=== PATIENT | male | born 1945 | race Caucasian/White ===

== ENCOUNTER 2017-02-20 13:34 | Emergency (ER) | payer OTHER ==
[~2017-02-20] VITALS: Ht 188 cm; Wt 127.9 kg
[~2017-02-20 13:34] MED LIST: ALLO300T PO; ASPI-630 PO; CIPR500T94 PO; CLON0.1T PO; DIGO125T16 PO; DILT120C80 PO; FLUT100D IH; FLUT16SP2 NS; FOLI1TAB16 PO; FURO40TA4 PO; GABA-586 PO; IBUP-1060 PO; LORA1TAB PO; LOSA25TA4 PO; METO25TA4 PO; POTA10TA31 PO; PRED20TA PO; RISP0.5T3 PO; SILV20CR14 TP; SILV25CR7 TP; VENTOLIN HFA18 GM IH; VENTOLIN HFA18 GM INH; WARF2TAB7 PO; [UNRECOGNIZED DRUG - CODE] MC
[2017-02-20 13:47] VITALS: BP 145/74
[2017-02-20] MEDS ORDERED: ceFAZolin IM 1 GM VIAL IM ONE (14:00)
[2017-02-20] MEDS ORDERED: CEPH-264 PO (14:30)
--- NOTE | 2017-02-20 14:30 | PHYS DOC ---
Past Medical History Past Medical History: A-Fib, COPD, Diabetes-Type I, Hypertension, Other Additional Past Medical Histor: psychosis Past Surgical History: Other Additional Past Surgical Histo: hernia, drained left hip, L foot surgery Alcohol Use: Rarely Drug Use: None Adult General Chief Complaint Chief Complaint: LOWER EXTREMITY SWELLING [facility] HPI Patient is a 71 year old male presenting to the emergency department for evaluation of bilateral leg wounds that are chronic in nature. He has obvious Edema and chronic stasis wounds. Patient denies any fevers chills nausea vomiting or other systemic symptoms. He says that he is on antibiotics all the time and he has followed with wound care in the past but he is not currently. His wounds are weeping laterally. Patient admits that his legs looked the same as they usually do. The nurse who is taking care of patient says that his legs look like there baseline as well. Review of Systems Review of Systems Constitutional: Denies fever or chills [] Cardiovascular: No additional information not addressed in HPI [] GI: Denies abdominal pain, nausea, vomiting, bloody stools or diarrhea [] Musculoskeletal: Denies back pain or joint pain [] Integument: Positive redness and swelling Neurologic: Denies headache, focal weakness or sensory changes [] Current Medications Current Medications Current Medications Medications (Trade) Dose Ordered Sig/Rachel Start Time Stop Time Status Last Admin Dose Admin Cefazolin Sodium (Ancef Im) 1 gm 1X ONCE 02/20/17 14:00 02/20/17 14:01 DC 02/20/17 14:11 1 GM Allergies Allergies Allergies Coded Allergies Type Severity Reaction Last Updated Verified No Known Drug Allergies 12/27/13 No Physical Exam Physical Exam Constitutional: Well developed, well nourished, no acute distress, non-toxic appearance. [] Cardiovascular:Heart rate regular rhythm, no murmur [] Lungs & Thorax: Bilateral breath sounds clear to auscultation [] Abdomen: Bowel sounds normal, soft, no tenderness, no masses, no pulsatile masses. [] Skin: Warm, dry, no erythema, no rash. [] Back: No tenderness, no CVA tenderness. [] Extremities: His legs are swollen bilaterally approximately 3-4+ edema. On the lateral lower leg bilaterally has some weeping but there was no purulent discharge. There is no warmth rather it is diffusely red and it is not painful to palpation. He has 2+ dorsalis pedis pulse bilaterally. Neurologic: Alert and oriented X 3, normal motor function, normal sensory function, no focal deficits noted. [] Current Patient Data Vital Signs Vital Signs Date Time Temp Pulse Resp B/P (MAP) Pulse Ox O2 Delivery O2 Flow Rate FiO2 02/20/17 13:47 98.2 69 17 145/74 (97) 96 Room Air 98.2 EKG EKG [] Radiology/Procedures Radiology/Procedures [] Course & Med Decision Making Course & Med Decision Making Patient has bilateral lower extremity swelling and chronic wounds. Febrile and he says his legs do not look any different than usual. I see no reason for inpatient admission given he is afebrile and he is basically at his baseline. I did not get a phone call from the facility or the doctor about specific care they were hoping for. At this point I think he may benefit from a short course of by mouth antibiotics and recommended wound care as an outpatient and to come back with worsening pain fevers vomiting or other general concerns. Patient was quite pleased that I'm going to send him home as he did not want to stay in the hospital and he says overall he feels at his baseline. Patient aware and agreeable with plan for discharge and verbalized understanding of the need for short-term follow-up in the strict ER return precautions discussed as above. Dragon Disclaimer Dragon Disclaimer This electronic medical record was generated, in whole or in part, using a voice recognition dictation system. Departure Departure Impression: Primary Impression: Peripheral edema Additional Impression: Cellulitis of leg Disposition: 01 HOME, SELF-CARE Condition: GOOD Referrals: GAYR HINTON MD (PCP) Patient Instructions: Cellulitis Additional Instructions: GET A WOUND RECHECK IN 2 DAYS. COME BACK TO THE ED WITH ANY NEW OR WORSENING SYMPTOMS. THANK YOU! Scripts Cephalexin (KEFLEX) 500 Mg Capsule 1 CAP PO BID, #10 CAP Prov: EVARISTO JOHNSON DO 02/20/17 Problem Qualifiers EVARISTO JOHNSON DO Feb 20, 2017 14:30
== END 2017-02-20 14:46 | disposition home or self-care (01) ==
LOC: ER 13:34
DX: L03.116 Cellulitis of left lower limb (principal); L03.115 Cellulitis of right lower limb; I48.91 Unspecified atrial fibrillation; J44.9 Chronic obstructive pulmonary disease, unspecified; E10.9 Type 1 diabetes mellitus without complications; I10 Essential (primary) hypertension; Z90.89 Acquired absence of other organs
CPT/HCPCS: 96372; 99284; J0690

== ENCOUNTER → 2018-04-21 | Outpatient (CLI) | payer OTHER ==
[~2018-04-21] MED LIST changes: +CEPH-264 PO; -DIGO125T16 PO; +DIGO125T79 PO; -LOSA25TA4 PO; +LOSA25TA5 PO; -WARF2TAB7 PO; +WARF2TAB96 PO
== END | disposition home or self-care (01) ==
LOC: PMGWOUND 08:31
PROVIDERS: ATTEND Emergency Medicine Undersea and Hyperbaric Medicine
DX: E11.622 Type 2 diabetes mellitus with other skin ulcer (principal); I87.313 Chronic venous hypertension (idiopathic) with ulcer of bilateral lower extremity; L97.211 Non-pressure chronic ulcer of right calf limited to breakdown of skin; L97.221 Non-pressure chronic ulcer of left calf limited to breakdown of skin; I70.203 Unspecified atherosclerosis of native arteries of extremities, bilateral legs; I89.0 Lymphedema, not elsewhere classified; E11.51 Type 2 diabetes mellitus with diabetic peripheral angiopathy without gangrene; E11.39 Type 2 diabetes mellitus with other diabetic ophthalmic complication; H40.9 Unspecified glaucoma; E11.42 Type 2 diabetes mellitus with diabetic polyneuropathy; I11.0 Hypertensive heart disease with heart failure; I50.33 Acute on chronic diastolic (congestive) heart failure; I48.2 Chronic atrial fibrillation; G89.29 Other chronic pain; M54.9 Dorsalgia, unspecified; F20.9 Schizophrenia, unspecified; M19.90 Unspecified osteoarthritis, unspecified site; G47.33 Obstructive sleep apnea (adult) (pediatric); M10.9 Gout, unspecified; E78.5 Hyperlipidemia, unspecified; I25.10 Atherosclerotic heart disease of native coronary artery without angina pectoris; E66.01 Morbid (severe) obesity due to excess calories; Z68.36 Body mass index [BMI] 36.0-36.9, adult; Z87.891 Personal history of nicotine dependence; Z79.4 Long term (current) use of insulin; Z90.89 Acquired absence of other organs; Z86.73 Personal history of transient ischemic attack (TIA), and cerebral infarction without residual deficits
CPT/HCPCS: 99214; G0463

== ENCOUNTER → 2018-04-28 | Outpatient (CLI) | payer OTHER ==
--- NOTE | 2018-04-28 14:54 | RAD ---
Bilateral lower extremity arterial ultrasound with LAURA measurements, 04/28/2018: HISTORY: Nonhealing wounds Duplex evaluation of the major arteries in both lower extremities was performed including grayscale, color-flow and spectral Doppler analysis. There are mild scattered atherosclerotic plaques bilaterally. On the right, the common femoral, superficial femoral and popliteal Doppler waveforms are all monophasic. No significant focal velocity acceleration is seen in these vessels to suggest high-grade focal stenosis. Patent right anterior tibial and posterior tibial arteries are present also demonstrating monophasic Doppler waveforms. A patent peroneal artery could not be visualized. The right dorsalis uterus artery is patent with a dampened monophasic Doppler waveform. The peak systolic velocity in that vessel is 32 cm/s. On the left, the common femoral, superficial femoral and popliteal arteries all demonstrate monophasic Doppler waveforms. No significant focal velocity acceleration is seen to suggest high-grade stenosis. Patent posterior tibial and anterior tibial arteries are present in the left lower leg demonstrating monophasic Doppler waveforms. A patent left peroneal artery could not be visualized. The left dorsalis pedis artery demonstrates a monophasic Doppler waveform, of better amplitude and demonstrating a better systolic upstroke then on the right. The peak systolic velocity in the left dorsalis pedis artery is 104 cm/s. LAURA measurements were attempted. We were unable to compress the ankle arteries with high pressures. This is typically due to vascular calcification. Accurate LAURA measurements cannot be obtained in this situation. IMPRESSION: 1. Monophasic Doppler waveforms throughout both lower extremities raising the possibility of aortoiliac inflow disease. 2. Mild to moderate scattered atherosclerotic plaquing with no duplex evidence of high-grade femoral-popliteal stenosis on either side. 3. Nonvisualization of the peroneal arteries in both lower legs. 4. Moderate degradation of the right dorsalis pedis blood flow compared to the left. Electronically signed by: Mark Mendez MD (04/28/2018 2:51 PM) [facility]
== END | disposition home or self-care (01) ==
LOC: US 11:02
PROVIDERS: ATTEND Emergency Medicine Undersea and Hyperbaric Medicine
DX: S81.802A Unspecified open wound, left lower leg, initial encounter (principal); S81.801A Unspecified open wound, right lower leg, initial encounter; I70.8 Atherosclerosis of other arteries; X58.XXXA Exposure to other specified factors, initial encounter; Y93.89 Activity, other specified; Y92.89 Other specified places as the place of occurrence of the external cause; Y99.8 Other external cause status
CPT/HCPCS: 93922; 93925

== ENCOUNTER → 2018-04-28 | Outpatient (CLI) | payer OTHER | END | disposition home or self-care (01) | LOC: PMGWOUND 10:21 | PROVIDERS: ATTEND Emergency Medicine Undersea and Hyperbaric Medicine | DX: E11.622 Type 2 diabetes mellitus with other skin ulcer (principal); I87.313 Chronic venous hypertension (idiopathic) with ulcer of bilateral lower extremity; L97.211 Non-pressure chronic ulcer of right calf limited to breakdown of skin; L97.221 Non-pressure chronic ulcer of left calf limited to breakdown of skin; I70.203 Unspecified atherosclerosis of native arteries of extremities, bilateral legs; E11.42 Type 2 diabetes mellitus with diabetic polyneuropathy; E11.51 Type 2 diabetes mellitus with diabetic peripheral angiopathy without gangrene; E11.319 Type 2 diabetes mellitus with unspecified diabetic retinopathy without macular edema; E11.39 Type 2 diabetes mellitus with other diabetic ophthalmic complication; H40.9 Unspecified glaucoma; I89.0 Lymphedema, not elsewhere classified; E78.5 Hyperlipidemia, unspecified; M10.9 Gout, unspecified; F20.9 Schizophrenia, unspecified; I48.2 Chronic atrial fibrillation; I25.10 Atherosclerotic heart disease of native coronary artery without angina pectoris; E66.01 Morbid (severe) obesity due to excess calories; Z68.36 Body mass index [BMI] 36.0-36.9, adult; Z79.4 Long term (current) use of insulin; Z87.891 Personal history of nicotine dependence; Z86.73 Personal history of transient ischemic attack (TIA), and cerebral infarction without residual deficits | CPT/HCPCS: 99214; G0463 ==

== ENCOUNTER → 2018-05-09 | Outpatient (CLI) | payer OTHER | END | disposition home or self-care (01) | LOC: PMGWOUND 10:05 | PROVIDERS: ATTEND Preventive Medicine Undersea and Hyperbaric Medicine | DX: E11.622 Type 2 diabetes mellitus with other skin ulcer (principal); I87.313 Chronic venous hypertension (idiopathic) with ulcer of bilateral lower extremity; L97.211 Non-pressure chronic ulcer of right calf limited to breakdown of skin; L97.221 Non-pressure chronic ulcer of left calf limited to breakdown of skin; I70.203 Unspecified atherosclerosis of native arteries of extremities, bilateral legs; E11.42 Type 2 diabetes mellitus with diabetic polyneuropathy; E11.319 Type 2 diabetes mellitus with unspecified diabetic retinopathy without macular edema; E11.39 Type 2 diabetes mellitus with other diabetic ophthalmic complication; H40.9 Unspecified glaucoma; G89.29 Other chronic pain; I11.0 Hypertensive heart disease with heart failure; I50.33 Acute on chronic diastolic (congestive) heart failure; F20.9 Schizophrenia, unspecified; M10.9 Gout, unspecified; I48.91 Unspecified atrial fibrillation; G47.33 Obstructive sleep apnea (adult) (pediatric); M19.90 Unspecified osteoarthritis, unspecified site; I48.2 Chronic atrial fibrillation; I25.10 Atherosclerotic heart disease of native coronary artery without angina pectoris; E66.01 Morbid (severe) obesity due to excess calories; Z68.36 Body mass index [BMI] 36.0-36.9, adult; Z79.4 Long term (current) use of insulin; Z87.891 Personal history of nicotine dependence; Z86.73 Personal history of transient ischemic attack (TIA), and cerebral infarction without residual deficits | CPT/HCPCS: 99215 ==

== ENCOUNTER → 2018-05-16 | Outpatient (CLI) | payer OTHER | END | disposition home or self-care (01) | LOC: PMGWOUND 10:43 | PROVIDERS: ATTEND Preventive Medicine Undersea and Hyperbaric Medicine | DX: E11.622 Type 2 diabetes mellitus with other skin ulcer (principal); I87.313 Chronic venous hypertension (idiopathic) with ulcer of bilateral lower extremity; L97.211 Non-pressure chronic ulcer of right calf limited to breakdown of skin; L97.221 Non-pressure chronic ulcer of left calf limited to breakdown of skin; E11.42 Type 2 diabetes mellitus with diabetic polyneuropathy; E11.39 Type 2 diabetes mellitus with other diabetic ophthalmic complication; H40.9 Unspecified glaucoma; E11.319 Type 2 diabetes mellitus with unspecified diabetic retinopathy without macular edema; E11.51 Type 2 diabetes mellitus with diabetic peripheral angiopathy without gangrene; I89.0 Lymphedema, not elsewhere classified; I70.203 Unspecified atherosclerosis of native arteries of extremities, bilateral legs; I11.0 Hypertensive heart disease with heart failure; I50.33 Acute on chronic diastolic (congestive) heart failure; I48.2 Chronic atrial fibrillation; G89.29 Other chronic pain; G47.33 Obstructive sleep apnea (adult) (pediatric); F20.9 Schizophrenia, unspecified; M10.9 Gout, unspecified; M19.90 Unspecified osteoarthritis, unspecified site; E78.5 Hyperlipidemia, unspecified; I25.10 Atherosclerotic heart disease of native coronary artery without angina pectoris; E66.01 Morbid (severe) obesity due to excess calories; Z68.36 Body mass index [BMI] 36.0-36.9, adult; Z79.4 Long term (current) use of insulin; Z87.891 Personal history of nicotine dependence; Z86.73 Personal history of transient ischemic attack (TIA), and cerebral infarction without residual deficits | CPT/HCPCS: 99215 ==

== ENCOUNTER → 2018-05-28 | Outpatient (CLI) | payer OTHER | END | disposition home or self-care (01) | LOC: PMGWOUND 08:56 | PROVIDERS: ATTEND Preventive Medicine Undersea and Hyperbaric Medicine | DX: E11.622 Type 2 diabetes mellitus with other skin ulcer (principal); I87.313 Chronic venous hypertension (idiopathic) with ulcer of bilateral lower extremity; L97.211 Non-pressure chronic ulcer of right calf limited to breakdown of skin; L97.221 Non-pressure chronic ulcer of left calf limited to breakdown of skin; I70.203 Unspecified atherosclerosis of native arteries of extremities, bilateral legs; E11.51 Type 2 diabetes mellitus with diabetic peripheral angiopathy without gangrene; E11.42 Type 2 diabetes mellitus with diabetic polyneuropathy; E11.319 Type 2 diabetes mellitus with unspecified diabetic retinopathy without macular edema; E11.39 Type 2 diabetes mellitus with other diabetic ophthalmic complication; H40.9 Unspecified glaucoma; I89.0 Lymphedema, not elsewhere classified; G89.29 Other chronic pain; G47.33 Obstructive sleep apnea (adult) (pediatric); F20.9 Schizophrenia, unspecified; M10.9 Gout, unspecified; I48.2 Chronic atrial fibrillation; E78.5 Hyperlipidemia, unspecified; M19.90 Unspecified osteoarthritis, unspecified site; I25.10 Atherosclerotic heart disease of native coronary artery without angina pectoris; Z79.4 Long term (current) use of insulin; Z87.891 Personal history of nicotine dependence; E66.01 Morbid (severe) obesity due to excess calories; Z68.36 Body mass index [BMI] 36.0-36.9, adult; Z86.73 Personal history of transient ischemic attack (TIA), and cerebral infarction without residual deficits | CPT/HCPCS: 99215 ==

== ENCOUNTER → 2018-06-10 | Outpatient (CLI) | payer OTHER ==
[2018-06-10] VITALS (12 sets, daily range): BP systolic 126–166; BP diastolic 70–87
[~2018-06-10] VITALS: Ht 188 cm; Wt 127.0 kg
[~2018-06-10] MED LIST changes: +CONTRAST GIVEN. MC PRN; -DILT120C80 PO; +DILT120C85 PO; -GABA-586 PO; +GABA300C18 PO; +HEPARIN for ARTERIAL LINE 1,500 ML ONE; +HEPARIN for IV BOLUS 10,000 UNIT/10 ML VIAL. IART ONE; +HEPARIN for IV BOLUS 10,000 UNIT/10 ML VIAL. ONE; +IODIXANOL 320 MG/ML 100 ML VIAL. IART ONE; +IODIXANOL 320 MG/ML 100 ML VIAL. ONE; +LIDOCAINE 1% Multi-Dose 20 ML VIAL. ONE; +LIDOCAINE 1% PF 2 ML VIAL. INJ ONE; +LIDOCAINE 2% 20 ML VIAL. IJ ONE; -LOSA25TA5 PO; +LOSA25TA54 PO; +MIDAZOLAM HCL/PF 2 MG/2 ML VIAL. IV ONE; +MIDAZOLAM HCL/PF 2 MG/2 ML VIAL. ONE; +NITROGLYCERIN 200 MCG/2 ML SYRINGE FOR CATH/VASC LAB. IART ONE; +NITROGLYCERIN 200 MCG/2 ML SYRINGE FOR CATH/VASC LAB. ONE; +RIVA20TA2 PO; +VERAPAMIL 5 MG/2 ML VIAL. IART ONE; +VERAPAMIL 5 MG/2 ML VIAL. ONE; +fentaNYL PF VIAL 100 MCG/2 ML VIAL IV ONE; +fentaNYL PF VIAL 100 MCG/2 ML VIAL ONE
[2018-06-10 10:25] LABS: HEMATOCRIT 37.1 % (39.0-53.0); HEMOGLOBIN 12.7 g/dL (13.0-17.5); RED BLOOD COUNT 4.34 x10^6/uL (4.30-5.70); RED CELL DISTRIBUTION WIDTH 17.7 % (11.5-14.5); WHITE BLOOD COUNT 6.3 x10^3/uL (4.0-11.0)
[2018-06-10 10:34] LABS: CALCIUM 8.9 mg/dL (8.5-10.1); CREATININE 0.8 mg/dL (0.7-1.3); POTASSIUM 3.8 mmol/L (3.5-5.1)
[2018-06-10 10:40] LABS: PROTHROMBIN TIME PATIENT 14.7 SEC (11.7-14.0)
--- NOTE | 2018-06-10 11:25 | CARD ---
MR#: [id number] Date of Study: 06/10/2018 Ordering Physician: ROBERTO CARLOS BRIGHT, Referring Physician: ROBERTO CARLOS BRIGHT, Tech: Mahogany Campbell [facility] APPROVED REPORT EXAM: Two-dimensional and M-mode echocardiogram with Doppler and color Doppler. Other Information Quality : Fair INDICATION Peripheral Arterial Disease 2D DIMENSIONS RVDd3.2 (2.9-3.5cm)Left Atrium(2D)5.2 (1.6-4.0cm) IVSd1.4 (0.7-1.1cm)Aortic Root(2D)3.2 (2.0-3.7cm) LVDd4.9 (3.9-5.9cm)LVOT Diameter2.6 (1.8-2.4cm) PWd1.7 (0.7-1.1cm)LVDs3.8 (2.5-4.0cm) FS (%) 30.0 %SV51.2 ml LVEF(%)60.0 (>50%) Aortic Valve AoV Peak Jossue.251.7cm/sAoV VTI42.8cm AO Peak GR.25.3mmHgLVOT VTI 14.04cm AO Mean GR.17mmHgAVA (VTI)1.70cm2 AI P 1/2 [id number] Tricuspid Valve TR P. Ynilttbd921lo/sRAP [id number] TR Peak Gr.63nbKkBGCX77vhIn LEFT VENTRICLE The left ventricle is normal size. There is mild to moderate concentric left ventricular hypertrophy. The left ventricular systolic function is normal. The Ejection Fraction is 55-60%. Septal motion con sistent with conduction abnormality. RIGHT VENTRICLE The right ventricle is normal size. The right ventricular systolic function is normal. ATRIA The left atrium is moderately dilated. The right atrium size is normal. The interatrial septum is int act with no evidence for an atrial septal defect or patent foramen ovale as noted on 2-D or Doppler i maging. AORTIC VALVE The aortic valve is calcified and displays decreased opening. Doppler and Color Flow revealed mild ao rtic regurgitation. Calculated aortic valve area is 1.7 cm2 with maximum pressure gradient of 25 mmHg and mean pressure gradient of 17 mmHg. Doppler and color-flow analysis revealed mild aortic stenosis . MITRAL VALVE The mitral valve is calcified but opens well. Mitral annular calcification is mild. There is no evide nce of mitral valve prolapse. There is no mitral valve stenosis. Doppler and Color-flow revealed trac e to mild mitral regurgitation. TRICUSPID VALVE The tricuspid valve is normal in structure and function. Doppler and Color Flow revealed trace tricus pid regurgitation. There is moderate pulmonary hypertension. The PA pressure was estimated at 46 mmHg . There is no tricuspid valve stenosis. PULMONIC VALVE The pulmonic valve is not well visualized. Doppler and Color Flow revealed no pulmonic valvular regur gitation. There is no pulmonic valvular stenosis. GREAT VESSELS The aortic root is normal in size. The ascending aorta is not well seen. The IVC is dilated and colla pses <50% with inspiration. PERICARDIAL EFFUSION There is no evidence of significant pericardial effusion. Critical Notification Critical Value: No <Conclusion> The left ventricular systolic function is normal. The Ejection Fraction is 55-60%. The left atrium is moderately dilated. Mild aortic stenosis. Mild aortic regurgitation. Trace to mild mitral regurgitation. Trace tricuspid regurgitation. The PA pressure was estimated at 46 mmHg. There is no evidence of significant pericardial effusion. Signed by : Deo Delcid, Electronically Approved : 06/10/2018 11:24:00
--- NOTE | 2018-06-10 13:53 | CARD ---
MR#: [id number] Date of Study: 06/10/2018 Ordering Physician: SCOTT BRIGHT, Referring Physician: SCOTT BRIGHT, Tech: RT Nahun (R) APPROVED REPORT Patient StatusOUT-PATIENT Returned Goods Repairer: RT Nahun (R) Procedure(s) performed: Moderate Sedation: 60 minutes Abdominal aortogram with bilateral femoral run-off. HISTORY The patient is a 72 year-old male with a history of : hypertension, dyslipidemia. INDICATION FOR PROCEDURE The indication(s) include : Bilateral claudication, Bilateral lower extremity wounds. . PROCEDURE NARRATIVE After appropriate informed consent, the patient was brought to the rn cardiac cath and placed in the supine position. Preprocedural timeout was completed and confirmed the right patient and procedure. The bila teral groins were prepped and draped in usual sterile fashion. Moderate sedation acheived with Fentan yl and Versed. The patient received 2000 units of Heparin for anticoagulation. Access: Under lidocaine local anesthesia, a 6F introducer sheath was placed in the L radial artery vi a the seldinger technique with a glidewire. Diagnostic angiography was then performed using a 5Fr Pig tail catheter with digital subtraction angiography. FINDINGS: AO: 154/86 AORTA: No significant disease. RENAL arteries: Single right and left renal arteries were identified without significant disease. RCIA: No significant disease. REIA: No significant disease. RIIA: No significant disease. RCFA: No significant disease. RSFA: No significant disease. RPOP: No significant disease. *Below knee vessels not well visualized. LCIA: No significant disease. MICHELLE: No significant disease. LIIA: No significant disease. LCFA: No significant disease. LSFA: No significant disease. LPOP: No significant disease. *Below knee vessels not well visualized. This case was complex as the patient had been on anticoagulation and due to morbid obesity, a left ra dial approach was performed. This limited the ability to visualize the distal (below knee vessels) ad equately. Grossly, no large vessel occlusive disaese noted. At case completion, the left sided sheath was removed and a radial band was applied. Conclusion 1. No significant lower extremity large vessel disease. 2. Moderate diffuse below knee disease. Recommendations Aggressive Medical Therapy Signed by : Scott Bright, Electronically Approved : 06/10/2018 13:52:15
== END | disposition home or self-care (01) ==
LOC: CCL 09:43
PROVIDERS: ATTEND Internal Medicine Cardiovascular Disease
DX: I73.9 Peripheral vascular disease, unspecified (principal); I08.3 Combined rheumatic disorders of mitral, aortic and tricuspid valves; J44.9 Chronic obstructive pulmonary disease, unspecified; I10 Essential (primary) hypertension; E78.5 Hyperlipidemia, unspecified; M10.9 Gout, unspecified; I48.2 Chronic atrial fibrillation; J30.9 Allergic rhinitis, unspecified; G60.3 Idiopathic progressive neuropathy; F25.9 Schizoaffective disorder, unspecified; M62.81 Muscle weakness (generalized); I25.10 Atherosclerotic heart disease of native coronary artery without angina pectoris; I87.2 Venous insufficiency (chronic) (peripheral); R27.9 Unspecified lack of coordination; R05 Cough; R41.841 Cognitive communication deficit; L03.116 Cellulitis of left lower limb; H10.13 Acute atopic conjunctivitis, bilateral; I89.0 Lymphedema, not elsewhere classified; Z79.899 Other long term (current) drug therapy; Z91.048 Other nonmedicinal substance allergy status; Z88.8 Allergy status to other drugs, medicaments and biological substances
CPT/HCPCS: 36415; 75630; 80048; 85027; 85610; 93306; C1769; C1892; J1644; J2250; J3010; J3490; Q9967; 99152; 99153

== ENCOUNTER → 2018-06-11 | Outpatient (CLI) | payer OTHER ==
[2018-06-10 14:31] VITALS: BP 134/71
[~2018-06-11] MED LIST changes: -CONTRAST GIVEN. MC PRN; -HEPARIN for ARTERIAL LINE 1,500 ML ONE; -HEPARIN for IV BOLUS 10,000 UNIT/10 ML VIAL. IART ONE; -HEPARIN for IV BOLUS 10,000 UNIT/10 ML VIAL. ONE; -IODIXANOL 320 MG/ML 100 ML VIAL. IART ONE; -IODIXANOL 320 MG/ML 100 ML VIAL. ONE; -LIDOCAINE 1% Multi-Dose 20 ML VIAL. ONE; -LIDOCAINE 1% PF 2 ML VIAL. INJ ONE; -LIDOCAINE 2% 20 ML VIAL. IJ ONE; -MIDAZOLAM HCL/PF 2 MG/2 ML VIAL. IV ONE; -MIDAZOLAM HCL/PF 2 MG/2 ML VIAL. ONE; -NITROGLYCERIN 200 MCG/2 ML SYRINGE FOR CATH/VASC LAB. IART ONE; -NITROGLYCERIN 200 MCG/2 ML SYRINGE FOR CATH/VASC LAB. ONE; -VERAPAMIL 5 MG/2 ML VIAL. IART ONE; -VERAPAMIL 5 MG/2 ML VIAL. ONE; -fentaNYL PF VIAL 100 MCG/2 ML VIAL IV ONE; -fentaNYL PF VIAL 100 MCG/2 ML VIAL ONE
== END | disposition home or self-care (01) ==
LOC: PMGWOUND 09:15
PROVIDERS: ATTEND Preventive Medicine Undersea and Hyperbaric Medicine
DX: E11.622 Type 2 diabetes mellitus with other skin ulcer (principal); I87.313 Chronic venous hypertension (idiopathic) with ulcer of bilateral lower extremity; L97.221 Non-pressure chronic ulcer of left calf limited to breakdown of skin; L97.811 Non-pressure chronic ulcer of other part of right lower leg limited to breakdown of skin; E11.621 Type 2 diabetes mellitus with foot ulcer; L89.893 Pressure ulcer of other site, stage 3; L97.511 Non-pressure chronic ulcer of other part of right foot limited to breakdown of skin; I70.203 Unspecified atherosclerosis of native arteries of extremities, bilateral legs; E11.42 Type 2 diabetes mellitus with diabetic polyneuropathy; E11.51 Type 2 diabetes mellitus with diabetic peripheral angiopathy without gangrene; E11.39 Type 2 diabetes mellitus with other diabetic ophthalmic complication; E11.319 Type 2 diabetes mellitus with unspecified diabetic retinopathy without macular edema; H40.9 Unspecified glaucoma; I11.0 Hypertensive heart disease with heart failure; I50.33 Acute on chronic diastolic (congestive) heart failure; I89.0 Lymphedema, not elsewhere classified; G89.29 Other chronic pain; M10.9 Gout, unspecified; I48.91 Unspecified atrial fibrillation; F20.9 Schizophrenia, unspecified; I48.2 Chronic atrial fibrillation; J44.9 Chronic obstructive pulmonary disease, unspecified; E78.5 Hyperlipidemia, unspecified; E66.01 Morbid (severe) obesity due to excess calories; G47.33 Obstructive sleep apnea (adult) (pediatric); M19.90 Unspecified osteoarthritis, unspecified site; I25.10 Atherosclerotic heart disease of native coronary artery without angina pectoris; Z68.36 Body mass index [BMI] 36.0-36.9, adult; Z79.4 Long term (current) use of insulin; Z87.891 Personal history of nicotine dependence; Z86.73 Personal history of transient ischemic attack (TIA), and cerebral infarction without residual deficits
CPT/HCPCS: 99214; G0463

== ENCOUNTER → 2018-06-18 | Outpatient (CLI) | payer OTHER ==
[2018-06-10 14:31] VITALS: BP 134/71
== END | disposition home or self-care (01) ==
LOC: PMGWOUND 09:48
PROVIDERS: ATTEND Preventive Medicine Undersea and Hyperbaric Medicine
DX: E11.622 Type 2 diabetes mellitus with other skin ulcer (principal); I87.313 Chronic venous hypertension (idiopathic) with ulcer of bilateral lower extremity; L97.211 Non-pressure chronic ulcer of right calf limited to breakdown of skin; L97.221 Non-pressure chronic ulcer of left calf limited to breakdown of skin; E11.621 Type 2 diabetes mellitus with foot ulcer; L89.893 Pressure ulcer of other site, stage 3; L97.511 Non-pressure chronic ulcer of other part of right foot limited to breakdown of skin; I70.203 Unspecified atherosclerosis of native arteries of extremities, bilateral legs; E11.42 Type 2 diabetes mellitus with diabetic polyneuropathy; E11.51 Type 2 diabetes mellitus with diabetic peripheral angiopathy without gangrene; E11.319 Type 2 diabetes mellitus with unspecified diabetic retinopathy without macular edema; E11.39 Type 2 diabetes mellitus with other diabetic ophthalmic complication; H40.9 Unspecified glaucoma; I11.0 Hypertensive heart disease with heart failure; I50.33 Acute on chronic diastolic (congestive) heart failure; I89.0 Lymphedema, not elsewhere classified; F20.9 Schizophrenia, unspecified; M10.9 Gout, unspecified; I48.91 Unspecified atrial fibrillation; I48.2 Chronic atrial fibrillation; G47.33 Obstructive sleep apnea (adult) (pediatric); G89.29 Other chronic pain; M19.90 Unspecified osteoarthritis, unspecified site; I25.10 Atherosclerotic heart disease of native coronary artery without angina pectoris; Z87.891 Personal history of nicotine dependence; Z79.4 Long term (current) use of insulin; E66.01 Morbid (severe) obesity due to excess calories; Z68.36 Body mass index [BMI] 36.0-36.9, adult; Z86.73 Personal history of transient ischemic attack (TIA), and cerebral infarction without residual deficits
CPT/HCPCS: 97597

== ENCOUNTER → 2018-06-25 | Outpatient (CLI) | payer OTHER ==
[2018-06-10 14:31] VITALS: BP 134/71
== END | disposition home or self-care (01) ==
LOC: PMGWOUND 09:39
PROVIDERS: ATTEND Preventive Medicine Undersea and Hyperbaric Medicine
DX: E11.622 Type 2 diabetes mellitus with other skin ulcer (principal); I87.311 Chronic venous hypertension (idiopathic) with ulcer of right lower extremity; L97.211 Non-pressure chronic ulcer of right calf limited to breakdown of skin; E11.621 Type 2 diabetes mellitus with foot ulcer; L89.893 Pressure ulcer of other site, stage 3; L97.511 Non-pressure chronic ulcer of other part of right foot limited to breakdown of skin; I70.201 Unspecified atherosclerosis of native arteries of extremities, right leg; E11.42 Type 2 diabetes mellitus with diabetic polyneuropathy; E11.51 Type 2 diabetes mellitus with diabetic peripheral angiopathy without gangrene; E11.319 Type 2 diabetes mellitus with unspecified diabetic retinopathy without macular edema; E11.39 Type 2 diabetes mellitus with other diabetic ophthalmic complication; H40.9 Unspecified glaucoma; I11.0 Hypertensive heart disease with heart failure; I50.33 Acute on chronic diastolic (congestive) heart failure; I87.2 Venous insufficiency (chronic) (peripheral); I89.0 Lymphedema, not elsewhere classified; F20.9 Schizophrenia, unspecified; M10.9 Gout, unspecified; I48.91 Unspecified atrial fibrillation; I48.2 Chronic atrial fibrillation; G89.29 Other chronic pain; E78.5 Hyperlipidemia, unspecified; G47.33 Obstructive sleep apnea (adult) (pediatric); M19.90 Unspecified osteoarthritis, unspecified site; I25.10 Atherosclerotic heart disease of native coronary artery without angina pectoris; E66.01 Morbid (severe) obesity due to excess calories; Z68.36 Body mass index [BMI] 36.0-36.9, adult; Z79.4 Long term (current) use of insulin; Z87.891 Personal history of nicotine dependence; Z86.73 Personal history of transient ischemic attack (TIA), and cerebral infarction without residual deficits
CPT/HCPCS: 97597

== ENCOUNTER → 2018-07-02 | Outpatient (CLI) | payer OTHER ==
[2018-06-10 14:31] VITALS: BP 134/71
== END | disposition home or self-care (01) ==
LOC: PMGWOUND 09:18
PROVIDERS: ATTEND Preventive Medicine Undersea and Hyperbaric Medicine
DX: E11.622 Type 2 diabetes mellitus with other skin ulcer (principal); I87.311 Chronic venous hypertension (idiopathic) with ulcer of right lower extremity; L97.811 Non-pressure chronic ulcer of other part of right lower leg limited to breakdown of skin; E11.621 Type 2 diabetes mellitus with foot ulcer; L89.893 Pressure ulcer of other site, stage 3; L97.512 Non-pressure chronic ulcer of other part of right foot with fat layer exposed; I70.201 Unspecified atherosclerosis of native arteries of extremities, right leg; E11.42 Type 2 diabetes mellitus with diabetic polyneuropathy; E11.51 Type 2 diabetes mellitus with diabetic peripheral angiopathy without gangrene; E11.319 Type 2 diabetes mellitus with unspecified diabetic retinopathy without macular edema; E11.39 Type 2 diabetes mellitus with other diabetic ophthalmic complication; H40.9 Unspecified glaucoma; I11.0 Hypertensive heart disease with heart failure; I50.33 Acute on chronic diastolic (congestive) heart failure; I89.0 Lymphedema, not elsewhere classified; G89.29 Other chronic pain; F20.9 Schizophrenia, unspecified; M10.9 Gout, unspecified; E78.5 Hyperlipidemia, unspecified; I48.2 Chronic atrial fibrillation; G47.33 Obstructive sleep apnea (adult) (pediatric); M19.90 Unspecified osteoarthritis, unspecified site; I25.10 Atherosclerotic heart disease of native coronary artery without angina pectoris; E66.01 Morbid (severe) obesity due to excess calories; Z68.36 Body mass index [BMI] 36.0-36.9, adult; Z87.891 Personal history of nicotine dependence; Z86.73 Personal history of transient ischemic attack (TIA), and cerebral infarction without residual deficits
CPT/HCPCS: 11042

== ENCOUNTER → 2018-07-09 | Outpatient (CLI) | payer OTHER ==
[2018-06-10 14:31] VITALS: BP 134/71
== END | disposition home or self-care (01) ==
LOC: PMGWOUND 09:04
PROVIDERS: ATTEND Preventive Medicine Undersea and Hyperbaric Medicine
DX: E11.622 Type 2 diabetes mellitus with other skin ulcer (principal); I87.313 Chronic venous hypertension (idiopathic) with ulcer of bilateral lower extremity; L97.211 Non-pressure chronic ulcer of right calf limited to breakdown of skin; L97.511 Non-pressure chronic ulcer of other part of right foot limited to breakdown of skin; L97.221 Non-pressure chronic ulcer of left calf limited to breakdown of skin; L89.893 Pressure ulcer of other site, stage 3; I70.203 Unspecified atherosclerosis of native arteries of extremities, bilateral legs; E11.42 Type 2 diabetes mellitus with diabetic polyneuropathy; E11.51 Type 2 diabetes mellitus with diabetic peripheral angiopathy without gangrene; E11.39 Type 2 diabetes mellitus with other diabetic ophthalmic complication; H40.9 Unspecified glaucoma; E11.319 Type 2 diabetes mellitus with unspecified diabetic retinopathy without macular edema; I89.0 Lymphedema, not elsewhere classified; I11.0 Hypertensive heart disease with heart failure; I50.33 Acute on chronic diastolic (congestive) heart failure; F20.9 Schizophrenia, unspecified; M10.9 Gout, unspecified; J44.9 Chronic obstructive pulmonary disease, unspecified; I48.2 Chronic atrial fibrillation; E78.5 Hyperlipidemia, unspecified; E66.01 Morbid (severe) obesity due to excess calories; G47.33 Obstructive sleep apnea (adult) (pediatric); G89.29 Other chronic pain; I25.10 Atherosclerotic heart disease of native coronary artery without angina pectoris; M19.90 Unspecified osteoarthritis, unspecified site; Z68.36 Body mass index [BMI] 36.0-36.9, adult; Z79.4 Long term (current) use of insulin; Z87.891 Personal history of nicotine dependence; Z86.73 Personal history of transient ischemic attack (TIA), and cerebral infarction without residual deficits
CPT/HCPCS: 97597

== ENCOUNTER → 2018-07-16 | Outpatient (CLI) | payer OTHER ==
[2018-06-10 14:31] VITALS: BP 134/71
== END | disposition home or self-care (01) ==
LOC: PMGWOUND 09:06
PROVIDERS: ATTEND Preventive Medicine Undersea and Hyperbaric Medicine
DX: E11.622 Type 2 diabetes mellitus with other skin ulcer (principal); L89.893 Pressure ulcer of other site, stage 3; I87.313 Chronic venous hypertension (idiopathic) with ulcer of bilateral lower extremity; L97.211 Non-pressure chronic ulcer of right calf limited to breakdown of skin; L97.221 Non-pressure chronic ulcer of left calf limited to breakdown of skin; I70.203 Unspecified atherosclerosis of native arteries of extremities, bilateral legs; E11.42 Type 2 diabetes mellitus with diabetic polyneuropathy; E11.51 Type 2 diabetes mellitus with diabetic peripheral angiopathy without gangrene; E11.319 Type 2 diabetes mellitus with unspecified diabetic retinopathy without macular edema; E11.39 Type 2 diabetes mellitus with other diabetic ophthalmic complication; H40.9 Unspecified glaucoma; I11.0 Hypertensive heart disease with heart failure; I50.33 Acute on chronic diastolic (congestive) heart failure; G89.29 Other chronic pain; M19.90 Unspecified osteoarthritis, unspecified site; G47.33 Obstructive sleep apnea (adult) (pediatric); I89.0 Lymphedema, not elsewhere classified; F20.9 Schizophrenia, unspecified; M10.9 Gout, unspecified; I48.91 Unspecified atrial fibrillation; I25.10 Atherosclerotic heart disease of native coronary artery without angina pectoris; E66.9 Obesity, unspecified; Z68.36 Body mass index [BMI] 36.0-36.9, adult; Z87.891 Personal history of nicotine dependence; Z86.73 Personal history of transient ischemic attack (TIA), and cerebral infarction without residual deficits
CPT/HCPCS: 99214; G0463

== ENCOUNTER 2018-08-06 06:32 | Inpatient (IN) | payer OTHER ==
[~2018-08-06] VITALS: Ht 188 cm; Wt 130.3 kg
[2018-08-06] VITALS (14 sets, daily range): BP systolic 117–162; BP diastolic 57–74
[2018-08-06] MEDS ORDERED: KETOROLAC 15 MG/ML VIAL. IV ONE (06:45)
[2018-08-06 06:59] LABS: BILIRUBIN,URINE SMALL (NEG); CLARITY,URINE CLEAR; COLOR,URINE AMBER; NITRITE,URINE NEGATIVE (NEG); PROTEIN,URINE 100 mg/dL (NEG-TRACE)
[2018-08-06] MEDS ORDERED: PIPERACILLIN/TAZOBACTAM 3.375 GM in IV NORMAL SALINE 50ML 50 ML IV ONE (07:15)
[2018-08-06] MEDS ORDERED: PIP/TAZO PER PHARMACY MC PRN (07:15)
--- NOTE | 2018-08-06 07:21 | PHYS DOC ---
Past Medical History Past Medical History: A-Fib, COPD, Diabetes-Type I, Hypertension, Other Additional Past Medical Histor: psychosis Past Surgical History: Other Additional Past Surgical Histo: hernia, drained left hip, L foot surgery Alcohol Use: Rarely Drug Use: None Adult General Chief Complaint Chief Complaint: ALTERED MENTAL STATUS HPI HPI Patient is a 72 year old [facility] patient with history of type 1 diabetes, COPD who presents well-nourished status changes temperature of 102.8. Nursing staff noted the patient was unable to stand today prompting her to call 911. On exam, the patient is obtunded and nonverbal. He is unable to follow commands. He is tachycardic and normotensive. Temperature is 102.8. Respirations nonlabored lungs are clear, abdomen soft, intradermal bilateral lower extremities, with cellulitis of right foot and leg noted. History is limited based upon the clinical[] Review of Systems Review of Systems ROS limited based upon patient's current mental status Current Medications Current Medications Current Medications Medications (Trade) Dose Ordered Sig/Rachel Start Time Stop Time Status Last Admin Dose Admin Ketorolac Tromethamine (Toradol 15mg Vial) 15 mg 1X ONCE 08/06/18 06:45 08/06/18 06:46 DC 08/06/18 07:30 15 MG Piperacillin Sod/ Tazobactam Sod (Zosyn Per Pharmacy) 1 each PRN DAILY PRN 08/06/18 07:15 UNV Piperacillin Sod/ Tazobactam Sod 3.375 gm/Sodium Chloride 50 ml @ 100 mls/hr 1X ONCE 08/06/18 07:15 08/06/18 07:44 DC 08/06/18 07:23 100 MLS/HR Sodium Chloride 1,000 ml @ 1,000 mls/hr 1X ONCE 08/06/18 07:30 08/06/18 08:29 08/06/18 07:32 1,000 MLS/HR Vancomycin HCl (Vanco Per Pharmacy) 1 each PRN DAILY PRN 08/06/18 07:00 UNV Vancomycin HCl 2 gm/Sodium Chloride 500 ml @ 250 mls/hr 1X ONCE 08/06/18 08:00 08/06/18 09:59 08/06/18 07:49 250 MLS/HR Allergies Allergies Allergies Coded Allergies Type Severity Reaction Last Updated Verified No Known Drug Allergies 12/27/13 No Physical Exam Physical Exam Constitutional: Obtunded, nonverbal,. [] HENT: Normocephalic, atraumatic, bilateral external ears normal, oropharynx moist, nose normal. [] Eyes: PERRLA, EOMI, conjunctiva normal. [] Neck: Normal range of motion. [] Cardiovascular: Tachycardic, peripheral edema[] Lungs & Thorax: Respirations nonlabored, lung sounds clear[] Abdomen: Bowel sounds normal, soft, no tenderness. [] Skin:. Recent Dermabond bilateral lower extremities with cellulitis of right foot, right leg and left leg[] Extremities: Pulses intact. No deformities [] Neurologic: 100, nonverbal, does not follow commands. [] Current Patient Data Vital Signs Vital Signs Date Time Temp Pulse Resp B/P (MAP) Pulse Ox O2 Delivery O2 Flow Rate FiO2 08/06/18 06:32 102.8 105 20 159/50 (86) 94 Nasal Cannula 2.0 102.8 Lab Values Laboratory Tests Test 08/06/18 06:48 08/06/18 07:00 Urine Collection Type Unknown Urine Color Ladi Urine Clarity Clear Urine pH 6.0 Urine Specific [place]ack 1.020 Urine Protein 100 mg/dL (NEG-TRACE) Urine Glucose (UA) 250 mg/dL (NEG) Urine Ketones (Stick) Negative mg/dL (NEG) Urine Blood Moderate (NEG) Urine Nitrite Negative (NEG) Urine Bilirubin Small (NEG) Urine Urobilinogen Dipstick 1.0 mg/dL (0.2 mg/dL) Urine Leukocyte Esterase Negative (NEG) Urine RBC 20-40 /HPF (0-2) Urine WBC 0 /HPF (0-4) Urine Squamous Epithelial Cells Occ /LPF Urine Bacteria 0 /HPF (0-FEW) White Blood Count 17.3 x10^3/uL (4.0-11.0) H Red Blood Count 4.36 x10^6/uL (4.30-5.70) Hemoglobin 12.2 g/dL (13.0-17.5) L Hematocrit 37.8 % (39.0-53.0) L Mean Corpuscular Volume 87 fL (79-100) Mean Corpuscular Hemoglobin 28 pg (25-35) Mean Corpuscular Hemoglobin Concent 32 g/dL (31-37) Red Cell Distribution Width 17.5 % (11.5-14.5) H Platelet Count 156 x10^3/uL (140-400) Neutrophils (%) (Auto) 94 % (31-73) H Lymphocytes (%) (Auto) 2 % (24-48) L Monocytes (%) (Auto) 4 % (0-9) Eosinophils (%) (Auto) 0 % (0-3) Basophils (%) (Auto) 0 % (0-3) Neutrophils # (Auto) 16.3 x10^3uL (1.8-7.7) H Lymphocytes # (Auto) 0.3 x10^3/uL (1.0-4.8) L Monocytes # (Auto) 0.7 x10^3/uL (0.0-1.1) Eosinophils # (Auto) 0.0 x10^3/uL (0.0-0.7) Basophils # (Auto) 0.0 x10^3/uL (0.0-0.2) Platelet Estimate Pending Sodium Level 138 mmol/L (136-145) Potassium Level 3.7 mmol/L (3.5-5.1) Chloride Level 101 mmol/L (98-107) Carbon Dioxide Level 27 mmol/L (21-32) Anion Gap 10 (6-14) Blood Urea Nitrogen 14 mg/dL (8-26) Creatinine 1.0 mg/dL (0.7-1.3) Estimated GFR (Cockcroft-Gault) 73.5 BUN/Creatinine Ratio 14 (6-20) Glucose Level 161 mg/dL (70-99) H Lactic Acid Level 3.1 mmol/L (0.4-2.0) H Calcium Level 9.0 mg/dL (8.5-10.1) Total Bilirubin 1.3 mg/dL (0.2-1.0) H Aspartate Amino Transferase (AST) 31 U/L (15-37) Alanine Aminotransferase (ALT) 21 U/L (16-63) Alkaline Phosphatase 134 U/L (46-116) H Creatine Kinase 1111 U/L (39-308) H BL-Kmc-A-Type Natriuretic Peptide 3396 pg/mL (0-124) H Total Protein 7.3 g/dL (6.4-8.2) Albumin 2.7 g/dL (3.4-5.0) L Albumin/Globulin Ratio 0.6 (1.0-1.7) L Laboratory Tests 08/06/18 07:00 Laboratory Tests 08/06/18 07:00 EKG EKG [EKG: reviewed] Radiology/Procedures Radiology/Procedures Chest x-ray: Pulmonary vascular congestion, bilateral infiltrates[] Course & Med Decision Making Course & Med Decision Making Pertinent Labs and Imaging studies reviewed. (See chart for details) [Altered mental status, sepsis likely secondary to cellulitis with concern for pneumonia. Blood pressure, heart rate stable. Empiric antibiotics given, IV fluid bolus started in ED. Will admit to the hospitalist service.] Dragon Disclaimer Dragon Disclaimer This electronic medical record was generated, in whole or in part, using a voice recognition dictation system. Departure Departure Impression: Primary Impression: Altered mental status Additional Impressions: Cellulitis of leg, right Cellulitis of leg, left HCAP (healthcare-associated pneumonia) Sepsis Disposition: 09 ADMITTED INPATIENT Admitting Physician: Harrison Kim Condition: GUARDED Referrals: BUTCH OGLESBY (PCP) Problem Qualifiers LOPEZ NATION DO Aug 06, 2018 07:21
[2018-08-06 07:26] LABS: GFR 73.5; POTASSIUM 3.7 mmol/L (3.5-5.1)
[2018-08-06] MEDS ORDERED: IV NORMAL SALINE 1000ML BAG 1,000 ML IV ONE ×2 (07:30)
[2018-08-06 07:32] LABS: ALBUMIN 2.7 g/dL (3.4-5.0); ALBUMIN/GLOBULIN RATIO 0.6 (1.0-1.7); TOTAL BILIRUBIN 1.3 mg/dL (0.2-1.0); TOTAL PROTEIN 7.3 g/dL (6.4-8.2)
[2018-08-06 07:35] LABS: SQUAMOUS EPITHELIAL CELL,UR OCC /LPF
[2018-08-06 07:35] LABS: BASO % 0 % (0-3); EOS % 0 % (0-3); HEMATOCRIT 37.8 % (39.0-53.0); HEMOGLOBIN 12.2 g/dL (13.0-17.5); LYMPH # 0.3 x10^3/uL (1.0-4.8); LYMPH % 2 % (24-48); MEAN CORPUSCULAR HEMOGLOBIN 28 pg (25-35); MEAN CORPUSCULAR HGB CONC 32 g/dL (31-37); MEAN CORPUSCULAR VOLUME 87 fL (79-100); MONO # 0.7 x10^3/uL (0.0-1.1); MONO % 4 % (0-9); NEUT # 16.3 x10^3uL (1.8-7.7); NEUT % 94 % (31-73); PLATELET COUNT 156 x10^3/uL (140-400); RED BLOOD COUNT 4.36 x10^6/uL (4.30-5.70); RED CELL DISTRIBUTION WIDTH 17.5 % (11.5-14.5); WHITE BLOOD COUNT 17.3 x10^3/uL (4.0-11.0)
--- NOTE | 2018-08-06 07:35 | EKG ---
[facility] [address] [place] [address] Test Date: 2018-08-06 Test Time: 07:12:34 Pat Name: PIERO YEE Department: Room: Gender: M [employer] Account Executive: : 1945 Requested By: LOPEZ NATION Order Number: [id number] Reading MD: Scott So MD Measurements Intervals Saxe Rate: 103 P: -90 NV: 156 QRS: -7 QRSD: 150 T: 128 QT: 378 QTc: 497 Interpretive Statements ARTIFACT NOT INTERPRETABLE, RECOMMEND REPEAT PROBABLE LEFT BUNDLE BRANCH BLOCK WITH PVCS AND ATRIAL FIBRILLATION Electronically Signed On 08-11-2018 9:32:14 [employer] by Scott So MD
[2018-08-06 07:36] LABS: BACTERIA,URINE 0 /HPF (0-FEW); RBC,URINE 20-40 /HPF (0-2); WBC,URINE 0 /HPF (0-4)
[2018-08-06] MEDS ORDERED: VANCOMYCIN 2 GM in IV NORMAL SALINE 500ML BAG 500 ML IV ONE (08:00)
[2018-08-06 08:07] LABS: INFLUENZA A PATIENT NEGATIVE (NEGATIVE); INFLUENZA B PATIENT NEGATIVE (NEGATIVE)
--- NOTE | 2018-08-06 08:09 | RAD ---
Single view chest 08/06/2018 CLINICAL INDICATION: CHF. COMPARISON: Chest 10/31/2016 FINDINGS: Enlargement of the cardiac silhouette with pulmonary venous congestion. There are mild bibasilar predominant interstitial opacities. Patchy bibasilar airspace opacities. There are trace bilateral pleural effusions. No pneumothorax. IMPRESSION: 1. Findings of CHF or volume overload with pulmonary edema and trace bilateral pleural effusions. 2. Bibasilar airspace opacities indeterminate between focal pulmonary edema, multifocal infection, or pneumonitis with atelectasis. Electronically signed by: Dennis Montes MD (08/06/2018 8:04 AM) [facility]
[2018-08-06 08:16] LABS: % BANDS 13 % (0-9); % LYMPHS 1 % (24-48); % METAS 1 % (0-0); % MONOS 1 % (0-10); % SEGS 84 % (35-66); TOXIC VACUOLATION SLIGHT
[2018-08-06 08:22] LABS: PLT ESTIMATE ADEQUATE (ADEQUATE)
[2018-08-06] MEDS: BUDESONIDE 0.5 MG/2 ML NEBU. NEB SCH ×2 (09:00→20:19)
[2018-08-06] MEDS: METOPROLOL TART IMMED RELEASE 25 MG TABLET. PO SCH ×2 (09:00→20:20)
[2018-08-06] MEDS: NYSTATIN TOPICAL POWDER 15GM BOTTLE. TP SCH ×2 (09:00→20:20)
[2018-08-06] MEDS: LOSARTAN POTASSIUM 50 MG TABLET. PO SCH (09:00)
[2018-08-06] MEDS ORDERED: NON FORMULARY ITEM (Albuterol Sulfate (Ventolin Hfa Inhaler) 2 PUFF) INH SCH (09:00)
--- NOTE | 2018-08-06 09:03 | PDOC1 ---
History and Physical Date of Admission Date of Admission DATE: 08/06/18 TIME: 09:01 Identification/Chief Complaint Chief Complaint confusion Source Source: Chart review, Patient History of Present Illness History of Present Illness Mr. Nielsen, is a 72 year old intermediate patient admit with sudden weakness and mental status change. He appears to not have walked for some time, poor care to pannus, with yeast , but brought from facility for sudden weakness and confusion. Mr. Nielsen reports to me that he is fine, and shows me his muscles and calls himself "[place]" some oriented, 2/4, much better since appeared in ER, obtunded and not verbal. He now follows all my commands, and vital signs have improved. no falls or injury reported Past Medical History Past Medical History type 1 diabetes, COPD Cardiovascular: CAD, HTN, Hyperlipidemia, Other Pulmonary: Asthma, COPD, Other CENTRAL NERVOUS SYSTEM: CVA GI: Constipation Heme/Onc: No pertinent hx Hepatobiliary: No pertinent hx Musculoskeletal: low back pain, Osteoarthritis Rheumatologic: Gout Infectious disease: No pertinent hx Renal/: No pertinent hx Endocrine: Diabetes Past Surgical History Past Surgical History: Other Family History Family History: No Significant Social History Smoke: No ALCOHOL: none Drugs: None Current Problem List Problem List Problems Medical Problems: (1) Altered mental status Status: Acute (2) Cellulitis of leg, left Status: Acute (3) Cellulitis of leg, right Status: Acute (4) HCAP (healthcare-associated pneumonia) Status: Acute Current Medications Current Medications Current Medications Ketorolac Tromethamine (Toradol 15mg Vial) 15 mg 1X ONCE IV Last administered on 08/06/18at 07:30; Start 08/06/18 at 06:45; Stop 08/06/18 at 06:46; Status DC Vancomycin HCl (Vanco Per Pharmacy) 1 each PRN DAILY PRN MC SEE COMMENTS; Start 08/06/18 at 07:00 Piperacillin Sod/ Tazobactam Sod (Zosyn Per Pharmacy) 1 each PRN DAILY PRN MC SEE COMMENTS; Start 08/06/18 at 07:15 Piperacillin Sod/ Tazobactam Sod 3.375 gm/Sodium Chloride 50 ml @ 100 mls/hr 1X ONCE IV Last administered on 08/06/18at 07:23; Start 08/06/18 at 07:15; Stop 08/06/18 at 07:44; Status DC Vancomycin HCl 2 gm/Sodium Chloride 500 ml @ 250 mls/hr 1X ONCE IV Last administered on 08/06/18at 07:49; Start 08/06/18 at 08:00; Stop 08/06/18 at 09:59 Sodium Chloride 1,000 ml @ 1,000 mls/hr 1X ONCE IV Last administered on at 07:31; Start 08/06/18 at 07:30; Stop 08/06/18 at 08:29; Status DC Sodium Chloride 1,000 ml @ 1,000 mls/hr 1X ONCE IV Last administered on at 07:32; Start 08/06/18 at 07:30; Stop 08/06/18 at 08:29; Status DC Piperacillin Sod/ Tazobactam Sod 4.5 gm/Sodium Chloride 100 ml @ 200 mls/hr Q6HRS IV ; Start 08/06/18 at 12:00; Status Cancel Piperacillin Sod/ Tazobactam Sod 3.375 gm/Sodium Chloride 50 ml @ 100 mls/hr Q6HRS IV ; Start 08/06/18 at 12:00 Nystatin (Nystop) 1 toy BID TP ; Start 08/06/18 at 09:00 Allopurinol (Zyloprim) 300 mg DAILY PO ; Start 08/06/18 at 09:00 Digoxin (Lanoxin) 125 mcg DAILY PO ; Start 08/06/18 at 09:00 Fluticasone Propionate (Flonase) 2 spray HS NS ; Start 08/06/18 at 21:00 Folic Acid (Folic Acid) 1 mg DAILY PO ; Start 08/06/18 at 09:00 Furosemide (Lasix) 60 mg DAILY PO ; Start 08/06/18 at 09:00 Gabapentin (Neurontin) 300 mg HS PO ; Start 08/06/18 at 21:00 Lorazepam (Ativan) 1 mg HS PO ; Start 08/06/18 at 21:00 Losartan Potassium (Cozaar) 50 mg DAILY PO ; Start 08/06/18 at 09:00 Metoprolol Tartrate (Lopressor) 12.5 mg BID PO ; Start 08/06/18 at 09:00 Potassium Chloride (Klor-Con) 10 meq BIDWMEALS PO ; Start 08/06/18 at 09:00 Silver Sulfadiazine (Silvadene) 1 toy BID TP ; Start 08/06/18 at 09:00 Non-Formulary Medication (Albuterol Sulfate (Ventolin Hfa Inhaler)) 2 puff QID INH ; Start 08/06/18 at 09:00; Status UNV Diltiazem HCl (Cardizem 24hr Cd) 120 mg DAILY PO ; Start 08/06/18 at 09:00 Non-Formulary Medication (Fluticasone Propionate (Flovent 100MCG Diskus)) 1 puff HS IH ; Start 08/06/18 at 21:00; Status UNV Risperidone (RisperDAL) 0.5 mg QHS PO ; Start 08/06/18 at 21:00 Rivaroxaban (Xarelto) 20 mg DAILYWSUP PO ; Start 08/06/18 at 17:00 Albuterol Sulfate (Ventolin Neb Soln) 2.5 mg RTQID NEB ; Start 08/06/18 at 12:00 Budesonide (Pulmicort) 0.5 mg RTBID NEB ; Start 08/06/18 at 09:00 Active Scripts Active Lanoxin (Digoxin) 125 Mcg Tablet 125 Mcg PO DAILY 30 Days Reported Xarelto (Rivaroxaban) 20 Mg Tablet 20 Mg PO DAILY Lorazepam 1 Mg Tablet 1 Mg PO HS Gabapentin (Gabapentin) 300 Mg Capsule 1 Cap PO HS Flovent 100MCG Diskus (Fluticasone Propionate) 100 Mcg Disk.w.dev 1 Puff IH HS Losartan Potassium (Losartan Potassium) 25 Mg Tablet 2 Tab PO DAILY Furosemide 40 Mg Tablet 1.5 Tab PO DAILY PRN Diltiazem 24HR Cd (Diltiazem Hcl) 120 Mg Cap.er.24h 1 Cap PO DAILY PRN Gabapentin (Gabapentin) 300 Mg Capsule 1 Cap PO HS Potassium Chloride 10 Meq Tab.er.prt 1 Tab PO BID Metoprolol Tartrate 25 Mg Tablet 0.5 Tab PO BID Folic Acid 1 Mg Tablet 1 Tab PO DAILY Allopurinol 300 Mg Tablet 300 Mg PO DAILY Ventolin Hfa Inhaler (Albuterol Sulfate) 18 Gm Hfa.aer.ad 2 Puff INH QID Flonase (Fluticasone Propionate) 16 Gm [place].susp 2 [place] NS HS Silvadene (Silver Sulfadiazine) 20 Gm Cream..g. 1 Toy TP BID Ventolin Hfa Inhaler (Albuterol Sulfate) 18 Gm Hfa.aer.ad 2 Puff IH PRN Q4-6HRS Risperidone 0.5 Mg Tablet 1 Tab PO QHS Allergies Allergies: Coded Allergies: adhesive tape (Verified Allergy, Unknown, 08/06/18) benzalkonium chloride (Verified Allergy, Unknown, 08/06/18) ROS General: No: Chills, Night Sweats, Fatigue, Malaise, Appetite, Other PSYCHOLOGICAL ROS: No: Anxiety, Behavioral Disorder, Concentration difficultie , Decreased libido, Depression, Disorientation, Hallucinations, Hostility, Irritablity, Memory difficulties, Mood Swings, Obsessive thoughts, Physical abuse, Sexual abuse, Sleep disturbances, Suicidal ideation, Other Eyes: No Blurry vision, No Decreased vision, No Double vision, No Dry eyes, No Excessive tearing, No Eye Pain, No Itchy Eyes, No Loss of vision, No Photophobia , No Scotomata, No Uses contacts, No Uses glasses, No Other HEENT: No: Heacaches, Visual Changes, Hearing change, Nasal congestion, Nasal discharge, Oral lesions, Sinus pain, Sore Throat, Epistaxis, Sneezing, Snoring, Tinnitus, Vertigo, Vocal changes, Other ENDOCRINE: No: Breast Changes, Galactorrhea, Hair Pattern Changes, Hot Flashes , Malaise/lethargy, Mood Swings, Palpitations, Polydipsia/polyuria, Skin Changes , Temperature Intolerance, Unexpected Weight Changes, Other Respiratory: No: Cough, Hemoptysis, Orthopnea, Pleuritic Pain, Shortness of breath, SOB with excertion, Sputum Changes, Stridor, Tachypnea, Wheezing, Other Cardiovascular: No Chest Pain, No Palpitations, No Orthopnea, No Paroxysmal Noc. Dyspnea, No Edema, No Lt Headedness, No Other Gastrointestinal: No Nausea, No Vomiting, No Abdominal Pain, No Diarrhea, No Constipation, No Melena, No Hematochezia, No Other Genitourinary: No Dysuria, No Frequency, No Incontinence, No Hematuria, No Retention, No Discharge, No Urgency, No Pain, No Flank Pain, No Other, No , No , No , No , No , No , No Musculoskeletal: No Gait Disturbance, No Joint Pain, No Joint Stiffness, No Joint Swelling, No Muscle Pain, No Muscular Weakness, No Pain In:, No Swelling In:, No Other Neurological: No Behavorial Changes, No Bowel/Bladder ControlChng, No Confusion , No Dizziness, No Gait Disturbance, No Headaches, No Impaired Coord/balance, No Memory Loss, No Numbness/Tingling, No Seizures, No Speech Problems, No Tremors, No Visual Changes, No Weakness, No Other Skin: No Dry Skin, No Eczema, No Hair Changes, No Lumps, No Mole Changes, No Mottling, No Nail Changes, No Pruritus, No Rash, No Skin Lesion Changes, No Other, No Acne Physical Exam General: Alert, Cooperative, No acute distress HEENT: EOMI, Mucous membr. moist/pink Lungs: Clear to auscultation, Normal air movement Heart: S1S2, no gallops, no murmurs Abdomen: Soft (obese, NT), No tenderness Rectal Exam: not examined Extremities: No clubbing, No cyanosis, Normal pulses, Other (edema) Skin: No breakdown, Other (very red, hot and scaly BLE, with poor nail care and fungus) Neuro: Normal speech, Normal tone, Sensation intact Psych/Mental Status: Mental status NL, Mood NL Vitals Vitals Vital Signs Date Time Temp Pulse Resp B/P (MAP) Pulse Ox O2 Delivery O2 Flow Rate FiO2 08/06/18 06:32 102.8 105 20 159/50 (86) 94 Nasal Cannula 2.0 102.8 Labs Labs Laboratory Tests Test 08/06/18 06:48 08/06/18 07:00 08/06/18 07:36 Urine Collection Type Unknown Urine Color Ldai Urine Clarity Clear Urine pH 6.0 Urine Specific [place] 1.020 Urine Protein 100 mg/dL (NEG-TRACE) Urine Glucose (UA) 250 mg/dL (NEG) Urine Ketones (Stick) Negative mg/dL (NEG) Urine Blood Moderate (NEG) Urine Nitrite Negative (NEG) Urine Bilirubin Small (NEG) Urine Urobilinogen Dipstick 1.0 mg/dL (0.2 mg/dL) Urine Leukocyte Esterase Negative (NEG) Urine RBC 20-40 /HPF (0-2) Urine WBC 0 /HPF (0-4) Urine Squamous Epithelial Cells Occ /LPF Urine Bacteria 0 /HPF (0-FEW) White Blood Count 17.3 x10^3/uL (4.0-11.0) Red Blood Count 4.36 x10^6/uL (4.30-5.70) Hemoglobin 12.2 g/dL (13.0-17.5) Hematocrit 37.8 % (39.0-53.0) Mean Corpuscular Volume 87 fL (79-100) Mean Corpuscular Hemoglobin 28 pg (25-35) Mean Corpuscular Hemoglobin Concent 32 g/dL (31-37) Red Cell Distribution Width 17.5 % (11.5-14.5) Platelet Count 156 x10^3/uL (140-400) Neutrophils (%) (Auto) 94 % (31-73) Lymphocytes (%) (Auto) 2 % (24-48) Monocytes (%) (Auto) 4 % (0-9) Eosinophils (%) (Auto) 0 % (0-3) Basophils (%) (Auto) 0 % (0-3) Neutrophils # (Auto) 16.3 x10^3uL (1.8-7.7) Lymphocytes # (Auto) 0.3 x10^3/uL (1.0-4.8) Monocytes # (Auto) 0.7 x10^3/uL (0.0-1.1) Eosinophils # (Auto) 0.0 x10^3/uL (0.0-0.7) Basophils # (Auto) 0.0 x10^3/uL (0.0-0.2) Segmented Neutrophils % 84 % (35-66) Band Neutrophils % 13 % (0-9) Lymphocytes % 1 % (24-48) Monocytes % 1 % (0-10) Metamyelocytes % 1 % (0-0) Toxic Vacuolation Slight Dohle Bodies Present Platelet Estimate Adequate (ADEQUATE) Sodium Level 138 mmol/L (136-145) Potassium Level 3.7 mmol/L (3.5-5.1) Chloride Level 101 mmol/L (98-107) Carbon Dioxide Level 27 mmol/L (21-32) Anion Gap 10 (6-14) Blood Urea Nitrogen 14 mg/dL (8-26) Creatinine 1.0 mg/dL (0.7-1.3) Estimated GFR (Cockcroft-Gault) 73.5 BUN/Creatinine Ratio 14 (6-20) Glucose Level 161 mg/dL (70-99) Lactic Acid Level 3.1 mmol/L (0.4-2.0) Calcium Level 9.0 mg/dL (8.5-10.1) Total Bilirubin 1.3 mg/dL (0.2-1.0) Aspartate Amino Transf (AST/SGOT) 31 U/L (15-37) Alanine Aminotransferase (ALT/SGPT) 21 U/L (16-63) Alkaline Phosphatase 134 U/L (46-116) Creatine Kinase 1111 U/L (39-308) YR-Hff-N-Type Natriuretic Peptide 3396 pg/mL (0-124) Total Protein 7.3 g/dL (6.4-8.2) Albumin 2.7 g/dL (3.4-5.0) Albumin/Globulin Ratio 0.6 (1.0-1.7) Influenza Type A Antigen Negative (NEGATIVE) Influenza Type B Antigen Negative (NEGATIVE) Laboratory Tests Test 08/06/18 06:48 08/06/18 07:00 08/06/18 07:36 Urine Collection Type Unknown Urine Color Ladi Urine Clarity Clear Urine pH 6.0 Urine Specific [place] 1.020 Urine Protein 100 mg/dL (NEG-TRACE) Urine Glucose (UA) 250 mg/dL (NEG) Urine Ketones (Stick) Negative mg/dL (NEG) Urine Blood Moderate (NEG) Urine Nitrite Negative (NEG) Urine Bilirubin Small (NEG) Urine Urobilinogen Dipstick 1.0 mg/dL (0.2 mg/dL) Urine Leukocyte Esterase Negative (NEG) Urine RBC 20-40 /HPF (0-2) Urine WBC 0 /HPF (0-4) Urine Squamous Epithelial Cells Occ /LPF Urine Bacteria 0 /HPF (0-FEW) White Blood Count 17.3 x10^3/uL (4.0-11.0) Red Blood Count 4.36 x10^6/uL (4.30-5.70) Hemoglobin 12.2 g/dL (13.0-17.5) Hematocrit 37.8 % (39.0-53.0) Mean Corpuscular Volume 87 fL (79-100) Mean Corpuscular Hemoglobin 28 pg (25-35) Mean Corpuscular Hemoglobin Concent 32 g/dL (31-37) Red Cell Distribution Width 17.5 % (11.5-14.5) Platelet Count 156 x10^3/uL (140-400) Neutrophils (%) (Auto) 94 % (31-73) Lymphocytes (%) (Auto) 2 % (24-48) Monocytes (%) (Auto) 4 % (0-9) Eosinophils (%) (Auto) 0 % (0-3) Basophils (%) (Auto) 0 % (0-3) Neutrophils # (Auto) 16.3 x10^3uL (1.8-7.7) Lymphocytes # (Auto) 0.3 x10^3/uL (1.0-4.8) Monocytes # (Auto) 0.7 x10^3/uL (0.0-1.1) Eosinophils # (Auto) 0.0 x10^3/uL (0.0-0.7) Basophils # (Auto) 0.0 x10^3/uL (0.0-0.2) Segmented Neutrophils % 84 % (35-66) Band Neutrophils % 13 % (0-9) Lymphocytes % 1 % (24-48) Monocytes % 1 % (0-10) Metamyelocytes % 1 % (0-0) Toxic Vacuolation Slight Dohle Bodies Present Platelet Estimate Adequate (ADEQUATE) Sodium Level 138 mmol/L (136-145) Potassium Level 3.7 mmol/L (3.5-5.1) Chloride Level 101 mmol/L (98-107) Carbon Dioxide Level 27 mmol/L (21-32) Anion Gap 10 (6-14) Blood Urea Nitrogen 14 mg/dL (8-26) Creatinine 1.0 mg/dL (0.7-1.3) Estimated GFR (Cockcroft-Gault) 73.5 BUN/Creatinine Ratio 14 (6-20) Glucose Level 161 mg/dL (70-99) Lactic Acid Level 3.1 mmol/L (0.4-2.0) Calcium Level 9.0 mg/dL (8.5-10.1) Total Bilirubin 1.3 mg/dL (0.2-1.0) Aspartate Amino Transf (AST/SGOT) 31 U/L (15-37) Alanine Aminotransferase (ALT/SGPT) 21 U/L (16-63) Alkaline Phosphatase 134 U/L (46-116) Creatine Kinase 1111 U/L (39-308) IF-Wlb-C-Type Natriuretic Peptide 3396 pg/mL (0-124) Total Protein 7.3 g/dL (6.4-8.2) Albumin 2.7 g/dL (3.4-5.0) Albumin/Globulin Ratio 0.6 (1.0-1.7) Influenza Type A Antigen Negative (NEGATIVE) Influenza Type B Antigen Negative (NEGATIVE) VTE Prophylaxis Ordered VTE Prophylaxis Devices: Yes VTE Pharmacological Prophylaxi: No Assessment/Plan Assessment/Plan sepsis, admitted to ICU cellulitis legs, BLE pretibial fungus to pannus acute metabolic encephalopathy, possible severe sepsis, admitted to ICU obesity, BMI 38, with also severe malnutrition, Albumin 2.7 ck 1100, RHABDO, with CHF, BNP up, chronic diastolic CHF weakness and debility, cannot walk suddenly, PT and OT KARO CLARK MD Aug 06, 2018 09:03
--- NOTE | 2018-08-06 09:03 | NUR ---
SS following for discharge planning. SS reviewed pt chart. Pt is from [facility]. SS contacted [facility], ; fax [phone], to verify pt's previous placement. [place] reported that pt was a LTC resident from there facility and could return when medically stable. SS will continue to follow for discharge needs.
[2018-08-06] MEDS ORDERED: PERFLUTREN PROTEIN-A MICROSPHR 0.22 MG/ML 3 ML VIAL. IV ONE ×2 (09:32→10:00)
[2018-08-06] MEDS: VANCOMYCIN PER PHARMACY MC PRN (09:52)
--- NOTE | 2018-08-06 09:54 | NUR ---
Pharmacy Vancomycin Dosing Note S:Consulted to monitor and dose vancomycin started 08/06/18. O:PIERO YEE is a 72 year old M with Cellulitis Sepsis HCAP . Height: 6 feet, 0 inches Weight: 127.183704 kg Accord Body Weight: 77.60 Adjusted Body Weight: 97.36 Dosing Weight: Actual Other Antibiotics: ZOSYN LABS: Last BUN: 14 Last Creatinine: 1.0 Creatinine Clearance: 92 mL/min Last WBC: 17.3 Last Procalcitonin: Tmax (past 24 hours): 102.8 Microbiology: I/O: Drug Levels: Last level: on at Last dose given 08/06/18 at 0749 Vancomycin Dosing: Loading Dose: 2000 mg x1 Dosing Weight: Actual Target Trough: 15-20 A: Based on: Body weight and renal function P: 1. After loading dose, start Vancomycin 1750 mg IV q12h 2. Follow up Trough level on 08/07/18 at 1930 3. Pharmacy will continue to monitor, follow and adjust therapy as needed. DASHAWN CARO [facility], 08/06/18 [id number]
[2018-08-06] MEDS: ANTI-COAG MONITOR BY PHARMACY. MC PRN (09:56)
[2018-08-06] MEDS ORDERED: PERFLUTREN PROTEIN-A MICROSPHR 0.22 MG/ML 3 ML VIAL. IV PRN (10:00)
--- NOTE | 2018-08-06 10:56 | CARD ---
MR#: [id number] Date of Study: 08/06/2018 Ordering Physician: KARO CLARK, Referring Physician: KENNEDI PRESLEY Tech: Bernadine Sen RDCS APPROVED REPORT EXAM: LIMITED Two-dimensional echocardiogram with contrast. Other Information Quality : Technically LimitedHR: 94bpm Rhythm : NSRTechnically limited study due to body habitus. INDICATION Congestive Heart Failure Echo Enhancing Agent Indication: Endocardial border delineation Agent/Amount Used: Optison 1mL 2D DIMENSIONS RVDd3.2 (2.9-3.5cm)Left Atrium(2D)5.0 (1.6-4.0cm) IVSd1.5 (0.7-1.1cm)Aortic Root(2D)4.3 (2.0-3.7cm) LVDd5.5 (3.9-5.9cm)PWd1.6 (0.7-1.1cm) LVDs4.0 (2.5-4.0cm)FS (%) 27.0 % SV77.7 mlLVEF(%)52.1 (>50%) Aortic Valve AoV Peak Jossue.274.6cm/sAoV VTI48.5cm AO Peak GR.30.2mmHgAO Mean GR.20mmHg Mitral Valve MV E Peak Gr.7mmHgMV E Mean Gr.3mmHg Tricuspid Valve TR P. Vgcztzcv271bh/sRAP [id number] TR Peak Gr.92vqCdVNXY30voYq LEFT VENTRICLE The left ventricle is normal size. There is mild to moderate concentric left ventricular hypertrophy. Left ventricle systolic function is mildly diminished. EF 45%. Mild global hypokinesis. RIGHT VENTRICLE The right ventricle is mildly dilated. There is normal right ventricular wall thickness. The right ve ntricular systolic function is normal. ATRIA The left atrium is moderately dilated. The right atrium is moderately dilated. The interatrial septum is intact with no evidence for an atrial septal defect or patent foramen ovale as noted on 2-D or Do ppler imaging. AORTIC VALVE The aortic valve is mildly to moderately calcified. There is moderate subvalvular aortic stenosis wit h a maximum pressure gradient of 48.5 mmHg and mean pressure gradient of 20 mmHg. MITRAL VALVE Mitral annular calcification is mild. There is no evidence of mitral valve prolapse. There is no mitr al valve stenosis. Doppler and Color-flow revealed trace mitral regurgitation. TRICUSPID VALVE The tricuspid valve is not well visualized. Doppler and Color Flow revealed trace to mild tricuspid r egurgitation.There is moderate pulmonary hypertension.The PA pressure was estimated at 45 mmHg. GREAT VESSELS The aortic root is mildly to moderately enlarged. The IVC is dilated and collapses <50% with inspirat ion. PERICARDIAL EFFUSION There is no evidence of significant pericardial effusion. Critical Notification Critical Value: No <Conclusion> Left ventricle systolic function is mildly diminished. EF 45%. Mild global hypokinesis. The right ventricle is mildly dilated. There is moderate subvalvular aortic stenosis with a maximum pressure gradient of 48.5 mmHg and mean pressure gradient of 20 mmHg. Doppler and Color Flow revealed trace to mild tricuspid regurgitation.There is moderate pulmonary hyp ertension.The PA pressure was estimated at 45 mmHg. The IVC is dilated and collapses <50% with inspiration. Signed by : Scott So, Electronically Approved : 08/06/2018 10:53:49
--- NOTE | 2018-08-06 11:22 | PDOC ---
Infectious Disease Note Vital Sign Vital Signs Vital Signs Date Time Temp Pulse Resp B/P (MAP) Pulse Ox O2 Delivery O2 Flow Rate FiO2 08/06/18 09:15 90 23 143/71 (95) 100 Nasal Cannula 2.0 08/06/18 08:45 98.1 98.1 Labs Lab Laboratory Tests Test 08/06/18 06:48 08/06/18 07:00 08/06/18 07:36 Urine Collection Type Unknown Urine Color Ladi Urine Clarity Clear Urine pH 6.0 Urine Specific [place] 1.020 Urine Protein 100 mg/dL (NEG-TRACE) Urine Glucose (UA) 250 mg/dL (NEG) Urine Ketones (Stick) Negative mg/dL (NEG) Urine Blood Moderate (NEG) Urine Nitrite Negative (NEG) Urine Bilirubin Small (NEG) Urine Urobilinogen Dipstick 1.0 mg/dL (0.2 mg/dL) Urine Leukocyte Esterase Negative (NEG) Urine RBC 20-40 /HPF (0-2) Urine WBC 0 /HPF (0-4) Urine Squamous Epithelial Cells Occ /LPF Urine Bacteria 0 /HPF (0-FEW) White Blood Count 17.3 x10^3/uL (4.0-11.0) Red Blood Count 4.36 x10^6/uL (4.30-5.70) Hemoglobin 12.2 g/dL (13.0-17.5) Hematocrit 37.8 % (39.0-53.0) Mean Corpuscular Volume 87 fL (79-100) Mean Corpuscular Hemoglobin 28 pg (25-35) Mean Corpuscular Hemoglobin Concent 32 g/dL (31-37) Red Cell Distribution Width 17.5 % (11.5-14.5) Platelet Count 156 x10^3/uL (140-400) Neutrophils (%) (Auto) 94 % (31-73) Lymphocytes (%) (Auto) 2 % (24-48) Monocytes (%) (Auto) 4 % (0-9) Eosinophils (%) (Auto) 0 % (0-3) Basophils (%) (Auto) 0 % (0-3) Neutrophils # (Auto) 16.3 x10^3uL (1.8-7.7) Lymphocytes # (Auto) 0.3 x10^3/uL (1.0-4.8) Monocytes # (Auto) 0.7 x10^3/uL (0.0-1.1) Eosinophils # (Auto) 0.0 x10^3/uL (0.0-0.7) Basophils # (Auto) 0.0 x10^3/uL (0.0-0.2) Segmented Neutrophils % 84 % (35-66) Band Neutrophils % 13 % (0-9) Lymphocytes % 1 % (24-48) Monocytes % 1 % (0-10) Metamyelocytes % 1 % (0-0) Toxic Vacuolation Slight Dohle Bodies Present Platelet Estimate Adequate (ADEQUATE) Sodium Level 138 mmol/L (136-145) Potassium Level 3.7 mmol/L (3.5-5.1) Chloride Level 101 mmol/L (98-107) Carbon Dioxide Level 27 mmol/L (21-32) Anion Gap 10 (6-14) Blood Urea Nitrogen 14 mg/dL (8-26) Creatinine 1.0 mg/dL (0.7-1.3) Estimated GFR (Cockcroft-Gault) 73.5 BUN/Creatinine Ratio 14 (6-20) Glucose Level 161 mg/dL (70-99) Lactic Acid Level 3.1 mmol/L (0.4-2.0) Calcium Level 9.0 mg/dL (8.5-10.1) Total Bilirubin 1.3 mg/dL (0.2-1.0) Aspartate Amino Transf (AST/SGOT) 31 U/L (15-37) Alanine Aminotransferase (ALT/SGPT) 21 U/L (16-63) Alkaline Phosphatase 134 U/L (46-116) Creatine Kinase 1111 U/L (39-308) WB-Dtc-P-Type Natriuretic Peptide 3396 pg/mL (0-124) Total Protein 7.3 g/dL (6.4-8.2) Albumin 2.7 g/dL (3.4-5.0) Albumin/Globulin Ratio 0.6 (1.0-1.7) Influenza Type A Antigen Negative (NEGATIVE) Influenza Type B Antigen Negative (NEGATIVE) Objective Assessment Sepsis with lactic acidosis POA Fever - with tremor Cellulitis of lower extremities Yeast groin/pannus areas Acute encephalopathy Chronic venous stasis - followed by [facility] WCC ? HCAP CHF DM II COPD PVD Chronic A-fib Plan Plan of Care Vanc and Zosyn Nystatin top powder to affected areas Add micafungin f/u cultures/check Procalcitonin MRSA screen pending Local wound care D/w Joe SEGOVIA D/w RN 35 mins CC time Critically ill Thank you [phone] Attending Co-Sign Attending Co-Sign The patient was seen and interviewed as well as examined at the bedside. The chart was reviewed. The case was discussed. Agree with the plan of care. MIK LUBIN APRN Aug 06, 2018 11:22 TERA VIDALES MD Aug 06, 2018 13:49
[2018-08-06] MEDS: ALLOPURINOL 300 MG TABLET. PO SCH (11:39)
[2018-08-06] MEDS: POTASSIUM CHLORIDE 10 MEQ TABLET.ER. PO SCH ×2 (11:39→17:48)
[2018-08-06] MEDS: FUROSEMIDE 20 MG TABLET PO SCH (11:39)
[2018-08-06] MEDS: FOLIC ACID 1 MG TABLET. PO SCH (11:39)
[2018-08-06] MEDS: silver sulfADIAZINE 1% CREAM 25GM TUBE. TP SCH ×2 (11:40→20:20)
[2018-08-06] MEDS: DIGOXIN 125 MCG TABLET. PO SCH (11:40)
[2018-08-06] MEDS: ALBUTEROL SULFATE 2.5 MG/3 ML NEBU. NEB SCH ×3 (11:57→20:19)
[2018-08-06] MEDS ORDERED: PIPERACILLIN/TAZOBACTAM 4.5 GM in IV NORMAL SALINE 100ML 100 ML IV SCH (12:00)
[2018-08-06] MEDS: PIPERACILLIN/TAZOBACTAM 3.375 GM in IV NORMAL SALINE 50ML 50 ML IV SCH ×3 (12:46→23:49)
--- NOTE | 2018-08-06 13:39 | PDOC ---
PULMONARY PROGRESS NOTES Vitals Vital Signs Date Time Temp Pulse Resp B/P (MAP) Pulse Ox O2 Delivery O2 Flow Rate FiO2 08/06/18 12:04 98 Nasal Cannula 2.0 08/06/18 12:00 100.7 98 24 125/62 (83) 100.7 General: Alert, Oriented X4, No acute distress HEENT: Other Lungs: Other Cardiovascular: S1 Abdomen: Soft Extremities: Other Labs Laboratory Tests Test 08/06/18 06:48 08/06/18 07:00 08/06/18 07:36 Urine Collection Type Unknown Urine Color Ladi Urine Clarity Clear Urine pH 6.0 Urine Specific [place] 1.020 Urine Protein 100 mg/dL (NEG-TRACE) Urine Glucose (UA) 250 mg/dL (NEG) Urine Ketones (Stick) Negative mg/dL (NEG) Urine Blood Moderate (NEG) Urine Nitrite Negative (NEG) Urine Bilirubin Small (NEG) Urine Urobilinogen Dipstick 1.0 mg/dL (0.2 mg/dL) Urine Leukocyte Esterase Negative (NEG) Urine RBC 20-40 /HPF (0-2) Urine WBC 0 /HPF (0-4) Urine Squamous Epithelial Cells Occ /LPF Urine Bacteria 0 /HPF (0-FEW) White Blood Count 17.3 x10^3/uL (4.0-11.0) Red Blood Count 4.36 x10^6/uL (4.30-5.70) Hemoglobin 12.2 g/dL (13.0-17.5) Hematocrit 37.8 % (39.0-53.0) Mean Corpuscular Volume 87 fL (79-100) Mean Corpuscular Hemoglobin 28 pg (25-35) Mean Corpuscular Hemoglobin Concent 32 g/dL (31-37) Red Cell Distribution Width 17.5 % (11.5-14.5) Platelet Count 156 x10^3/uL (140-400) Neutrophils (%) (Auto) 94 % (31-73) Lymphocytes (%) (Auto) 2 % (24-48) Monocytes (%) (Auto) 4 % (0-9) Eosinophils (%) (Auto) 0 % (0-3) Basophils (%) (Auto) 0 % (0-3) Neutrophils # (Auto) 16.3 x10^3uL (1.8-7.7) Lymphocytes # (Auto) 0.3 x10^3/uL (1.0-4.8) Monocytes # (Auto) 0.7 x10^3/uL (0.0-1.1) Eosinophils # (Auto) 0.0 x10^3/uL (0.0-0.7) Basophils # (Auto) 0.0 x10^3/uL (0.0-0.2) Segmented Neutrophils % 84 % (35-66) Band Neutrophils % 13 % (0-9) Lymphocytes % 1 % (24-48) Monocytes % 1 % (0-10) Metamyelocytes % 1 % (0-0) Toxic Vacuolation Slight Dohle Bodies Present Platelet Estimate Adequate (ADEQUATE) Sodium Level 138 mmol/L (136-145) Potassium Level 3.7 mmol/L (3.5-5.1) Chloride Level 101 mmol/L (98-107) Carbon Dioxide Level 27 mmol/L (21-32) Anion Gap 10 (6-14) Blood Urea Nitrogen 14 mg/dL (8-26) Creatinine 1.0 mg/dL (0.7-1.3) Estimated GFR (Cockcroft-Gault) 73.5 BUN/Creatinine Ratio 14 (6-20) Glucose Level 161 mg/dL (70-99) Lactic Acid Level 3.1 mmol/L (0.4-2.0) Calcium Level 9.0 mg/dL (8.5-10.1) Total Bilirubin 1.3 mg/dL (0.2-1.0) Aspartate Amino Transf (AST/SGOT) 31 U/L (15-37) Alanine Aminotransferase (ALT/SGPT) 21 U/L (16-63) Alkaline Phosphatase 134 U/L (46-116) Creatine Kinase 1111 U/L (39-308) SJ-Rkw-V-Type Natriuretic Peptide 3396 pg/mL (0-124) Total Protein 7.3 g/dL (6.4-8.2) Albumin 2.7 g/dL (3.4-5.0) Albumin/Globulin Ratio 0.6 (1.0-1.7) Influenza Type A Antigen Negative (NEGATIVE) Influenza Type B Antigen Negative (NEGATIVE) Laboratory Tests Test 08/06/18 06:48 08/06/18 07:00 08/06/18 07:36 Urine Collection Type Unknown Urine Color Ladi Urine Clarity Clear Urine pH 6.0 Urine Specific [place] 1.020 Urine Protein 100 mg/dL (NEG-TRACE) Urine Glucose (UA) 250 mg/dL (NEG) Urine Ketones (Stick) Negative mg/dL (NEG) Urine Blood Moderate (NEG) Urine Nitrite Negative (NEG) Urine Bilirubin Small (NEG) Urine Urobilinogen Dipstick 1.0 mg/dL (0.2 mg/dL) Urine Leukocyte Esterase Negative (NEG) Urine RBC 20-40 /HPF (0-2) Urine WBC 0 /HPF (0-4) Urine Squamous Epithelial Cells Occ /LPF Urine Bacteria 0 /HPF (0-FEW) White Blood Count 17.3 x10^3/uL (4.0-11.0) Red Blood Count 4.36 x10^6/uL (4.30-5.70) Hemoglobin 12.2 g/dL (13.0-17.5) Hematocrit 37.8 % (39.0-53.0) Mean Corpuscular Volume 87 fL (79-100) Mean Corpuscular Hemoglobin 28 pg (25-35) Mean Corpuscular Hemoglobin Concent 32 g/dL (31-37) Red Cell Distribution Width 17.5 % (11.5-14.5) Platelet Count 156 x10^3/uL (140-400) Neutrophils (%) (Auto) 94 % (31-73) Lymphocytes (%) (Auto) 2 % (24-48) Monocytes (%) (Auto) 4 % (0-9) Eosinophils (%) (Auto) 0 % (0-3) Basophils (%) (Auto) 0 % (0-3) Neutrophils # (Auto) 16.3 x10^3uL (1.8-7.7) Lymphocytes # (Auto) 0.3 x10^3/uL (1.0-4.8) Monocytes # (Auto) 0.7 x10^3/uL (0.0-1.1) Eosinophils # (Auto) 0.0 x10^3/uL (0.0-0.7) Basophils # (Auto) 0.0 x10^3/uL (0.0-0.2) Segmented Neutrophils % 84 % (35-66) Band Neutrophils % 13 % (0-9) Lymphocytes % 1 % (24-48) Monocytes % 1 % (0-10) Metamyelocytes % 1 % (0-0) Toxic Vacuolation Slight Dohle Bodies Present Platelet Estimate Adequate (ADEQUATE) Sodium Level 138 mmol/L (136-145) Potassium Level 3.7 mmol/L (3.5-5.1) Chloride Level 101 mmol/L (98-107) Carbon Dioxide Level 27 mmol/L (21-32) Anion Gap 10 (6-14) Blood Urea Nitrogen 14 mg/dL (8-26) Creatinine 1.0 mg/dL (0.7-1.3) Estimated GFR (Cockcroft-Gault) 73.5 BUN/Creatinine Ratio 14 (6-20) Glucose Level 161 mg/dL (70-99) Lactic Acid Level 3.1 mmol/L (0.4-2.0) Calcium Level 9.0 mg/dL (8.5-10.1) Total Bilirubin 1.3 mg/dL (0.2-1.0) Aspartate Amino Transf (AST/SGOT) 31 U/L (15-37) Alanine Aminotransferase (ALT/SGPT) 21 U/L (16-63) Alkaline Phosphatase 134 U/L (46-116) Creatine Kinase 1111 U/L (39-308) KB-Twh-Q-Type Natriuretic Peptide 3396 pg/mL (0-124) Total Protein 7.3 g/dL (6.4-8.2) Albumin 2.7 g/dL (3.4-5.0) Albumin/Globulin Ratio 0.6 (1.0-1.7) Influenza Type A Antigen Negative (NEGATIVE) Influenza Type B Antigen Negative (NEGATIVE) Medications Active Scripts Medications Dose Route/Sig Max Daily Dose Days Date Category Xarelto (Rivaroxaban) 20 Mg Tablet 20 Mg PO DAILY 06/10/18 Reported Lorazepam 1 Mg Tablet 1 Mg PO HS 10/12/14 Reported Gabapentin (Gabapentin) 300 Mg Capsule 1 Cap PO HS 10/12/14 Reported Flovent 100MCG Diskus (Fluticasone Propionate) 100 Mcg Disk.w.dev 1 Puff IH HS 10/12/14 Reported Losartan Potassium (Losartan Potassium) 25 Mg Tablet 2 Tab PO DAILY 10/12/14 Reported Furosemide 40 Mg Tablet 1.5 Tab PO DAILY PRN 10/12/14 Reported Diltiazem 24HR Cd (Diltiazem Hcl) 120 Mg Cap.er.24h 1 Cap PO DAILY PRN 10/12/14 Reported Lanoxin (Digoxin) 125 Mcg Tablet 125 Mcg PO DAILY 30 08/24/14 Rx Gabapentin (Gabapentin) 300 Mg Capsule 1 Cap PO HS 08/18/14 Reported Potassium Chloride 10 Meq Tab.er.prt 1 Tab PO BID 08/18/14 Reported Metoprolol Tartrate 25 Mg Tablet 0.5 Tab PO BID 08/18/14 Reported Folic Acid 1 Mg Tablet 1 Tab PO DAILY 08/18/14 Reported Allopurinol 300 Mg Tablet 300 Mg PO DAILY 08/18/14 Reported Ventolin Hfa Inhaler (Albuterol Sulfate) 18 Gm Hfa.aer.ad 2 Puff INH QID 08/18/14 Reported Flonase (Fluticasone Propionate) 16 Gm [place].susp 2 [place] NS HS 08/18/14 Reported Silvadene (Silver Sulfadiazine) 20 Gm Cream..g. 1 Toy TP BID 08/18/14 Reported Ventolin Hfa Inhaler (Albuterol Sulfate) 18 Gm Hfa.aer.ad 2 Puff IH PRN Q4-6HRS 08/18/14 Reported Risperidone 0.5 Mg Tablet 1 Tab PO QHS 08/18/14 Reported Impression . FULL NOTE DICTATED THANKS AGREE RX FOR PNEUMONIA AND SEPSIS SAIRA CHASE MD Aug 06, 2018 13:39
[2018-08-06] MEDS: MICAFUNGIN 100 MG in IV DEXTROSE 5% 100ML 100 ML IV SCH (14:34)
--- NOTE | 2018-08-06 14:36 | NUR ---
Wound care: Patient seen per wound care consult. See wound assessment. Patient is well known to us in the wound clinic. Patient has stage II with DTI on bilateral buttocks at this time. The wound is cleansed, assessed, measured, and pictured. Recommendations for A & D ointment to be applied as directed. Patient has been seen in the clinic regarding bilateral lower legs, they are closed at this time. Recommendations to keep them moisturized with lotion daily. A & D ointment applied and no other wounds noted at this time. Patient repositioned in bed and bialteral heels floated. Patient on ICU bed at this time. Call light in reach and bed lowered. Will follow patient regarding wound care.
[2018-08-06] MEDS: ACETAMINOPHEN 325 MG TABLET. PO PRN (14:48)
--- NOTE | 2018-08-06 16:16 | NUR ---
When pt sleeping, sat down to 805. Placed on bipap 30% with sat return to 94%. Will keep on except for meals at this time.
--- NOTE | 2018-08-06 17:29 | PDOC2 ---
PALLIATIVE CARE Palliative Care Note Palliative Care Consult requested by Dr. Tomlin to address code status; Medical Assessment and plan per medical record sepsis, admitted to ICU cellulitis legs, BLE pretibial fungus to pannus acute metabolic encephalopathy, possible severe sepsis, obesity, BMI 38, with also severe malnutrition, Albumin 2.7 ck 1100, RHABDO, with CHF, BNP up, chronic diastolic CHF weakness and debility, cannot walk suddenly, PT and OT Patient alert. [place]. Not oriented to place. Unable to provide information about his medical condition Code Status: Full Code, Received permission to call Roberto HURLEY. Called Jenny --message to return call. 1750 Spoke with Jenny. Discussed medical condition. Jenny is unable to come for family meeting. 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 Had to learn to walk x2. Was able to walk. Managed his own finances. Jenny will return call regarding change in code status. 1815 Jenny returned call. Request DNR/DNI. Cecelia JOHNSON aware. PARAMJIT QUINONES Aug 06, 2018 17:29
[2018-08-06] MEDS: RIVAROXABAN 10 MG TABLET. PO SCH (17:48)
--- NOTE | 2018-08-06 18:16 | NUR ---
temp up earlier, tylenol given, better now, on ABX
[2018-08-06] MEDS: risperiDONE 0.25 MG TABLET. PO SCH (20:19)
[2018-08-06] MEDS: LACTOBACILLUS RHAMNOSUS GG 1 CAPSULE. PO SCH (20:19)
[2018-08-06] MEDS: GABAPENTIN 300 MG CAPSULE. PO SCH (20:20)
[2018-08-06] MEDS: FLUTICASONE 50MCG/NASAL SPRAY 16GM BOTTLE. NS SCH (20:21)
[2018-08-06] MEDS: VANCOMYCIN 1.75 GM in IV NORMAL SALINE 500ML BAG 500 ML IV SCH (20:22)
[2018-08-06] MEDS: LORazepam 1 MG TABLET PO SCH (20:25)
[2018-08-06] MEDS ORDERED: NON FORMULARY ITEM (Fluticasone Propionate (Flovent 100MCG Diskus) 1 PUFF) IH SCH (21:00)
--- NOTE | 2018-08-06 21:04 | CONS ---
DATE OF CONSULTATION: 08/06/2018 This is Silvano Hill, nurse practitioner, dictating for Dr. Tera Vidales, Infectious Disease. REFERRING PHYSICIAN: Yee Tomlin M.D. REASON FOR CONSULTATION: Cellulitis. HISTORY OF PRESENT ILLNESS: The patient is a 72-year-old male who is a fci resident at [facility]. According to the nursing staff there, he normally spends his day, watching TV or propelling on himself around in his wheelchair. This morning, he was unable to stand and transfer to the chair as usual and was noted to have fever and shakes, prompting the ER visit. On arrival, he was obtunded with a temperature of 102.8. Lactic acid of 3.1 with an elevated WBC of 17,300; segs 84% and bands 13%. His chest x-ray showed findings of CHF or volume overload with pulmonary edema and trace bilateral pleural effusions as well as bibasilar airspace opacities, indeterminate between focal pulmonary edema, multifocal infection or pneumonitis with atelectasis. Blood cultures have been ordered. He is currently on vancomycin and Zosyn and has been admitted to the Intensive Care Unit. The patient has a history of chronic venous stasis changes and lymphedema of the lower extremities bilaterally. He is currently under the care of [facility]. He has been having some increased redness and drainage. He has not been on any recent antibiotics. PAST MEDICAL HISTORY: Chronic lymphedema, chronic venous stasis changes of lower extremities, diabetes mellitus type 2, peripheral vascular disease, chronic congestive heart failure, hypertension, hyperlipidemia, COPD, asthma, obstructive sleep apnea, history of CVA, gout, osteoarthritis, chronic atrial fibrillation, glaucoma, coronary artery disease, schizophrenia and hard of hearing. PAST SURGICAL HISTORY: Left ankle and hand repair, umbilical hernia repair, fracture skull repair as a child. FAMILY HISTORY: Noncontributory. SOCIAL HISTORY: The patient is a fci resident at [facility]. He is an [employer] . He has a history of smoking. ALLERGIES: No known drug allergies. MEDICATIONS: He is currently on vancomycin and Zosyn. Other medications are available and have been reviewed on the SEP. REVIEW OF SYSTEMS: Unobtainable as the patient is minimally responsive. PHYSICAL EXAMINATION: VITAL SIGNS: Temperature is 98.1, T-max 102.8, blood pressure 143/71, heart rate 90, respiratory rate 23, pulse oximetry 100% on 2 liters oxygen and BMI 37. GENERAL: The patient is slightly propped up in bed, appears comfortable. HEENT: Pupils equally round. Normal conjunctivae. Oral cavity had pink, dry with dentures in place. NECK: Supple. LUNGS: Diminished aeration in the bases. Nonlabored. HEART: S1 and S2 irregular. ABDOMEN: Obese and soft. No grimace or guarding to palpation with bowel sounds present. GENITOURINARY: Indwelling Arias in place. EXTREMITIES: Lower extremity edema with chronic venous stasis changes and associated with thickened, moderately red skin changes with brown scales and macerations between the toes. No cyanosis. SKIN: Warm. He has some redness under the pannus and groin areas, currently covered with topical nystatin powder. NEUROLOGICAL: Minimally responsive. He flutters his eyes to name. He opens his mouth when asked, but no other commands followed. LINES: Peripheral IV looks okay. LABORATORY DATA: Today's WBC 17.3; hemoglobin 12.2; platelets 156,000; segs 84% and bands 13%. Electrolytes are unremarkable. Creatinine 1.0, BUN is 14 and glucose 161. Lactic acid 3.1, AST 31, ALT 21 and total bilirubin 1.3. Creatinine kinase 1111. BNP 3396. Albumin 2.7. Urinalysis unremarkable for infection. Influenza screen negative. Blood cultures in process. MRSA screen pending. RADIOLOGICAL DATA: Chest x-ray per HPI. ASSESSMENT: 1. Sepsis with lactic acidosis, present on admission. 2. Healthcare-acquired pneumonia. 3. Fever. 4. Cellulitis of lower extremities, superimposed on chronic venous stasis. 5. Yeast infection in groin and penis areas. 6. Acute encephalopathy. 7. Congestive heart failure. 8. Diabetes mellitus type 2. 9. Chronic obstructive pulmonary disease. 10. Peripheral vascular disease. 11. Chronic atrial fibrillation. 12. Morbid obesity. PLAN: The patient is currently encephalopathic, unable to provide history of present illness, past medical history or review of systems. I contacted [facility] for additional information regarding current situation. Continue the vancomycin and Zosyn. Blood cultures have been ordered and are pending. Continue to monitor laboratory values and vital signs. Local wound care. Supportive care. Discussed with nursing. Critically ill. Thank you, Dr. Tomlin for asking us to participate in this patient's care. Should you have further questions or concerns, please call. TERA VIDALES MD DR: YULY/armond JOB#: [id number] / [id number]
--- NOTE | 2018-08-06 21:44 | CONS ---
DATE OF CONSULTATION: 08/06/2018 ATTENDING PHYSICIAN: Dr. Tomlin. REASON FOR CONSULTATION: The patient seen in pulmonary consultation at the request of Dr. Tomlin for abnormal x-ray, possible pneumonia. HISTORY OF PRESENT ILLNESS: The patient is a 72-year-old gentleman that presented from [facility] with some onset of weakness, mental status change. He presented in the emergency room. Apparently, he was obtunded, but arousable. He had a temperature of 102.8. Chest x-ray was obtained. I reviewed the x-ray revealing basal airspace opacities. The patient is currently in the intensive care unit. He is requiring oxygen supplementation. His T-max today was 100.7. He is sleepy, but arousable, but does not respond to any of my questions. His white count was elevated. His serology for influenza was negative. I reviewed his medication list. He is currently receiving piperacillin and vancomycin. I reviewed his other medications. He has received some IV fluids. PAST MEDICAL HISTORY: Otherwise remarkable for chronic a-fib, diabetes, hypertension, previous history of psychosis. PAST SURGICAL HISTORY: He has had hernia repair, left hip drain in place, left foot surgery. ALLERGIES: LISTED TO BENZALKONIUM CHLORIDE. REVIEW OF SYSTEMS: Unobtainable secondary to the patient's condition. PHYSICAL EXAMINATION: GENERAL: Morbid obese individual in no significant respiratory distress, currently on 2 L of oxygen supplementation. HEENT: Eyes: The sclerae were nonicteric. NECK: Jugular venous distention could not be assessed secondary to body habitus. CHEST: Full expansion. LUNGS: Rales in the bases. No wheezes. CARDIOVASCULAR: Regular rate and rhythm with S1, S2, no S3. ABDOMEN: Obese. EXTREMITIES: No clubbing, cyanosis, some edema. SKIN: Shows some skin changes in lower extremities compatible with peripheral vascular disease. LABORATORY DATA: Chest x-ray as indicated above. IMPRESSION: 1. Acute hypoxemic respiratory failure. 2. Pneumonia, suspect Gram-negative, possibly Gram-positive. 3. Sepsis. 4. Toxic metabolic encephalopathy. 5. Morbid obesity. 6. Chronic obstructive pulmonary disease. 7. Cellulitis of lower extremities. 8. Chronic venous insufficiency. 9. Type 2 diabetes. 10. Peripheral vascular disease. 11. Chronic atrial fibrillation. PLAN: 1. Continue vancomycin and Zosyn. 2. ID consulted. 3. Follow cultures. I do appreciate the privilege in sharing the patient's care. SAIRA CHASE MD DR: NED/armond JOB#: [id number] / [id number]
[2018-08-07] VITALS (24 sets, daily range): BP systolic 112–166; BP diastolic 57–81
[2018-08-07 04:59] LABS: BASO % 0 % (0-3); EOS % 0 % (0-3); HEMATOCRIT 34.7 % (39.0-53.0); HEMOGLOBIN 11.3 g/dL (13.0-17.5); LYMPH # 0.4 x10^3/uL (1.0-4.8); LYMPH % 4 % (24-48); MEAN CORPUSCULAR HEMOGLOBIN 28 pg (25-35); MEAN CORPUSCULAR HGB CONC 33 g/dL (31-37); MEAN CORPUSCULAR VOLUME 86 fL (79-100); MONO # 0.8 x10^3/uL (0.0-1.1); MONO % 7 % (0-9); NEUT # 9.8 x10^3uL (1.8-7.7); NEUT % 89 % (31-73); PLATELET COUNT 127 x10^3/uL (140-400); RED BLOOD COUNT 4.04 x10^6/uL (4.30-5.70); RED CELL DISTRIBUTION WIDTH 17.8 % (11.5-14.5)
[2018-08-07 05:30] LABS: ALBUMIN 2.1 g/dL (3.4-5.0); ALBUMIN/GLOBULIN RATIO 0.5 (1.0-1.7); CALCIUM 8.2 mg/dL (8.5-10.1); CREATININE 0.9 mg/dL (0.7-1.3); GFR 82.9; POTASSIUM 3.3 mmol/L (3.5-5.1); TOTAL BILIRUBIN 1.1 mg/dL (0.2-1.0); TOTAL PROTEIN 6.3 g/dL (6.4-8.2)
[2018-08-07] MEDS: PIPERACILLIN/TAZOBACTAM 3.375 GM in IV NORMAL SALINE 50ML 50 ML IV SCH ×3 (06:07→18:44)
[2018-08-07] MEDS: ACETAMINOPHEN 325 MG TABLET. PO PRN (06:07)
--- NOTE | 2018-08-07 07:07 | PDOC ---
Infectious Disease Note Subjective Subjective Doing ok but still sleepy No Pain. breathing ok. No chills/N Vital Sign Vital Signs Vital Signs Date Time Temp Pulse Resp B/P (MAP) Pulse Ox O2 Delivery O2 Flow Rate FiO2 08/07/18 06:00 107 29 136/66 (89) 95 Venturi Mask 08/07/18 04:00 101.3 101.3 08/06/18 20:22 9.0 Physical Exam PHYSICAL EXAM GENERAL: The patient is slightly propped up in bed, appears comfortable. Arousable HEENT: Pupils equally round. Normal conjunctivae. Oral cavity had pink, dry with dentures in place. NECK: Supple. LUNGS: Diminished aeration in the bases. Nonlabored.On facemask HEART: S1 and S2 irregular. ABDOMEN: Obese and soft. No grimace or guarding to palpation with bowel sounds present. GENITOURINARY: Indwelling Arias in place. EXTREMITIES: Lower extremity edema with chronic venous stasis changes and associated with thickened, moderately red skin changes with brown scales and macerations between the toes. No cyanosis.Erythema R> L SKIN: Warm. He has some redness under the pannus and groin areas, currently covered with topical nystatin powder. NEUROLOGICAL: Minimally responsive but does arouse LINES: Peripheral IV looks okay. Labs Lab Laboratory Tests Test 08/06/18 07:00 08/06/18 07:36 08/06/18 09:00 08/06/18 13:55 White Blood Count 17.3 x10^3/uL (4.0-11.0) Red Blood Count 4.36 x10^6/uL (4.30-5.70) Hemoglobin 12.2 g/dL (13.0-17.5) Hematocrit 37.8 % (39.0-53.0) Mean Corpuscular Volume 87 fL (79-100) Mean Corpuscular Hemoglobin 28 pg (25-35) Mean Corpuscular Hemoglobin Concent 32 g/dL (31-37) Red Cell Distribution Width 17.5 % (11.5-14.5) Platelet Count 156 x10^3/uL (140-400) Neutrophils (%) (Auto) 94 % (31-73) Lymphocytes (%) (Auto) 2 % (24-48) Monocytes (%) (Auto) 4 % (0-9) Eosinophils (%) (Auto) 0 % (0-3) Basophils (%) (Auto) 0 % (0-3) Neutrophils # (Auto) 16.3 x10^3uL (1.8-7.7) Lymphocytes # (Auto) 0.3 x10^3/uL (1.0-4.8) Monocytes # (Auto) 0.7 x10^3/uL (0.0-1.1) Eosinophils # (Auto) 0.0 x10^3/uL (0.0-0.7) Basophils # (Auto) 0.0 x10^3/uL (0.0-0.2) Segmented Neutrophils % 84 % (35-66) Band Neutrophils % 13 % (0-9) Lymphocytes % 1 % (24-48) Monocytes % 1 % (0-10) Metamyelocytes % 1 % (0-0) Toxic Vacuolation Slight Dohle Bodies Present Platelet Estimate Adequate (ADEQUATE) Sodium Level 138 mmol/L (136-145) Potassium Level 3.7 mmol/L (3.5-5.1) Chloride Level 101 mmol/L (98-107) Carbon Dioxide Level 27 mmol/L (21-32) Anion Gap 10 (6-14) Blood Urea Nitrogen 14 mg/dL (8-26) Creatinine 1.0 mg/dL (0.7-1.3) Estimated GFR (Cockcroft-Gault) 73.5 BUN/Creatinine Ratio 14 (6-20) Glucose Level 161 mg/dL (70-99) Lactic Acid Level 3.1 mmol/L (0.4-2.0) 3.0 mmol/L (0.4-2.0) Calcium Level 9.0 mg/dL (8.5-10.1) Total Bilirubin 1.3 mg/dL (0.2-1.0) Aspartate Amino Transf (AST/SGOT) 31 U/L (15-37) Alanine Aminotransferase (ALT/SGPT) 21 U/L (16-63) Alkaline Phosphatase 134 U/L (46-116) Creatine Kinase 1111 U/L (39-308) QS-Tnn-A-Type Natriuretic Peptide 3396 pg/mL (0-124) Total Protein 7.3 g/dL (6.4-8.2) Albumin 2.7 g/dL (3.4-5.0) Albumin/Globulin Ratio 0.6 (1.0-1.7) Procalcitonin 2.77 ng/mL (0.00-0.10) Influenza Type A Antigen Negative (NEGATIVE) Influenza Type B Antigen Negative (NEGATIVE) Nasal Screen MRSA (PCR) Negative (Negative) Test 08/07/18 04:15 White Blood Count 11.0 x10^3/uL (4.0-11.0) Red Blood Count 4.04 x10^6/uL (4.30-5.70) Hemoglobin 11.3 g/dL (13.0-17.5) Hematocrit 34.7 % (39.0-53.0) Mean Corpuscular Volume 86 fL (79-100) Mean Corpuscular Hemoglobin 28 pg (25-35) Mean Corpuscular Hemoglobin Concent 33 g/dL (31-37) Red Cell Distribution Width 17.8 % (11.5-14.5) Platelet Count 127 x10^3/uL (140-400) Neutrophils (%) (Auto) 89 % (31-73) Lymphocytes (%) (Auto) 4 % (24-48) Monocytes (%) (Auto) 7 % (0-9) Eosinophils (%) (Auto) 0 % (0-3) Basophils (%) (Auto) 0 % (0-3) Neutrophils # (Auto) 9.8 x10^3uL (1.8-7.7) Lymphocytes # (Auto) 0.4 x10^3/uL (1.0-4.8) Monocytes # (Auto) 0.8 x10^3/uL (0.0-1.1) Eosinophils # (Auto) 0.0 x10^3/uL (0.0-0.7) Basophils # (Auto) 0.0 x10^3/uL (0.0-0.2) Sodium Level 134 mmol/L (136-145) Potassium Level 3.3 mmol/L (3.5-5.1) Chloride Level 101 mmol/L (98-107) Carbon Dioxide Level 25 mmol/L (21-32) Anion Gap 8 (6-14) Blood Urea Nitrogen 16 mg/dL (8-26) Creatinine 0.9 mg/dL (0.7-1.3) Estimated GFR (Cockcroft-Gault) 82.9 BUN/Creatinine Ratio 18 (6-20) Glucose Level 132 mg/dL (70-99) Calcium Level 8.2 mg/dL (8.5-10.1) Total Bilirubin 1.1 mg/dL (0.2-1.0) Aspartate Amino Transf (AST/SGOT) 35 U/L (15-37) Alanine Aminotransferase (ALT/SGPT) 15 U/L (16-63) Alkaline Phosphatase 107 U/L (46-116) Total Protein 6.3 g/dL (6.4-8.2) Albumin 2.1 g/dL (3.4-5.0) Albumin/Globulin Ratio 0.5 (1.0-1.7) Objective Assessment Sepsis with lactic acidosis POA Fever - with tremor - curve slightly improving Leukocytosis -better Cellulitis of lower extremities R> L Yeast groin/pannus areas Acute encephalopathy Chronic venous stasis - followed by [facility] ? HCAP MRSA screen neg CHF DM II COPD PVD Chronic A-fib DNR/DNI Plan Plan of Care Cont Vanc/ Zosyn/Micafungin Dose Zyvox for a couple days for toxin shut down - november d/c Vanc 08/08 if Blood cults neg Nystatin top powder to affected areas f/u cultures/labs Local wound care D/w TERA PAVON MD Aug 07, 2018 07:07
[2018-08-07] MEDS: BUDESONIDE 0.5 MG/2 ML NEBU. NEB SCH ×2 (07:37→19:59)
[2018-08-07] MEDS: ALBUTEROL SULFATE 2.5 MG/3 ML NEBU. NEB SCH ×4 (07:37→19:59)
[2018-08-07] MEDS: ANTI-COAG MONITOR BY PHARMACY. MC PRN (08:15)
[2018-08-07] MEDS: POTASSIUM CHLORIDE 10 MEQ TABLET.ER. PO SCH ×2 (08:29→18:44)
[2018-08-07] MEDS: VANCOMYCIN 1.75 GM in IV NORMAL SALINE 500ML BAG 500 ML IV SCH ×2 (08:30→20:15)
[2018-08-07] MEDS: FOLIC ACID 1 MG TABLET. PO SCH (09:33)
[2018-08-07] MEDS: NYSTATIN TOPICAL POWDER 15GM BOTTLE. TP SCH ×2 (09:33→20:16)
[2018-08-07] MEDS: silver sulfADIAZINE 1% CREAM 25GM TUBE. TP SCH ×2 (09:33→20:16)
[2018-08-07] MEDS: LACTOBACILLUS RHAMNOSUS GG 1 CAPSULE. PO SCH ×2 (09:33→20:15)
[2018-08-07] MEDS: LOSARTAN POTASSIUM 50 MG TABLET. PO SCH (09:34)
[2018-08-07] MEDS: ALLOPURINOL 300 MG TABLET. PO SCH (09:34)
[2018-08-07] MEDS: FUROSEMIDE 20 MG TABLET PO SCH (09:34)
[2018-08-07] MEDS: DIGOXIN 125 MCG TABLET. PO SCH (09:35)
[2018-08-07] MEDS: METOPROLOL TART IMMED RELEASE 25 MG TABLET. PO SCH ×2 (09:35→20:16)
--- NOTE | 2018-08-07 10:39 | PDOC ---
PULMONARY PROGRESS NOTES Subjective PT MORE AWAKE AND ALERT SITTING UP IN CHAIR Vitals Vital Signs Date Time Temp Pulse Resp B/P (MAP) Pulse Ox O2 Delivery O2 Flow Rate FiO2 08/07/18 10:00 100 23 142/76 (98) 98 Venturi Mask 08/07/18 08:00 99.5 99.5 08/07/18 07:38 9.0 ROS: No Nausea, No Chest Pain, No Abdominal Pain, No Increase Cough General: Alert, No acute distress Lungs: Other Cardiovascular: S1 Abdomen: Soft, Other (OBESE) Neuro Exam: Alert Extremities: Other Skin: Warm Labs Laboratory Tests Test 08/06/18 06:48 08/06/18 07:00 08/06/18 07:36 08/06/18 09:00 Urine Collection Type Unknown Urine Color Ladi Urine Clarity Clear Urine pH 6.0 Urine Specific [place] 1.020 Urine Protein 100 mg/dL (NEG-TRACE) Urine Glucose (UA) 250 mg/dL (NEG) Urine Ketones (Stick) Negative mg/dL (NEG) Urine Blood Moderate (NEG) Urine Nitrite Negative (NEG) Urine Bilirubin Small (NEG) Urine Urobilinogen Dipstick 1.0 mg/dL (0.2 mg/dL) Urine Leukocyte Esterase Negative (NEG) Urine RBC 20-40 /HPF (0-2) Urine WBC 0 /HPF (0-4) Urine Squamous Epithelial Cells Occ /LPF Urine Bacteria 0 /HPF (0-FEW) White Blood Count 17.3 x10^3/uL (4.0-11.0) Red Blood Count 4.36 x10^6/uL (4.30-5.70) Hemoglobin 12.2 g/dL (13.0-17.5) Hematocrit 37.8 % (39.0-53.0) Mean Corpuscular Volume 87 fL (79-100) Mean Corpuscular Hemoglobin 28 pg (25-35) Mean Corpuscular Hemoglobin Concent 32 g/dL (31-37) Red Cell Distribution Width 17.5 % (11.5-14.5) Platelet Count 156 x10^3/uL (140-400) Neutrophils (%) (Auto) 94 % (31-73) Lymphocytes (%) (Auto) 2 % (24-48) Monocytes (%) (Auto) 4 % (0-9) Eosinophils (%) (Auto) 0 % (0-3) Basophils (%) (Auto) 0 % (0-3) Neutrophils # (Auto) 16.3 x10^3uL (1.8-7.7) Lymphocytes # (Auto) 0.3 x10^3/uL (1.0-4.8) Monocytes # (Auto) 0.7 x10^3/uL (0.0-1.1) Eosinophils # (Auto) 0.0 x10^3/uL (0.0-0.7) Basophils # (Auto) 0.0 x10^3/uL (0.0-0.2) Segmented Neutrophils % 84 % (35-66) Band Neutrophils % 13 % (0-9) Lymphocytes % 1 % (24-48) Monocytes % 1 % (0-10) Metamyelocytes % 1 % (0-0) Toxic Vacuolation Slight Dohle Bodies Present Platelet Estimate Adequate (ADEQUATE) Sodium Level 138 mmol/L (136-145) Potassium Level 3.7 mmol/L (3.5-5.1) Chloride Level 101 mmol/L (98-107) Carbon Dioxide Level 27 mmol/L (21-32) Anion Gap 10 (6-14) Blood Urea Nitrogen 14 mg/dL (8-26) Creatinine 1.0 mg/dL (0.7-1.3) Estimated GFR (Cockcroft-Gault) 73.5 BUN/Creatinine Ratio 14 (6-20) Glucose Level 161 mg/dL (70-99) Lactic Acid Level 3.1 mmol/L (0.4-2.0) Calcium Level 9.0 mg/dL (8.5-10.1) Total Bilirubin 1.3 mg/dL (0.2-1.0) Aspartate Amino Transf (AST/SGOT) 31 U/L (15-37) Alanine Aminotransferase (ALT/SGPT) 21 U/L (16-63) Alkaline Phosphatase 134 U/L (46-116) Creatine Kinase 1111 U/L (39-308) ZG-Fgm-R-Type Natriuretic Peptide 3396 pg/mL (0-124) Total Protein 7.3 g/dL (6.4-8.2) Albumin 2.7 g/dL (3.4-5.0) Albumin/Globulin Ratio 0.6 (1.0-1.7) Procalcitonin 2.77 ng/mL (0.00-0.10) Influenza Type A Antigen Negative (NEGATIVE) Influenza Type B Antigen Negative (NEGATIVE) Nasal Screen MRSA (PCR) Negative (Negative) Test 08/06/18 13:55 08/07/18 04:15 Lactic Acid Level 3.0 mmol/L (0.4-2.0) White Blood Count 11.0 x10^3/uL (4.0-11.0) Red Blood Count 4.04 x10^6/uL (4.30-5.70) Hemoglobin 11.3 g/dL (13.0-17.5) Hematocrit 34.7 % (39.0-53.0) Mean Corpuscular Volume 86 fL (79-100) Mean Corpuscular Hemoglobin 28 pg (25-35) Mean Corpuscular Hemoglobin Concent 33 g/dL (31-37) Red Cell Distribution Width 17.8 % (11.5-14.5) Platelet Count 127 x10^3/uL (140-400) Neutrophils (%) (Auto) 89 % (31-73) Lymphocytes (%) (Auto) 4 % (24-48) Monocytes (%) (Auto) 7 % (0-9) Eosinophils (%) (Auto) 0 % (0-3) Basophils (%) (Auto) 0 % (0-3) Neutrophils # (Auto) 9.8 x10^3uL (1.8-7.7) Lymphocytes # (Auto) 0.4 x10^3/uL (1.0-4.8) Monocytes # (Auto) 0.8 x10^3/uL (0.0-1.1) Eosinophils # (Auto) 0.0 x10^3/uL (0.0-0.7) Basophils # (Auto) 0.0 x10^3/uL (0.0-0.2) Sodium Level 134 mmol/L (136-145) Potassium Level 3.3 mmol/L (3.5-5.1) Chloride Level 101 mmol/L (98-107) Carbon Dioxide Level 25 mmol/L (21-32) Anion Gap 8 (6-14) Blood Urea Nitrogen 16 mg/dL (8-26) Creatinine 0.9 mg/dL (0.7-1.3) Estimated GFR (Cockcroft-Gault) 82.9 BUN/Creatinine Ratio 18 (6-20) Glucose Level 132 mg/dL (70-99) Calcium Level 8.2 mg/dL (8.5-10.1) Total Bilirubin 1.1 mg/dL (0.2-1.0) Aspartate Amino Transf (AST/SGOT) 35 U/L (15-37) Alanine Aminotransferase (ALT/SGPT) 15 U/L (16-63) Alkaline Phosphatase 107 U/L (46-116) Total Protein 6.3 g/dL (6.4-8.2) Albumin 2.1 g/dL (3.4-5.0) Albumin/Globulin Ratio 0.5 (1.0-1.7) Laboratory Tests Test 08/06/18 13:55 08/07/18 04:15 Lactic Acid Level 3.0 mmol/L (0.4-2.0) White Blood Count 11.0 x10^3/uL (4.0-11.0) Red Blood Count 4.04 x10^6/uL (4.30-5.70) Hemoglobin 11.3 g/dL (13.0-17.5) Hematocrit 34.7 % (39.0-53.0) Mean Corpuscular Volume 86 fL (79-100) Mean Corpuscular Hemoglobin 28 pg (25-35) Mean Corpuscular Hemoglobin Concent 33 g/dL (31-37) Red Cell Distribution Width 17.8 % (11.5-14.5) Platelet Count 127 x10^3/uL (140-400) Neutrophils (%) (Auto) 89 % (31-73) Lymphocytes (%) (Auto) 4 % (24-48) Monocytes (%) (Auto) 7 % (0-9) Eosinophils (%) (Auto) 0 % (0-3) Basophils (%) (Auto) 0 % (0-3) Neutrophils # (Auto) 9.8 x10^3uL (1.8-7.7) Lymphocytes # (Auto) 0.4 x10^3/uL (1.0-4.8) Monocytes # (Auto) 0.8 x10^3/uL (0.0-1.1) Eosinophils # (Auto) 0.0 x10^3/uL (0.0-0.7) Basophils # (Auto) 0.0 x10^3/uL (0.0-0.2) Sodium Level 134 mmol/L (136-145) Potassium Level 3.3 mmol/L (3.5-5.1) Chloride Level 101 mmol/L (98-107) Carbon Dioxide Level 25 mmol/L (21-32) Anion Gap 8 (6-14) Blood Urea Nitrogen 16 mg/dL (8-26) Creatinine 0.9 mg/dL (0.7-1.3) Estimated GFR (Cockcroft-Gault) 82.9 BUN/Creatinine Ratio 18 (6-20) Glucose Level 132 mg/dL (70-99) Calcium Level 8.2 mg/dL (8.5-10.1) Total Bilirubin 1.1 mg/dL (0.2-1.0) Aspartate Amino Transf (AST/SGOT) 35 U/L (15-37) Alanine Aminotransferase (ALT/SGPT) 15 U/L (16-63) Alkaline Phosphatase 107 U/L (46-116) Total Protein 6.3 g/dL (6.4-8.2) Albumin 2.1 g/dL (3.4-5.0) Albumin/Globulin Ratio 0.5 (1.0-1.7) Medications Active Scripts Medications Dose Route/Sig Max Daily Dose Days Date Category Xarelto (Rivaroxaban) 20 Mg Tablet 20 Mg PO DAILY 06/10/18 Reported Lorazepam 1 Mg Tablet 1 Mg PO HS 10/12/14 Reported Gabapentin (Gabapentin) 300 Mg Capsule 1 Cap PO HS 10/12/14 Reported Flovent 100MCG Diskus (Fluticasone Propionate) 100 Mcg Disk.w.dev 1 Puff IH HS 10/12/14 Reported Losartan Potassium (Losartan Potassium) 25 Mg Tablet 2 Tab PO DAILY 10/12/14 Reported Furosemide 40 Mg Tablet 1.5 Tab PO DAILY PRN 10/12/14 Reported Diltiazem 24HR Cd (Diltiazem Hcl) 120 Mg Cap.er.24h 1 Cap PO DAILY PRN 10/12/14 Reported Lanoxin (Digoxin) 125 Mcg Tablet 125 Mcg PO DAILY 30 08/24/14 Rx Gabapentin (Gabapentin) 300 Mg Capsule 1 Cap PO HS 08/18/14 Reported Potassium Chloride 10 Meq Tab.er.prt 1 Tab PO BID 08/18/14 Reported Metoprolol Tartrate 25 Mg Tablet 0.5 Tab PO BID 08/18/14 Reported Folic Acid 1 Mg Tablet 1 Tab PO DAILY 08/18/14 Reported Allopurinol 300 Mg Tablet 300 Mg PO DAILY 08/18/14 Reported Ventolin Hfa Inhaler (Albuterol Sulfate) 18 Gm Hfa.aer.ad 2 Puff INH QID 08/18/14 Reported Flonase (Fluticasone Propionate) 16 Gm [place].susp 2 [place] NS HS 08/18/14 Reported Silvadene (Silver Sulfadiazine) 20 Gm Cream..g. 1 Toy TP BID 08/18/14 Reported Ventolin Hfa Inhaler (Albuterol Sulfate) 18 Gm Hfa.aer.ad 2 Puff IH PRN Q4-6HRS 08/18/14 Reported Risperidone 0.5 Mg Tablet 1 Tab PO QHS 08/18/14 Reported Impression . 1. Acute hypoxemic respiratory failure. 2. Pneumonia, suspect Gram-negative, possibly Gram-positive. 3. Sepsis. 4. Toxic metabolic encephalopathy. 5. Morbid obesity. 6. Chronic obstructive pulmonary disease. 7. Cellulitis of lower extremities. 8. Chronic venous insufficiency. 9. Type 2 diabetes. 10. Peripheral vascular disease. 11. Chronic atrial fibrillation. Plan . CONTINUE SUPPORT OK TO TRANSFER OUT OF ICU ANTIBX PER ID ORAL FEEDING DVT GI PROPH PEN BD SAIRA CHASE MD Aug 07, 2018 10:39
[2018-08-07] MEDS: VANCOMYCIN PER PHARMACY MC PRN ×2 (12:26→21:06)
[2018-08-07] MEDS: MICAFUNGIN 100 MG in IV DEXTROSE 5% 100ML 100 ML IV SCH (13:41)
--- NOTE | 2018-08-07 14:59 | PDOC ---
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 acute metabolic encephalopathy, possible severe sepsis, admitted to ICU obesity, BMI 38, with also severe malnutrition, Albumin 2.7 ck 1100, rhabdo, with CHF, BNP up, chronic diastolic CHF weakness and debility, cannot walk suddenly, PT and OT History of Present Illness History of Present Illness less active today, he is making less jokes vitals better, cont current Vitals Vitals Vital Signs Date Time Temp Pulse Resp B/P (MAP) Pulse Ox O2 Delivery O2 Flow Rate FiO2 08/07/18 13:00 99 19 139/68 (91) 95 Venturi Mask 08/07/18 12:00 99.3 99.3 08/07/18 11:17 9.0 Physical Exam Physical Exam GENERAL: The patient is slightly propped up in bed, appears comfortable. Arousable HEENT: Pupils equally round. Normal conjunctivae. Oral cavity had pink, dry with dentures in place. NECK: Supple. LUNGS: Diminished aeration in the bases. Nonlabored.On facemask HEART: S1 and S2 irregular. ABDOMEN: Obese and soft. No grimace or guarding to palpation with bowel sounds present. GENITOURINARY: Indwelling Arias in place. EXTREMITIES: Lower extremity edema with chronic venous stasis changes and associated with thickened, moderately red skin changes with brown scales and macerations between the toes. No cyanosis.Erythema R> L SKIN: Warm. He has some redness under the pannus and groin areas, currently covered with topical nystatin powder. NEUROLOGICAL: Minimally responsive but does arouse LINES: Peripheral IV looks okay. General: Alert, Cooperative, No acute distress Heart: Other Lungs: Other Abdomen: Soft (obese, NT), No tenderness Extremities: No clubbing, No cyanosis, Normal pulses, Other (edema) Skin: No breakdown, Other (very red, hot and scaly BLE, with poor nail care and fungus) Labs LABS Laboratory Tests Test 08/07/18 04:15 White Blood Count 11.0 x10^3/uL (4.0-11.0) Red Blood Count 4.04 x10^6/uL (4.30-5.70) Hemoglobin 11.3 g/dL (13.0-17.5) Hematocrit 34.7 % (39.0-53.0) Mean Corpuscular Volume 86 fL (79-100) Mean Corpuscular Hemoglobin 28 pg (25-35) Mean Corpuscular Hemoglobin Concent 33 g/dL (31-37) Red Cell Distribution Width 17.8 % (11.5-14.5) Platelet Count 127 x10^3/uL (140-400) Neutrophils (%) (Auto) 89 % (31-73) Lymphocytes (%) (Auto) 4 % (24-48) Monocytes (%) (Auto) 7 % (0-9) Eosinophils (%) (Auto) 0 % (0-3) Basophils (%) (Auto) 0 % (0-3) Neutrophils # (Auto) 9.8 x10^3uL (1.8-7.7) Lymphocytes # (Auto) 0.4 x10^3/uL (1.0-4.8) Monocytes # (Auto) 0.8 x10^3/uL (0.0-1.1) Eosinophils # (Auto) 0.0 x10^3/uL (0.0-0.7) Basophils # (Auto) 0.0 x10^3/uL (0.0-0.2) Sodium Level 134 mmol/L (136-145) Potassium Level 3.3 mmol/L (3.5-5.1) Chloride Level 101 mmol/L (98-107) Carbon Dioxide Level 25 mmol/L (21-32) Anion Gap 8 (6-14) Blood Urea Nitrogen 16 mg/dL (8-26) Creatinine 0.9 mg/dL (0.7-1.3) Estimated GFR (Cockcroft-Gault) 82.9 BUN/Creatinine Ratio 18 (6-20) Glucose Level 132 mg/dL (70-99) Calcium Level 8.2 mg/dL (8.5-10.1) Total Bilirubin 1.1 mg/dL (0.2-1.0) Aspartate Amino Transf (AST/SGOT) 35 U/L (15-37) Alanine Aminotransferase (ALT/SGPT) 15 U/L (16-63) Alkaline Phosphatase 107 U/L (46-116) Total Protein 6.3 g/dL (6.4-8.2) Albumin 2.1 g/dL (3.4-5.0) Albumin/Globulin Ratio 0.5 (1.0-1.7) Assessment and Plan Assessmemt and Plan Problems Medical Problems: (1) Altered mental status Status: Acute (2) Cellulitis of leg, left Status: Acute (3) Cellulitis of leg, right Status: Acute (4) HCAP (healthcare-associated pneumonia) Status: Acute Comment Review of Relevant I have reviewed the following items shahram (where applicable) has been applied. Labs Laboratory Tests Test 08/06/18 06:48 08/06/18 07:00 08/06/18 07:36 08/06/18 09:00 Urine Collection Type Unknown Urine Color Ladi Urine Clarity Clear Urine pH 6.0 Urine Specific [place] 1.020 Urine Protein 100 mg/dL (NEG-TRACE) Urine Glucose (UA) 250 mg/dL (NEG) Urine Ketones (Stick) Negative mg/dL (NEG) Urine Blood Moderate (NEG) Urine Nitrite Negative (NEG) Urine Bilirubin Small (NEG) Urine Urobilinogen Dipstick 1.0 mg/dL (0.2 mg/dL) Urine Leukocyte Esterase Negative (NEG) Urine RBC 20-40 /HPF (0-2) Urine WBC 0 /HPF (0-4) Urine Squamous Epithelial Cells Occ /LPF Urine Bacteria 0 /HPF (0-FEW) White Blood Count 17.3 x10^3/uL (4.0-11.0) Red Blood Count 4.36 x10^6/uL (4.30-5.70) Hemoglobin 12.2 g/dL (13.0-17.5) Hematocrit 37.8 % (39.0-53.0) Mean Corpuscular Volume 87 fL (79-100) Mean Corpuscular Hemoglobin 28 pg (25-35) Mean Corpuscular Hemoglobin Concent 32 g/dL (31-37) Red Cell Distribution Width 17.5 % (11.5-14.5) Platelet Count 156 x10^3/uL (140-400) Neutrophils (%) (Auto) 94 % (31-73) Lymphocytes (%) (Auto) 2 % (24-48) Monocytes (%) (Auto) 4 % (0-9) Eosinophils (%) (Auto) 0 % (0-3) Basophils (%) (Auto) 0 % (0-3) Neutrophils # (Auto) 16.3 x10^3uL (1.8-7.7) Lymphocytes # (Auto) 0.3 x10^3/uL (1.0-4.8) Monocytes # (Auto) 0.7 x10^3/uL (0.0-1.1) Eosinophils # (Auto) 0.0 x10^3/uL (0.0-0.7) Basophils # (Auto) 0.0 x10^3/uL (0.0-0.2) Segmented Neutrophils % 84 % (35-66) Band Neutrophils % 13 % (0-9) Lymphocytes % 1 % (24-48) Monocytes % 1 % (0-10) Metamyelocytes % 1 % (0-0) Toxic Vacuolation Slight Dohle Bodies Present Platelet Estimate Adequate (ADEQUATE) Sodium Level 138 mmol/L (136-145) Potassium Level 3.7 mmol/L (3.5-5.1) Chloride Level 101 mmol/L (98-107) Carbon Dioxide Level 27 mmol/L (21-32) Anion Gap 10 (6-14) Blood Urea Nitrogen 14 mg/dL (8-26) Creatinine 1.0 mg/dL (0.7-1.3) Estimated GFR (Cockcroft-Gault) 73.5 BUN/Creatinine Ratio 14 (6-20) Glucose Level 161 mg/dL (70-99) Lactic Acid Level 3.1 mmol/L (0.4-2.0) Calcium Level 9.0 mg/dL (8.5-10.1) Total Bilirubin 1.3 mg/dL (0.2-1.0) Aspartate Amino Transf (AST/SGOT) 31 U/L (15-37) Alanine Aminotransferase (ALT/SGPT) 21 U/L (16-63) Alkaline Phosphatase 134 U/L (46-116) Creatine Kinase 1111 U/L (39-308) MN-Nuh-M-Type Natriuretic Peptide 3396 pg/mL (0-124) Total Protein 7.3 g/dL (6.4-8.2) Albumin 2.7 g/dL (3.4-5.0) Albumin/Globulin Ratio 0.6 (1.0-1.7) Procalcitonin 2.77 ng/mL (0.00-0.10) Influenza Type A Antigen Negative (NEGATIVE) Influenza Type B Antigen Negative (NEGATIVE) Nasal Screen MRSA (PCR) Negative (Negative) Test 08/06/18 13:55 08/07/18 04:15 Lactic Acid Level 3.0 mmol/L (0.4-2.0) White Blood Count 11.0 x10^3/uL (4.0-11.0) Red Blood Count 4.04 x10^6/uL (4.30-5.70) Hemoglobin 11.3 g/dL (13.0-17.5) Hematocrit 34.7 % (39.0-53.0) Mean Corpuscular Volume 86 fL (79-100) Mean Corpuscular Hemoglobin 28 pg (25-35) Mean Corpuscular Hemoglobin Concent 33 g/dL (31-37) Red Cell Distribution Width 17.8 % (11.5-14.5) Platelet Count 127 x10^3/uL (140-400) Neutrophils (%) (Auto) 89 % (31-73) Lymphocytes (%) (Auto) 4 % (24-48) Monocytes (%) (Auto) 7 % (0-9) Eosinophils (%) (Auto) 0 % (0-3) Basophils (%) (Auto) 0 % (0-3) Neutrophils # (Auto) 9.8 x10^3uL (1.8-7.7) Lymphocytes # (Auto) 0.4 x10^3/uL (1.0-4.8) Monocytes # (Auto) 0.8 x10^3/uL (0.0-1.1) Eosinophils # (Auto) 0.0 x10^3/uL (0.0-0.7) Basophils # (Auto) 0.0 x10^3/uL (0.0-0.2) Sodium Level 134 mmol/L (136-145) Potassium Level 3.3 mmol/L (3.5-5.1) Chloride Level 101 mmol/L (98-107) Carbon Dioxide Level 25 mmol/L (21-32) Anion Gap 8 (6-14) Blood Urea Nitrogen 16 mg/dL (8-26) Creatinine 0.9 mg/dL (0.7-1.3) Estimated GFR (Cockcroft-Gault) 82.9 BUN/Creatinine Ratio 18 (6-20) Glucose Level 132 mg/dL (70-99) Calcium Level 8.2 mg/dL (8.5-10.1) Total Bilirubin 1.1 mg/dL (0.2-1.0) Aspartate Amino Transf (AST/SGOT) 35 U/L (15-37) Alanine Aminotransferase (ALT/SGPT) 15 U/L (16-63) Alkaline Phosphatase 107 U/L (46-116) Total Protein 6.3 g/dL (6.4-8.2) Albumin 2.1 g/dL (3.4-5.0) Albumin/Globulin Ratio 0.5 (1.0-1.7) Laboratory Tests Test 08/07/18 04:15 White Blood Count 11.0 x10^3/uL (4.0-11.0) Red Blood Count 4.04 x10^6/uL (4.30-5.70) Hemoglobin 11.3 g/dL (13.0-17.5) Hematocrit 34.7 % (39.0-53.0) Mean Corpuscular Volume 86 fL (79-100) Mean Corpuscular Hemoglobin 28 pg (25-35) Mean Corpuscular Hemoglobin Concent 33 g/dL (31-37) Red Cell Distribution Width 17.8 % (11.5-14.5) Platelet Count 127 x10^3/uL (140-400) Neutrophils (%) (Auto) 89 % (31-73) Lymphocytes (%) (Auto) 4 % (24-48) Monocytes (%) (Auto) 7 % (0-9) Eosinophils (%) (Auto) 0 % (0-3) Basophils (%) (Auto) 0 % (0-3) Neutrophils # (Auto) 9.8 x10^3uL (1.8-7.7) Lymphocytes # (Auto) 0.4 x10^3/uL (1.0-4.8) Monocytes # (Auto) 0.8 x10^3/uL (0.0-1.1) Eosinophils # (Auto) 0.0 x10^3/uL (0.0-0.7) Basophils # (Auto) 0.0 x10^3/uL (0.0-0.2) Sodium Level 134 mmol/L (136-145) Potassium Level 3.3 mmol/L (3.5-5.1) Chloride Level 101 mmol/L (98-107) Carbon Dioxide Level 25 mmol/L (21-32) Anion Gap 8 (6-14) Blood Urea Nitrogen 16 mg/dL (8-26) Creatinine 0.9 mg/dL (0.7-1.3) Estimated GFR (Cockcroft-Gault) 82.9 BUN/Creatinine Ratio 18 (6-20) Glucose Level 132 mg/dL (70-99) Calcium Level 8.2 mg/dL (8.5-10.1) Total Bilirubin 1.1 mg/dL (0.2-1.0) Aspartate Amino Transf (AST/SGOT) 35 U/L (15-37) Alanine Aminotransferase (ALT/SGPT) 15 U/L (16-63) Alkaline Phosphatase 107 U/L (46-116) Total Protein 6.3 g/dL (6.4-8.2) Albumin 2.1 g/dL (3.4-5.0) Albumin/Globulin Ratio 0.5 (1.0-1.7) Microbiology 08/06/18 Blood Culture - Preliminary, Resulted NO GROWTH AFTER 1 DAY Medications Current Medications Ketorolac Tromethamine (Toradol 15mg Vial) 15 mg 1X ONCE IV Last administered on 08/06/18at 07:30; Start 08/06/18 at 06:45; Stop 08/06/18 at 06:46; Status DC Vancomycin HCl (Vanco Per Pharmacy) 1 each PRN DAILY PRN MC SEE COMMENTS Last administered on 08/07/18at 12:26; Start 08/06/18 at 07:00 Piperacillin Sod/ Tazobactam Sod (Zosyn Per Pharmacy) 1 each PRN DAILY PRN MC SEE COMMENTS; Start 08/06/18 at 07:15 Piperacillin Sod/ Tazobactam Sod 3.375 gm/Sodium Chloride 50 ml @ 100 mls/hr 1X ONCE IV Last administered on 08/06/18at 07:23; Start 08/06/18 at 07:15; Stop 08/06/18 at 07:44; Status DC Vancomycin HCl 2 gm/Sodium Chloride 500 ml @ 250 mls/hr 1X ONCE IV Last administered on 08/06/18at 07:49; Start 08/06/18 at 08:00; Stop 08/06/18 at 09:59 ; Status DC Sodium Chloride 1,000 ml @ 1,000 mls/hr 1X ONCE IV Last administered on 07:31; Start 08/06/18 at 07:30; Stop 08/06/18 at 08:29; Status DC Sodium Chloride 1,000 ml @ 1,000 mls/hr 1X ONCE IV Last administered on at 07:32; Start 08/06/18 at 07:30; Stop 08/06/18 at 08:29; Status DC Piperacillin Sod/ Tazobactam Sod 4.5 gm/Sodium Chloride 100 ml @ 200 mls/hr Q6HRS IV ; Start 08/06/18 at 12:00; Status Cancel Piperacillin Sod/ Tazobactam Sod 3.375 gm/Sodium Chloride 50 ml @ 100 mls/hr Q6HRS IV Last administered on 08/07/18at 11:47; Start 08/06/18 at 12:00 Nystatin (Nystop) 1 toy BID TP Last administered on 08/07/18 09:33; Start at 09:00 Allopurinol (Zyloprim) 300 mg DAILY PO Last administered on 08/07/18 09:34; Start 08/06/18 at 09:00 Digoxin (Lanoxin) 125 mcg DAILY PO Last administered on 08/07/18 09:35; Start 08/06/18 at 09:00 Fluticasone Propionate (Flonase) 2 spray HS NS Last administered on 08/06/18 20:21; Start 08/06/18 at 21:00 Folic Acid (Folic Acid) 1 mg DAILY PO Last administered on 08/07/18 09:33; Start 08/06/18 at 09:00 Furosemide (Lasix) 60 mg DAILY PO Last administered on 08/07/18 09:34; Start 08/06/18 at 09:00 Gabapentin (Neurontin) 300 mg HS PO Last administered on 08/06/18 20:20; Start 08/06/18 at 21:00 Lorazepam (Ativan) 1 mg HS PO Last administered on 08/06/18 20:25; Start 08/06 at 21:00 Losartan Potassium (Cozaar) 50 mg DAILY PO Last administered on 08/07/18 09:34 ; Start 08/06/18 at 09:00 Metoprolol Tartrate (Lopressor) 12.5 mg BID PO Last administered on 08/07/18 09:35; Start 08/06/18 at 09:00 Potassium Chloride (Klor-Con) 10 meq BIDWMEALS PO Last administered on 08:29; Start 08/06/18 at 09:00 Silver Sulfadiazine (Silvadene) 1 toy BID TP Last administered on 08/07/18 09: 33; Start 08/06/18 at 09:00 Non-Formulary Medication (Albuterol Sulfate (Ventolin Hfa Inhaler)) 2 puff QID INH ; Start 08/06/18 at 09:00; Status UNV Diltiazem HCl (Cardizem 24hr Cd) 120 mg DAILY PO Last administered on 09:35; Start 08/06/18 at 09:00 Non-Formulary Medication (Fluticasone Propionate (Flovent 100MCG Diskus)) 1 puff HS IH ; Start 08/06/18 at 21:00; Status UNV Risperidone (RisperDAL) 0.5 mg QHS PO Last administered on 08/06/18 20:19; Start 08/06/18 at 21:00 Rivaroxaban (Xarelto) 20 mg DAILYWSUP PO Last administered on 08/06/18 17:48; Start 08/06/18 at 17:00 Albuterol Sulfate (Ventolin Neb Soln) 2.5 mg RTQID NEB Last administered on at 11:16; Start 08/06/18 at 12:00 Budesonide (Pulmicort) 0.5 mg RTBID NEB Last administered on 08/07/18at 07:37; Start 08/06/18 at 09:00 Perflutren Protein Type A Microsphe (Optison) 0.66 mg STK-MED ONCE IV ; Start at 09:32; Stop 08/06/18 at 09:34; Status DC Lactobacillus Rhamnosus (Culturelle) 1 cap BID PO Last administered on 09:33; Start 08/06/18 at 21:00 Vancomycin HCl 1.75 gm/Sodium Chloride 500 ml @ 250 mls/hr Q12H IV Last administered on 1/31/19at 08:30; Start 08/06/18 at 20:00 Vancomycin HCl (Vancomycin Trough Level) 1 each 1X ONCE MC ; Start 08/07/18 at 19:30; Stop 08/07/18 at 19:31 Info (Anti-Coagulation Monitoring By Pharmacy) 1 each PRN DAILY PRN MC SEE COMMENTS Last administered on 08/07/18at 08:15; Start 08/06/18 at 10:00 Perflutren Protein Type A Microsphe (Optison) 0.66 mg PRN 1X PRN IV SEE COMMENTS; Start 08/06/18 at 10:00; Stop 08/07/18 at 09:59; Status DC Micafungin Sodium 100 mg/Dextrose 100 ml @ 100 mls/hr Q24H IV Last administered on 08/07/18at 13:41; Start 08/06/18 at 14:00 Acetaminophen (Tylenol) 650 mg PRN Q6HRS PRN PO fever Last administered on 08/07at 06:07; Start 08/06/18 at 14:00 Linezolid/Dextrose 300 ml @ 300 mls/hr Q12HR IV Last administered on at 09:33; Start 08/07/18 at 09:00 Perflutren Protein Type A Microsphe (Optison) 0.66 mg STK-MED ONCE IV ; Start at 10:00; Stop 08/07/18 at 08:15; Status DC Active Scripts Active Lanoxin (Digoxin) 125 Mcg Tablet 125 Mcg PO DAILY 30 Days Reported Xarelto (Rivaroxaban) 20 Mg Tablet 20 Mg PO DAILY Lorazepam 1 Mg Tablet 1 Mg PO HS Gabapentin (Gabapentin) 300 Mg Capsule 1 Cap PO HS Flovent 100MCG Diskus (Fluticasone Propionate) 100 Mcg Disk.w.dev 1 Puff IH HS Losartan Potassium (Losartan Potassium) 25 Mg Tablet 2 Tab PO DAILY Furosemide 40 Mg Tablet 1.5 Tab PO DAILY PRN Diltiazem 24HR Cd (Diltiazem Hcl) 120 Mg Cap.er.24h 1 Cap PO DAILY PRN Gabapentin (Gabapentin) 300 Mg Capsule 1 Cap PO HS Potassium Chloride 10 Meq Tab.er.prt 1 Tab PO BID Metoprolol Tartrate 25 Mg Tablet 0.5 Tab PO BID Folic Acid 1 Mg Tablet 1 Tab PO DAILY Allopurinol 300 Mg Tablet 300 Mg PO DAILY Ventolin Hfa Inhaler (Albuterol Sulfate) 18 Gm Hfa.aer.ad 2 Puff INH QID Flonase (Fluticasone Propionate) 16 Gm [place].susp 2 [place] NS HS Silvadene (Silver Sulfadiazine) 20 Gm Cream..g. 1 Toy TP BID Ventolin Hfa Inhaler (Albuterol Sulfate) 18 Gm Hfa.aer.ad 2 Puff IH PRN Q4-6HRS Risperidone 0.5 Mg Tablet 1 Tab PO QHS Vitals/I & O Vital Sign - Last 24 Hours 08/06/18 08/06/18 08/06/18 08/06/18 15:00 15:58 15:59 16:00 Temp 102.0 102.0 Pulse 106 Resp 20 B/P (MAP) 154/58 (90) Pulse Ox 94 88 97 O2 Delivery BiPAP/CPAP Venturi Mask BiPAP/CPAP Bi-pap O2 Flow Rate 15.0 08/06/18 08/06/18 08/06/18 08/06/18 16:00 17:00 18:00 19:00 Temp 101.0 101.0 Pulse 96 100 90 95 Resp 20 20 20 27 B/P (MAP) 162/65 (97) 133/57 (82) 124/59 (80) Pulse Ox 94 93 97 O2 Delivery BiPAP/CPAP Venturi Mask Venturi Mask Venturi Mask 08/06/18 08/06/18 08/06/18 08/06/18 20:00 20:00 20:20 20:20 Temp 99.7 99.7 Pulse 94 94 Resp 29 B/P (MAP) 117/58 (77) 117/58 Pulse Ox 96 100 O2 Delivery Venturi Mask Venturi Mask Venturi Mask O2 Flow Rate 9.0 08/06/18 08/06/18 08/06/18 08/06/18 20:22 21:00 22:00 23:00 Pulse 98 90 100 Resp 27 23 25 B/P (MAP) 144/65 (91) 122/59 (80) 133/67 (89) Pulse Ox 100 96 92 93 O2 Delivery Venturi Mask Venturi Mask Venturi Mask Venturi Mask O2 Flow Rate 9.0 08/06/18 08/07/18 08/07/18 08/07/18 23:59 00:00 01:00 02:00 Temp 99.8 99.8 Pulse 98 92 92 Resp 24 B/P (MAP) 155/62 (93) 112/57 (75) 138/60 (86) Pulse Ox 92 95 97 O2 Delivery Venturi Mask Venturi Mask Venturi Mask Venturi Mask 08/07/18 08/07/18 08/07/18 08/07/18 03:00 04:00 04:00 05:00 Temp 101.3 101.3 Pulse 94 95 100 Resp B/P (MAP) 127/59 (81) 153/66 (95) 134/60 (84) Pulse Ox 96 94 94 O2 Delivery Venturi Mask Venturi Mask Venturi Mask Venturi Mask 08/07/18 08/07/18 08/07/18 08/07/18 06:00 07:00 07:38 08:00 Temp 99.5 99.5 Pulse 107 102 98 Resp B/P (MAP) 136/66 (89) 127/70 (89) 126/74 (91) Pulse Ox 95 96 95 98 O2 Delivery Venturi Mask Venturi Mask Venturi Mask Venturi Mask O2 Flow Rate 9.0 08/07/18 08/07/18 08/07/18 08/07/18 08:00 09:00 09:34 09:35 Pulse 94 98 98 Resp 22 B/P (MAP) 132/77 (95) 126/74 126/74 Pulse Ox 98 O2 Delivery Venturi Mask Venturi Mask 08/07/18 08/07/18 08/07/18 08/07/18 09:35 09:35 10:00 11:00 Pulse 98 98 100 86 Resp B/P (MAP) 126/74 126/74 142/76 (98) 146/77 (100) Pulse Ox 98 95 O2 Delivery Venturi Mask Venturi Mask 08/07/18 08/07/18 08/07/18 08/07/18 11:17 12:00 12:00 13:00 Temp 99.3 99.3 Pulse 83 99 Resp B/P (MAP) 128/70 (89) 139/68 (91) Pulse Ox 95 96 95 O2 Delivery Venturi Mask Venturi Mask Venturi Mask Venturi Mask O2 Flow Rate 9.0 Intake and Output 08/06/18 08/06/18 08/07/18 15:01 23:01 07:01 Intake Total 2850 ml 945 ml 50 ml Output Total 400 ml 760 ml 540 ml Balance 2450 ml 185 ml -490 ml KARO CLARK MD Aug 07, 2018 14:59
[2018-08-07] MEDS: RIVAROXABAN 10 MG TABLET. PO SCH (18:43)
[2018-08-07 19:50] LABS: VANC TR 12.6 mcg/mL (10.0-20.0)
[2018-08-07] MEDS: FLUTICASONE 50MCG/NASAL SPRAY 16GM BOTTLE. NS SCH (20:14)
[2018-08-07] MEDS: risperiDONE 0.25 MG TABLET. PO SCH (20:15)
[2018-08-07] MEDS: GABAPENTIN 300 MG CAPSULE. PO SCH (20:16)
[2018-08-07] MEDS: LORazepam 1 MG TABLET PO SCH (20:16)
--- NOTE | 2018-08-07 21:06 | NUR ---
Pharmacy Vancomycin Dosing Note S:Consulted to monitor and dose vancomycin started 08/06/18. O:PIERO YEE is a 72 year old M with Cellulitis Sepsis HCAP . Height: 6 feet, 2 inches Weight: 133.354793 kg [place] Body Weight: 82.20 Adjusted Body Weight: 100.12 Dosing Weight: Actual Other Antibiotics: ZOSYN MICAFUNGIN ZYVOX LABS: Last BUN: 16 Last Creatinine: 0.9 Creatinine Clearance: 97 mL/min Last WBC: 11.0 Last Procalcitonin: 2.77 Tmax (past 24 hours): 101.3 Microbiology: 08/06 Blood: no growth I/O: 3845/1640 Drug Levels: Last Trough level: 12.6 on 08/07/18 at 1920 Last dose given 08/07/18 at 0830 Vancomycin Dosing: Loading Dose: 2000 mg x1 Dosing Weight: Actual Target Trough: 15-20 A: Based on: subtherapeutic level for indication, P: 1. Initiate new regimen of Vancomycin 2000 mg IV q12h 2. Follow up Trough level as needed 3. Pharmacy will continue to monitor, follow and adjust therapy as needed. YENNI HERNANDEZ RPH, 08/07/18 [id number]
[2018-08-08] VITALS (14 sets, daily range): BP systolic 134–157; BP diastolic 64–83
[2018-08-08] MEDS: PIPERACILLIN/TAZOBACTAM 3.375 GM in IV NORMAL SALINE 50ML 50 ML IV SCH ×4 (00:50→16:55)
[2018-08-08 05:19] LABS: BASO % 0 % (0-3); EOS % 0 % (0-3); HEMATOCRIT 32.4 % (39.0-53.0); HEMOGLOBIN 10.9 g/dL (13.0-17.5); LYMPH # 0.6 x10^3/uL (1.0-4.8); LYMPH % 7 % (24-48); MEAN CORPUSCULAR HEMOGLOBIN 29 pg (25-35); MEAN CORPUSCULAR HGB CONC 34 g/dL (31-37); MEAN CORPUSCULAR VOLUME 85 fL (79-100); MONO # 1.1 x10^3/uL (0.0-1.1); MONO % 13 % (0-9); NEUT # 6.7 x10^3uL (1.8-7.7); NEUT % 79 % (31-73); PLATELET COUNT 126 x10^3/uL (140-400); RED BLOOD COUNT 3.79 x10^6/uL (4.30-5.70); RED CELL DISTRIBUTION WIDTH 17.6 % (11.5-14.5); WHITE BLOOD COUNT 8.5 x10^3/uL (4.0-11.0)
[2018-08-08 06:02] LABS: CREATININE 0.8 mg/dL (0.7-1.3)
--- NOTE | 2018-08-08 07:08 | PDOC ---
Infectious Disease Note Subjective Subjective Sleeping on Bipap but awakens. States hes doing ok No Pain. breathing ok. No chills/N ROS ROS o/w neg Vital Sign Vital Signs Vital Signs Date Time Temp Pulse Resp B/P (MAP) Pulse Ox O2 Delivery O2 Flow Rate FiO2 08/08/18 06:00 85 22 146/74 (98) BiPAP/CPAP 08/08/18 04:00 98.2 98.2 08/08/18 03:39 99 08/07/18 17:18 9.0 Physical Exam PHYSICAL EXAM GENERAL: The patient is slightly propped up in bed, appears comfortable. Arousable on Bipap looks comfortable HEENT: Pupils equally round. Normal conjunctivae. Oral cavity had pink, dry with dentures in place. NECK: Supple. LUNGS: Diminished aeration in the bases. Nonlabored.On Bipap HEART: S1 and S2 irregular. ABDOMEN: Obese and soft. No grimace or guarding to palpation with bowel sounds present. GENITOURINARY: Indwelling Arias in place. EXTREMITIES: Lower extremity edema with chronic venous stasis changes and associated with thickened, moderately red skin changes with brown scales and macerations between the toes. No cyanosis.Erythema R> L improved and NT SKIN: Warm. He has some redness under the pannus and groin areas, currently covered with topical nystatin powder. NEUROLOGICAL: More alert LINES: Peripheral IV looks okay. Labs Lab Laboratory Tests Test 08/07/18 19:20 08/08/18 04:30 Vancomycin Level Trough 12.6 mcg/mL (10.0-20.0) Vancomycin Last Dose Date 08/07/18 Vancomycin Last Dose Time 0800 White Blood Count 8.5 x10^3/uL (4.0-11.0) Red Blood Count 3.79 x10^6/uL (4.30-5.70) Hemoglobin 10.9 g/dL (13.0-17.5) Hematocrit 32.4 % (39.0-53.0) Mean Corpuscular Volume 85 fL (79-100) Mean Corpuscular Hemoglobin 29 pg (25-35) Mean Corpuscular Hemoglobin Concent 34 g/dL (31-37) Red Cell Distribution Width 17.6 % (11.5-14.5) Platelet Count 126 x10^3/uL (140-400) Neutrophils (%) (Auto) 79 % (31-73) Lymphocytes (%) (Auto) 7 % (24-48) Monocytes (%) (Auto) 13 % (0-9) Eosinophils (%) (Auto) 0 % (0-3) Basophils (%) (Auto) 0 % (0-3) Neutrophils # (Auto) 6.7 x10^3uL (1.8-7.7) Lymphocytes # (Auto) 0.6 x10^3/uL (1.0-4.8) Monocytes # (Auto) 1.1 x10^3/uL (0.0-1.1) Eosinophils # (Auto) 0.0 x10^3/uL (0.0-0.7) Basophils # (Auto) 0.0 x10^3/uL (0.0-0.2) Sodium Level 133 mmol/L (136-145) Potassium Level 3.0 mmol/L (3.5-5.1) Chloride Level 98 mmol/L (98-107) Carbon Dioxide Level 26 mmol/L (21-32) Anion Gap 9 (6-14) Blood Urea Nitrogen 12 mg/dL (8-26) Creatinine 0.8 mg/dL (0.7-1.3) Estimated GFR (Cockcroft-Gault) 95.0 Glucose Level 127 mg/dL (70-99) Calcium Level 8.0 mg/dL (8.5-10.1) Micro Microbiology 08/06/18 Blood Culture - Preliminary, Resulted NO GROWTH AFTER 1 DAY Objective Assessment Sepsis with lactic acidosis POA - better Fever - better Leukocytosis -better Cellulitis of lower extremities R> L Yeast groin/pannus areas Acute encephalopathy - improving Chronic venous stasis - followed by [facility] ? HCAP MRSA screen neg CHF DM II COPD PVD Chronic A-fib DNR/DNI Plan Plan of Care Discont Vanc Cont Zosyn/Micafungin Cont Zyvox Nystatin top powder to affected areas f/u cultures/labs Local wound care Ok to transfer out D/w TERA PAVON MD Aug 08, 2018 07:08
[2018-08-08] MEDS ORDERED: VANCOMYCIN 2 GM in IV NORMAL SALINE 500ML BAG 500 ML IV SCH (08:00)
[2018-08-08] MEDS: LINEZOLID 600 MG TABLET PO SCH ×2 (08:01→21:15)
[2018-08-08] MEDS: FUROSEMIDE 20 MG TABLET PO SCH (08:01)
[2018-08-08] MEDS: FOLIC ACID 1 MG TABLET. PO SCH (08:02)
[2018-08-08] MEDS: ALLOPURINOL 300 MG TABLET. PO SCH (08:02)
[2018-08-08] MEDS: DIGOXIN 125 MCG TABLET. PO SCH (08:02)
[2018-08-08] MEDS: NYSTATIN TOPICAL POWDER 15GM BOTTLE. TP SCH ×2 (08:03→21:15)
[2018-08-08] MEDS: LACTOBACILLUS RHAMNOSUS GG 1 CAPSULE. PO SCH ×2 (08:03→21:15)
[2018-08-08] MEDS: silver sulfADIAZINE 1% CREAM 25GM TUBE. TP SCH ×2 (08:03→21:15)
[2018-08-08] MEDS: POTASSIUM CHLORIDE 10 MEQ TABLET.ER. PO SCH ×3 (08:03→16:55)
[2018-08-08] MEDS: LOSARTAN POTASSIUM 50 MG TABLET. PO SCH (08:03)
[2018-08-08] MEDS ORDERED: ONDANSETRON PF 4 MG/2 ML VIAL. IV PRN (08:15)
[2018-08-08] MEDS ORDERED: ONDANSETRON ODT 4 MG TAB.RAPDIS. PO PRN (08:15)
[2018-08-08] MEDS ORDERED: LABETALOL 20 MG/4 ML DISP.SYRIN. IVP PRN (08:15)
[2018-08-08] MEDS: ALBUTEROL SULFATE 2.5 MG/3 ML NEBU. NEB SCH ×4 (08:39→21:33)
[2018-08-08] MEDS: BUDESONIDE 0.5 MG/2 ML NEBU. NEB SCH ×2 (08:40→21:34)
[2018-08-08] MEDS: METOPROLOL TART IMMED RELEASE 25 MG TABLET. PO SCH ×2 (09:43→21:16)
--- NOTE | 2018-08-08 09:46 | PDOC ---
PULMONARY PROGRESS NOTES Subjective NO RESP COMPLAINTS Vitals Vital Signs Date Time Temp Pulse Resp B/P (MAP) Pulse Ox O2 Delivery O2 Flow Rate FiO2 08/08/18 09:43 90 144/69 08/08/18 08:41 95 Venturi Mask 9.0 08/08/18 08:00 99.6 24 99.6 ROS: No Nausea, No Chest Pain, No Abdominal Pain, No Increase Cough General: Alert, No acute distress Lungs: Other Cardiovascular: S1 Abdomen: Soft, Other (OBESE) Neuro Exam: Alert Extremities: Other Skin: Warm Labs Laboratory Tests Test 08/06/18 13:55 08/07/18 04:15 08/07/18 19:20 08/08/18 04:30 Lactic Acid Level 3.0 mmol/L (0.4-2.0) White Blood Count 11.0 x10^3/uL (4.0-11.0) 8.5 x10^3/uL (4.0-11.0) Red Blood Count 4.04 x10^6/uL (4.30-5.70) 3.79 x10^6/uL (4.30-5.70) Hemoglobin 11.3 g/dL (13.0-17.5) 10.9 g/dL (13.0-17.5) Hematocrit 34.7 % (39.0-53.0) 32.4 % (39.0-53.0) Mean Corpuscular Volume 86 fL (79-100) 85 fL (79-100) Mean Corpuscular Hemoglobin 28 pg (25-35) 29 pg (25-35) Mean Corpuscular Hemoglobin Concent 33 g/dL (31-37) 34 g/dL (31-37) Red Cell Distribution Width 17.8 % (11.5-14.5) 17.6 % (11.5-14.5) Platelet Count 127 x10^3/uL (140-400) 126 x10^3/uL (140-400) Neutrophils (%) (Auto) 89 % (31-73) 79 % (31-73) Lymphocytes (%) (Auto) 4 % (24-48) 7 % (24-48) Monocytes (%) (Auto) 7 % (0-9) 13 % (0-9) Eosinophils (%) (Auto) 0 % (0-3) 0 % (0-3) Basophils (%) (Auto) 0 % (0-3) 0 % (0-3) Neutrophils # (Auto) 9.8 x10^3uL (1.8-7.7) 6.7 x10^3uL (1.8-7.7) Lymphocytes # (Auto) 0.4 x10^3/uL (1.0-4.8) 0.6 x10^3/uL (1.0-4.8) Monocytes # (Auto) 0.8 x10^3/uL (0.0-1.1) 1.1 x10^3/uL (0.0-1.1) Eosinophils # (Auto) 0.0 x10^3/uL (0.0-0.7) 0.0 x10^3/uL (0.0-0.7) Basophils # (Auto) 0.0 x10^3/uL (0.0-0.2) 0.0 x10^3/uL (0.0-0.2) Sodium Level 134 mmol/L (136-145) 133 mmol/L (136-145) Potassium Level 3.3 mmol/L (3.5-5.1) 3.0 mmol/L (3.5-5.1) Chloride Level 101 mmol/L (98-107) 98 mmol/L (98-107) Carbon Dioxide Level 25 mmol/L (21-32) 26 mmol/L (21-32) Anion Gap 8 (6-14) 9 (6-14) Blood Urea Nitrogen 16 mg/dL (8-26) 12 mg/dL (8-26) Creatinine 0.9 mg/dL (0.7-1.3) 0.8 mg/dL (0.7-1.3) Estimated GFR (Cockcroft-Gault) 82.9 95.0 BUN/Creatinine Ratio 18 (6-20) Glucose Level 132 mg/dL (70-99) 127 mg/dL (70-99) Calcium Level 8.2 mg/dL (8.5-10.1) 8.0 mg/dL (8.5-10.1) Total Bilirubin 1.1 mg/dL (0.2-1.0) Aspartate Amino Transf (AST/SGOT) 35 U/L (15-37) Alanine Aminotransferase (ALT/SGPT) 15 U/L (16-63) Alkaline Phosphatase 107 U/L (46-116) Total Protein 6.3 g/dL (6.4-8.2) Albumin 2.1 g/dL (3.4-5.0) Albumin/Globulin Ratio 0.5 (1.0-1.7) Vancomycin Level Trough 12.6 mcg/mL (10.0-20.0) Vancomycin Last Dose Date 08/07/18 Vancomycin Last Dose Time 0800 Laboratory Tests Test 08/07/18 19:20 08/08/18 04:30 Vancomycin Level Trough 12.6 mcg/mL (10.0-20.0) Vancomycin Last Dose Date 08/07/18 Vancomycin Last Dose Time 0800 White Blood Count 8.5 x10^3/uL (4.0-11.0) Red Blood Count 3.79 x10^6/uL (4.30-5.70) Hemoglobin 10.9 g/dL (13.0-17.5) Hematocrit 32.4 % (39.0-53.0) Mean Corpuscular Volume 85 fL (79-100) Mean Corpuscular Hemoglobin 29 pg (25-35) Mean Corpuscular Hemoglobin Concent 34 g/dL (31-37) Red Cell Distribution Width 17.6 % (11.5-14.5) Platelet Count 126 x10^3/uL (140-400) Neutrophils (%) (Auto) 79 % (31-73) Lymphocytes (%) (Auto) 7 % (24-48) Monocytes (%) (Auto) 13 % (0-9) Eosinophils (%) (Auto) 0 % (0-3) Basophils (%) (Auto) 0 % (0-3) Neutrophils # (Auto) 6.7 x10^3uL (1.8-7.7) Lymphocytes # (Auto) 0.6 x10^3/uL (1.0-4.8) Monocytes # (Auto) 1.1 x10^3/uL (0.0-1.1) Eosinophils # (Auto) 0.0 x10^3/uL (0.0-0.7) Basophils # (Auto) 0.0 x10^3/uL (0.0-0.2) Sodium Level 133 mmol/L (136-145) Potassium Level 3.0 mmol/L (3.5-5.1) Chloride Level 98 mmol/L (98-107) Carbon Dioxide Level 26 mmol/L (21-32) Anion Gap 9 (6-14) Blood Urea Nitrogen 12 mg/dL (8-26) Creatinine 0.8 mg/dL (0.7-1.3) Estimated GFR (Cockcroft-Gault) 95.0 Glucose Level 127 mg/dL (70-99) Calcium Level 8.0 mg/dL (8.5-10.1) Medications Active Scripts Medications Dose Route/Sig Max Daily Dose Days Date Category Xarelto (Rivaroxaban) 20 Mg Tablet 20 Mg PO DAILY 06/10/18 Reported Lorazepam 1 Mg Tablet 1 Mg PO HS 10/12/14 Reported Gabapentin (Gabapentin) 300 Mg Capsule 1 Cap PO HS 10/12/14 Reported Flovent 100MCG Diskus (Fluticasone Propionate) 100 Mcg Disk.w.dev 1 Puff IH HS 10/12/14 Reported Losartan Potassium (Losartan Potassium) 25 Mg Tablet 2 Tab PO DAILY 10/12/14 Reported Furosemide 40 Mg Tablet 1.5 Tab PO DAILY PRN 10/12/14 Reported Diltiazem 24HR Cd (Diltiazem Hcl) 120 Mg Cap.er.24h 1 Cap PO DAILY PRN 10/12/14 Reported Lanoxin (Digoxin) 125 Mcg Tablet 125 Mcg PO DAILY 30 08/24/14 Rx Gabapentin (Gabapentin) 300 Mg Capsule 1 Cap PO HS 08/18/14 Reported Potassium Chloride 10 Meq Tab.er.prt 1 Tab PO BID 08/18/14 Reported Metoprolol Tartrate 25 Mg Tablet 0.5 Tab PO BID 08/18/14 Reported Folic Acid 1 Mg Tablet 1 Tab PO DAILY 08/18/14 Reported Allopurinol 300 Mg Tablet 300 Mg PO DAILY 08/18/14 Reported Ventolin Hfa Inhaler (Albuterol Sulfate) 18 Gm Hfa.aer.ad 2 Puff INH QID 08/18/14 Reported Flonase (Fluticasone Propionate) 16 Gm [place].susp 2 [place] NS HS 08/18/14 Reported Silvadene (Silver Sulfadiazine) 20 Gm Cream..g. 1 Toy TP BID 08/18/14 Reported Ventolin Hfa Inhaler (Albuterol Sulfate) 18 Gm Hfa.aer.ad 2 Puff IH PRN Q4-6HRS 08/18/14 Reported Risperidone 0.5 Mg Tablet 1 Tab PO QHS 08/18/14 Reported Comments IMPRESSION: 08/06 1. Findings of CHF or volume overload with pulmonary edema and trace bilateral pleural effusions. 2. Bibasilar airspace opacities indeterminate between focal pulmonary edema, multifocal infection, or pneumonitis with atelectasis. Impression . 1. Acute hypoxemic respiratory failure. 2. Pneumonia, suspect Gram-negative, possibly Gram-positive. 3. Sepsis. 4. Toxic metabolic encephalopathy. 5. Morbid obesity. 6. Chronic obstructive pulmonary disease. 7. Cellulitis of lower extremities. 8. Chronic venous insufficiency. 9. Type 2 diabetes. 10. Peripheral vascular disease. 11. Chronic atrial fibrillation. Plan . REPEAT CXR IN AM IMPROVING PT OK TO TRANSFER OUT OF ICU ANTIBX PER ID ORAL FEEDING DVT GI PROPH SAIRA CHASE MD Aug 08, 2018 09:46
--- NOTE | 2018-08-08 10:20 | PDOC ---
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 Is a resident of [facility] and voids freely over there Okayed by ID to transfer out Pro calcitonin still elevated 2.77 but no fevers, also on nystatin for intertriginous areas DNR Plan: okay to transfer out of ICU on med telemetry Continue antibiotics per ID Continue nystatin powder to creases Once physical therapy has worked with him then we can talk about discontinuing Arias Increase KCl to 40 twice a day to address the hypokalemia Discussed with TOBACCO FLAVORER at bedside LAbs again tmr myla K levels Vitals Vitals Vital Signs Date Time Temp Pulse Resp B/P (MAP) Pulse Ox O2 Delivery O2 Flow Rate FiO2 08/08/18 09:43 90 144/69 08/08/18 08:41 95 Venturi Mask 9.0 08/08/18 08:00 99.6 24 99.6 Physical Exam Physical Exam GENERAL: The patient is slightly propped up in bed, appears comfortable. Arousable on Bipap looks comfortable HEENT: Pupils equally round. Normal conjunctivae. Oral cavity had pink, dry with dentures in place. NECK: Supple. LUNGS: Diminished aeration in the bases. Nonlabored.On Bipap HEART: S1 and S2 irregular. ABDOMEN: Obese and soft. No grimace or guarding to palpation with bowel sounds present. GENITOURINARY: Indwelling Arias in place. EXTREMITIES: Lower extremity edema with chronic venous stasis changes and associated with thickened, moderately red skin changes with brown scales and macerations between the toes. No cyanosis.Erythema R> L improved and NT SKIN: Warm. He has some redness under the pannus and groin areas, currently covered with topical nystatin powder. NEUROLOGICAL: More alert LINES: Peripheral IV looks okay. General: Alert, Cooperative, No acute distress Heart: Regular rate, Normal S1, Normal S2, Other Lungs: Clear, Other Abdomen: Soft (obese, NT), No tenderness Extremities: No clubbing, No cyanosis, Normal pulses, Other (edema) Skin: No breakdown, Other (very red, hot and scaly BLE, with poor nail care and fungus) Labs LABS Laboratory Tests Test 08/07/18 19:20 08/08/18 04:30 Vancomycin Level Trough 12.6 mcg/mL (10.0-20.0) Vancomycin Last Dose Date 08/07/18 Vancomycin Last Dose Time 0800 White Blood Count 8.5 x10^3/uL (4.0-11.0) Red Blood Count 3.79 x10^6/uL (4.30-5.70) Hemoglobin 10.9 g/dL (13.0-17.5) Hematocrit 32.4 % (39.0-53.0) Mean Corpuscular Volume 85 fL (79-100) Mean Corpuscular Hemoglobin 29 pg (25-35) Mean Corpuscular Hemoglobin Concent 34 g/dL (31-37) Red Cell Distribution Width 17.6 % (11.5-14.5) Platelet Count 126 x10^3/uL (140-400) Neutrophils (%) (Auto) 79 % (31-73) Lymphocytes (%) (Auto) 7 % (24-48) Monocytes (%) (Auto) 13 % (0-9) Eosinophils (%) (Auto) 0 % (0-3) Basophils (%) (Auto) 0 % (0-3) Neutrophils # (Auto) 6.7 x10^3uL (1.8-7.7) Lymphocytes # (Auto) 0.6 x10^3/uL (1.0-4.8) Monocytes # (Auto) 1.1 x10^3/uL (0.0-1.1) Eosinophils # (Auto) 0.0 x10^3/uL (0.0-0.7) Basophils # (Auto) 0.0 x10^3/uL (0.0-0.2) Sodium Level 133 mmol/L (136-145) Potassium Level 3.0 mmol/L (3.5-5.1) Chloride Level 98 mmol/L (98-107) Carbon Dioxide Level 26 mmol/L (21-32) Anion Gap 9 (6-14) Blood Urea Nitrogen 12 mg/dL (8-26) Creatinine 0.8 mg/dL (0.7-1.3) Estimated GFR (Cockcroft-Gault) 95.0 Glucose Level 127 mg/dL (70-99) Calcium Level 8.0 mg/dL (8.5-10.1) Review of Systems Review of Systems A 14 point ROS was completed with the following noted as positive: Other systems reviewed and negative. \CONSTITUTIONAL: No fever or chills EYES: No recent changes SKIN: No rash or itching CARDIOVASCULAR: No chest pain, syncope, palpitations, or edema RESPIRATORY: No SOB or cough GASTROINTESTINAL: No nausea, vomiting or abdominal pain NEUROLOGICAL: No headaches or weakness ENDOCRINE: No cold or heat intolerance GENITOURINARY: No urgency or frequency of urination MUSCULOSKELETAL: No back pain or joint pain LYMPHATICS: No enlarged lymph nodes PSYCHIATRIC: No anxiety or depression Assessment and Plan Assessmemt and Plan Problems Medical Problems: (1) Altered mental status Status: Acute (2) Cellulitis of leg, left Status: Acute (3) Cellulitis of leg, right Status: Acute (4) HCAP (healthcare-associated pneumonia) Status: Acute Comment Review of Relevant I have reviewed the following items shahram (where applicable) has been applied. Labs Laboratory Tests Test 08/06/18 13:55 08/07/18 04:15 08/07/18 19:20 08/08/18 04:30 Lactic Acid Level 3.0 mmol/L (0.4-2.0) White Blood Count 11.0 x10^3/uL (4.0-11.0) 8.5 x10^3/uL (4.0-11.0) Red Blood Count 4.04 x10^6/uL (4.30-5.70) 3.79 x10^6/uL (4.30-5.70) Hemoglobin 11.3 g/dL (13.0-17.5) 10.9 g/dL (13.0-17.5) Hematocrit 34.7 % (39.0-53.0) 32.4 % (39.0-53.0) Mean Corpuscular Volume 86 fL (79-100) 85 fL (79-100) Mean Corpuscular Hemoglobin 28 pg (25-35) 29 pg (25-35) Mean Corpuscular Hemoglobin Concent 33 g/dL (31-37) 34 g/dL (31-37) Red Cell Distribution Width 17.8 % (11.5-14.5) 17.6 % (11.5-14.5) Platelet Count 127 x10^3/uL (140-400) 126 x10^3/uL (140-400) Neutrophils (%) (Auto) 89 % (31-73) 79 % (31-73) Lymphocytes (%) (Auto) 4 % (24-48) 7 % (24-48) Monocytes (%) (Auto) 7 % (0-9) 13 % (0-9) Eosinophils (%) (Auto) 0 % (0-3) 0 % (0-3) Basophils (%) (Auto) 0 % (0-3) 0 % (0-3) Neutrophils # (Auto) 9.8 x10^3uL (1.8-7.7) 6.7 x10^3uL (1.8-7.7) Lymphocytes # (Auto) 0.4 x10^3/uL (1.0-4.8) 0.6 x10^3/uL (1.0-4.8) Monocytes # (Auto) 0.8 x10^3/uL (0.0-1.1) 1.1 x10^3/uL (0.0-1.1) Eosinophils # (Auto) 0.0 x10^3/uL (0.0-0.7) 0.0 x10^3/uL (0.0-0.7) Basophils # (Auto) 0.0 x10^3/uL (0.0-0.2) 0.0 x10^3/uL (0.0-0.2) Sodium Level 134 mmol/L (136-145) 133 mmol/L (136-145) Potassium Level 3.3 mmol/L (3.5-5.1) 3.0 mmol/L (3.5-5.1) Chloride Level 101 mmol/L (98-107) 98 mmol/L (98-107) Carbon Dioxide Level 25 mmol/L (21-32) 26 mmol/L (21-32) Anion Gap 8 (6-14) 9 (6-14) Blood Urea Nitrogen 16 mg/dL (8-26) 12 mg/dL (8-26) Creatinine 0.9 mg/dL (0.7-1.3) 0.8 mg/dL (0.7-1.3) Estimated GFR (Cockcroft-Gault) 82.9 95.0 BUN/Creatinine Ratio 18 (6-20) Glucose Level 132 mg/dL (70-99) 127 mg/dL (70-99) Calcium Level 8.2 mg/dL (8.5-10.1) 8.0 mg/dL (8.5-10.1) Total Bilirubin 1.1 mg/dL (0.2-1.0) Aspartate Amino Transf (AST/SGOT) 35 U/L (15-37) Alanine Aminotransferase (ALT/SGPT) 15 U/L (16-63) Alkaline Phosphatase 107 U/L (46-116) Total Protein 6.3 g/dL (6.4-8.2) Albumin 2.1 g/dL (3.4-5.0) Albumin/Globulin Ratio 0.5 (1.0-1.7) Vancomycin Level Trough 12.6 mcg/mL (10.0-20.0) Vancomycin Last Dose Date 08/07/18 Vancomycin Last Dose Time 0800 Laboratory Tests Test 08/07/18 19:20 08/08/18 04:30 Vancomycin Level Trough 12.6 mcg/mL (10.0-20.0) Vancomycin Last Dose Date 08/07/18 Vancomycin Last Dose Time 0800 White Blood Count 8.5 x10^3/uL (4.0-11.0) Red Blood Count 3.79 x10^6/uL (4.30-5.70) Hemoglobin 10.9 g/dL (13.0-17.5) Hematocrit 32.4 % (39.0-53.0) Mean Corpuscular Volume 85 fL (79-100) Mean Corpuscular Hemoglobin 29 pg (25-35) Mean Corpuscular Hemoglobin Concent 34 g/dL (31-37) Red Cell Distribution Width 17.6 % (11.5-14.5) Platelet Count 126 x10^3/uL (140-400) Neutrophils (%) (Auto) 79 % (31-73) Lymphocytes (%) (Auto) 7 % (24-48) Monocytes (%) (Auto) 13 % (0-9) Eosinophils (%) (Auto) 0 % (0-3) Basophils (%) (Auto) 0 % (0-3) Neutrophils # (Auto) 6.7 x10^3uL (1.8-7.7) Lymphocytes # (Auto) 0.6 x10^3/uL (1.0-4.8) Monocytes # (Auto) 1.1 x10^3/uL (0.0-1.1) Eosinophils # (Auto) 0.0 x10^3/uL (0.0-0.7) Basophils # (Auto) 0.0 x10^3/uL (0.0-0.2) Sodium Level 133 mmol/L (136-145) Potassium Level 3.0 mmol/L (3.5-5.1) Chloride Level 98 mmol/L (98-107) Carbon Dioxide Level 26 mmol/L (21-32) Anion Gap 9 (6-14) Blood Urea Nitrogen 12 mg/dL (8-26) Creatinine 0.8 mg/dL (0.7-1.3) Estimated GFR (Cockcroft-Gault) 95.0 Glucose Level 127 mg/dL (70-99) Calcium Level 8.0 mg/dL (8.5-10.1) Microbiology 08/06/18 Blood Culture - Preliminary, Resulted NO GROWTH AFTER 1 DAY Medications Current Medications Ketorolac Tromethamine (Toradol 15mg Vial) 15 mg 1X ONCE IV Last administered on 08/06/18at 07:30; Start 08/06/18 at 06:45; Stop 08/06/18 at 06:46; Status DC Vancomycin HCl (Vanco Per Pharmacy) 1 each PRN DAILY PRN MC SEE COMMENTS Last administered on 08/07/18at 21:06; Start 08/06/18 at 07:00; Stop 08/08/18 at 07:07 ; Status DC Piperacillin Sod/ Tazobactam Sod (Zosyn Per Pharmacy) 1 each PRN DAILY PRN MC SEE COMMENTS; Start 08/06/18 at 07:15 Piperacillin Sod/ Tazobactam Sod 3.375 gm/Sodium Chloride 50 ml @ 100 mls/hr 1X ONCE IV Last administered on 08/06/18at 07:23; Start 08/06/18 at 07:15; Stop 08/06/18 at 07:44; Status DC Vancomycin HCl 2 gm/Sodium Chloride 500 ml @ 250 mls/hr 1X ONCE IV Last administered on 08/06/18at 07:49; Start 08/06/18 at 08:00; Stop 08/06/18 at 09:59 ; Status DC Sodium Chloride 1,000 ml @ 1,000 mls/hr 1X ONCE IV Last administered on at 07:31; Start 08/06/18 at 07:30; Stop 08/06/18 at 08:29; Status DC Sodium Chloride 1,000 ml @ 1,000 mls/hr 1X ONCE IV Last administered on at 07:32; Start 08/06/18 at 07:30; Stop 08/06/18 at 08:29; Status DC Piperacillin Sod/ Tazobactam Sod 4.5 gm/Sodium Chloride 100 ml @ 200 mls/hr Q6HRS IV ; Start 08/06/18 at 12:00; Status Cancel Piperacillin Sod/ Tazobactam Sod 3.375 gm/Sodium Chloride 50 ml @ 100 mls/hr Q6HRS IV Last administered on 08/08/18at 06:14; Start 08/06/18 at 12:00 Nystatin (Nystop) 1 toy BID TP Last administered on 08/08/18at 08:03; Start 08/06 at 09:00 Allopurinol (Zyloprim) 300 mg DAILY PO Last administered on 08/08/18 08:02; Start 08/06/18 at 09:00 Digoxin (Lanoxin) 125 mcg DAILY PO Last administered on 08/08/18at 08:02; Start 08/06/18 at 09:00 Fluticasone Propionate (Flonase) 2 spray HS NS Last administered on 08/07/18at 20:14; Start 08/06/18 at 21:00 Folic Acid (Folic Acid) 1 mg DAILY PO Last administered on 08/08/18at 08:02; Start 08/06/18 at 09:00 Furosemide (Lasix) 60 mg DAILY PO Last administered on 08/08/18at 08:01; Start at 09:00 Gabapentin (Neurontin) 300 mg HS PO Last administered on 08/07/18 20:16; Start 08/06/18 at 21:00 Lorazepam (Ativan) 1 mg HS PO Last administered on 08/07/18 20:16; Start 08/06 at 21:00 Losartan Potassium (Cozaar) 50 mg DAILY PO Last administered on 08/08/18 08:03 ; Start 08/06/18 at 09:00 Metoprolol Tartrate (Lopressor) 12.5 mg BID PO Last administered on 08/08/18 09 :43; Start 08/06/18 at 09:00 Potassium Chloride (Klor-Con) 10 meq BIDWMEALS PO Last administered on 08:03; Start 08/06/18 at 09:00; Stop 08/08/18 at 08:13; Status DC Silver Sulfadiazine (Silvadene) 1 toy BID TP Last administered on 08/08/18 08: 03; Start 08/06/18 at 09:00 Non-Formulary Medication (Albuterol Sulfate (Ventolin Hfa Inhaler)) 2 puff QID INH ; Start 08/06/18 at 09:00; Status UNV Diltiazem HCl (Cardizem 24hr Cd) 120 mg DAILY PO Last administered on 08/08/18 08:02; Start 08/06/18 at 09:00 Non-Formulary Medication (Fluticasone Propionate (Flovent 100MCG Diskus)) 1 puff HS IH ; Start 08/06/18 at 21:00; Status UNV Risperidone (RisperDAL) 0.5 mg QHS PO Last administered on 08/07/18 20:15; Start 08/06/18 at 21:00 Rivaroxaban (Xarelto) 20 mg DAILYWSUP PO Last administered on 08/07/18 18:43; Start 08/06/18 at 17:00 Albuterol Sulfate (Ventolin Neb Soln) 2.5 mg RTQID NEB Last administered on 08/08 08:39; Start 08/06/18 at 12:00 Budesonide (Pulmicort) 0.5 mg RTBID NEB Last administered on 08/08/18 08:40; Start 08/06/18 at 09:00 Perflutren Protein Type A Microsphe (Optison) 0.66 mg STK-MED ONCE IV ; Start at 09:32; Stop 08/06/18 at 09:34; Status DC Lactobacillus Rhamnosus (Culturelle) 1 cap BID PO Last administered on at 08:03; Start 08/06/18 at 21:00 Vancomycin HCl 1.75 gm/Sodium Chloride 500 ml @ 250 mls/hr Q12H IV Last administered on 08/07/18at 20:15; Start 08/06/18 at 20:00; Stop 08/07/18 at 23:59 ; Status DC Vancomycin HCl (Vancomycin Trough Level) 1 each 1X ONCE MC Last administered on 08/07/18at 19:30; Start 08/07/18 at 19:30; Stop 08/07/18 at 19:31; Status DC Info (Anti-Coagulation Monitoring By Pharmacy) 1 each PRN DAILY PRN MC SEE COMMENTS Last administered on 08/07/18at 08:15; Start 08/06/18 at 10:00 Perflutren Protein Type A Microsphe (Optison) 0.66 mg PRN 1X PRN IV SEE COMMENTS; Start 08/06/18 at 10:00; Stop 08/07/18 at 09:59; Status DC Micafungin Sodium 100 mg/Dextrose 100 ml @ 100 mls/hr Q24H IV Last administered on 08/07/18at 13:41; Start 08/06/18 at 14:00 Acetaminophen (Tylenol) 650 mg PRN Q6HRS PRN PO fever Last administered on 08/07at 06:07; Start 08/06/18 at 14:00 Linezolid/Dextrose 300 ml @ 300 mls/hr Q12HR IV Last administered on at 20:15; Start 08/07/18 at 09:00; Stop 08/08/18 at 07:07; Status DC Perflutren Protein Type A Microsphe (Optison) 0.66 mg STK-MED ONCE IV ; Start at 10:00; Stop 08/07/18 at 08:15; Status DC Vancomycin HCl 2 gm/Sodium Chloride 500 ml @ 250 mls/hr Q12H IV ; Start at 08:00; Stop 08/08/18 at 08:00; Status DC Linezolid (Zyvox) 600 mg BID PO Last administered on 08/08/18at 08:01; Start 08/08 at 09:00 Ondansetron HCl (Zofran) 4 mg PRN Q6HRS PRN IV NAUSEA/VOMITING; Start 08/08/18 at 08:15 Ondansetron HCl (Zofran Odt) 4 mg PRN Q6HRS PRN PO NAUSEA/VOMITING; Start at 08:15 Potassium Chloride (Klor-Con) 40 meq BIDWMEALS PO Last administered on at 08:57; Start 08/08/18 at 08:15 Labetalol HCl (Normodyne Iv Push) 10 mg PRN Q2HR PRN IVP HYPERTENSION, SEE COMMENTS; Start 08/08/18 at 08:15 Active Scripts Active Lanoxin (Digoxin) 125 Mcg Tablet 125 Mcg PO DAILY 30 Days Reported Xarelto (Rivaroxaban) 20 Mg Tablet 20 Mg PO DAILY Lorazepam 1 Mg Tablet 1 Mg PO HS Gabapentin (Gabapentin) 300 Mg Capsule 1 Cap PO HS Flovent 100MCG Diskus (Fluticasone Propionate) 100 Mcg Disk.w.dev 1 Puff IH HS Losartan Potassium (Losartan Potassium) 25 Mg Tablet 2 Tab PO DAILY Furosemide 40 Mg Tablet 1.5 Tab PO DAILY PRN Diltiazem 24HR Cd (Diltiazem Hcl) 120 Mg Cap.er.24h 1 Cap PO DAILY PRN Gabapentin (Gabapentin) 300 Mg Capsule 1 Cap PO HS Potassium Chloride 10 Meq Tab.er.prt 1 Tab PO BID Metoprolol Tartrate 25 Mg Tablet 0.5 Tab PO BID Folic Acid 1 Mg Tablet 1 Tab PO DAILY Allopurinol 300 Mg Tablet 300 Mg PO DAILY Ventolin Hfa Inhaler (Albuterol Sulfate) 18 Gm Hfa.aer.ad 2 Puff INH QID Flonase (Fluticasone Propionate) 16 Gm [place].susp 2 [place] NS HS Silvadene (Silver Sulfadiazine) 20 Gm Cream..g. 1 Toy TP BID Ventolin Hfa Inhaler (Albuterol Sulfate) 18 Gm Hfa.aer.ad 2 Puff IH PRN Q4-6HRS Risperidone 0.5 Mg Tablet 1 Tab PO QHS Vitals/I & O Vital Sign - Last 24 Hours 108/07/18 08/07/18 08/07/18 11:00 11:17 12:00 12:00 Temp 99.3 99.3 Pulse 86 83 Resp 24 B/P (MAP) 146/77 (100) 128/70 (89) Pulse Ox 95 95 96 O2 Delivery Venturi Mask Venturi Mask Venturi Mask Venturi Mask O2 Flow Rate 9.0 08/07/18 08/07/18 08/07/18 08/07/18 13:00 14:00 15:00 16:00 Temp 99.3 99.3 Pulse 99 94 94 98 Resp 29 B/P (MAP) 139/68 (91) 140/73 (95) 146/73 (97) 161/64 (96) Pulse Ox 95 94 94 91 O2 Delivery Venturi Mask Venturi Mask Venturi Mask Venturi Mask 08/07/18 08/07/18 08/07/18 08/07/18 16:00 17:00 17:18 17:40 Pulse 104 Resp 30 B/P (MAP) 166/80 (108) Pulse Ox 85 95 100 O2 Delivery Venturi Mask Venturi Mask Venturi Mask BiPAP/CPAP O2 Flow Rate 9.0 08/07/18 08/07/18 08/07/18 08/07/18 18:00 19:00 19:57 20:00 Temp 99.2 99.2 Pulse 94 110 Resp B/P (MAP) 159/80 (106) 163/65 (97) Pulse Ox 100 O2 Delivery BiPAP/CPAP BiPAP/CPAP BiPAP/CPAP Bi-pap 08/07/18 08/07/18 08/07/18 08/07/18 20:00 20:16 21:00 21:53 Pulse 100 117 102 Resp B/P (MAP) 148/80 (102) 145/79 155/81 (105) Pulse Ox 100 O2 Delivery BiPAP/CPAP BiPAP/CPAP BiPAP/CPAP 08/07/18 08/07/18 08/07/18 08/07/18 22:00 23:00 23:39 23:59 Pulse 94 100 Resp B/P (MAP) 144/75 (98) 152/74 (100) Pulse Ox 100 O2 Delivery BiPAP/CPAP BiPAP/CPAP BiPAP/CPAP Bi-pap 208/08/18 08/08/18 08/08/18 00:00 01:00 01:43 02:00 Temp 98.3 98.3 Pulse 92 96 96 Resp 25 21 24 B/P (MAP) 137/71 (93) 157/82 (107) 134/72 (92) Pulse Ox 99 O2 Delivery BiPAP/CPAP BiPAP/CPAP BiPAP/CPAP BiPAP/CPAP 08/08/18 08/08/18 08/08/18 08/08/18 03:00 03:39 04:00 04:00 Temp 98.2 98.2 Pulse 92 96 Resp 24 29 B/P (MAP) 141/70 (93) 142/64 (90) Pulse Ox 99 O2 Delivery BiPAP/CPAP BiPAP/CPAP BiPAP/CPAP Bi-pap 08/08/18 08/08/18 08/08/18 08/08/18 05:00 06:00 07:00 08:00 Temp 99.6 99.6 Pulse 96 85 90 93 Resp 23 22 23 24 B/P (MAP) 147/75 (99) 146/74 (98) 144/69 (94) 147/66 (93) Pulse Ox 100 100 O2 Delivery BiPAP/CPAP BiPAP/CPAP BiPAP/CPAP BiPAP/CPAP 08/08/18 08/08/18 08/08/18 08/08/18 08:00 08:02 08:02 08:03 Pulse 90 90 90 B/P (MAP) 144/69 144/69 144/69 O2 Delivery Bi-pap 08/08/18 08/08/18 08:41 09:43 Pulse 90 B/P (MAP) 144/69 Pulse Ox 95 O2 Delivery Venturi Mask O2 Flow Rate 9.0 Intake and Output 08/07/18 08/07/18 08/08/18 15:01 23:01 07:01 Intake Total 1520 ml Output Total 1075 ml 580 ml 415 ml Balance 445 ml -580 ml -415 ml LENNIE CORRALES MD Aug 08, 2018 10:20
[2018-08-08] MEDS: MICAFUNGIN 100 MG in IV DEXTROSE 5% 100ML 100 ML IV SCH (14:22)
[2018-08-08] MEDS: RIVAROXABAN 10 MG TABLET. PO SCH (16:55)
[2018-08-08] MEDS: FLUTICASONE 50MCG/NASAL SPRAY 16GM BOTTLE. NS SCH (21:15)
[2018-08-08] MEDS: GABAPENTIN 300 MG CAPSULE. PO SCH (21:15)
[2018-08-08] MEDS: LORazepam 1 MG TABLET PO SCH (21:15)
[2018-08-08] MEDS: risperiDONE 0.25 MG TABLET. PO SCH (21:15)
[2018-08-09] MEDS: PIPERACILLIN/TAZOBACTAM 3.375 GM in IV NORMAL SALINE 50ML 50 ML IV SCH ×5 (00:03→23:35)
[2018-08-09 03:00] VITALS: BP 139/85
[2018-08-09] MEDS: ACETAMINOPHEN 325 MG TABLET. PO PRN (05:36)
[2018-08-09 07:00] VITALS: BP 136/85
[2018-08-09] MEDS: BUDESONIDE 0.5 MG/2 ML NEBU. NEB SCH ×2 (07:37→19:49)
[2018-08-09] MEDS: ALBUTEROL SULFATE 2.5 MG/3 ML NEBU. NEB SCH ×4 (07:39→19:49)
[2018-08-09] MEDS: FOLIC ACID 1 MG TABLET. PO SCH (08:28)
[2018-08-09] MEDS: ALLOPURINOL 300 MG TABLET. PO SCH (08:29)
[2018-08-09] MEDS: POTASSIUM CHLORIDE 10 MEQ TABLET.ER. PO SCH ×2 (08:29→17:01)
[2018-08-09] MEDS: LINEZOLID 600 MG TABLET PO SCH ×2 (08:29→20:32)
[2018-08-09] MEDS: DIGOXIN 125 MCG TABLET. PO SCH (08:29)
[2018-08-09] MEDS: FUROSEMIDE 20 MG TABLET PO SCH (08:29)
[2018-08-09] MEDS: LOSARTAN POTASSIUM 50 MG TABLET. PO SCH (08:30)
[2018-08-09] MEDS: LACTOBACILLUS RHAMNOSUS GG 1 CAPSULE. PO SCH ×2 (08:30→20:31)
[2018-08-09] MEDS: METOPROLOL TART IMMED RELEASE 25 MG TABLET. PO SCH ×2 (08:30→20:32)
[2018-08-09] MEDS: silver sulfADIAZINE 1% CREAM 25GM TUBE. TP SCH ×2 (08:33→20:31)
[2018-08-09] MEDS: NYSTATIN TOPICAL POWDER 15GM BOTTLE. TP SCH ×2 (08:33→20:31)
--- NOTE | 2018-08-09 10:41 | PDOC ---
PULMONARY PROGRESS NOTES Subjective NO RESP COMPLAINTS Vitals Vital Signs Date Time Temp Pulse Resp B/P (MAP) Pulse Ox O2 Delivery O2 Flow Rate FiO2 08/09/18 08:31 103 136/85 08/09/18 07:42 91 Nasal Cannula 5.0 08/09/18 07:00 97.0 18 97.0 ROS: No Nausea, No Chest Pain, No Abdominal Pain, No Increase Cough General: Alert, No acute distress Lungs: Clear, Other Cardiovascular: S1 Abdomen: Soft, Other (OBESE) Neuro Exam: Alert Extremities: Other Skin: Warm Labs Laboratory Tests Test 08/07/18 19:20 08/08/18 04:30 08/08/18 16:59 08/08/18 20:48 Vancomycin Level Trough 12.6 mcg/mL (10.0-20.0) Vancomycin Last Dose Date 08/07/18 Vancomycin Last Dose Time 0800 White Blood Count 8.5 x10^3/uL (4.0-11.0) Red Blood Count 3.79 x10^6/uL (4.30-5.70) Hemoglobin 10.9 g/dL (13.0-17.5) Hematocrit 32.4 % (39.0-53.0) Mean Corpuscular Volume 85 fL (79-100) Mean Corpuscular Hemoglobin 29 pg (25-35) Mean Corpuscular Hemoglobin Concent 34 g/dL (31-37) Red Cell Distribution Width 17.6 % (11.5-14.5) Platelet Count 126 x10^3/uL (140-400) Neutrophils (%) (Auto) 79 % (31-73) Lymphocytes (%) (Auto) 7 % (24-48) Monocytes (%) (Auto) 13 % (0-9) Eosinophils (%) (Auto) 0 % (0-3) Basophils (%) (Auto) 0 % (0-3) Neutrophils # (Auto) 6.7 x10^3uL (1.8-7.7) Lymphocytes # (Auto) 0.6 x10^3/uL (1.0-4.8) Monocytes # (Auto) 1.1 x10^3/uL (0.0-1.1) Eosinophils # (Auto) 0.0 x10^3/uL (0.0-0.7) Basophils # (Auto) 0.0 x10^3/uL (0.0-0.2) Sodium Level 133 mmol/L (136-145) Potassium Level 3.0 mmol/L (3.5-5.1) Chloride Level 98 mmol/L (98-107) Carbon Dioxide Level 26 mmol/L (21-32) Anion Gap 9 (6-14) Blood Urea Nitrogen 12 mg/dL (8-26) Creatinine 0.8 mg/dL (0.7-1.3) Estimated GFR (Cockcroft-Gault) 95.0 Glucose Level 127 mg/dL (70-99) Calcium Level 8.0 mg/dL (8.5-10.1) Glucose (Fingerstick) 152 mg/dL (70-99) 153 mg/dL (70-99) Test 08/09/18 07:52 Glucose (Fingerstick) 131 mg/dL (70-99) Laboratory Tests Test 08/08/18 16:59 08/08/18 20:48 08/09/18 07:52 Glucose (Fingerstick) 152 mg/dL (70-99) 153 mg/dL (70-99) 131 mg/dL (70-99) Medications Active Scripts Medications Dose Route/Sig Max Daily Dose Days Date Category Xarelto (Rivaroxaban) 20 Mg Tablet 20 Mg PO DAILY 06/10/18 Reported Lorazepam 1 Mg Tablet 1 Mg PO HS 10/12/14 Reported Gabapentin (Gabapentin) 300 Mg Capsule 1 Cap PO HS 10/12/14 Reported Flovent 100MCG Diskus (Fluticasone Propionate) 100 Mcg Disk.w.dev 1 Puff IH HS 10/12/14 Reported Losartan Potassium (Losartan Potassium) 25 Mg Tablet 2 Tab PO DAILY 10/12/14 Reported Furosemide 40 Mg Tablet 1.5 Tab PO DAILY PRN 10/12/14 Reported Diltiazem 24HR Cd (Diltiazem Hcl) 120 Mg Cap.er.24h 1 Cap PO DAILY PRN 10/12/14 Reported Lanoxin (Digoxin) 125 Mcg Tablet 125 Mcg PO DAILY 30 08/24/14 Rx Gabapentin (Gabapentin) 300 Mg Capsule 1 Cap PO HS 08/18/14 Reported Potassium Chloride 10 Meq Tab.er.prt 1 Tab PO BID 08/18/14 Reported Metoprolol Tartrate 25 Mg Tablet 0.5 Tab PO BID 08/18/14 Reported Folic Acid 1 Mg Tablet 1 Tab PO DAILY 08/18/14 Reported Allopurinol 300 Mg Tablet 300 Mg PO DAILY 08/18/14 Reported Ventolin Hfa Inhaler (Albuterol Sulfate) 18 Gm Hfa.aer.ad 2 Puff INH QID 08/18/14 Reported Flonase (Fluticasone Propionate) 16 Gm [place].susp 2 [place] NS HS 08/18/14 Reported Silvadene (Silver Sulfadiazine) 20 Gm Cream..g. 1 Toy TP BID 08/18/14 Reported Ventolin Hfa Inhaler (Albuterol Sulfate) 18 Gm Hfa.aer.ad 2 Puff IH PRN Q4-6HRS 08/18/14 Reported Risperidone 0.5 Mg Tablet 1 Tab PO QHS 08/18/14 Reported Comments IMPRESSION: 08/06 1. Findings of CHF or volume overload with pulmonary edema and trace bilateral pleural effusions. 2. Bibasilar airspace opacities indeterminate between focal pulmonary edema, multifocal infection, or pneumonitis with atelectasis. Impression . 1. Acute hypoxemic respiratory failure. 2. Pneumonia, suspect Gram-negative, possibly Gram-positive. 3. Sepsis. 4. Toxic metabolic encephalopathy. 5. Morbid obesity. 6. Chronic obstructive pulmonary disease. 7. Cellulitis of lower extremities. 8. Chronic venous insufficiency. 9. Type 2 diabetes. 10. Peripheral vascular disease. 11. Chronic atrial fibrillation. Plan . REPEAT CXR IN AM IMPROVING PT ANTIBX PER ID ORAL FEEDING DVT GI PROPH SAIRA CHASE MD Aug 09, 2018 10:41
--- NOTE | 2018-08-09 10:56 | PDOC ---
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 cxr weakness and debility, PT and OT Zyvox, Zosyn and Micafungin Nystatin top powder to affected areas History of Present Illness History of Present Illness Up in bed, no complaints As per HOT PATCHER no issues K is 3.0 on 10 mEq of KCl Has an indwelling Arias -= placed for convenience?/ICU care? Is a resident of [place] and voids freely over there Okayed by ID to transfer out Pro calcitonin still elevated 2.77 but no fevers, also on nystatin for intertriginous areas DNR Plan: okay to transfer out of ICU on med telemetry Continue antibiotics per ID Continue nystatin powder to creases Once physical therapy has worked with him then we can talk about discontinuing Arias Increase KCl to 40 twice a day to address the hypokalemia Discussed with HOT PATCHER at bedside LAbs again tmr myla K levels Vitals Vitals Vital Signs Date Time Temp Pulse Resp B/P (MAP) Pulse Ox O2 Delivery O2 Flow Rate FiO2 08/09/18 08:31 103 136/85 08/09/18 08:00 Nasal Cannula 5.0 08/09/18 07:42 91 08/09/18 07:00 97.0 18 97.0 Physical Exam Physical Exam GENERAL: The patient is slightly propped up in bed, appears comfortable. Arousable on Bipap looks comfortable HEENT: Pupils equally round. Normal conjunctivae. Oral cavity had pink, dry with dentures in place. NECK: Supple. LUNGS: Diminished aeration in the bases. Nonlabored.On Bipap HEART: S1 and S2 irregular. ABDOMEN: Obese and soft. No grimace or guarding to palpation with bowel sounds present. GENITOURINARY: Indwelling Arias in place. EXTREMITIES: Lower extremity edema with chronic venous stasis changes and associated with thickened, moderately red skin changes with brown scales and macerations between the toes. No cyanosis.Erythema R> L improved and NT SKIN: Warm. He has some redness under the pannus and groin areas, currently covered with topical nystatin powder. NEUROLOGICAL: More alert LINES: Peripheral IV looks okay. General: Alert, Cooperative, No acute distress Heart: Regular rate, Normal S1, Normal S2, Other Lungs: Clear, Other Abdomen: Normal bowel sounds, Soft (obese, NT), No tenderness Extremities: No clubbing, No cyanosis, Normal pulses, Other (edema) Skin: No breakdown, Other (very red, hot and scaly BLE, with poor nail care and fungus) Labs LABS Single view chest 08/06/2018 CLINICAL INDICATION: CHF. COMPARISON: Chest 10/31/2016 FINDINGS: Enlargement of the cardiac silhouette with pulmonary venous congestion. There are mild bibasilar predominant interstitial opacities. Patchy bibasilar airspace opacities. There are trace bilateral pleural effusions. No pneumothorax. IMPRESSION: 1. Findings of CHF or volume overload with pulmonary edema and trace bilateral pleural effusions. 2. Bibasilar airspace opacities indeterminate between focal pulmonary edema, multifocal infection, or pneumonitis with atelectasis. Electronically signed by: Sarah Montes MD (08/06/2018 8:04 AM) [facility] DICTATED and SIGNED BY: SARAH MONTES MD DATE: 08/06/18 0802 Laboratory Tests Test 08/08/18 16:59 08/08/18 20:48 08/09/18 07:52 Glucose (Fingerstick) 152 mg/dL (70-99) 153 mg/dL (70-99) 131 mg/dL (70-99) Assessment and Plan Assessmemt and Plan Problems Medical Problems: (1) Altered mental status Status: Acute (2) Cellulitis of leg, left Status: Acute (3) Cellulitis of leg, right Status: Acute (4) HCAP (healthcare-associated pneumonia) Status: Acute Comment Review of Relevant I have reviewed the following items shahram (where applicable) has been applied. Labs Laboratory Tests Test 08/07/18 19:20 08/08/18 04:30 08/08/18 16:59 08/08/18 20:48 Vancomycin Level Trough 12.6 mcg/mL (10.0-20.0) Vancomycin Last Dose Date 08/07/18 Vancomycin Last Dose Time 0800 White Blood Count 8.5 x10^3/uL (4.0-11.0) Red Blood Count 3.79 x10^6/uL (4.30-5.70) Hemoglobin 10.9 g/dL (13.0-17.5) Hematocrit 32.4 % (39.0-53.0) Mean Corpuscular Volume 85 fL (79-100) Mean Corpuscular Hemoglobin 29 pg (25-35) Mean Corpuscular Hemoglobin Concent 34 g/dL (31-37) Red Cell Distribution Width 17.6 % (11.5-14.5) Platelet Count 126 x10^3/uL (140-400) Neutrophils (%) (Auto) 79 % (31-73) Lymphocytes (%) (Auto) 7 % (24-48) Monocytes (%) (Auto) 13 % (0-9) Eosinophils (%) (Auto) 0 % (0-3) Basophils (%) (Auto) 0 % (0-3) Neutrophils # (Auto) 6.7 x10^3uL (1.8-7.7) Lymphocytes # (Auto) 0.6 x10^3/uL (1.0-4.8) Monocytes # (Auto) 1.1 x10^3/uL (0.0-1.1) Eosinophils # (Auto) 0.0 x10^3/uL (0.0-0.7) Basophils # (Auto) 0.0 x10^3/uL (0.0-0.2) Sodium Level 133 mmol/L (136-145) Potassium Level 3.0 mmol/L (3.5-5.1) Chloride Level 98 mmol/L (98-107) Carbon Dioxide Level 26 mmol/L (21-32) Anion Gap 9 (6-14) Blood Urea Nitrogen 12 mg/dL (8-26) Creatinine 0.8 mg/dL (0.7-1.3) Estimated GFR (Cockcroft-Gault) 95.0 Glucose Level 127 mg/dL (70-99) Calcium Level 8.0 mg/dL (8.5-10.1) Glucose (Fingerstick) 152 mg/dL (70-99) 153 mg/dL (70-99) Test 08/09/18 07:52 Glucose (Fingerstick) 131 mg/dL (70-99) Laboratory Tests Test 08/08/18 16:59 08/08/18 20:48 08/09/18 07:52 Glucose (Fingerstick) 152 mg/dL (70-99) 153 mg/dL (70-99) 131 mg/dL (70-99) Microbiology 08/06/18 Blood Culture - Preliminary, Resulted NO GROWTH AFTER 2 DAYS Medications Current Medications Ketorolac Tromethamine (Toradol 15mg Vial) 15 mg 1X ONCE IV Last administered on 08/06/18at 07:30; Start 08/06/18 at 06:45; Stop 08/06/18 at 06:46; Status DC Vancomycin HCl (Vanco Per Pharmacy) 1 each PRN DAILY PRN MC SEE COMMENTS Last administered on 08/07/18at 21:06; Start 08/06/18 at 07:00; Stop 08/08/18 at 07:07 ; Status DC Piperacillin Sod/ Tazobactam Sod (Zosyn Per Pharmacy) 1 each PRN DAILY PRN MC SEE COMMENTS; Start 08/06/18 at 07:15 Piperacillin Sod/ Tazobactam Sod 3.375 gm/Sodium Chloride 50 ml @ 100 mls/hr 1X ONCE IV Last administered on 08/06/18at 07:23; Start 08/06/18 at 07:15; Stop 08/06/18 at 07:44; Status DC Vancomycin HCl 2 gm/Sodium Chloride 500 ml @ 250 mls/hr 1X ONCE IV Last administered on 08/06/18at 07:49; Start 08/06/18 at 08:00; Stop 08/06/18 at 09:59 ; Status DC Sodium Chloride 1,000 ml @ 1,000 mls/hr 1X ONCE IV Last administered on at 07:31; Start 08/06/18 at 07:30; Stop 08/06/18 at 08:29; Status DC Sodium Chloride 1,000 ml @ 1,000 mls/hr 1X ONCE IV Last administered on at 07:32; Start 08/06/18 at 07:30; Stop 08/06/18 at 08:29; Status DC Piperacillin Sod/ Tazobactam Sod 4.5 gm/Sodium Chloride 100 ml @ 200 mls/hr Q6HRS IV ; Start 08/06/18 at 12:00; Status Cancel Piperacillin Sod/ Tazobactam Sod 3.375 gm/Sodium Chloride 50 ml @ 100 mls/hr Q6HRS IV Last administered on 08/09/18 05:36; Start 08/06/18 at 12:00 Nystatin (Nystop) 1 toy BID TP Last administered on 08/09/18 08:33; Start 08/06 at 09:00 Allopurinol (Zyloprim) 300 mg DAILY PO Last administered on 08/09/18 08:29; Start 08/06/18 at 09:00 Digoxin (Lanoxin) 125 mcg DAILY PO Last administered on 08/09/18 08:29; Start 08/06/18 at 09:00 Fluticasone Propionate (Flonase) 2 spray HS NS Last administered on 08/08/18 21 :15; Start 08/06/18 at 21:00 Folic Acid (Folic Acid) 1 mg DAILY PO Last administered on 08/09/18 08:28; Start 08/06/18 at 09:00 Furosemide (Lasix) 60 mg DAILY PO Last administered on 08/09/18 08:29; Start at 09:00 Gabapentin (Neurontin) 300 mg HS PO Last administered on 08/08/18 21:15; Start 08/06/18 at 21:00 Lorazepam (Ativan) 1 mg HS PO Last administered on 08/08/18 21:15; Start at 21:00 Losartan Potassium (Cozaar) 50 mg DAILY PO Last administered on 08/09/18 08:30 ; Start 08/06/18 at 09:00 Metoprolol Tartrate (Lopressor) 12.5 mg BID PO Last administered on 08/09/18 08 :30; Start 08/06/18 at 09:00 Potassium Chloride (Klor-Con) 10 meq BIDWMEALS PO Last administered on 08:03; Start 08/06/18 at 09:00; Stop 08/08/18 at 08:13; Status DC Silver Sulfadiazine (Silvadene) 1 toy BID TP Last administered on 08/09/18 08: 33; Start 08/06/18 at 09:00 Non-Formulary Medication (Albuterol Sulfate (Ventolin Hfa Inhaler)) 2 puff QID INH ; Start 08/06/18 at 09:00; Status UNV Diltiazem HCl (Cardizem 24hr Cd) 120 mg DAILY PO Last administered on 08/09/18 08:31; Start 08/06/18 at 09:00 Non-Formulary Medication (Fluticasone Propionate (Flovent 100MCG Diskus)) 1 puff HS IH ; Start 08/06/18 at 21:00; Status UNV Risperidone (RisperDAL) 0.5 mg QHS PO Last administered on 08/08/18 21:15; Start 08/06/18 at 21:00 Rivaroxaban (Xarelto) 20 mg DAILYWSUP PO Last administered on 08/08/18 16:55; Start 08/06/18 at 17:00 Albuterol Sulfate (Ventolin Neb Soln) 2.5 mg RTQID NEB Last administered on 08/09 07:39; Start 08/06/18 at 12:00 Budesonide (Pulmicort) 0.5 mg RTBID NEB Last administered on 08/09/18 07:37; Start 08/06/18 at 09:00 Perflutren Protein Type A Microsphe (Optison) 0.66 mg STK-MED ONCE IV ; Start at 09:32; Stop 08/06/18 at 09:34; Status DC Lactobacillus Rhamnosus (Culturelle) 1 cap BID PO Last administered on 08:30; Start 08/06/18 at 21:00 Vancomycin HCl 1.75 gm/Sodium Chloride 500 ml @ 250 mls/hr Q12H IV Last administered on 08/07/18 20:15; Start 08/06/18 at 20:00; Stop 08/07/18 at 23:59 ; Status DC Vancomycin HCl (Vancomycin Trough Level) 1 each 1X ONCE MC Last administered on 08/07/18 19:30; Start 08/07/18 at 19:30; Stop 08/07/18 at 19:31; Status DC Info (Anti-Coagulation Monitoring By Pharmacy) 1 each PRN DAILY PRN MC SEE COMMENTS Last administered on 08/07/18 08:15; Start 08/06/18 at 10:00 Perflutren Protein Type A Microsphe (Optison) 0.66 mg PRN 1X PRN IV SEE COMMENTS; Start 08/06/18 at 10:00; Stop 08/07/18 at 09:59; Status DC Micafungin Sodium 100 mg/Dextrose 100 ml @ 100 mls/hr Q24H IV Last administered on 08/08/18at 14:22; Start 08/06/18 at 14:00 Acetaminophen (Tylenol) 650 mg PRN Q6HRS PRN PO fever Last administered on at 05:36; Start 08/06/18 at 14:00 Linezolid/Dextrose 300 ml @ 300 mls/hr Q12HR IV Last administered on at 20:15; Start 08/07/18 at 09:00; Stop 08/08/18 at 07:07; Status DC Perflutren Protein Type A Microsphe (Optison) 0.66 mg STK-MED ONCE IV ; Start at 10:00; Stop 08/07/18 at 08:15; Status DC Vancomycin HCl 2 gm/Sodium Chloride 500 ml @ 250 mls/hr Q12H IV ; Start at 08:00; Stop 08/08/18 at 08:00; Status DC Linezolid (Zyvox) 600 mg BID PO Last administered on 08/09/18at 08:29; Start 08/08 at 09:00 Ondansetron HCl (Zofran) 4 mg PRN Q6HRS PRN IV NAUSEA/VOMITING; Start 08/08/18 at 08:15 Ondansetron HCl (Zofran Odt) 4 mg PRN Q6HRS PRN PO NAUSEA/VOMITING; Start at 08:15 Potassium Chloride (Klor-Con) 40 meq BIDWMEALS PO Last administered on at 08:29; Start 08/08/18 at 08:15 Labetalol HCl (Normodyne Iv Push) 10 mg PRN Q2HR PRN IVP HYPERTENSION, SEE COMMENTS; Start 08/08/18 at 08:15 Active Scripts Active Lanoxin (Digoxin) 125 Mcg Tablet 125 Mcg PO DAILY 30 Days Reported Xarelto (Rivaroxaban) 20 Mg Tablet 20 Mg PO DAILY Lorazepam 1 Mg Tablet 1 Mg PO HS Gabapentin (Gabapentin) 300 Mg Capsule 1 Cap PO HS Flovent 100MCG Diskus (Fluticasone Propionate) 100 Mcg Disk.w.dev 1 Puff IH HS Losartan Potassium (Losartan Potassium) 25 Mg Tablet 2 Tab PO DAILY Furosemide 40 Mg Tablet 1.5 Tab PO DAILY PRN Diltiazem 24HR Cd (Diltiazem Hcl) 120 Mg Cap.er.24h 1 Cap PO DAILY PRN Gabapentin (Gabapentin) 300 Mg Capsule 1 Cap PO HS Potassium Chloride 10 Meq Tab.er.prt 1 Tab PO BID Metoprolol Tartrate 25 Mg Tablet 0.5 Tab PO BID Folic Acid 1 Mg Tablet 1 Tab PO DAILY Allopurinol 300 Mg Tablet 300 Mg PO DAILY Ventolin Hfa Inhaler (Albuterol Sulfate) 18 Gm Hfa.aer.ad 2 Puff INH QID Flonase (Fluticasone Propionate) 16 Gm [place].susp 2 [place] NS HS Silvadene (Silver Sulfadiazine) 20 Gm Cream..g. 1 Toy TP BID Ventolin Hfa Inhaler (Albuterol Sulfate) 18 Gm Hfa.aer.ad 2 Puff IH PRN Q4-6HRS Risperidone 0.5 Mg Tablet 1 Tab PO QHS Vitals/I & O Vital Sign - Last 24 Hours 08/08/18 08/08/18 08/08/18 08/08/18 12:00 12:41 15:22 16:00 Temp 99.6 99.4 99.6 99.4 Pulse 103 105 Resp 24 26 B/P (MAP) 146/80 (102) 150/74 (99) Pulse Ox 96 98 99 98 O2 Delivery Nasal Cannula Nasal Cannula Nasal Cannula Nasal Cannula O2 Flow Rate 4.0 5.0 5.0 3.0 08/08/18 08/08/18 08/08/18 08/08/18 16:53 19:00 20:00 21:16 Temp 97.9 99.3 97.9 99.3 Pulse 100 71 71 Resp 20 20 B/P (MAP) 138/71 (93) 138/83 (101) 138/83 Pulse Ox 90 90 O2 Delivery Nasal Cannula Nasal Cannula Nasal Cannula O2 Flow Rate 4.0 4.0 5.0 08/08/18 08/08/18 08/09/18 08/09/18 21:47 23:00 03:00 07:00 Temp 99.7 99.1 97.0 99.7 99.1 97.0 Pulse 69 65 103 Resp 20 20 18 B/P (MAP) 136/74 (94) 139/85 (103) 136/85 (102) Pulse Ox 90 87 89 89 O2 Delivery Nasal Cannula Nasal Cannula Nasal Cannula Nasal Cannula O2 Flow Rate 4.0 5.0 5.0 5.0 08/09/18 08/09/18 08/09/18 08/09/18 07:42 08:00 08:29 08:30 Pulse 103 103 B/P (MAP) 136/85 136/85 Pulse Ox 91 O2 Delivery Nasal Cannula Nasal Cannula O2 Flow Rate 5.0 5.0 08/09/18 08/09/18 08:30 08:31 Pulse 103 103 B/P (MAP) 136/85 136/85 Intake and Output 08/08/18 08/08/18 08/09/18 15:01 23:01 07:01 Intake Total 650 ml 100 ml 220 ml Output Total 1055 ml 285 ml 750 ml Balance -405 ml -185 ml -530 ml NAVARRO BADILLO MD Aug 09, 2018 10:56
[2018-08-09 11:00] VITALS: BP 130/77
--- NOTE | 2018-08-09 11:19 | PDOC ---
Infectious Disease Note Subjective Subjective Getting bathed, spilt coffee on himself Denies pain/N/V/D/F/C/S/SOA ROS ROS per HPI Vital Sign Vital Signs Vital Signs Date Time Temp Pulse Resp B/P (MAP) Pulse Ox O2 Delivery O2 Flow Rate FiO2 08/09/18 08:31 103 136/85 08/09/18 08:00 Nasal Cannula 5.0 08/09/18 07:42 91 08/09/18 07:00 97.0 18 97.0 Physical Exam PHYSICAL EXAM GENERAL: Lying down, alert, ND HEENT: Pupils equally round. Normal conjunctivae. Oral cavity had pink, dry with dentures in place. NECK: Supple. LUNGS: Diminished aeration in the bases. Nonlabored. HEART: S1 and S2 irregular. ABDOMEN: Obese and soft. No grimace or guarding to palpation with bowel sounds present. GENITOURINARY: Indwelling Arias in place. EXTREMITIES: Lower extremity edema with chronic venous stasis changes and associated with thickened skin changes with brown scales, less red. Erythema R > L improved and NT SKIN: Warm. NEUROLOGICAL: Alert, responds appropriately Peripheral IV Labs Lab Laboratory Tests Test 08/08/18 16:59 08/08/18 20:48 08/09/18 07:52 Glucose (Fingerstick) 152 mg/dL (70-99) 153 mg/dL (70-99) 131 mg/dL (70-99) Micro Microbiology 08/06/18 Blood Culture - Preliminary, Resulted NO GROWTH AFTER 3 DAYS Objective Assessment Sepsis with lactic acidosis POA - better Fever - better Leukocytosis -better Cellulitis of lower extremities R> L - improving Yeast groin/pannus areas - improving Acute encephalopathy - improving Chronic venous stasis - followed by [facility] ? HCAP MRSA screen neg CHF DM II COPD PVD Chronic A-fib DNR/DNI Plan Plan of Care Zyvox, Zosyn and Micafungin Nystatin top powder to affected areas f/u cultures/labs Local wound care Attending Co-Sign The patient was seen and interviewed as well as examined at the bedside. The chart was reviewed. The case was discussed. Agree with the plan of care. MIK LUBIN APRN Aug 09, 2018 11:18 FREDERICK CHRISTENSEN MD Aug 09, 2018 12:47
--- NOTE | 2018-08-09 13:30 | RAD ---
EXAM: AP View of the chest DATE: 08/09/2018 12:49 PM INDICATION: CHF COMPARISON: 08/06/2018 FINDINGS: The heart is moderately enlarged. Aorta is tortuous. Bilateral lung base parenchymal opacities and left suprahilar parenchymal opacities are mildly progressed compared to 08/06/2018. Trace bilateral pleural effusions. No pneumothorax. IMPRESSION: 1. Radiographic findings may be seen with CHF, stable to borderline progressed. Electronically signed by: Otoniel Siddiqui MD (08/09/2018 1:25 PM) [facility]
[2018-08-09] MEDS: MICAFUNGIN 100 MG in IV DEXTROSE 5% 100ML 100 ML IV SCH (14:05)
--- NOTE | 2018-08-09 14:19 | PDOC ---
PULMONARY PROGRESS NOTES Subjective NO RESP COMPLAINTS Vitals Vital Signs Date Time Temp Pulse Resp B/P (MAP) Pulse Ox O2 Delivery O2 Flow Rate FiO2 08/09/18 12:02 Nasal Cannula 5.0 08/09/18 11:00 98.5 98 20 130/77 (94) 92 98.5 ROS: No Nausea, No Chest Pain, No Abdominal Pain, No Increase Cough General: Alert, No acute distress Lungs: Clear, Other Cardiovascular: S1 Abdomen: Soft, Other (OBESE) Neuro Exam: Alert Extremities: Other Skin: Warm Labs Laboratory Tests Test 08/07/18 19:20 08/08/18 04:30 08/08/18 16:59 08/08/18 20:48 Vancomycin Level Trough 12.6 mcg/mL (10.0-20.0) Vancomycin Last Dose Date 08/07/18 Vancomycin Last Dose Time 0800 White Blood Count 8.5 x10^3/uL (4.0-11.0) Red Blood Count 3.79 x10^6/uL (4.30-5.70) Hemoglobin 10.9 g/dL (13.0-17.5) Hematocrit 32.4 % (39.0-53.0) Mean Corpuscular Volume 85 fL (79-100) Mean Corpuscular Hemoglobin 29 pg (25-35) Mean Corpuscular Hemoglobin Concent 34 g/dL (31-37) Red Cell Distribution Width 17.6 % (11.5-14.5) Platelet Count 126 x10^3/uL (140-400) Neutrophils (%) (Auto) 79 % (31-73) Lymphocytes (%) (Auto) 7 % (24-48) Monocytes (%) (Auto) 13 % (0-9) Eosinophils (%) (Auto) 0 % (0-3) Basophils (%) (Auto) 0 % (0-3) Neutrophils # (Auto) 6.7 x10^3uL (1.8-7.7) Lymphocytes # (Auto) 0.6 x10^3/uL (1.0-4.8) Monocytes # (Auto) 1.1 x10^3/uL (0.0-1.1) Eosinophils # (Auto) 0.0 x10^3/uL (0.0-0.7) Basophils # (Auto) 0.0 x10^3/uL (0.0-0.2) Sodium Level 133 mmol/L (136-145) Potassium Level 3.0 mmol/L (3.5-5.1) Chloride Level 98 mmol/L (98-107) Carbon Dioxide Level 26 mmol/L (21-32) Anion Gap 9 (6-14) Blood Urea Nitrogen 12 mg/dL (8-26) Creatinine 0.8 mg/dL (0.7-1.3) Estimated GFR (Cockcroft-Gault) 95.0 Glucose Level 127 mg/dL (70-99) Calcium Level 8.0 mg/dL (8.5-10.1) Glucose (Fingerstick) 152 mg/dL (70-99) 153 mg/dL (70-99) Test 08/09/18 07:52 08/09/18 11:39 Glucose (Fingerstick) 131 mg/dL (70-99) 183 mg/dL (70-99) Laboratory Tests Test 08/08/18 16:59 08/08/18 20:48 08/09/18 07:52 08/09/18 11:39 Glucose (Fingerstick) 152 mg/dL (70-99) 153 mg/dL (70-99) 131 mg/dL (70-99) 183 mg/dL (70-99) Medications Active Scripts Medications Dose Route/Sig Max Daily Dose Days Date Category Xarelto (Rivaroxaban) 20 Mg Tablet 20 Mg PO DAILY 06/10/18 Reported Lorazepam 1 Mg Tablet 1 Mg PO HS 10/12/14 Reported Gabapentin (Gabapentin) 300 Mg Capsule 1 Cap PO HS 10/12/14 Reported Flovent 100MCG Diskus (Fluticasone Propionate) 100 Mcg Disk.w.dev 1 Puff IH HS 10/12/14 Reported Losartan Potassium (Losartan Potassium) 25 Mg Tablet 2 Tab PO DAILY 10/12/14 Reported Furosemide 40 Mg Tablet 1.5 Tab PO DAILY PRN 10/12/14 Reported Diltiazem 24HR Cd (Diltiazem Hcl) 120 Mg Cap.er.24h 1 Cap PO DAILY PRN 10/12/14 Reported Lanoxin (Digoxin) 125 Mcg Tablet 125 Mcg PO DAILY 30 08/24/14 Rx Gabapentin (Gabapentin) 300 Mg Capsule 1 Cap PO HS 08/18/14 Reported Potassium Chloride 10 Meq Tab.er.prt 1 Tab PO BID 08/18/14 Reported Metoprolol Tartrate 25 Mg Tablet 0.5 Tab PO BID 08/18/14 Reported Folic Acid 1 Mg Tablet 1 Tab PO DAILY 08/18/14 Reported Allopurinol 300 Mg Tablet 300 Mg PO DAILY 08/18/14 Reported Ventolin Hfa Inhaler (Albuterol Sulfate) 18 Gm Hfa.aer.ad 2 Puff INH QID 08/18/14 Reported Flonase (Fluticasone Propionate) 16 Gm [place].susp 2 [place] NS HS 08/18/14 Reported Silvadene (Silver Sulfadiazine) 20 Gm Cream..g. 1 Toy TP BID 08/18/14 Reported Ventolin Hfa Inhaler (Albuterol Sulfate) 18 Gm Hfa.aer.ad 2 Puff IH PRN Q4-6HRS 08/18/14 Reported Risperidone 0.5 Mg Tablet 1 Tab PO QHS 08/18/14 Reported Comments IMPRESSION: 08/06 1. Findings of CHF or volume overload with pulmonary edema and trace bilateral pleural effusions. 2. Bibasilar airspace opacities indeterminate between focal pulmonary edema, multifocal infection, or pneumonitis with atelectasis. Impression . 1. Acute hypoxemic respiratory failure. 2. Pneumonia, suspect Gram-negative, possibly Gram-positive. 3. Sepsis. 4. Toxic metabolic encephalopathy. 5. Morbid obesity. 6. Chronic obstructive pulmonary disease. 7. Cellulitis of lower extremities. 8. Chronic venous insufficiency. 9. Type 2 diabetes. 10. Peripheral vascular disease. 11. Chronic atrial fibrillation. Plan . CXR REVIEWED NOT BETTER ANTI BX PER ID IMPROVING PT ORAL FEEDING DVT GI PROPH SAIRA CHASE MD Aug 09, 2018 14:19
[2018-08-09 15:00] VITALS: BP 166/85
[2018-08-09] MEDS: RIVAROXABAN 10 MG TABLET. PO SCH (17:01)
[2018-08-09 19:00] VITALS: BP 173/90
[2018-08-09] MEDS: LORazepam 1 MG TABLET PO SCH (20:31)
[2018-08-09] MEDS: FLUTICASONE 50MCG/NASAL SPRAY 16GM BOTTLE. NS SCH (20:31)
[2018-08-09] MEDS: GABAPENTIN 300 MG CAPSULE. PO SCH (20:32)
[2018-08-09] MEDS: risperiDONE 0.25 MG TABLET. PO SCH (20:32)
[2018-08-09 23:00] VITALS: BP 145/74
[2018-08-10 03:00] VITALS: BP 146/82
[2018-08-10] MEDS: PIPERACILLIN/TAZOBACTAM 3.375 GM in IV NORMAL SALINE 50ML 50 ML IV SCH ×3 (05:41→17:05)
[2018-08-10 06:58] LABS: BASO % 0 % (0-3); EOS % 0 % (0-3); LYMPH # 0.7 x10^3/uL (1.0-4.8); LYMPH % 6 % (24-48); MEAN CORPUSCULAR HEMOGLOBIN 28 pg (25-35); MEAN CORPUSCULAR HGB CONC 33 g/dL (31-37); MEAN CORPUSCULAR VOLUME 85 fL (79-100); MONO # 1.5 x10^3/uL (0.0-1.1); MONO % 12 % (0-9); NEUT # 10.4 x10^3uL (1.8-7.7); NEUT % 82 % (31-73); PLATELET COUNT 178 x10^3/uL (140-400); RED BLOOD COUNT 4.25 x10^6/uL (4.30-5.70); RED CELL DISTRIBUTION WIDTH 18.1 % (11.5-14.5); WHITE BLOOD COUNT 12.7 x10^3/uL (4.0-11.0)
[2018-08-10 07:12] LABS: ALBUMIN 1.9 g/dL (3.4-5.0); ALBUMIN/GLOBULIN RATIO 0.4 (1.0-1.7); CALCIUM 8.7 mg/dL (8.5-10.1); CREATININE 0.8 mg/dL (0.7-1.3); POTASSIUM 3.1 mmol/L (3.5-5.1); TOTAL BILIRUBIN 1.6 mg/dL (0.2-1.0)
[2018-08-10 07:30] VITALS: BP 152/86
[2018-08-10] MEDS: LINEZOLID 600 MG TABLET PO SCH ×2 (07:54→20:44)
[2018-08-10] MEDS: ALLOPURINOL 300 MG TABLET. PO SCH (07:54)
[2018-08-10] MEDS: NYSTATIN TOPICAL POWDER 15GM BOTTLE. TP SCH ×2 (07:54→20:43)
[2018-08-10] MEDS: DIGOXIN 125 MCG TABLET. PO SCH (07:54)
[2018-08-10] MEDS: silver sulfADIAZINE 1% CREAM 25GM TUBE. TP SCH ×2 (07:54→21:45)
[2018-08-10] MEDS: POTASSIUM CHLORIDE 10 MEQ TABLET.ER. PO SCH ×2 (07:54→17:04)
[2018-08-10] MEDS: FUROSEMIDE 20 MG TABLET PO SCH (07:55)
[2018-08-10] MEDS: LACTOBACILLUS RHAMNOSUS GG 1 CAPSULE. PO SCH ×2 (07:55→20:44)
[2018-08-10] MEDS: FOLIC ACID 1 MG TABLET. PO SCH (07:55)
[2018-08-10] MEDS: LOSARTAN POTASSIUM 50 MG TABLET. PO SCH (07:56)
[2018-08-10] MEDS: METOPROLOL TART IMMED RELEASE 25 MG TABLET. PO SCH ×2 (07:58→20:45)
[2018-08-10] MEDS: BUDESONIDE 0.5 MG/2 ML NEBU. NEB SCH ×2 (08:02→19:37)
[2018-08-10] MEDS: ALBUTEROL SULFATE 2.5 MG/3 ML NEBU. NEB SCH ×4 (08:02→19:37)
--- NOTE | 2018-08-10 10:04 | PDOC ---
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 Chronic obstructive pulmonary disease. obesity, BMI 38, severe protein-caloric malnutrition, Albumin 2.7 ck 1100, rhabdo, with CHF, BNP up, chronic diastolic CHF Findings of CHF or volume overload with pulmonary edema and trace bilateral pleural effusions. cxr weakness and debility, PT and OT Zyvox, Zosyn and Micafungin Nystatin top powder to affected areas History of Present Illness History of Present Illness Up in bed, no complaints As per TREE FALLER no issues K is 3.0 on 10 mEq of KCl Has an indwelling Arias -= placed for convenience?/ICU care? Is a resident of [place] and voids freely over there Okayed by ID to transfer out Pro calcitonin still elevated 2.77 but no fevers, also on nystatin for intertriginous areas DNR Plan: okay to transfer out of ICU on med telemetry Continue antibiotics per ID Continue nystatin powder to creases Once physical therapy has worked with him then we can talk about discontinuing Arias Increase KCl to 40 twice a day to address the hypokalemia Discussed with TREE FALLER at bedside LAbs again tmr myla K levels Vitals Vitals Vital Signs Date Time Temp Pulse Resp B/P (MAP) Pulse Ox O2 Delivery O2 Flow Rate FiO2 08/10/18 08:06 95 Nasal Cannula 5.0 08/10/18 07:58 131 152/86 08/10/18 07:30 100.3 22 100.3 Physical Exam Physical Exam GENERAL: Lying down, alert, ND HEENT: Pupils equally round. Normal conjunctivae. Oral cavity had pink, dry with dentures in place. NECK: Supple. LUNGS: Diminished aeration in the bases. Nonlabored. HEART: S1 and S2 irregular. ABDOMEN: Obese and soft. No grimace or guarding to palpation with bowel sounds present. GENITOURINARY: Indwelling Arias in place. EXTREMITIES: Lower extremity edema with chronic venous stasis changes and associated with thickened skin changes with brown scales, less red. Erythema R > L improved and NT SKIN: Warm. NEUROLOGICAL: Alert, responds appropriately Peripheral IV General: Alert, Cooperative, No acute distress Heart: Regular rate, Normal S1, Normal S2, Other Lungs: Clear, Other Abdomen: Normal bowel sounds, Soft (obese, NT), No tenderness Extremities: No clubbing, No cyanosis, Normal pulses, Other (edema) Skin: No breakdown, Other (very red, hot and scaly BLE, with poor nail care and fungus) Labs LABS Laboratory Tests Test 08/09/18 11:39 08/09/18 16:37 08/09/18 20:25 08/10/18 06:11 Glucose (Fingerstick) 183 mg/dL (70-99) 227 mg/dL (70-99) 226 mg/dL (70-99) White Blood Count 12.7 x10^3/uL (4.0-11.0) Red Blood Count 4.25 x10^6/uL (4.30-5.70) Hemoglobin 12.0 g/dL (13.0-17.5) Hematocrit 36.0 % (39.0-53.0) Mean Corpuscular Volume 85 fL (79-100) Mean Corpuscular Hemoglobin 28 pg (25-35) Mean Corpuscular Hemoglobin Concent 33 g/dL (31-37) Red Cell Distribution Width 18.1 % (11.5-14.5) Platelet Count 178 x10^3/uL (140-400) Neutrophils (%) (Auto) 82 % (31-73) Lymphocytes (%) (Auto) 6 % (24-48) Monocytes (%) (Auto) 12 % (0-9) Eosinophils (%) (Auto) 0 % (0-3) Basophils (%) (Auto) 0 % (0-3) Neutrophils # (Auto) 10.4 x10^3uL (1.8-7.7) Lymphocytes # (Auto) 0.7 x10^3/uL (1.0-4.8) Monocytes # (Auto) 1.5 x10^3/uL (0.0-1.1) Eosinophils # (Auto) 0.0 x10^3/uL (0.0-0.7) Basophils # (Auto) 0.0 x10^3/uL (0.0-0.2) Sodium Level 135 mmol/L (136-145) Potassium Level 3.1 mmol/L (3.5-5.1) Chloride Level 98 mmol/L (98-107) Carbon Dioxide Level 25 mmol/L (21-32) Anion Gap 12 (6-14) Blood Urea Nitrogen 10 mg/dL (8-26) Creatinine 0.8 mg/dL (0.7-1.3) Estimated GFR (Cockcroft-Gault) 95.0 BUN/Creatinine Ratio 13 (6-20) Glucose Level 174 mg/dL (70-99) Calcium Level 8.7 mg/dL (8.5-10.1) Total Bilirubin 1.6 mg/dL (0.2-1.0) Aspartate Amino Transf (AST/SGOT) 28 U/L (15-37) Alanine Aminotransferase (ALT/SGPT) 34 U/L (16-63) Alkaline Phosphatase 149 U/L (46-116) Total Protein 7.0 g/dL (6.4-8.2) Albumin 1.9 g/dL (3.4-5.0) Albumin/Globulin Ratio 0.4 (1.0-1.7) Test 08/10/18 07:26 Glucose (Fingerstick) 173 mg/dL (70-99) Assessment and Plan Assessmemt and Plan Problems Medical Problems: (1) Altered mental status Status: Acute (2) Cellulitis of leg, left Status: Acute (3) Cellulitis of leg, right Status: Acute (4) HCAP (healthcare-associated pneumonia) Status: Acute Comment Review of Relevant I have reviewed the following items shahram (where applicable) has been applied. Labs Laboratory Tests Test 08/08/18 16:59 08/08/18 20:48 08/09/18 07:52 08/09/18 11:39 Glucose (Fingerstick) 152 mg/dL (70-99) 153 mg/dL (70-99) 131 mg/dL (70-99) 183 mg/dL (70-99) Test 08/09/18 16:37 08/09/18 20:25 08/10/18 06:11 08/10/18 07:26 Glucose (Fingerstick) 227 mg/dL (70-99) 226 mg/dL (70-99) 173 mg/dL (70-99) White Blood Count 12.7 x10^3/uL (4.0-11.0) Red Blood Count 4.25 x10^6/uL (4.30-5.70) Hemoglobin 12.0 g/dL (13.0-17.5) Hematocrit 36.0 % (39.0-53.0) Mean Corpuscular Volume 85 fL (79-100) Mean Corpuscular Hemoglobin 28 pg (25-35) Mean Corpuscular Hemoglobin Concent 33 g/dL (31-37) Red Cell Distribution Width 18.1 % (11.5-14.5) Platelet Count 178 x10^3/uL (140-400) Neutrophils (%) (Auto) 82 % (31-73) Lymphocytes (%) (Auto) 6 % (24-48) Monocytes (%) (Auto) 12 % (0-9) Eosinophils (%) (Auto) 0 % (0-3) Basophils (%) (Auto) 0 % (0-3) Neutrophils # (Auto) 10.4 x10^3uL (1.8-7.7) Lymphocytes # (Auto) 0.7 x10^3/uL (1.0-4.8) Monocytes # (Auto) 1.5 x10^3/uL (0.0-1.1) Eosinophils # (Auto) 0.0 x10^3/uL (0.0-0.7) Basophils # (Auto) 0.0 x10^3/uL (0.0-0.2) Sodium Level 135 mmol/L (136-145) Potassium Level 3.1 mmol/L (3.5-5.1) Chloride Level 98 mmol/L (98-107) Carbon Dioxide Level 25 mmol/L (21-32) Anion Gap 12 (6-14) Blood Urea Nitrogen 10 mg/dL (8-26) Creatinine 0.8 mg/dL (0.7-1.3) Estimated GFR (Cockcroft-Gault) 95.0 BUN/Creatinine Ratio 13 (6-20) Glucose Level 174 mg/dL (70-99) Calcium Level 8.7 mg/dL (8.5-10.1) Total Bilirubin 1.6 mg/dL (0.2-1.0) Aspartate Amino Transf (AST/SGOT) 28 U/L (15-37) Alanine Aminotransferase (ALT/SGPT) 34 U/L (16-63) Alkaline Phosphatase 149 U/L (46-116) Total Protein 7.0 g/dL (6.4-8.2) Albumin 1.9 g/dL (3.4-5.0) Albumin/Globulin Ratio 0.4 (1.0-1.7) Laboratory Tests Test 08/09/18 11:39 08/09/18 16:37 08/09/18 20:25 08/10/18 06:11 Glucose (Fingerstick) 183 mg/dL (70-99) 227 mg/dL (70-99) 226 mg/dL (70-99) White Blood Count 12.7 x10^3/uL (4.0-11.0) Red Blood Count 4.25 x10^6/uL (4.30-5.70) Hemoglobin 12.0 g/dL (13.0-17.5) Hematocrit 36.0 % (39.0-53.0) Mean Corpuscular Volume 85 fL (79-100) Mean Corpuscular Hemoglobin 28 pg (25-35) Mean Corpuscular Hemoglobin Concent 33 g/dL (31-37) Red Cell Distribution Width 18.1 % (11.5-14.5) Platelet Count 178 x10^3/uL (140-400) Neutrophils (%) (Auto) 82 % (31-73) Lymphocytes (%) (Auto) 6 % (24-48) Monocytes (%) (Auto) 12 % (0-9) Eosinophils (%) (Auto) 0 % (0-3) Basophils (%) (Auto) 0 % (0-3) Neutrophils # (Auto) 10.4 x10^3uL (1.8-7.7) Lymphocytes # (Auto) 0.7 x10^3/uL (1.0-4.8) Monocytes # (Auto) 1.5 x10^3/uL (0.0-1.1) Eosinophils # (Auto) 0.0 x10^3/uL (0.0-0.7) Basophils # (Auto) 0.0 x10^3/uL (0.0-0.2) Sodium Level 135 mmol/L (136-145) Potassium Level 3.1 mmol/L (3.5-5.1) Chloride Level 98 mmol/L (98-107) Carbon Dioxide Level 25 mmol/L (21-32) Anion Gap 12 (6-14) Blood Urea Nitrogen 10 mg/dL (8-26) Creatinine 0.8 mg/dL (0.7-1.3) Estimated GFR (Cockcroft-Gault) 95.0 BUN/Creatinine Ratio 13 (6-20) Glucose Level 174 mg/dL (70-99) Calcium Level 8.7 mg/dL (8.5-10.1) Total Bilirubin 1.6 mg/dL (0.2-1.0) Aspartate Amino Transf (AST/SGOT) 28 U/L (15-37) Alanine Aminotransferase (ALT/SGPT) 34 U/L (16-63) Alkaline Phosphatase 149 U/L (46-116) Total Protein 7.0 g/dL (6.4-8.2) Albumin 1.9 g/dL (3.4-5.0) Albumin/Globulin Ratio 0.4 (1.0-1.7) Test 08/10/18 07:26 Glucose (Fingerstick) 173 mg/dL (70-99) Microbiology 08/06/18 Blood Culture - Preliminary, Resulted NO GROWTH AFTER 3 DAYS Medications Current Medications Ketorolac Tromethamine (Toradol 15mg Vial) 15 mg 1X ONCE IV Last administered on 08/06/18at 07:30; Start 08/06/18 at 06:45; Stop 08/06/18 at 06:46; Status DC Vancomycin HCl (Vanco Per Pharmacy) 1 each PRN DAILY PRN MC SEE COMMENTS Last administered on 08/07/18at 21:06; Start 08/06/18 at 07:00; Stop 08/08/18 at 07:07 ; Status DC Piperacillin Sod/ Tazobactam Sod (Zosyn Per Pharmacy) 1 each PRN DAILY PRN MC SEE COMMENTS; Start 08/06/18 at 07:15 Piperacillin Sod/ Tazobactam Sod 3.375 gm/Sodium Chloride 50 ml @ 100 mls/hr 1X ONCE IV Last administered on 08/06/18at 07:23; Start 08/06/18 at 07:15; Stop 08/06/18 at 07:44; Status DC Vancomycin HCl 2 gm/Sodium Chloride 500 ml @ 250 mls/hr 1X ONCE IV Last administered on 08/06/18at 07:49; Start 08/06/18 at 08:00; Stop 08/06/18 at 09:59 ; Status DC Sodium Chloride 1,000 ml @ 1,000 mls/hr 1X ONCE IV Last administered on 07:31; Start 08/06/18 at 07:30; Stop 08/06/18 at 08:29; Status DC Sodium Chloride 1,000 ml @ 1,000 mls/hr 1X ONCE IV Last administered on 07:32; Start 08/06/18 at 07:30; Stop 08/06/18 at 08:29; Status DC Piperacillin Sod/ Tazobactam Sod 4.5 gm/Sodium Chloride 100 ml @ 200 mls/hr Q6HRS IV ; Start 08/06/18 at 12:00; Status Cancel Piperacillin Sod/ Tazobactam Sod 3.375 gm/Sodium Chloride 50 ml @ 100 mls/hr Q6HRS IV Last administered on 08/10/18 05:41; Start 08/06/18 at 12:00 Nystatin (Nystop) 1 toy BID TP Last administered on 08/10/18 07:54; Start 08/06 at 09:00 Allopurinol (Zyloprim) 300 mg DAILY PO Last administered on 08/10/18 07:54; Start 08/06/18 at 09:00 Digoxin (Lanoxin) 125 mcg DAILY PO Last administered on 08/10/18 07:54; Start 08/06/18 at 09:00 Fluticasone Propionate (Flonase) 2 spray HS NS Last administered on 08/09/18 20 :31; Start 08/06/18 at 21:00 Folic Acid (Folic Acid) 1 mg DAILY PO Last administered on 08/10/18 07:55; Start 08/06/18 at 09:00 Furosemide (Lasix) 60 mg DAILY PO Last administered on 08/10/18 07:55; Start at 09:00 Gabapentin (Neurontin) 300 mg HS PO Last administered on 08/09/18 20:32; Start 08/06/18 at 21:00 Lorazepam (Ativan) 1 mg HS PO Last administered on 08/09/18 20:31; Start at 21:00 Losartan Potassium (Cozaar) 50 mg DAILY PO Last administered on 08/10/18 07:56 ; Start 08/06/18 at 09:00 Metoprolol Tartrate (Lopressor) 12.5 mg BID PO Last administered on 08/10/18 07 :58; Start 08/06/18 at 09:00 Potassium Chloride (Klor-Con) 10 meq BIDWMEALS PO Last administered on 08:03; Start 08/06/18 at 09:00; Stop 08/08/18 at 08:13; Status DC Silver Sulfadiazine (Silvadene) 1 toy BID TP Last administered on 08/10/18 07: 54; Start 08/06/18 at 09:00 Non-Formulary Medication (Albuterol Sulfate (Ventolin Hfa Inhaler)) 2 puff QID INH ; Start 08/06/18 at 09:00; Status UNV Diltiazem HCl (Cardizem 24hr Cd) 120 mg DAILY PO Last administered on 08/10/18 07:55; Start 08/06/18 at 09:00 Non-Formulary Medication (Fluticasone Propionate (Flovent 100MCG Diskus)) 1 puff HS IH ; Start 08/06/18 at 21:00; Status UNV Risperidone (RisperDAL) 0.5 mg QHS PO Last administered on 08/09/18 20:32; Start 08/06/18 at 21:00 Rivaroxaban (Xarelto) 20 mg DAILYWSUP PO Last administered on 08/09/18 17:01; Start 08/06/18 at 17:00 Albuterol Sulfate (Ventolin Neb Soln) 2.5 mg RTQID NEB Last administered on 08/10 08:02; Start 08/06/18 at 12:00 Budesonide (Pulmicort) 0.5 mg RTBID NEB Last administered on 08/10/18 08:02; Start 08/06/18 at 09:00 Perflutren Protein Type A Microsphe (Optison) 0.66 mg STK-MED ONCE IV ; Start at 09:32; Stop 08/06/18 at 09:34; Status DC Lactobacillus Rhamnosus (Culturelle) 1 cap BID PO Last administered on 07:55; Start 08/06/18 at 21:00 Vancomycin HCl 1.75 gm/Sodium Chloride 500 ml @ 250 mls/hr Q12H IV Last administered on 08/07/18at 20:15; Start 08/06/18 at 20:00; Stop 08/07/18 at 23:59 ; Status DC Vancomycin HCl (Vancomycin Trough Level) 1 each 1X ONCE MC Last administered on 08/07/18at 19:30; Start 08/07/18 at 19:30; Stop 08/07/18 at 19:31; Status DC Info (Anti-Coagulation Monitoring By Pharmacy) 1 each PRN DAILY PRN MC SEE COMMENTS Last administered on 08/07/18at 08:15; Start 08/06/18 at 10:00 Perflutren Protein Type A Microsphe (Optison) 0.66 mg PRN 1X PRN IV SEE COMMENTS; Start 08/06/18 at 10:00; Stop 08/07/18 at 09:59; Status DC Micafungin Sodium 100 mg/Dextrose 100 ml @ 100 mls/hr Q24H IV Last administered on 08/09/18at 14:05; Start 08/06/18 at 14:00 Acetaminophen (Tylenol) 650 mg PRN Q6HRS PRN PO fever Last administered on at 05:36; Start 08/06/18 at 14:00 Linezolid/Dextrose 300 ml @ 300 mls/hr Q12HR IV Last administered on at 20:15; Start 08/07/18 at 09:00; Stop 08/08/18 at 07:07; Status DC Perflutren Protein Type A Microsphe (Optison) 0.66 mg STK-MED ONCE IV ; Start at 10:00; Stop 08/07/18 at 08:15; Status DC Vancomycin HCl 2 gm/Sodium Chloride 500 ml @ 250 mls/hr Q12H IV ; Start at 08:00; Stop 08/08/18 at 08:00; Status DC Linezolid (Zyvox) 600 mg BID PO Last administered on 08/10/18at 07:54; Start 08/08 at 09:00 Ondansetron HCl (Zofran) 4 mg PRN Q6HRS PRN IV NAUSEA/VOMITING; Start 08/08/18 at 08:15 Ondansetron HCl (Zofran Odt) 4 mg PRN Q6HRS PRN PO NAUSEA/VOMITING; Start at 08:15 Potassium Chloride (Klor-Con) 40 meq BIDWMEALS PO Last administered on at 07:54; Start 08/08/18 at 08:15 Labetalol HCl (Normodyne Iv Push) 10 mg PRN Q2HR PRN IVP HYPERTENSION, SEE COMMENTS; Start 08/08/18 at 08:15 Active Scripts Active Lanoxin (Digoxin) 125 Mcg Tablet 125 Mcg PO DAILY 30 Days Reported Xarelto (Rivaroxaban) 20 Mg Tablet 20 Mg PO DAILY Lorazepam 1 Mg Tablet 1 Mg PO HS Gabapentin (Gabapentin) 300 Mg Capsule 1 Cap PO HS Flovent 100MCG Diskus (Fluticasone Propionate) 100 Mcg Disk.w.dev 1 Puff IH HS Losartan Potassium (Losartan Potassium) 25 Mg Tablet 2 Tab PO DAILY Furosemide 40 Mg Tablet 1.5 Tab PO DAILY PRN Diltiazem 24HR Cd (Diltiazem Hcl) 120 Mg Cap.er.24h 1 Cap PO DAILY PRN Gabapentin (Gabapentin) 300 Mg Capsule 1 Cap PO HS Potassium Chloride 10 Meq Tab.er.prt 1 Tab PO BID Metoprolol Tartrate 25 Mg Tablet 0.5 Tab PO BID Folic Acid 1 Mg Tablet 1 Tab PO DAILY Allopurinol 300 Mg Tablet 300 Mg PO DAILY Ventolin Hfa Inhaler (Albuterol Sulfate) 18 Gm Hfa.aer.ad 2 Puff INH QID Flonase (Fluticasone Propionate) 16 Gm [place].susp 2 [place] NS HS Silvadene (Silver Sulfadiazine) 20 Gm Cream..g. 1 Toy TP BID Ventolin Hfa Inhaler (Albuterol Sulfate) 18 Gm Hfa.aer.ad 2 Puff IH PRN Q4-6HRS Risperidone 0.5 Mg Tablet 1 Tab PO QHS Vitals/I & O Vital Sign - Last 24 Hours 08/09/18 08/09/18 08/09/18 08/09/18 11:00 12:02 15:00 15:50 Temp 98.5 98.0 98.5 98.0 Pulse 98 98 Resp 20 22 B/P (MAP) 130/77 (94) 166/85 (112) Pulse Ox 92 93 92 O2 Delivery Nasal Cannula Nasal Cannula Nasal Cannula Nasal Cannula O2 Flow Rate 5.0 5.0 5.0 5.0 08/09/18 08/09/18 08/09/18 08/09/18 19:00 19:48 20:32 20:52 Temp 100.2 100.2 Pulse 97 97 Resp 22 B/P (MAP) 173/90 (117) 173/90 Pulse Ox 89 88 O2 Delivery Nasal Cannula Nasal Cannula Nasal Cannula O2 Flow Rate 5.0 5.0 5.0 08/09/18 08/10/18 08/10/18 08/10/18 23:00 03:00 07:30 07:54 Temp 98.7 98.7 100.3 98.7 98.7 100.3 Pulse 80 87 131 87 Resp 22 22 22 B/P (MAP) 145/74 (97) 146/82 (103) 152/86 (108) 146/82 Pulse Ox 89 91 92 O2 Delivery Nasal Cannula Nasal Cannula Nasal Cannula O2 Flow Rate 5.0 5.0 5.0 08/10/18 08/10/18 08/10/18 08/10/18 07:55 07:56 07:58 08:00 Pulse 87 131 131 B/P (MAP) 146/82 152/86 152/86 O2 Delivery Nasal Cannula O2 Flow Rate 5.0 08/10/18 08:06 Pulse Ox 95 O2 Delivery Nasal Cannula O2 Flow Rate 5.0 Intake and Output 08/09/18 08/09/18 08/10/18 15:01 23:01 07:01 Intake Total 50 ml 250 ml Output Total 350 ml 500 ml 1000 ml Balance -350 ml -450 ml -750 ml NAVARRO BADILLO MD Aug 10, 2018 10:04
--- NOTE | 2018-08-10 10:26 | PDOC ---
Infectious Disease Note Subjective Subjective Wants to go home, "got bills to pay" Low-grade fevers Tmax 100.3 + diarrhea Not very hungry Denies pain/cramps Denies chills/aches/N/V/SOA ROS ROS per HPI Vital Sign Vital Signs Vital Signs Date Time Temp Pulse Resp B/P (MAP) Pulse Ox O2 Delivery O2 Flow Rate FiO2 08/10/18 08:06 95 Nasal Cannula 5.0 08/10/18 07:58 131 152/86 08/10/18 07:30 100.3 22 100.3 Physical Exam PHYSICAL EXAM GENERAL: Lying down, alert, ND HEENT: Oral cavity had pink, dry NECK: Supple. LUNGS: Diminished aeration in the bases. Nonlabored. HEART: S1 and S2 irregular. ABDOMEN: Obese and soft. No grimace or guarding to palpation with bowel sounds present. GENITOURINARY: Indwelling Arias in place. EXTREMITIES: Lower extremity edema with chronic venous stasis changes and associated with thickened skin changes with brown scales, less red. Erythema R > L improved and NT SKIN: Warm. NEUROLOGICAL: Alert, responds appropriately Peripheral IV Labs Lab Laboratory Tests Test 08/09/18 11:39 08/09/18 16:37 08/09/18 20:25 08/10/18 06:11 Glucose (Fingerstick) 183 mg/dL (70-99) 227 mg/dL (70-99) 226 mg/dL (70-99) White Blood Count 12.7 x10^3/uL (4.0-11.0) Red Blood Count 4.25 x10^6/uL (4.30-5.70) Hemoglobin 12.0 g/dL (13.0-17.5) Hematocrit 36.0 % (39.0-53.0) Mean Corpuscular Volume 85 fL (79-100) Mean Corpuscular Hemoglobin 28 pg (25-35) Mean Corpuscular Hemoglobin Concent 33 g/dL (31-37) Red Cell Distribution Width 18.1 % (11.5-14.5) Platelet Count 178 x10^3/uL (140-400) Neutrophils (%) (Auto) 82 % (31-73) Lymphocytes (%) (Auto) 6 % (24-48) Monocytes (%) (Auto) 12 % (0-9) Eosinophils (%) (Auto) 0 % (0-3) Basophils (%) (Auto) 0 % (0-3) Neutrophils # (Auto) 10.4 x10^3uL (1.8-7.7) Lymphocytes # (Auto) 0.7 x10^3/uL (1.0-4.8) Monocytes # (Auto) 1.5 x10^3/uL (0.0-1.1) Eosinophils # (Auto) 0.0 x10^3/uL (0.0-0.7) Basophils # (Auto) 0.0 x10^3/uL (0.0-0.2) Sodium Level 135 mmol/L (136-145) Potassium Level 3.1 mmol/L (3.5-5.1) Chloride Level 98 mmol/L (98-107) Carbon Dioxide Level 25 mmol/L (21-32) Anion Gap 12 (6-14) Blood Urea Nitrogen 10 mg/dL (8-26) Creatinine 0.8 mg/dL (0.7-1.3) Estimated GFR (Cockcroft-Gault) 95.0 BUN/Creatinine Ratio 13 (6-20) Glucose Level 174 mg/dL (70-99) Calcium Level 8.7 mg/dL (8.5-10.1) Total Bilirubin 1.6 mg/dL (0.2-1.0) Aspartate Amino Transf (AST/SGOT) 28 U/L (15-37) Alanine Aminotransferase (ALT/SGPT) 34 U/L (16-63) Alkaline Phosphatase 149 U/L (46-116) Total Protein 7.0 g/dL (6.4-8.2) Albumin 1.9 g/dL (3.4-5.0) Albumin/Globulin Ratio 0.4 (1.0-1.7) Test 08/10/18 07:26 Glucose (Fingerstick) 173 mg/dL (70-99) Micro 08/06/18 Blood Culture - Preliminary, Resulted NO GROWTH AFTER 3 DAYS Objective Assessment Sepsis with lactic acidosis POA - better Fever Leukocytosis Diarrhea Cellulitis of lower extremities R> L - improving Yeast groin/pannus areas - improving Acute encephalopathy - improved Chronic venous stasis - followed by [facility]CC ? HCAP MRSA screen neg CHF DM II COPD PVD Chronic A-fib DNR/DNI Plan Plan of Care Zyvox, Zosyn and Micafungin Nystatin top powder to affected areas f/u cultures/labs Local wound care repeat CBC in am check C. diff Attending Co-Sign The patient was seen and interviewed as well as examined at the bedside. The chart was reviewed. The case was discussed. Agree with the plan of care. MIK LUBIN APRN Aug 10, 2018 10:25 FREDERICK CHRISTENSEN MD Aug 10, 2018 13:26
[2018-08-10 11:30] VITALS: BP 156/91
--- NOTE | 2018-08-10 12:20 | PDOC ---
PULMONARY PROGRESS NOTES Subjective NO RESP COMPLAINTS Vitals Vital Signs Date Time Temp Pulse Resp B/P (MAP) Pulse Ox O2 Delivery O2 Flow Rate FiO2 08/10/18 11:49 95 Nasal Cannula 5.0 08/10/18 11:30 98.8 115 22 156/91 (112) 98.8 ROS: No Nausea, No Chest Pain, No Abdominal Pain, No Increase Cough General: Alert, No acute distress Lungs: Clear, Other Cardiovascular: S1 Abdomen: Soft, Other (OBESE) Neuro Exam: Alert Extremities: Other Skin: Warm Labs Laboratory Tests Test 08/08/18 16:59 08/08/18 20:48 08/09/18 07:52 08/09/18 11:39 Glucose (Fingerstick) 152 mg/dL (70-99) 153 mg/dL (70-99) 131 mg/dL (70-99) 183 mg/dL (70-99) Test 08/09/18 16:37 08/09/18 20:25 08/10/18 06:11 08/10/18 07:26 Glucose (Fingerstick) 227 mg/dL (70-99) 226 mg/dL (70-99) 173 mg/dL (70-99) White Blood Count 12.7 x10^3/uL (4.0-11.0) Red Blood Count 4.25 x10^6/uL (4.30-5.70) Hemoglobin 12.0 g/dL (13.0-17.5) Hematocrit 36.0 % (39.0-53.0) Mean Corpuscular Volume 85 fL (79-100) Mean Corpuscular Hemoglobin 28 pg (25-35) Mean Corpuscular Hemoglobin Concent 33 g/dL (31-37) Red Cell Distribution Width 18.1 % (11.5-14.5) Platelet Count 178 x10^3/uL (140-400) Neutrophils (%) (Auto) 82 % (31-73) Lymphocytes (%) (Auto) 6 % (24-48) Monocytes (%) (Auto) 12 % (0-9) Eosinophils (%) (Auto) 0 % (0-3) Basophils (%) (Auto) 0 % (0-3) Neutrophils # (Auto) 10.4 x10^3uL (1.8-7.7) Lymphocytes # (Auto) 0.7 x10^3/uL (1.0-4.8) Monocytes # (Auto) 1.5 x10^3/uL (0.0-1.1) Eosinophils # (Auto) 0.0 x10^3/uL (0.0-0.7) Basophils # (Auto) 0.0 x10^3/uL (0.0-0.2) Sodium Level 135 mmol/L (136-145) Potassium Level 3.1 mmol/L (3.5-5.1) Chloride Level 98 mmol/L (98-107) Carbon Dioxide Level 25 mmol/L (21-32) Anion Gap 12 (6-14) Blood Urea Nitrogen 10 mg/dL (8-26) Creatinine 0.8 mg/dL (0.7-1.3) Estimated GFR (Cockcroft-Gault) 95.0 BUN/Creatinine Ratio 13 (6-20) Glucose Level 174 mg/dL (70-99) Calcium Level 8.7 mg/dL (8.5-10.1) Total Bilirubin 1.6 mg/dL (0.2-1.0) Aspartate Amino Transf (AST/SGOT) 28 U/L (15-37) Alanine Aminotransferase (ALT/SGPT) 34 U/L (16-63) Alkaline Phosphatase 149 U/L (46-116) Total Protein 7.0 g/dL (6.4-8.2) Albumin 1.9 g/dL (3.4-5.0) Albumin/Globulin Ratio 0.4 (1.0-1.7) Test 08/10/18 11:24 Glucose (Fingerstick) 156 mg/dL (70-99) Laboratory Tests Test 08/09/18 16:37 08/09/18 20:25 08/10/18 06:11 08/10/18 07:26 Glucose (Fingerstick) 227 mg/dL (70-99) 226 mg/dL (70-99) 173 mg/dL (70-99) White Blood Count 12.7 x10^3/uL (4.0-11.0) Red Blood Count 4.25 x10^6/uL (4.30-5.70) Hemoglobin 12.0 g/dL (13.0-17.5) Hematocrit 36.0 % (39.0-53.0) Mean Corpuscular Volume 85 fL (79-100) Mean Corpuscular Hemoglobin 28 pg (25-35) Mean Corpuscular Hemoglobin Concent 33 g/dL (31-37) Red Cell Distribution Width 18.1 % (11.5-14.5) Platelet Count 178 x10^3/uL (140-400) Neutrophils (%) (Auto) 82 % (31-73) Lymphocytes (%) (Auto) 6 % (24-48) Monocytes (%) (Auto) 12 % (0-9) Eosinophils (%) (Auto) 0 % (0-3) Basophils (%) (Auto) 0 % (0-3) Neutrophils # (Auto) 10.4 x10^3uL (1.8-7.7) Lymphocytes # (Auto) 0.7 x10^3/uL (1.0-4.8) Monocytes # (Auto) 1.5 x10^3/uL (0.0-1.1) Eosinophils # (Auto) 0.0 x10^3/uL (0.0-0.7) Basophils # (Auto) 0.0 x10^3/uL (0.0-0.2) Sodium Level 135 mmol/L (136-145) Potassium Level 3.1 mmol/L (3.5-5.1) Chloride Level 98 mmol/L (98-107) Carbon Dioxide Level 25 mmol/L (21-32) Anion Gap 12 (6-14) Blood Urea Nitrogen 10 mg/dL (8-26) Creatinine 0.8 mg/dL (0.7-1.3) Estimated GFR (Cockcroft-Gault) 95.0 BUN/Creatinine Ratio 13 (6-20) Glucose Level 174 mg/dL (70-99) Calcium Level 8.7 mg/dL (8.5-10.1) Total Bilirubin 1.6 mg/dL (0.2-1.0) Aspartate Amino Transf (AST/SGOT) 28 U/L (15-37) Alanine Aminotransferase (ALT/SGPT) 34 U/L (16-63) Alkaline Phosphatase 149 U/L (46-116) Total Protein 7.0 g/dL (6.4-8.2) Albumin 1.9 g/dL (3.4-5.0) Albumin/Globulin Ratio 0.4 (1.0-1.7) Test 08/10/18 11:24 Glucose (Fingerstick) 156 mg/dL (70-99) Medications Active Scripts Medications Dose Route/Sig Max Daily Dose Days Date Category Xarelto (Rivaroxaban) 20 Mg Tablet 20 Mg PO DAILY 06/10/18 Reported Lorazepam 1 Mg Tablet 1 Mg PO HS 10/12/14 Reported Gabapentin (Gabapentin) 300 Mg Capsule 1 Cap PO HS 10/12/14 Reported Flovent 100MCG Diskus (Fluticasone Propionate) 100 Mcg Disk.w.dev 1 Puff IH HS 10/12/14 Reported Losartan Potassium (Losartan Potassium) 25 Mg Tablet 2 Tab PO DAILY 10/12/14 Reported Furosemide 40 Mg Tablet 1.5 Tab PO DAILY PRN 10/12/14 Reported Diltiazem 24HR Cd (Diltiazem Hcl) 120 Mg Cap.er.24h 1 Cap PO DAILY PRN 10/12/14 Reported Lanoxin (Digoxin) 125 Mcg Tablet 125 Mcg PO DAILY 30 08/24/14 Rx Gabapentin (Gabapentin) 300 Mg Capsule 1 Cap PO HS 08/18/14 Reported Potassium Chloride 10 Meq Tab.er.prt 1 Tab PO BID 08/18/14 Reported Metoprolol Tartrate 25 Mg Tablet 0.5 Tab PO BID 08/18/14 Reported Folic Acid 1 Mg Tablet 1 Tab PO DAILY 08/18/14 Reported Allopurinol 300 Mg Tablet 300 Mg PO DAILY 08/18/14 Reported Ventolin Hfa Inhaler (Albuterol Sulfate) 18 Gm Hfa.aer.ad 2 Puff INH QID 08/18/14 Reported Flonase (Fluticasone Propionate) 16 Gm Sparks.susp 2 Sparks NS HS 08/18/14 Reported Silvadene (Silver Sulfadiazine) 20 Gm Cream..g. 1 Toy TP BID 08/18/14 Reported Ventolin Hfa Inhaler (Albuterol Sulfate) 18 Gm Hfa.aer.ad 2 Puff IH PRN Q4-6HRS 08/18/14 Reported Risperidone 0.5 Mg Tablet 1 Tab PO QHS 08/18/14 Reported Comments IMPRESSION: 08/06 1. Findings of CHF or volume overload with pulmonary edema and trace bilateral pleural effusions. 2. Bibasilar airspace opacities indeterminate between focal pulmonary edema, multifocal infection, or pneumonitis with atelectasis. Impression . 1. Acute hypoxemic respiratory failure. 2. Pneumonia, suspect Gram-negative, possibly Gram-positive. 3. Sepsis. 4. Toxic metabolic encephalopathy. 5. Morbid obesity. 6. Chronic obstructive pulmonary disease. 7. Cellulitis of lower extremities. 8. Chronic venous insufficiency. 9. Type 2 diabetes. 10. Peripheral vascular disease. 11. Chronic atrial fibrillation. Plan . UP TO CHAIR CXR AM ANTI BX PER ID IMPROVING PT ORAL FEEDING DVT GI PROPH SAIRA CHASE MD Aug 10, 2018 12:19
[2018-08-10] MEDS: MICAFUNGIN 100 MG in IV DEXTROSE 5% 100ML 100 ML IV SCH (15:14)
[2018-08-10 15:20] VITALS: BP 162/80
[2018-08-10] MEDS: RIVAROXABAN 10 MG TABLET. PO SCH (17:05)
[2018-08-10 19:00] VITALS: BP 171/96
[2018-08-10] MEDS: FLUTICASONE 50MCG/NASAL SPRAY 16GM BOTTLE. NS SCH (20:43)
[2018-08-10] MEDS: LORazepam 1 MG TABLET PO SCH (20:44)
[2018-08-10] MEDS: risperiDONE 0.25 MG TABLET. PO SCH (20:44)
[2018-08-10] MEDS: GABAPENTIN 300 MG CAPSULE. PO SCH (20:44)
[2018-08-10 23:00] VITALS: BP 145/100
[2018-08-11] MEDS: PIPERACILLIN/TAZOBACTAM 3.375 GM in IV NORMAL SALINE 50ML 50 ML IV SCH ×2 (00:41→05:24)
[2018-08-11 03:00] VITALS: BP 167/100
[2018-08-11 07:00] VITALS: BP 152/88
[2018-08-11 07:16] LABS: BASO # 0.1 x10^3/uL (0.0-0.2); BASO % 1 % (0-3); EOS # 0.1 x10^3/uL (0.0-0.7); EOS % 1 % (0-3); HEMATOCRIT 35.6 % (39.0-53.0); HEMOGLOBIN 11.4 g/dL (13.0-17.5); LYMPH # 0.9 x10^3/uL (1.0-4.8); LYMPH % 8 % (24-48); MEAN CORPUSCULAR HEMOGLOBIN 27 pg (25-35); MEAN CORPUSCULAR HGB CONC 32 g/dL (31-37); MEAN CORPUSCULAR VOLUME 85 fL (79-100); MONO # 1.1 x10^3/uL (0.0-1.1); MONO % 10 % (0-9); NEUT # 9.3 x10^3uL (1.8-7.7); NEUT % 81 % (31-73); PLATELET COUNT 215 x10^3/uL (140-400); RED BLOOD COUNT 4.17 x10^6/uL (4.30-5.70); RED CELL DISTRIBUTION WIDTH 17.9 % (11.5-14.5); WHITE BLOOD COUNT 11.5 x10^3/uL (4.0-11.0)
[2018-08-11] MEDS: ALBUTEROL SULFATE 2.5 MG/3 ML NEBU. NEB SCH ×2 (07:19→12:00)
[2018-08-11] MEDS: BUDESONIDE 0.5 MG/2 ML NEBU. NEB SCH ×2 (07:19→20:00)
[2018-08-11 07:21] LABS: CALCIUM 8.8 mg/dL (8.5-10.1); CREATININE 0.8 mg/dL (0.7-1.3); POTASSIUM 3.3 mmol/L (3.5-5.1)
--- NOTE | 2018-08-11 08:36 | RAD ---
Examination: PORTABLE CHEST 1V History: RF, SOA Comparison/Correlation: 08/06/2018 AP view of the chest Findings: Portable upright frontal view chest was obtained. Heart size is enlarged. Pulmonary vasculature is congested. Patchy infiltrates involves the right medial upper lung field and to a lesser extent the left upper lung. Small pleural effusions are present. Osteopenia noted. Impression: Congestive heart failure and pleural effusions are more evident in the interval. Patchy infiltrates involving the upper lung beth the interval. Electronically signed by: Prabhakar Cash MD (08/11/2018 8:31 AM) [facility]
--- NOTE | 2018-08-11 09:45 | PDOC ---
Infectious Disease Note Subjective Subjective pt is feeling ok, does have diarrhea, wants to go back to his place ROS ROS no n/v/ , does have diarrhea denies pain or sob Vital Sign Vital Signs Vital Signs Date Time Temp Pulse Resp B/P (MAP) Pulse Ox O2 Delivery O2 Flow Rate FiO2 08/11/18 07:21 94 Nasal Cannula 5.0 08/11/18 07:00 98.9 101 18 152/88 (109) 98.9 Physical Exam PHYSICAL EXAM GENERAL: Lying down, alert, ND HEENT: Oral cavity had pink, dry NECK: Supple. LUNGS: Diminished aeration in the bases. Nonlabored. HEART: S1 and S2 irregular. ABDOMEN: Obese and soft. No grimace or guarding to palpation with bowel sounds present. GENITOURINARY: Indwelling Arias in place. EXTREMITIES: Lower extremity edema with chronic venous stasis changes and associated with thickened skin changes with brown scales, less red. Erythema R > L improved and NT SKIN: Warm. NEUROLOGICAL: Alert, responds appropriately Peripheral IV Labs Lab Laboratory Tests Test 08/10/18 11:24 08/10/18 16:50 08/10/18 20:27 08/11/18 06:30 Glucose (Fingerstick) 156 mg/dL (70-99) 169 mg/dL (70-99) 146 mg/dL (70-99) White Blood Count 11.5 x10^3/uL (4.0-11.0) Red Blood Count 4.17 x10^6/uL (4.30-5.70) Hemoglobin 11.4 g/dL (13.0-17.5) Hematocrit 35.6 % (39.0-53.0) Mean Corpuscular Volume 85 fL (79-100) Mean Corpuscular Hemoglobin 27 pg (25-35) Mean Corpuscular Hemoglobin Concent 32 g/dL (31-37) Red Cell Distribution Width 17.9 % (11.5-14.5) Platelet Count 215 x10^3/uL (140-400) Neutrophils (%) (Auto) 81 % (31-73) Lymphocytes (%) (Auto) 8 % (24-48) Monocytes (%) (Auto) 10 % (0-9) Eosinophils (%) (Auto) 1 % (0-3) Basophils (%) (Auto) 1 % (0-3) Neutrophils # (Auto) 9.3 x10^3uL (1.8-7.7) Lymphocytes # (Auto) 0.9 x10^3/uL (1.0-4.8) Monocytes # (Auto) 1.1 x10^3/uL (0.0-1.1) Eosinophils # (Auto) 0.1 x10^3/uL (0.0-0.7) Basophils # (Auto) 0.1 x10^3/uL (0.0-0.2) Sodium Level 136 mmol/L (136-145) Potassium Level 3.3 mmol/L (3.5-5.1) Chloride Level 100 mmol/L (98-107) Carbon Dioxide Level 26 mmol/L (21-32) Anion Gap 10 (6-14) Blood Urea Nitrogen 14 mg/dL (8-26) Creatinine 0.8 mg/dL (0.7-1.3) Estimated GFR (Cockcroft-Gault) 95.0 Glucose Level 163 mg/dL (70-99) Calcium Level 8.8 mg/dL (8.5-10.1) Test 08/11/18 07:48 Glucose (Fingerstick) 146 mg/dL (70-99) Micro Microbiology 08/06/18 Blood Culture - Preliminary, Resulted NO GROWTH AFTER 4 DAYS Objective Assessment Sepsis with lactic acidosis POA - better Fever Leukocytosis Diarrhea Cellulitis of lower extremities R> L - improving Yeast groin/pannus areas - improving Acute encephalopathy - improved Chronic venous stasis - followed by [facility] ? HCAP MRSA screen neg CHF DM II COPD PVD Chronic A-fib DNR/DNI Plan Plan of Care Zyvox, Zosyn and Micafungin,,,, change to po augmentin Nystatin top powder to affected areas f/u cultures/labs Local wound care repeat CBC in am check C. diff , if neg then d/c FREDERICK Khan MD Aug 11, 2018 09:45
--- NOTE | 2018-08-11 09:48 | PDOC ---
PULMONARY PROGRESS NOTES Subjective NO RESP COMPLAINTS Vitals Vital Signs Date Time Temp Pulse Resp B/P (MAP) Pulse Ox O2 Delivery O2 Flow Rate FiO2 08/11/18 07:21 94 Nasal Cannula 5.0 08/11/18 07:00 98.9 101 18 152/88 (109) 98.9 ROS: No Nausea, No Chest Pain, No Abdominal Pain, No Increase Cough General: Alert, No acute distress Lungs: Clear, Other Cardiovascular: S1 Abdomen: Soft, Other (OBESE) Neuro Exam: Alert Extremities: Other Skin: Warm Labs Laboratory Tests Test 08/09/18 11:39 08/09/18 16:37 08/09/18 20:25 08/10/18 06:11 Glucose (Fingerstick) 183 mg/dL (70-99) 227 mg/dL (70-99) 226 mg/dL (70-99) White Blood Count 12.7 x10^3/uL (4.0-11.0) Red Blood Count 4.25 x10^6/uL (4.30-5.70) Hemoglobin 12.0 g/dL (13.0-17.5) Hematocrit 36.0 % (39.0-53.0) Mean Corpuscular Volume 85 fL (79-100) Mean Corpuscular Hemoglobin 28 pg (25-35) Mean Corpuscular Hemoglobin Concent 33 g/dL (31-37) Red Cell Distribution Width 18.1 % (11.5-14.5) Platelet Count 178 x10^3/uL (140-400) Neutrophils (%) (Auto) 82 % (31-73) Lymphocytes (%) (Auto) 6 % (24-48) Monocytes (%) (Auto) 12 % (0-9) Eosinophils (%) (Auto) 0 % (0-3) Basophils (%) (Auto) 0 % (0-3) Neutrophils # (Auto) 10.4 x10^3uL (1.8-7.7) Lymphocytes # (Auto) 0.7 x10^3/uL (1.0-4.8) Monocytes # (Auto) 1.5 x10^3/uL (0.0-1.1) Eosinophils # (Auto) 0.0 x10^3/uL (0.0-0.7) Basophils # (Auto) 0.0 x10^3/uL (0.0-0.2) Sodium Level 135 mmol/L (136-145) Potassium Level 3.1 mmol/L (3.5-5.1) Chloride Level 98 mmol/L (98-107) Carbon Dioxide Level 25 mmol/L (21-32) Anion Gap 12 (6-14) Blood Urea Nitrogen 10 mg/dL (8-26) Creatinine 0.8 mg/dL (0.7-1.3) Estimated GFR (Cockcroft-Gault) 95.0 BUN/Creatinine Ratio 13 (6-20) Glucose Level 174 mg/dL (70-99) Calcium Level 8.7 mg/dL (8.5-10.1) Total Bilirubin 1.6 mg/dL (0.2-1.0) Aspartate Amino Transf (AST/SGOT) 28 U/L (15-37) Alanine Aminotransferase (ALT/SGPT) 34 U/L (16-63) Alkaline Phosphatase 149 U/L (46-116) Total Protein 7.0 g/dL (6.4-8.2) Albumin 1.9 g/dL (3.4-5.0) Albumin/Globulin Ratio 0.4 (1.0-1.7) Test 08/10/18 07:26 08/10/18 11:24 08/10/18 16:50 08/10/18 20:27 Glucose (Fingerstick) 173 mg/dL (70-99) 156 mg/dL (70-99) 169 mg/dL (70-99) 146 mg/dL (70-99) Test 08/11/18 06:30 08/11/18 07:48 White Blood Count 11.5 x10^3/uL (4.0-11.0) Red Blood Count 4.17 x10^6/uL (4.30-5.70) Hemoglobin 11.4 g/dL (13.0-17.5) Hematocrit 35.6 % (39.0-53.0) Mean Corpuscular Volume 85 fL (79-100) Mean Corpuscular Hemoglobin 27 pg (25-35) Mean Corpuscular Hemoglobin Concent 32 g/dL (31-37) Red Cell Distribution Width 17.9 % (11.5-14.5) Platelet Count 215 x10^3/uL (140-400) Neutrophils (%) (Auto) 81 % (31-73) Lymphocytes (%) (Auto) 8 % (24-48) Monocytes (%) (Auto) 10 % (0-9) Eosinophils (%) (Auto) 1 % (0-3) Basophils (%) (Auto) 1 % (0-3) Neutrophils # (Auto) 9.3 x10^3uL (1.8-7.7) Lymphocytes # (Auto) 0.9 x10^3/uL (1.0-4.8) Monocytes # (Auto) 1.1 x10^3/uL (0.0-1.1) Eosinophils # (Auto) 0.1 x10^3/uL (0.0-0.7) Basophils # (Auto) 0.1 x10^3/uL (0.0-0.2) Sodium Level 136 mmol/L (136-145) Potassium Level 3.3 mmol/L (3.5-5.1) Chloride Level 100 mmol/L (98-107) Carbon Dioxide Level 26 mmol/L (21-32) Anion Gap 10 (6-14) Blood Urea Nitrogen 14 mg/dL (8-26) Creatinine 0.8 mg/dL (0.7-1.3) Estimated GFR (Cockcroft-Gault) 95.0 Glucose Level 163 mg/dL (70-99) Calcium Level 8.8 mg/dL (8.5-10.1) Glucose (Fingerstick) 146 mg/dL (70-99) Laboratory Tests Test 08/10/18 11:24 08/10/18 16:50 08/10/18 20:27 08/11/18 06:30 Glucose (Fingerstick) 156 mg/dL (70-99) 169 mg/dL (70-99) 146 mg/dL (70-99) White Blood Count 11.5 x10^3/uL (4.0-11.0) Red Blood Count 4.17 x10^6/uL (4.30-5.70) Hemoglobin 11.4 g/dL (13.0-17.5) Hematocrit 35.6 % (39.0-53.0) Mean Corpuscular Volume 85 fL (79-100) Mean Corpuscular Hemoglobin 27 pg (25-35) Mean Corpuscular Hemoglobin Concent 32 g/dL (31-37) Red Cell Distribution Width 17.9 % (11.5-14.5) Platelet Count 215 x10^3/uL (140-400) Neutrophils (%) (Auto) 81 % (31-73) Lymphocytes (%) (Auto) 8 % (24-48) Monocytes (%) (Auto) 10 % (0-9) Eosinophils (%) (Auto) 1 % (0-3) Basophils (%) (Auto) 1 % (0-3) Neutrophils # (Auto) 9.3 x10^3uL (1.8-7.7) Lymphocytes # (Auto) 0.9 x10^3/uL (1.0-4.8) Monocytes # (Auto) 1.1 x10^3/uL (0.0-1.1) Eosinophils # (Auto) 0.1 x10^3/uL (0.0-0.7) Basophils # (Auto) 0.1 x10^3/uL (0.0-0.2) Sodium Level 136 mmol/L (136-145) Potassium Level 3.3 mmol/L (3.5-5.1) Chloride Level 100 mmol/L (98-107) Carbon Dioxide Level 26 mmol/L (21-32) Anion Gap 10 (6-14) Blood Urea Nitrogen 14 mg/dL (8-26) Creatinine 0.8 mg/dL (0.7-1.3) Estimated GFR (Cockcroft-Gault) 95.0 Glucose Level 163 mg/dL (70-99) Calcium Level 8.8 mg/dL (8.5-10.1) Test 08/11/18 07:48 Glucose (Fingerstick) 146 mg/dL (70-99) Medications Active Scripts Medications Dose Route/Sig Max Daily Dose Days Date Category Xarelto (Rivaroxaban) 20 Mg Tablet 20 Mg PO DAILY 06/10/18 Reported Lorazepam 1 Mg Tablet 1 Mg PO HS 10/12/14 Reported Gabapentin (Gabapentin) 300 Mg Capsule 1 Cap PO HS 10/12/14 Reported Flovent 100MCG Diskus (Fluticasone Propionate) 100 Mcg Disk.w.dev 1 Puff IH HS 10/12/14 Reported Losartan Potassium (Losartan Potassium) 25 Mg Tablet 2 Tab PO DAILY 10/12/14 Reported Furosemide 40 Mg Tablet 1.5 Tab PO DAILY PRN 10/12/14 Reported Diltiazem 24HR Cd (Diltiazem Hcl) 120 Mg Cap.er.24h 1 Cap PO DAILY PRN 10/12/14 Reported Lanoxin (Digoxin) 125 Mcg Tablet 125 Mcg PO DAILY 30 08/24/14 Rx Gabapentin (Gabapentin) 300 Mg Capsule 1 Cap PO HS 08/18/14 Reported Potassium Chloride 10 Meq Tab.er.prt 1 Tab PO BID 08/18/14 Reported Metoprolol Tartrate 25 Mg Tablet 0.5 Tab PO BID 08/18/14 Reported Folic Acid 1 Mg Tablet 1 Tab PO DAILY 08/18/14 Reported Allopurinol 300 Mg Tablet 300 Mg PO DAILY 08/18/14 Reported Ventolin Hfa Inhaler (Albuterol Sulfate) 18 Gm Hfa.aer.ad 2 Puff INH QID 08/18/14 Reported Flonase (Fluticasone Propionate) 16 Gm Cylinder.susp 2 Cylinder NS HS 08/18/14 Reported Silvadene (Silver Sulfadiazine) 20 Gm Cream..g. 1 Toy TP BID 08/18/14 Reported Ventolin Hfa Inhaler (Albuterol Sulfate) 18 Gm Hfa.aer.ad 2 Puff IH PRN Q4-6HRS 08/18/14 Reported Risperidone 0.5 Mg Tablet 1 Tab PO QHS 08/18/14 Reported Comments IMPRESSION: 08/06 1. Findings of CHF or volume overload with pulmonary edema and trace bilateral pleural effusions. 2. Bibasilar airspace opacities indeterminate between focal pulmonary edema, multifocal infection, or pneumonitis with atelectasis. Impression . 1. Acute hypoxemic respiratory failure. 2. Pneumonia, suspect Gram-negative, possibly Gram-positive. 3. Sepsis. 4. Toxic metabolic encephalopathy. 5. Morbid obesity. 6. Chronic obstructive pulmonary disease. 7. Cellulitis of lower extremities. 8. Chronic venous insufficiency. 9. Type 2 diabetes. 10. Peripheral vascular disease. 11. Chronic atrial fibrillation. CXR 2/4 Congestive heart failure and pleural effusions are more evident in the interval. Patchy infiltrates involving the upper lung beth the interval. Plan . POSSIBLE C DIFF SPOKE WITH RN NEEDS PT EXTRA LASIX ANTI BX PER ID IMPROVING PT ORAL FEEDING DVT GI PROPH SAIRA CHASE MD Aug 11, 2018 09:48
--- NOTE | 2018-08-11 10:29 | PDOC ---
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 Chronic obstructive pulmonary disease. obesity, BMI 38, severe protein-caloric malnutrition, Albumin 2.7 ck 1100, rhabdo, with CHF, BNP up, chronic diastolic CHF Findings of CHF or volume overload with pulmonary edema and trace bilateral pleural effusions. cxr weakness and debility, PT and OT Zyvox, Zosyn and Micafungin Nystatin top powder to affected areas History of Present Illness History of Present Illness Up in bed, no complaints K is 3.0 on 10 mEq of KCl Has an indwelling Arias -= Is a resident of [place] calcitonin still elevated 2.77 but no fevers, also on nystatin for intertriginous areas DNR Plan: telemetry Continue antibiotics per ID Continue nystatin powder to creases physical therapy Increase KCl to 40 twice a day to address the hypokalemia LAbs IN AM Vitals Vitals Vital Signs Date Time Temp Pulse Resp B/P (MAP) Pulse Ox O2 Delivery O2 Flow Rate FiO2 08/11/18 07:21 94 Nasal Cannula 5.0 08/11/18 07:00 98.9 101 18 152/88 (109) 98.9 Physical Exam Physical Exam GENERAL: Lying down, alert, ND HEENT: Oral cavity had pink, dry NECK: Supple. LUNGS: Diminished aeration in the bases. Nonlabored. HEART: S1 and S2 irregular. ABDOMEN: Obese and soft. No grimace or guarding to palpation with bowel sounds present. GENITOURINARY: Indwelling Arias in place. EXTREMITIES: Lower extremity edema with chronic venous stasis changes and associated with thickened skin changes with brown scales, less red. Erythema R > L improved and NT SKIN: Warm. NEUROLOGICAL: Alert, responds appropriately Peripheral IV General: Alert, Cooperative, No acute distress Heart: Regular rate, Normal S1, Normal S2, Other Lungs: Clear, Other Abdomen: Normal bowel sounds, Soft (obese, NT), No tenderness Extremities: No clubbing, No cyanosis, Normal pulses, Other (edema) Skin: No breakdown, Other (very red, hot and scaly BLE, with poor nail care and fungus) Labs LABS REASON: RF [id number] PROCEDURE: PORTABLE CHEST 1V Examination: PORTABLE CHEST 1V History: RF, SOA Comparison/Correlation: 08/06/2018 AP view of the chest Findings: Portable upright frontal view chest was obtained. Heart size is enlarged. Pulmonary vasculature is congested. Patchy infiltrates involves the right medial upper lung field and to a lesser extent the left upper lung. Small pleural effusions are present. Osteopenia noted. Impression: Congestive heart failure and pleural effusions are more evident in the interval. Patchy infiltrates involving the upper lung beth the interval. Electronically signed by: Prabhakar Gonzales MD (08/11/2018 8:31 AM) [facility] DICTATED and SIGNED BY: PRABHAKAR GONZALES MD DATE: 08/11/18 0830 Laboratory Tests Test 08/10/18 11:24 08/10/18 16:50 08/10/18 20:27 08/11/18 06:30 Glucose (Fingerstick) 156 mg/dL (70-99) 169 mg/dL (70-99) 146 mg/dL (70-99) White Blood Count 11.5 x10^3/uL (4.0-11.0) Red Blood Count 4.17 x10^6/uL (4.30-5.70) Hemoglobin 11.4 g/dL (13.0-17.5) Hematocrit 35.6 % (39.0-53.0) Mean Corpuscular Volume 85 fL (79-100) Mean Corpuscular Hemoglobin 27 pg (25-35) Mean Corpuscular Hemoglobin Concent 32 g/dL (31-37) Red Cell Distribution Width 17.9 % (11.5-14.5) Platelet Count 215 x10^3/uL (140-400) Neutrophils (%) (Auto) 81 % (31-73) Lymphocytes (%) (Auto) 8 % (24-48) Monocytes (%) (Auto) 10 % (0-9) Eosinophils (%) (Auto) 1 % (0-3) Basophils (%) (Auto) 1 % (0-3) Neutrophils # (Auto) 9.3 x10^3uL (1.8-7.7) Lymphocytes # (Auto) 0.9 x10^3/uL (1.0-4.8) Monocytes # (Auto) 1.1 x10^3/uL (0.0-1.1) Eosinophils # (Auto) 0.1 x10^3/uL (0.0-0.7) Basophils # (Auto) 0.1 x10^3/uL (0.0-0.2) Sodium Level 136 mmol/L (136-145) Potassium Level 3.3 mmol/L (3.5-5.1) Chloride Level 100 mmol/L (98-107) Carbon Dioxide Level 26 mmol/L (21-32) Anion Gap 10 (6-14) Blood Urea Nitrogen 14 mg/dL (8-26) Creatinine 0.8 mg/dL (0.7-1.3) Estimated GFR (Cockcroft-Gault) 95.0 Glucose Level 163 mg/dL (70-99) Calcium Level 8.8 mg/dL (8.5-10.1) Test 08/11/18 07:48 Glucose (Fingerstick) 146 mg/dL (70-99) Assessment and Plan Assessmemt and Plan Problems Medical Problems: (1) Altered mental status Status: Acute (2) Cellulitis of leg, left Status: Acute (3) Cellulitis of leg, right Status: Acute (4) HCAP (healthcare-associated pneumonia) Status: Acute Comment Review of Relevant I have reviewed the following items shahram (where applicable) has been applied. Labs Laboratory Tests Test 08/09/18 11:39 08/09/18 16:37 08/09/18 20:25 08/10/18 06:11 Glucose (Fingerstick) 183 mg/dL (70-99) 227 mg/dL (70-99) 226 mg/dL (70-99) White Blood Count 12.7 x10^3/uL (4.0-11.0) Red Blood Count 4.25 x10^6/uL (4.30-5.70) Hemoglobin 12.0 g/dL (13.0-17.5) Hematocrit 36.0 % (39.0-53.0) Mean Corpuscular Volume 85 fL (79-100) Mean Corpuscular Hemoglobin 28 pg (25-35) Mean Corpuscular Hemoglobin Concent 33 g/dL (31-37) Red Cell Distribution Width 18.1 % (11.5-14.5) Platelet Count 178 x10^3/uL (140-400) Neutrophils (%) (Auto) 82 % (31-73) Lymphocytes (%) (Auto) 6 % (24-48) Monocytes (%) (Auto) 12 % (0-9) Eosinophils (%) (Auto) 0 % (0-3) Basophils (%) (Auto) 0 % (0-3) Neutrophils # (Auto) 10.4 x10^3uL (1.8-7.7) Lymphocytes # (Auto) 0.7 x10^3/uL (1.0-4.8) Monocytes # (Auto) 1.5 x10^3/uL (0.0-1.1) Eosinophils # (Auto) 0.0 x10^3/uL (0.0-0.7) Basophils # (Auto) 0.0 x10^3/uL (0.0-0.2) Sodium Level 135 mmol/L (136-145) Potassium Level 3.1 mmol/L (3.5-5.1) Chloride Level 98 mmol/L (98-107) Carbon Dioxide Level 25 mmol/L (21-32) Anion Gap 12 (6-14) Blood Urea Nitrogen 10 mg/dL (8-26) Creatinine 0.8 mg/dL (0.7-1.3) Estimated GFR (Cockcroft-Gault) 95.0 BUN/Creatinine Ratio 13 (6-20) Glucose Level 174 mg/dL (70-99) Calcium Level 8.7 mg/dL (8.5-10.1) Total Bilirubin 1.6 mg/dL (0.2-1.0) Aspartate Amino Transf (AST/SGOT) 28 U/L (15-37) Alanine Aminotransferase (ALT/SGPT) 34 U/L (16-63) Alkaline Phosphatase 149 U/L (46-116) Total Protein 7.0 g/dL (6.4-8.2) Albumin 1.9 g/dL (3.4-5.0) Albumin/Globulin Ratio 0.4 (1.0-1.7) Test 08/10/18 07:26 08/10/18 11:24 08/10/18 16:50 08/10/18 20:27 Glucose (Fingerstick) 173 mg/dL (70-99) 156 mg/dL (70-99) 169 mg/dL (70-99) 146 mg/dL (70-99) Test 08/11/18 06:30 08/11/18 07:48 White Blood Count 11.5 x10^3/uL (4.0-11.0) Red Blood Count 4.17 x10^6/uL (4.30-5.70) Hemoglobin 11.4 g/dL (13.0-17.5) Hematocrit 35.6 % (39.0-53.0) Mean Corpuscular Volume 85 fL (79-100) Mean Corpuscular Hemoglobin 27 pg (25-35) Mean Corpuscular Hemoglobin Concent 32 g/dL (31-37) Red Cell Distribution Width 17.9 % (11.5-14.5) Platelet Count 215 x10^3/uL (140-400) Neutrophils (%) (Auto) 81 % (31-73) Lymphocytes (%) (Auto) 8 % (24-48) Monocytes (%) (Auto) 10 % (0-9) Eosinophils (%) (Auto) 1 % (0-3) Basophils (%) (Auto) 1 % (0-3) Neutrophils # (Auto) 9.3 x10^3uL (1.8-7.7) Lymphocytes # (Auto) 0.9 x10^3/uL (1.0-4.8) Monocytes # (Auto) 1.1 x10^3/uL (0.0-1.1) Eosinophils # (Auto) 0.1 x10^3/uL (0.0-0.7) Basophils # (Auto) 0.1 x10^3/uL (0.0-0.2) Sodium Level 136 mmol/L (136-145) Potassium Level 3.3 mmol/L (3.5-5.1) Chloride Level 100 mmol/L (98-107) Carbon Dioxide Level 26 mmol/L (21-32) Anion Gap 10 (6-14) Blood Urea Nitrogen 14 mg/dL (8-26) Creatinine 0.8 mg/dL (0.7-1.3) Estimated GFR (Cockcroft-Gault) 95.0 Glucose Level 163 mg/dL (70-99) Calcium Level 8.8 mg/dL (8.5-10.1) Glucose (Fingerstick) 146 mg/dL (70-99) Laboratory Tests Test 08/10/18 11:24 08/10/18 16:50 08/10/18 20:27 08/11/18 06:30 Glucose (Fingerstick) 156 mg/dL (70-99) 169 mg/dL (70-99) 146 mg/dL (70-99) White Blood Count 11.5 x10^3/uL (4.0-11.0) Red Blood Count 4.17 x10^6/uL (4.30-5.70) Hemoglobin 11.4 g/dL (13.0-17.5) Hematocrit 35.6 % (39.0-53.0) Mean Corpuscular Volume 85 fL (79-100) Mean Corpuscular Hemoglobin 27 pg (25-35) Mean Corpuscular Hemoglobin Concent 32 g/dL (31-37) Red Cell Distribution Width 17.9 % (11.5-14.5) Platelet Count 215 x10^3/uL (140-400) Neutrophils (%) (Auto) 81 % (31-73) Lymphocytes (%) (Auto) 8 % (24-48) Monocytes (%) (Auto) 10 % (0-9) Eosinophils (%) (Auto) 1 % (0-3) Basophils (%) (Auto) 1 % (0-3) Neutrophils # (Auto) 9.3 x10^3uL (1.8-7.7) Lymphocytes # (Auto) 0.9 x10^3/uL (1.0-4.8) Monocytes # (Auto) 1.1 x10^3/uL (0.0-1.1) Eosinophils # (Auto) 0.1 x10^3/uL (0.0-0.7) Basophils # (Auto) 0.1 x10^3/uL (0.0-0.2) Sodium Level 136 mmol/L (136-145) Potassium Level 3.3 mmol/L (3.5-5.1) Chloride Level 100 mmol/L (98-107) Carbon Dioxide Level 26 mmol/L (21-32) Anion Gap 10 (6-14) Blood Urea Nitrogen 14 mg/dL (8-26) Creatinine 0.8 mg/dL (0.7-1.3) Estimated GFR (Cockcroft-Gault) 95.0 Glucose Level 163 mg/dL (70-99) Calcium Level 8.8 mg/dL (8.5-10.1) Test 08/11/18 07:48 Glucose (Fingerstick) 146 mg/dL (70-99) Microbiology 08/06/18 Blood Culture - Preliminary, Resulted NO GROWTH AFTER 4 DAYS Medications Current Medications Ketorolac Tromethamine (Toradol 15mg Vial) 15 mg 1X ONCE IV Last administered on 08/06/18at 07:30; Start 08/06/18 at 06:45; Stop 08/06/18 at 06:46; Status DC Vancomycin HCl (Vanco Per Pharmacy) 1 each PRN DAILY PRN MC SEE COMMENTS Last administered on 08/07/18at 21:06; Start 08/06/18 at 07:00; Stop 08/08/18 at 07:07 ; Status DC Piperacillin Sod/ Tazobactam Sod (Zosyn Per Pharmacy) 1 each PRN DAILY PRN MC SEE COMMENTS; Start 08/06/18 at 07:15; Stop 08/11/18 at 09:48; Status DC Piperacillin Sod/ Tazobactam Sod 3.375 gm/Sodium Chloride 50 ml @ 100 mls/hr 1X ONCE IV Last administered on 08/06/18at 07:23; Start 08/06/18 at 07:15; Stop 08/06/18 at 07:44; Status DC Vancomycin HCl 2 gm/Sodium Chloride 500 ml @ 250 mls/hr 1X ONCE IV Last administered on 08/06/18at 07:49; Start 08/06/18 at 08:00; Stop 08/06/18 at 09:59 ; Status DC Sodium Chloride 1,000 ml @ 1,000 mls/hr 1X ONCE IV Last administered on at 07:31; Start 08/06/18 at 07:30; Stop 08/06/18 at 08:29; Status DC Sodium Chloride 1,000 ml @ 1,000 mls/hr 1X ONCE IV Last administered on at 07:32; Start 08/06/18 at 07:30; Stop 08/06/18 at 08:29; Status DC Piperacillin Sod/ Tazobactam Sod 4.5 gm/Sodium Chloride 100 ml @ 200 mls/hr Q6HRS IV ; Start 08/06/18 at 12:00; Status Cancel Piperacillin Sod/ Tazobactam Sod 3.375 gm/Sodium Chloride 50 ml @ 100 mls/hr Q6HRS IV Last administered on 08/11/18 05:24; Start 08/06/18 at 12:00; Stop 08/11/18 at 09:46; Status DC Nystatin (Nystop) 1 toy BID TP Last administered on 08/10/18 20:43; Start 08/06 at 09:00 Allopurinol (Zyloprim) 300 mg DAILY PO Last administered on 08/10/18 07:54; Start 08/06/18 at 09:00 Digoxin (Lanoxin) 125 mcg DAILY PO Last administered on 08/10/18 07:54; Start 08/06/18 at 09:00 Fluticasone Propionate (Flonase) 2 spray HS NS Last administered on 08/10/18 20 :43; Start 08/06/18 at 21:00 Folic Acid (Folic Acid) 1 mg DAILY PO Last administered on 08/10/18 07:55; Start 08/06/18 at 09:00 Furosemide (Lasix) 60 mg DAILY PO Last administered on 08/10/18 07:55; Start at 09:00 Gabapentin (Neurontin) 300 mg HS PO Last administered on 08/10/18 20:44; Start 08/06/18 at 21:00 Lorazepam (Ativan) 1 mg HS PO Last administered on 08/10/18 20:44; Start at 21:00 Losartan Potassium (Cozaar) 50 mg DAILY PO Last administered on 08/10/18 07:56 ; Start 08/06/18 at 09:00 Metoprolol Tartrate (Lopressor) 12.5 mg BID PO Last administered on 08/10/18 20 :45; Start 08/06/18 at 09:00 Potassium Chloride (Klor-Con) 10 meq BIDWMEALS PO Last administered on 08:03; Start 08/06/18 at 09:00; Stop 08/08/18 at 08:13; Status DC Silver Sulfadiazine (Silvadene) 1 toy BID TP Last administered on 08/10/18 21: 45; Start 08/06/18 at 09:00 Non-Formulary Medication (Albuterol Sulfate (Ventolin Hfa Inhaler)) 2 puff QID INH ; Start 08/06/18 at 09:00; Status UNV Diltiazem HCl (Cardizem 24hr Cd) 120 mg DAILY PO Last administered on 08/10/18 07:55; Start 08/06/18 at 09:00 Non-Formulary Medication (Fluticasone Propionate (Flovent 100MCG Diskus)) 1 puff HS IH ; Start 08/06/18 at 21:00; Status UNV Risperidone (RisperDAL) 0.5 mg QHS PO Last administered on 08/10/18 20:44; Start 08/06/18 at 21:00 Rivaroxaban (Xarelto) 20 mg DAILYWSUP PO Last administered on 08/10/18 17:05; Start 08/06/18 at 17:00 Albuterol Sulfate (Ventolin Neb Soln) 2.5 mg RTQID NEB Last administered on 08/11 07:19; Start 08/06/18 at 12:00 Budesonide (Pulmicort) 0.5 mg RTBID NEB Last administered on 08/11/18 07:19; Start 08/06/18 at 09:00 Perflutren Protein Type A Microsphe (Optison) 0.66 mg STK-MED ONCE IV ; Start at 09:32; Stop 08/06/18 at 09:34; Status DC Lactobacillus Rhamnosus (Culturelle) 1 cap BID PO Last administered on 20:44; Start 08/06/18 at 21:00 Vancomycin HCl 1.75 gm/Sodium Chloride 500 ml @ 250 mls/hr Q12H IV Last administered on 08/07/18 20:15; Start 08/06/18 at 20:00; Stop 08/07/18 at 23:59 ; Status DC Vancomycin HCl (Vancomycin Trough Level) 1 each 1X ONCE MC Last administered on 08/07/18 19:30; Start 08/07/18 at 19:30; Stop 08/07/18 at 19:31; Status DC Info (Anti-Coagulation Monitoring By Pharmacy) 1 each PRN DAILY PRN MC SEE COMMENTS Last administered on 08/07/18 08:15; Start 08/06/18 at 10:00 Perflutren Protein Type A Microsphe (Optison) 0.66 mg PRN 1X PRN IV SEE COMMENTS; Start 08/06/18 at 10:00; Stop 08/07/18 at 09:59; Status DC Micafungin Sodium 100 mg/Dextrose 100 ml @ 100 mls/hr Q24H IV Last administered on 08/10/18at 15:14; Start 08/06/18 at 14:00; Stop 08/11/18 at 09:46; Status DC Acetaminophen (Tylenol) 650 mg PRN Q6HRS PRN PO fever Last administered on at 05:36; Start 08/06/18 at 14:00 Linezolid/Dextrose 300 ml @ 300 mls/hr Q12HR IV Last administered on at 20:15; Start 08/07/18 at 09:00; Stop 08/08/18 at 07:07; Status DC Perflutren Protein Type A Microsphe (Optison) 0.66 mg STK-MED ONCE IV ; Start at 10:00; Stop 08/07/18 at 08:15; Status DC Vancomycin HCl 2 gm/Sodium Chloride 500 ml @ 250 mls/hr Q12H IV ; Start at 08:00; Stop 08/08/18 at 08:00; Status DC Linezolid (Zyvox) 600 mg BID PO Last administered on 08/10/18at 20:44; Start 08/08 at 09:00; Stop 08/11/18 at 09:46; Status DC Ondansetron HCl (Zofran) 4 mg PRN Q6HRS PRN IV NAUSEA/VOMITING; Start 08/08/18 at 08:15 Ondansetron HCl (Zofran Odt) 4 mg PRN Q6HRS PRN PO NAUSEA/VOMITING; Start at 08:15 Potassium Chloride (Klor-Con) 40 meq BIDWMEALS PO Last administered on at 17:04; Start 08/08/18 at 08:15 Labetalol HCl (Normodyne Iv Push) 10 mg PRN Q2HR PRN IVP HYPERTENSION, SEE COMMENTS Last administered on 08/11/18at 04:10; Start 08/08/18 at 08:15 Amoxicillin/ Clavulanate Potassium (Augmentin 875/ 125mg) 1 tab BID PO ; Start 08/11/18 at 21:00 Active Scripts Active Lanoxin (Digoxin) 125 Mcg Tablet 125 Mcg PO DAILY 30 Days Reported Xarelto (Rivaroxaban) 20 Mg Tablet 20 Mg PO DAILY Lorazepam 1 Mg Tablet 1 Mg PO HS Gabapentin (Gabapentin) 300 Mg Capsule 1 Cap PO HS Flovent 100MCG Diskus (Fluticasone Propionate) 100 Mcg Disk.w.dev 1 Puff IH HS Losartan Potassium (Losartan Potassium) 25 Mg Tablet 2 Tab PO DAILY Furosemide 40 Mg Tablet 1.5 Tab PO DAILY PRN Diltiazem 24HR Cd (Diltiazem Hcl) 120 Mg Cap.er.24h 1 Cap PO DAILY PRN Gabapentin (Gabapentin) 300 Mg Capsule 1 Cap PO HS Potassium Chloride 10 Meq Tab.er.prt 1 Tab PO BID Metoprolol Tartrate 25 Mg Tablet 0.5 Tab PO BID Folic Acid 1 Mg Tablet 1 Tab PO DAILY Allopurinol 300 Mg Tablet 300 Mg PO DAILY Ventolin Hfa Inhaler (Albuterol Sulfate) 18 Gm Hfa.aer.ad 2 Puff INH QID Flonase (Fluticasone Propionate) 16 Gm [place].susp 2 [place] NS HS Silvadene (Silver Sulfadiazine) 20 Gm Cream..g. 1 Toy TP BID Ventolin Hfa Inhaler (Albuterol Sulfate) 18 Gm Hfa.aer.ad 2 Puff IH PRN Q4-6HRS Risperidone 0.5 Mg Tablet 1 Tab PO QHS Vitals/I & O Vital Sign - Last 24 Hours 08/10/18 08/10/18 08/10/18 08/10/18 11:30 11:49 15:20 16:00 Temp 98.8 98.3 98.8 98.3 Pulse 115 121 Resp 22 24 B/P (MAP) 156/91 (112) 162/80 (107) Pulse Ox 92 95 92 95 O2 Delivery Nasal Cannula Nasal Cannula Nasal Cannula Nasal Cannula O2 Flow Rate 5.0 5.0 5.0 5.0 08/10/18 08/10/18 08/10/18 08/10/18 19:00 19:41 19:42 20:19 Temp 99.7 99.7 Pulse 74 Resp 24 B/P (MAP) 171/96 (121) Pulse Ox 90 96 96 O2 Delivery Nasal Cannula Nasal Cannula Nasal Cannula Nasal Cannula O2 Flow Rate 5.0 5.0 5.0 5.0 08/10/18 08/10/18 08/11/18 08/11/18 20:45 23:00 03:00 04:10 Temp 99.7 98.9 99.7 98.9 Pulse 74 118 81 126 Resp 24 24 B/P (MAP) 171/96 145/100 (115) 167/100 (122) 167/100 Pulse Ox 92 90 O2 Delivery Nasal Cannula Nasal Cannula O2 Flow Rate 5.0 5.0 08/11/18 08/11/18 07:00 07:21 Temp 98.9 98.9 Pulse 101 Resp 18 B/P (MAP) 152/88 (109) Pulse Ox 96 94 O2 Delivery Nasal Cannula Nasal Cannula O2 Flow Rate 5.0 5.0 Intake and Output 08/10/18 08/10/18 08/11/18 15:01 23:01 07:01 Intake Total 400 ml 0 ml 250 ml Output Total 1800 ml Balance 400 ml -1800 ml 250 ml NAVARRO BADILLO MD Aug 11, 2018 10:29
[2018-08-11 11:00] VITALS: BP 157/97
[2018-08-11] MEDS: NYSTATIN TOPICAL POWDER 15GM BOTTLE. TP SCH ×2 (11:00→20:56)
[2018-08-11] MEDS: silver sulfADIAZINE 1% CREAM 25GM TUBE. TP SCH ×2 (11:01→20:56)
[2018-08-11] MEDS: DIGOXIN 125 MCG TABLET. PO SCH (11:03)
[2018-08-11] MEDS: LACTOBACILLUS RHAMNOSUS GG 1 CAPSULE. PO SCH ×2 (11:04→20:55)
[2018-08-11] MEDS: POTASSIUM CHLORIDE 10 MEQ TABLET.ER. PO SCH ×2 (11:04→17:00)
[2018-08-11] MEDS: FOLIC ACID 1 MG TABLET. PO SCH (11:05)
[2018-08-11] MEDS: METOPROLOL TART IMMED RELEASE 25 MG TABLET. PO SCH ×2 (11:05→20:55)
[2018-08-11] MEDS: ALLOPURINOL 300 MG TABLET. PO SCH (11:05)
[2018-08-11] MEDS: FUROSEMIDE 20 MG TABLET PO SCH (11:06)
[2018-08-11] MEDS: LOSARTAN POTASSIUM 50 MG TABLET. PO SCH (11:06)
[2018-08-11] MEDS ORDERED: ALBUTEROL SULFATE 2.5 MG/3 ML NEBU. NEB PRN (13:00)
--- NOTE | 2018-08-11 13:24 | NUR ---
SW following pt. SW phoned and faxed updates to [facility]. SW will continue to follow.
[2018-08-11] MEDS: ANTI-COAG MONITOR BY PHARMACY. MC PRN (13:43)
[2018-08-11] MEDS ORDERED: FUROSEMIDE 40 MG/4 ML VIAL. IVP ONE (14:30)
[2018-08-11] MEDS ORDERED: POTASSIUM CHLORIDE 20 MEQ TABLET.ER. PO ONE (14:30)
[2018-08-11 15:00] VITALS: BP 145/94
[2018-08-11] MEDS: RIVAROXABAN 10 MG TABLET. PO SCH (17:01)
[2018-08-11 19:00] VITALS: BP 132/89
[2018-08-11] MEDS: LORazepam 1 MG TABLET PO SCH (20:55)
[2018-08-11] MEDS: GABAPENTIN 300 MG CAPSULE. PO SCH (20:55)
[2018-08-11] MEDS: risperiDONE 0.25 MG TABLET. PO SCH (20:55)
[2018-08-11] MEDS: AMOXICILLIN/K CLAV 875/125MG TABLET. PO SCH (20:55)
[2018-08-11] MEDS: FLUTICASONE 50MCG/NASAL SPRAY 16GM BOTTLE. NS SCH (20:55)
[2018-08-11 23:00] VITALS: BP 132/85
[2018-08-12 03:00] VITALS: BP 144/92
[2018-08-12 05:07] LABS: BASO % 0 % (0-3); EOS # 0.3 x10^3/uL (0.0-0.7); EOS % 2 % (0-3); HEMOGLOBIN 11.9 g/dL (13.0-17.5); LYMPH % 8 % (24-48); MEAN CORPUSCULAR HEMOGLOBIN 28 pg (25-35); MEAN CORPUSCULAR HGB CONC 32 g/dL (31-37); MEAN CORPUSCULAR VOLUME 86 fL (79-100); MONO # 1.2 x10^3/uL (0.0-1.1); MONO % 9 % (0-9); NEUT # 10.7 x10^3uL (1.8-7.7); NEUT % 81 % (31-73); PLATELET COUNT 276 x10^3/uL (140-400); RED BLOOD COUNT 4.33 x10^6/uL (4.30-5.70); RED CELL DISTRIBUTION WIDTH 18.1 % (11.5-14.5); WHITE BLOOD COUNT 13.2 x10^3/uL (4.0-11.0)
[2018-08-12 05:46] LABS: ALBUMIN 1.8 g/dL (3.4-5.0); ALBUMIN/GLOBULIN RATIO 0.3 (1.0-1.7); CALCIUM 9.1 mg/dL (8.5-10.1); CREATININE 0.7 mg/dL (0.7-1.3); GFR 110.9; POTASSIUM 3.6 mmol/L (3.5-5.1); TOTAL BILIRUBIN 1.8 mg/dL (0.2-1.0); TOTAL PROTEIN 7.1 g/dL (6.4-8.2)
[2018-08-12 07:00] VITALS: BP 169/89
[2018-08-12] MEDS: BUDESONIDE 0.5 MG/2 ML NEBU. NEB SCH ×2 (07:43→20:06)
[2018-08-12] MEDS: POTASSIUM CHLORIDE 10 MEQ TABLET.ER. PO SCH ×2 (08:58→17:46)
[2018-08-12] MEDS: DIGOXIN 125 MCG TABLET. PO SCH (08:58)
[2018-08-12] MEDS: FOLIC ACID 1 MG TABLET. PO SCH (08:59)
[2018-08-12] MEDS: FUROSEMIDE 20 MG TABLET PO SCH (08:59)
[2018-08-12] MEDS: AMOXICILLIN/K CLAV 875/125MG TABLET. PO SCH ×2 (08:59→21:00)
[2018-08-12] MEDS: METOPROLOL TART IMMED RELEASE 25 MG TABLET. PO SCH ×2 (08:59→21:01)
[2018-08-12] MEDS: LACTOBACILLUS RHAMNOSUS GG 1 CAPSULE. PO SCH ×2 (08:59→21:01)
[2018-08-12] MEDS: ALLOPURINOL 300 MG TABLET. PO SCH (09:00)
[2018-08-12] MEDS: LOSARTAN POTASSIUM 50 MG TABLET. PO SCH (09:00)
[2018-08-12] MEDS: NYSTATIN TOPICAL POWDER 15GM BOTTLE. TP SCH ×2 (09:04→21:02)
[2018-08-12] MEDS: silver sulfADIAZINE 1% CREAM 25GM TUBE. TP SCH ×2 (09:04→21:02)
--- NOTE | 2018-08-12 10:02 | PDOC ---
Infectious Disease Note Subjective Subjective pt is feeling ok, does have diarrhea, wants to go back to his place ROS ROS no n/v/d/ Vital Sign Vital Signs Vital Signs Date Time Temp Pulse Resp B/P (MAP) Pulse Ox O2 Delivery O2 Flow Rate FiO2 08/12/18 09:03 98 169/89 08/12/18 07:45 93 Nasal Cannula 5.0 08/12/18 07:00 98.5 24 98.5 Physical Exam PHYSICAL EXAM GENERAL: Lying down, alert, ND HEENT: Oral cavity had pink, dry NECK: Supple. LUNGS: Diminished aeration in the bases. Nonlabored. HEART: S1 and S2 irregular. ABDOMEN: Obese and soft. No grimace or guarding to palpation with bowel sounds present. GENITOURINARY: Indwelling Arias in place. EXTREMITIES: Lower extremity edema with chronic venous stasis changes and associated with thickened skin changes with brown scales, less red. Erythema R > L improved and NT SKIN: Warm. NEUROLOGICAL: Alert, responds appropriately Peripheral IV Labs Lab Laboratory Tests Test 08/11/18 11:53 08/11/18 16:20 08/11/18 20:50 08/12/18 04:25 Glucose (Fingerstick) 199 mg/dL (70-99) 163 mg/dL (70-99) 168 mg/dL (70-99) White Blood Count 13.2 x10^3/uL (4.0-11.0) Red Blood Count 4.33 x10^6/uL (4.30-5.70) Hemoglobin 11.9 g/dL (13.0-17.5) Hematocrit 37.0 % (39.0-53.0) Mean Corpuscular Volume 86 fL (79-100) Mean Corpuscular Hemoglobin 28 pg (25-35) Mean Corpuscular Hemoglobin Concent 32 g/dL (31-37) Red Cell Distribution Width 18.1 % (11.5-14.5) Platelet Count 276 x10^3/uL (140-400) Neutrophils (%) (Auto) 81 % (31-73) Lymphocytes (%) (Auto) 8 % (24-48) Monocytes (%) (Auto) 9 % (0-9) Eosinophils (%) (Auto) 2 % (0-3) Basophils (%) (Auto) 0 % (0-3) Neutrophils # (Auto) 10.7 x10^3uL (1.8-7.7) Lymphocytes # (Auto) 1.0 x10^3/uL (1.0-4.8) Monocytes # (Auto) 1.2 x10^3/uL (0.0-1.1) Eosinophils # (Auto) 0.3 x10^3/uL (0.0-0.7) Basophils # (Auto) 0.0 x10^3/uL (0.0-0.2) Sodium Level 137 mmol/L (136-145) Potassium Level 3.6 mmol/L (3.5-5.1) Chloride Level 101 mmol/L (98-107) Carbon Dioxide Level 25 mmol/L (21-32) Anion Gap 11 (6-14) Blood Urea Nitrogen 16 mg/dL (8-26) Creatinine 0.7 mg/dL (0.7-1.3) Estimated GFR (Cockcroft-Gault) 110.9 BUN/Creatinine Ratio 23 (6-20) Glucose Level 159 mg/dL (70-99) Calcium Level 9.1 mg/dL (8.5-10.1) Total Bilirubin 1.8 mg/dL (0.2-1.0) Aspartate Amino Transf (AST/SGOT) 49 U/L (15-37) Alanine Aminotransferase (ALT/SGPT) 48 U/L (16-63) Alkaline Phosphatase 163 U/L (46-116) Total Protein 7.1 g/dL (6.4-8.2) Albumin 1.8 g/dL (3.4-5.0) Albumin/Globulin Ratio 0.3 (1.0-1.7) Test 08/12/18 07:13 Glucose (Fingerstick) 146 mg/dL (70-99) Micro Microbiology 08/06/18 Blood Culture - Preliminary, Resulted NO GROWTH AFTER 4 DAYS Objective Assessment Sepsis with lactic acidosis POA - better Fever Leukocytosis Diarrhea Cellulitis of lower extremities R> L - improving Yeast groin/pannus areas - improving Acute encephalopathy - improved Chronic venous stasis - followed by [facility] WCC ? HCAP MRSA screen neg CHF DM II COPD PVD Chronic A-fib DNR/DNI Plan Plan of Care po augmentin Nystatin top powder to affected areas f/u cultures/labs Local wound care repeat CBC in am check C. diff , neg d/c FREDERICK Caldwell MD Aug 12, 2018 10:02
--- NOTE | 2018-08-12 10:50 | PDOC ---
PULMONARY PROGRESS NOTES Subjective NO RESP COMPLAINTS Vitals Vital Signs Date Time Temp Pulse Resp B/P (MAP) Pulse Ox O2 Delivery O2 Flow Rate FiO2 08/12/18 09:03 98 169/89 08/12/18 07:45 93 Nasal Cannula 5.0 08/12/18 07:00 98.5 24 98.5 ROS: No Nausea, No Chest Pain, No Abdominal Pain, No Increase Cough General: Alert, No acute distress Lungs: Clear, Other Cardiovascular: S1 Abdomen: Soft, Other (OBESE) Neuro Exam: Alert Extremities: Other Skin: Warm Labs Laboratory Tests Test 08/10/18 11:24 08/10/18 15:44 08/10/18 16:50 08/10/18 20:27 Glucose (Fingerstick) 156 mg/dL (70-99) 169 mg/dL (70-99) 146 mg/dL (70-99) Clostridium difficile Toxin B Gene Negative (Negative) Test 08/11/18 06:30 08/11/18 07:48 08/11/18 11:53 08/11/18 16:20 White Blood Count 11.5 x10^3/uL (4.0-11.0) Red Blood Count 4.17 x10^6/uL (4.30-5.70) Hemoglobin 11.4 g/dL (13.0-17.5) Hematocrit 35.6 % (39.0-53.0) Mean Corpuscular Volume 85 fL (79-100) Mean Corpuscular Hemoglobin 27 pg (25-35) Mean Corpuscular Hemoglobin Concent 32 g/dL (31-37) Red Cell Distribution Width 17.9 % (11.5-14.5) Platelet Count 215 x10^3/uL (140-400) Neutrophils (%) (Auto) 81 % (31-73) Lymphocytes (%) (Auto) 8 % (24-48) Monocytes (%) (Auto) 10 % (0-9) Eosinophils (%) (Auto) 1 % (0-3) Basophils (%) (Auto) 1 % (0-3) Neutrophils # (Auto) 9.3 x10^3uL (1.8-7.7) Lymphocytes # (Auto) 0.9 x10^3/uL (1.0-4.8) Monocytes # (Auto) 1.1 x10^3/uL (0.0-1.1) Eosinophils # (Auto) 0.1 x10^3/uL (0.0-0.7) Basophils # (Auto) 0.1 x10^3/uL (0.0-0.2) Sodium Level 136 mmol/L (136-145) Potassium Level 3.3 mmol/L (3.5-5.1) Chloride Level 100 mmol/L (98-107) Carbon Dioxide Level 26 mmol/L (21-32) Anion Gap 10 (6-14) Blood Urea Nitrogen 14 mg/dL (8-26) Creatinine 0.8 mg/dL (0.7-1.3) Estimated GFR (Cockcroft-Gault) 95.0 Glucose Level 163 mg/dL (70-99) Calcium Level 8.8 mg/dL (8.5-10.1) Glucose (Fingerstick) 146 mg/dL (70-99) 199 mg/dL (70-99) 163 mg/dL (70-99) Test 08/11/18 20:50 08/12/18 04:25 08/12/18 07:13 Glucose (Fingerstick) 168 mg/dL (70-99) 146 mg/dL (70-99) White Blood Count 13.2 x10^3/uL (4.0-11.0) Red Blood Count 4.33 x10^6/uL (4.30-5.70) Hemoglobin 11.9 g/dL (13.0-17.5) Hematocrit 37.0 % (39.0-53.0) Mean Corpuscular Volume 86 fL (79-100) Mean Corpuscular Hemoglobin 28 pg (25-35) Mean Corpuscular Hemoglobin Concent 32 g/dL (31-37) Red Cell Distribution Width 18.1 % (11.5-14.5) Platelet Count 276 x10^3/uL (140-400) Neutrophils (%) (Auto) 81 % (31-73) Lymphocytes (%) (Auto) 8 % (24-48) Monocytes (%) (Auto) 9 % (0-9) Eosinophils (%) (Auto) 2 % (0-3) Basophils (%) (Auto) 0 % (0-3) Neutrophils # (Auto) 10.7 x10^3uL (1.8-7.7) Lymphocytes # (Auto) 1.0 x10^3/uL (1.0-4.8) Monocytes # (Auto) 1.2 x10^3/uL (0.0-1.1) Eosinophils # (Auto) 0.3 x10^3/uL (0.0-0.7) Basophils # (Auto) 0.0 x10^3/uL (0.0-0.2) Sodium Level 137 mmol/L (136-145) Potassium Level 3.6 mmol/L (3.5-5.1) Chloride Level 101 mmol/L (98-107) Carbon Dioxide Level 25 mmol/L (21-32) Anion Gap 11 (6-14) Blood Urea Nitrogen 16 mg/dL (8-26) Creatinine 0.7 mg/dL (0.7-1.3) Estimated GFR (Cockcroft-Gault) 110.9 BUN/Creatinine Ratio 23 (6-20) Glucose Level 159 mg/dL (70-99) Calcium Level 9.1 mg/dL (8.5-10.1) Total Bilirubin 1.8 mg/dL (0.2-1.0) Aspartate Amino Transf (AST/SGOT) 49 U/L (15-37) Alanine Aminotransferase (ALT/SGPT) 48 U/L (16-63) Alkaline Phosphatase 163 U/L (46-116) Total Protein 7.1 g/dL (6.4-8.2) Albumin 1.8 g/dL (3.4-5.0) Albumin/Globulin Ratio 0.3 (1.0-1.7) Laboratory Tests Test 08/11/18 11:53 08/11/18 16:20 08/11/18 20:50 08/12/18 04:25 Glucose (Fingerstick) 199 mg/dL (70-99) 163 mg/dL (70-99) 168 mg/dL (70-99) White Blood Count 13.2 x10^3/uL (4.0-11.0) Red Blood Count 4.33 x10^6/uL (4.30-5.70) Hemoglobin 11.9 g/dL (13.0-17.5) Hematocrit 37.0 % (39.0-53.0) Mean Corpuscular Volume 86 fL (79-100) Mean Corpuscular Hemoglobin 28 pg (25-35) Mean Corpuscular Hemoglobin Concent 32 g/dL (31-37) Red Cell Distribution Width 18.1 % (11.5-14.5) Platelet Count 276 x10^3/uL (140-400) Neutrophils (%) (Auto) 81 % (31-73) Lymphocytes (%) (Auto) 8 % (24-48) Monocytes (%) (Auto) 9 % (0-9) Eosinophils (%) (Auto) 2 % (0-3) Basophils (%) (Auto) 0 % (0-3) Neutrophils # (Auto) 10.7 x10^3uL (1.8-7.7) Lymphocytes # (Auto) 1.0 x10^3/uL (1.0-4.8) Monocytes # (Auto) 1.2 x10^3/uL (0.0-1.1) Eosinophils # (Auto) 0.3 x10^3/uL (0.0-0.7) Basophils # (Auto) 0.0 x10^3/uL (0.0-0.2) Sodium Level 137 mmol/L (136-145) Potassium Level 3.6 mmol/L (3.5-5.1) Chloride Level 101 mmol/L (98-107) Carbon Dioxide Level 25 mmol/L (21-32) Anion Gap 11 (6-14) Blood Urea Nitrogen 16 mg/dL (8-26) Creatinine 0.7 mg/dL (0.7-1.3) Estimated GFR (Cockcroft-Gault) 110.9 BUN/Creatinine Ratio 23 (6-20) Glucose Level 159 mg/dL (70-99) Calcium Level 9.1 mg/dL (8.5-10.1) Total Bilirubin 1.8 mg/dL (0.2-1.0) Aspartate Amino Transf (AST/SGOT) 49 U/L (15-37) Alanine Aminotransferase (ALT/SGPT) 48 U/L (16-63) Alkaline Phosphatase 163 U/L (46-116) Total Protein 7.1 g/dL (6.4-8.2) Albumin 1.8 g/dL (3.4-5.0) Albumin/Globulin Ratio 0.3 (1.0-1.7) Test 08/12/18 07:13 Glucose (Fingerstick) 146 mg/dL (70-99) Medications Active Scripts Medications Dose Route/Sig Max Daily Dose Days Date Category Xarelto (Rivaroxaban) 20 Mg Tablet 20 Mg PO DAILY 06/10/18 Reported Lorazepam 1 Mg Tablet 1 Mg PO HS 10/12/14 Reported Gabapentin (Gabapentin) 300 Mg Capsule 1 Cap PO HS 10/12/14 Reported Flovent 100MCG Diskus (Fluticasone Propionate) 100 Mcg Disk.w.dev 1 Puff IH HS 10/12/14 Reported Losartan Potassium (Losartan Potassium) 25 Mg Tablet 2 Tab PO DAILY 10/12/14 Reported Furosemide 40 Mg Tablet 1.5 Tab PO DAILY PRN 10/12/14 Reported Diltiazem 24HR Cd (Diltiazem Hcl) 120 Mg Cap.er.24h 1 Cap PO DAILY PRN 10/12/14 Reported Lanoxin (Digoxin) 125 Mcg Tablet 125 Mcg PO DAILY 30 08/24/14 Rx Gabapentin (Gabapentin) 300 Mg Capsule 1 Cap PO HS 08/18/14 Reported Potassium Chloride 10 Meq Tab.er.prt 1 Tab PO BID 08/18/14 Reported Metoprolol Tartrate 25 Mg Tablet 0.5 Tab PO BID 08/18/14 Reported Folic Acid 1 Mg Tablet 1 Tab PO DAILY 08/18/14 Reported Allopurinol 300 Mg Tablet 300 Mg PO DAILY 08/18/14 Reported Ventolin Hfa Inhaler (Albuterol Sulfate) 18 Gm Hfa.aer.ad 2 Puff INH QID 08/18/14 Reported Flonase (Fluticasone Propionate) 16 Gm Yulan.susp 2 Yulan NS HS 08/18/14 Reported Silvadene (Silver Sulfadiazine) 20 Gm Cream..g. 1 Toy TP BID 08/18/14 Reported Ventolin Hfa Inhaler (Albuterol Sulfate) 18 Gm Hfa.aer.ad 2 Puff IH PRN Q4-6HRS 08/18/14 Reported Risperidone 0.5 Mg Tablet 1 Tab PO QHS 08/18/14 Reported Comments IMPRESSION: 08/06 1. Findings of CHF or volume overload with pulmonary edema and trace bilateral pleural effusions. 2. Bibasilar airspace opacities indeterminate between focal pulmonary edema, multifocal infection, or pneumonitis with atelectasis. Impression . 1. Acute hypoxemic respiratory failure./ combination of pneumonia/ CHF 2. Pneumonia, suspect Gram-negative, possibly Gram-positive. 3. Sepsis. 4. Toxic metabolic encephalopathy. 5. Morbid obesity. 6. Chronic obstructive pulmonary disease. 7. Cellulitis of lower extremities. 8. Chronic venous insufficiency. 9. Type 2 diabetes. 10. Peripheral vascular disease. 11. Chronic atrial fibrillation. CXR 2/4 Congestive heart failure and pleural effusions are more evident in the interval. Patchy infiltrates involving the upper lung beth the interval. Plan . CLINICALLY STABLE SPOKE WITH RN NEEDS PT LASIX ANTI BX PER ID IMPROVING PT ORAL FEEDING DVT GI PROPH OK WITH NH PLANS TRACEY QUINTANILLA MD Aug 12, 2018 10:50
[2018-08-12 11:00] VITALS: BP 143/68
[2018-08-12 11:48] LABS: BILIRUBIN,URINE MODERATE (NEG); CLARITY,URINE CLEAR; COLOR,URINE ORANGE; NITRITE,URINE NEGATIVE (NEG); PH,URINE 5.5; PROTEIN,URINE 100 mg/dL (NEG-TRACE)
[2018-08-12 11:50] LABS: RBC,URINE >40 /HPF (0-2)
[2018-08-12 11:51] LABS: BACTERIA,URINE FEW /HPF (0-FEW); GRANULAR CASTS,URINE OCCASIONAL /HPF
--- NOTE | 2018-08-12 14:19 | NUR ---
Wound Care Wound care follow up for pressure ulcer to bilat buttocks. Cleansed wound, applied Calazime cream. Recommend to apply BID and PRN. Pt has P500 bed but is unable to stand the bed. Will order wheelchair cushion for chair. Educated pt on PU prevention. BLE have lymphedema with red thickened skin, no open areas at this time. No other wounds found on full skin inspection. WC will continue to follow for possible changes.
[2018-08-12 15:00] VITALS: BP 144/107
--- NOTE | 2018-08-12 15:00 | NUR ---
SW following pt. Spoke with RN and pt is not ready to dc today. Notified BSNR regarding plan.
--- NOTE | 2018-08-12 15:00 | PDOC ---
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 Chronic obstructive pulmonary disease. obesity, BMI 38, severe protein-caloric malnutrition, Albumin 2.7 ck 1100, rhabdo, with CHF, BNP up, chronic diastolic CHF A fib weakness and debility, History of Present Illness History of Present Illness Plan: Continue antibiotics per ID, changed to PO augmentin Continue nystatin powder to creases physical therapy replace K, continue lasix for volume overload removed kennedy today but still no urine output. orange tinged urine. continue oral AC and rate control meds for afib Is a resident of [place] DNR plan for dc when able to urinate Vitals Vitals Vital Signs Date Time Temp Pulse Resp B/P (MAP) Pulse Ox O2 Delivery O2 Flow Rate FiO2 08/12/18 11:00 97.8 98 22 143/68 (93) 95 97.8 08/12/18 08:00 Nasal Cannula 5.0 Physical Exam Physical Exam GENERAL: Lying down, alert, ND HEENT: Oral cavity had pink, dry NECK: Supple. LUNGS: Diminished aeration in the bases. Nonlabored. HEART: S1 and S2 irregular. ABDOMEN: Obese and soft. No grimace or guarding to palpation with bowel sounds present. GENITOURINARY: Indwelling Kennedy in place. EXTREMITIES: Lower extremity edema with chronic venous stasis changes and associated with thickened skin changes with brown scales, less red. Erythema R > L improved and NT SKIN: Warm. NEUROLOGICAL: Alert, responds appropriately Peripheral IV General: Alert, Cooperative, No acute distress Heart: Regular rate, Normal S1, Normal S2, Other Lungs: Clear, Other Abdomen: Normal bowel sounds, Soft (obese, NT), No tenderness Extremities: No clubbing, No cyanosis, Normal pulses, Other (edema) Skin: No breakdown, Other (very red, hot and scaly BLE, with poor nail care and fungus) Labs LABS Laboratory Tests Test 08/11/18 16:20 08/11/18 20:50 08/12/18 04:25 08/12/18 07:13 Glucose (Fingerstick) 163 mg/dL (70-99) 168 mg/dL (70-99) 146 mg/dL (70-99) White Blood Count 13.2 x10^3/uL (4.0-11.0) Red Blood Count 4.33 x10^6/uL (4.30-5.70) Hemoglobin 11.9 g/dL (13.0-17.5) Hematocrit 37.0 % (39.0-53.0) Mean Corpuscular Volume 86 fL (79-100) Mean Corpuscular Hemoglobin 28 pg (25-35) Mean Corpuscular Hemoglobin Concent 32 g/dL (31-37) Red Cell Distribution Width 18.1 % (11.5-14.5) Platelet Count 276 x10^3/uL (140-400) Neutrophils (%) (Auto) 81 % (31-73) Lymphocytes (%) (Auto) 8 % (24-48) Monocytes (%) (Auto) 9 % (0-9) Eosinophils (%) (Auto) 2 % (0-3) Basophils (%) (Auto) 0 % (0-3) Neutrophils # (Auto) 10.7 x10^3uL (1.8-7.7) Lymphocytes # (Auto) 1.0 x10^3/uL (1.0-4.8) Monocytes # (Auto) 1.2 x10^3/uL (0.0-1.1) Eosinophils # (Auto) 0.3 x10^3/uL (0.0-0.7) Basophils # (Auto) 0.0 x10^3/uL (0.0-0.2) Sodium Level 137 mmol/L (136-145) Potassium Level 3.6 mmol/L (3.5-5.1) Chloride Level 101 mmol/L (98-107) Carbon Dioxide Level 25 mmol/L (21-32) Anion Gap 11 (6-14) Blood Urea Nitrogen 16 mg/dL (8-26) Creatinine 0.7 mg/dL (0.7-1.3) Estimated GFR (Cockcroft-Gault) 110.9 BUN/Creatinine Ratio 23 (6-20) Glucose Level 159 mg/dL (70-99) Calcium Level 9.1 mg/dL (8.5-10.1) Total Bilirubin 1.8 mg/dL (0.2-1.0) Aspartate Amino Transf (AST/SGOT) 49 U/L (15-37) Alanine Aminotransferase (ALT/SGPT) 48 U/L (16-63) Alkaline Phosphatase 163 U/L (46-116) Creatine Kinase 84 U/L (39-308) BL-[id number]-[id number]-Type Natriuretic Peptide 3311 pg/mL (0-124) Total Protein 7.1 g/dL (6.4-8.2) Albumin 1.8 g/dL (3.4-5.0) Albumin/Globulin Ratio 0.3 (1.0-1.7) Test 08/12/18 11:35 08/12/18 11:37 Urine Collection Type Unknown Urine Color [place] Urine Clarity Clear Urine pH 5.5 Urine Specific [place] 1.025 Urine Protein 100 mg/dL (NEG-TRACE) Urine Glucose (UA) Negative mg/dL (NEG) Urine Ketones (Stick) Negative mg/dL (NEG) Urine Blood Large (NEG) Urine Nitrite Negative (NEG) Urine Bilirubin Moderate (NEG) Urine Urobilinogen Dipstick 4.0 mg/dL (0.2 mg/dL) Urine Leukocyte Esterase Small (NEG) Urine RBC >40 /HPF (0-2) Urine WBC 5-10 /HPF (0-4) Urine Bacteria Few /HPF (0-FEW) Urine Granular Casts Occasional /HPF Glucose (Fingerstick) 195 mg/dL (70-99) Assessment and Plan Assessmemt and Plan Problems Medical Problems: (1) Altered mental status Status: Acute (2) Cellulitis of leg, left Status: Acute (3) Cellulitis of leg, right Status: Acute (4) HCAP (healthcare-associated pneumonia) Status: Acute Comment Review of Relevant I have reviewed the following items shahram (where applicable) has been applied. Labs Laboratory Tests Test 08/10/18 15:44 08/10/18 16:50 08/10/18 20:27 08/11/18 06:30 Clostridium difficile Toxin B Gene Negative (Negative) Glucose (Fingerstick) 169 mg/dL (70-99) 146 mg/dL (70-99) White Blood Count 11.5 x10^3/uL (4.0-11.0) Red Blood Count 4.17 x10^6/uL (4.30-5.70) Hemoglobin 11.4 g/dL (13.0-17.5) Hematocrit 35.6 % (39.0-53.0) Mean Corpuscular Volume 85 fL (79-100) Mean Corpuscular Hemoglobin 27 pg (25-35) Mean Corpuscular Hemoglobin Concent 32 g/dL (31-37) Red Cell Distribution Width 17.9 % (11.5-14.5) Platelet Count 215 x10^3/uL (140-400) Neutrophils (%) (Auto) 81 % (31-73) Lymphocytes (%) (Auto) 8 % (24-48) Monocytes (%) (Auto) 10 % (0-9) Eosinophils (%) (Auto) 1 % (0-3) Basophils (%) (Auto) 1 % (0-3) Neutrophils # (Auto) 9.3 x10^3uL (1.8-7.7) Lymphocytes # (Auto) 0.9 x10^3/uL (1.0-4.8) Monocytes # (Auto) 1.1 x10^3/uL (0.0-1.1) Eosinophils # (Auto) 0.1 x10^3/uL (0.0-0.7) Basophils # (Auto) 0.1 x10^3/uL (0.0-0.2) Sodium Level 136 mmol/L (136-145) Potassium Level 3.3 mmol/L (3.5-5.1) Chloride Level 100 mmol/L (98-107) Carbon Dioxide Level 26 mmol/L (21-32) Anion Gap 10 (6-14) Blood Urea Nitrogen 14 mg/dL (8-26) Creatinine 0.8 mg/dL (0.7-1.3) Estimated GFR (Cockcroft-Gault) 95.0 Glucose Level 163 mg/dL (70-99) Calcium Level 8.8 mg/dL (8.5-10.1) Test 08/11/18 07:48 08/11/18 11:53 08/11/18 16:20 08/11/18 20:50 Glucose (Fingerstick) 146 mg/dL (70-99) 199 mg/dL (70-99) 163 mg/dL (70-99) 168 mg/dL (70-99) Test 08/12/18 04:25 08/12/18 07:13 08/12/18 11:35 08/12/18 11:37 White Blood Count 13.2 x10^3/uL (4.0-11.0) Red Blood Count 4.33 x10^6/uL (4.30-5.70) Hemoglobin 11.9 g/dL (13.0-17.5) Hematocrit 37.0 % (39.0-53.0) Mean Corpuscular Volume 86 fL (79-100) Mean Corpuscular Hemoglobin 28 pg (25-35) Mean Corpuscular Hemoglobin Concent 32 g/dL (31-37) Red Cell Distribution Width 18.1 % (11.5-14.5) Platelet Count 276 x10^3/uL (140-400) Neutrophils (%) (Auto) 81 % (31-73) Lymphocytes (%) (Auto) 8 % (24-48) Monocytes (%) (Auto) 9 % (0-9) Eosinophils (%) (Auto) 2 % (0-3) Basophils (%) (Auto) 0 % (0-3) Neutrophils # (Auto) 10.7 x10^3uL (1.8-7.7) Lymphocytes # (Auto) 1.0 x10^3/uL (1.0-4.8) Monocytes # (Auto) 1.2 x10^3/uL (0.0-1.1) Eosinophils # (Auto) 0.3 x10^3/uL (0.0-0.7) Basophils # (Auto) 0.0 x10^3/uL (0.0-0.2) Sodium Level 137 mmol/L (136-145) Potassium Level 3.6 mmol/L (3.5-5.1) Chloride Level 101 mmol/L (98-107) Carbon Dioxide Level 25 mmol/L (21-32) Anion Gap 11 (6-14) Blood Urea Nitrogen 16 mg/dL (8-26) Creatinine 0.7 mg/dL (0.7-1.3) Estimated GFR (Cockcroft-Gault) 110.9 BUN/Creatinine Ratio 23 (6-20) Glucose Level 159 mg/dL (70-99) Calcium Level 9.1 mg/dL (8.5-10.1) Total Bilirubin 1.8 mg/dL (0.2-1.0) Aspartate Amino Transf (AST/SGOT) 49 U/L (15-37) Alanine Aminotransferase (ALT/SGPT) 48 U/L (16-63) Alkaline Phosphatase 163 U/L (46-116) Creatine Kinase 84 U/L (39-308) TW-[id number]-[id number]-Type Natriuretic Peptide 3311 pg/mL (0-124) Total Protein 7.1 g/dL (6.4-8.2) Albumin 1.8 g/dL (3.4-5.0) Albumin/Globulin Ratio 0.3 (1.0-1.7) Glucose (Fingerstick) 146 mg/dL (70-99) 195 mg/dL (70-99) Urine Collection Type Unknown Urine Color [place] Urine Clarity Clear Urine pH 5.5 Urine Specific [place] 1.025 Urine Protein 100 mg/dL (NEG-TRACE) Urine Glucose (UA) Negative mg/dL (NEG) Urine Ketones (Stick) Negative mg/dL (NEG) Urine Blood Large (NEG) Urine Nitrite Negative (NEG) Urine Bilirubin Moderate (NEG) Urine Urobilinogen Dipstick 4.0 mg/dL (0.2 mg/dL) Urine Leukocyte Esterase Small (NEG) Urine RBC >40 /HPF (0-2) Urine WBC 5-10 /HPF (0-4) Urine Bacteria Few /HPF (0-FEW) Urine Granular Casts Occasional /HPF Laboratory Tests Test 08/11/18 16:20 08/11/18 20:50 08/12/18 04:25 08/12/18 07:13 Glucose (Fingerstick) 163 mg/dL (70-99) 168 mg/dL (70-99) 146 mg/dL (70-99) White Blood Count 13.2 x10^3/uL (4.0-11.0) Red Blood Count 4.33 x10^6/uL (4.30-5.70) Hemoglobin 11.9 g/dL (13.0-17.5) Hematocrit 37.0 % (39.0-53.0) Mean Corpuscular Volume 86 fL (79-100) Mean Corpuscular Hemoglobin 28 pg (25-35) Mean Corpuscular Hemoglobin Concent 32 g/dL (31-37) Red Cell Distribution Width 18.1 % (11.5-14.5) Platelet Count 276 x10^3/uL (140-400) Neutrophils (%) (Auto) 81 % (31-73) Lymphocytes (%) (Auto) 8 % (24-48) Monocytes (%) (Auto) 9 % (0-9) Eosinophils (%) (Auto) 2 % (0-3) Basophils (%) (Auto) 0 % (0-3) Neutrophils # (Auto) 10.7 x10^3uL (1.8-7.7) Lymphocytes # (Auto) 1.0 x10^3/uL (1.0-4.8) Monocytes # (Auto) 1.2 x10^3/uL (0.0-1.1) Eosinophils # (Auto) 0.3 x10^3/uL (0.0-0.7) Basophils # (Auto) 0.0 x10^3/uL (0.0-0.2) Sodium Level 137 mmol/L (136-145) Potassium Level 3.6 mmol/L (3.5-5.1) Chloride Level 101 mmol/L (98-107) Carbon Dioxide Level 25 mmol/L (21-32) Anion Gap 11 (6-14) Blood Urea Nitrogen 16 mg/dL (8-26) Creatinine 0.7 mg/dL (0.7-1.3) Estimated GFR (Cockcroft-Gault) 110.9 BUN/Creatinine Ratio 23 (6-20) Glucose Level 159 mg/dL (70-99) Calcium Level 9.1 mg/dL (8.5-10.1) Total Bilirubin 1.8 mg/dL (0.2-1.0) Aspartate Amino Transf (AST/SGOT) 49 U/L (15-37) Alanine Aminotransferase (ALT/SGPT) 48 U/L (16-63) Alkaline Phosphatase 163 U/L (46-116) Creatine Kinase 84 U/L (39-308) ZQ-Cys-N-Type Natriuretic Peptide 3311 pg/mL (0-124) Total Protein 7.1 g/dL (6.4-8.2) Albumin 1.8 g/dL (3.4-5.0) Albumin/Globulin Ratio 0.3 (1.0-1.7) Test 08/12/18 11:35 08/12/18 11:37 Urine Collection Type Unknown Urine Color [place] Urine Clarity Clear Urine pH 5.5 Urine Specific [place] 1.025 Urine Protein 100 mg/dL (NEG-TRACE) Urine Glucose (UA) Negative mg/dL (NEG) Urine Ketones (Stick) Negative mg/dL (NEG) Urine Blood Large (NEG) Urine Nitrite Negative (NEG) Urine Bilirubin Moderate (NEG) Urine Urobilinogen Dipstick 4.0 mg/dL (0.2 mg/dL) Urine Leukocyte Esterase Small (NEG) Urine RBC >40 /HPF (0-2) Urine WBC 5-10 /HPF (0-4) Urine Bacteria Few /HPF (0-FEW) Urine Granular Casts Occasional /HPF Glucose (Fingerstick) 195 mg/dL (70-99) Microbiology 08/06/18 Blood Culture - Final, Complete NO GROWTH AFTER 5 DAYS Medications Current Medications Ketorolac Tromethamine (Toradol 15mg Vial) 15 mg 1X ONCE IV Last administered on 08/06/18at 07:30; Start 08/06/18 at 06:45; Stop 08/06/18 at 06:46; Status DC Vancomycin HCl (Vanco Per Pharmacy) 1 each PRN DAILY PRN MC SEE COMMENTS Last administered on 08/07/18at 21:06; Start 08/06/18 at 07:00; Stop 08/08/18 at 07:07 ; Status DC Piperacillin Sod/ Tazobactam Sod (Zosyn Per Pharmacy) 1 each PRN DAILY PRN MC SEE COMMENTS; Start 08/06/18 at 07:15; Stop 08/11/18 at 09:48; Status DC Piperacillin Sod/ Tazobactam Sod 3.375 gm/Sodium Chloride 50 ml @ 100 mls/hr 1X ONCE IV Last administered on 08/06/18at 07:23; Start 08/06/18 at 07:15; Stop 08/06/18 at 07:44; Status DC Vancomycin HCl 2 gm/Sodium Chloride 500 ml @ 250 mls/hr 1X ONCE IV Last administered on 08/06/18at 07:49; Start 08/06/18 at 08:00; Stop 08/06/18 at 09:59 ; Status DC Sodium Chloride 1,000 ml @ 1,000 mls/hr 1X ONCE IV Last administered on at 07:31; Start 08/06/18 at 07:30; Stop 08/06/18 at 08:29; Status DC Sodium Chloride 1,000 ml @ 1,000 mls/hr 1X ONCE IV Last administered on 07:32; Start 08/06/18 at 07:30; Stop 08/06/18 at 08:29; Status DC Piperacillin Sod/ Tazobactam Sod 4.5 gm/Sodium Chloride 100 ml @ 200 mls/hr Q6HRS IV ; Start 08/06/18 at 12:00; Status Cancel Piperacillin Sod/ Tazobactam Sod 3.375 gm/Sodium Chloride 50 ml @ 100 mls/hr Q6HRS IV Last administered on 08/11/18 05:24; Start 08/06/18 at 12:00; Stop 08/11/18 at 09:46; Status DC Nystatin (Nystop) 1 toy BID TP Last administered on 08/12/18 09:04; Start 08/06 at 09:00 Allopurinol (Zyloprim) 300 mg DAILY PO Last administered on 08/12/18 09:00; Start 08/06/18 at 09:00 Digoxin (Lanoxin) 125 mcg DAILY PO Last administered on 08/12/18 08:58; Start 08/06/18 at 09:00 Fluticasone Propionate (Flonase) 2 spray HS NS Last administered on 08/11/18 20 :55; Start 08/06/18 at 21:00 Folic Acid (Folic Acid) 1 mg DAILY PO Last administered on 08/12/18 08:59; Start 08/06/18 at 09:00 Furosemide (Lasix) 60 mg DAILY PO Last administered on 08/12/18 08:59; Start at 09:00 Gabapentin (Neurontin) 300 mg HS PO Last administered on 08/11/18 20:55; Start 08/06/18 at 21:00 Lorazepam (Ativan) 1 mg HS PO Last administered on 08/11/18 20:55; Start at 21:00 Losartan Potassium (Cozaar) 50 mg DAILY PO Last administered on 08/12/18 09:00 ; Start 08/06/18 at 09:00 Metoprolol Tartrate (Lopressor) 12.5 mg BID PO Last administered on 08/12/18 08 :59; Start 08/06/18 at 09:00 Potassium Chloride (Klor-Con) 10 meq BIDWMEALS PO Last administered on 08:03; Start 08/06/18 at 09:00; Stop 08/08/18 at 08:13; Status DC Silver Sulfadiazine (Silvadene) 1 toy BID TP Last administered on 08/12/18at 09: 04; Start 08/06/18 at 09:00 Non-Formulary Medication (Albuterol Sulfate (Ventolin Hfa Inhaler)) 2 puff QID INH ; Start 08/06/18 at 09:00; Status UNV Diltiazem HCl (Cardizem 24hr Cd) 120 mg DAILY PO Last administered on 08/12/18 09:03; Start 08/06/18 at 09:00 Non-Formulary Medication (Fluticasone Propionate (Flovent 100MCG Diskus)) 1 puff HS IH ; Start 08/06/18 at 21:00; Status UNV Risperidone (RisperDAL) 0.5 mg QHS PO Last administered on 08/11/18at 20:55; Start 08/06/18 at 21:00 Rivaroxaban (Xarelto) 20 mg DAILYWSUP PO Last administered on 08/11/18at 17:01; Start 08/06/18 at 17:00 Albuterol Sulfate (Ventolin Neb Soln) 2.5 mg RTQID NEB Last administered on 08/11at 12:00; Start 08/06/18 at 12:00; Stop 08/11/18 at 12:46; Status DC Budesonide (Pulmicort) 0.5 mg RTBID NEB Last administered on 08/12/18at 07:43; Start 08/06/18 at 09:00 Perflutren Protein Type A Microsphe (Optison) 0.66 mg STK-MED ONCE IV ; Start at 09:32; Stop 08/06/18 at 09:34; Status DC Lactobacillus Rhamnosus (Culturelle) 1 cap BID PO Last administered on at 08:59; Start 08/06/18 at 21:00 Vancomycin HCl 1.75 gm/Sodium Chloride 500 ml @ 250 mls/hr Q12H IV Last administered on 08/07/18at 20:15; Start 08/06/18 at 20:00; Stop 08/07/18 at 23:59 ; Status DC Vancomycin HCl (Vancomycin Trough Level) 1 each 1X ONCE MC Last administered on 08/07/18at 19:30; Start 08/07/18 at 19:30; Stop 08/07/18 at 19:31; Status DC Info (Anti-Coagulation Monitoring By Pharmacy) 1 each PRN DAILY PRN MC SEE COMMENTS Last administered on 08/11/18at 13:43; Start 08/06/18 at 10:00 Perflutren Protein Type A Microsphe (Optison) 0.66 mg PRN 1X PRN IV SEE COMMENTS; Start 08/06/18 at 10:00; Stop 08/07/18 at 09:59; Status DC Micafungin Sodium 100 mg/Dextrose 100 ml @ 100 mls/hr Q24H IV Last administered on 08/10/18at 15:14; Start 08/06/18 at 14:00; Stop 08/11/18 at 09:46; Status DC Acetaminophen (Tylenol) 650 mg PRN Q6HRS PRN PO fever Last administered on at 05:36; Start 08/06/18 at 14:00 Linezolid/Dextrose 300 ml @ 300 mls/hr Q12HR IV Last administered on at 20:15; Start 08/07/18 at 09:00; Stop 08/08/18 at 07:07; Status DC Perflutren Protein Type A Microsphe (Optison) 0.66 mg STK-MED ONCE IV ; Start at 10:00; Stop 08/07/18 at 08:15; Status DC Vancomycin HCl 2 gm/Sodium Chloride 500 ml @ 250 mls/hr Q12H IV ; Start at 08:00; Stop 08/08/18 at 08:00; Status DC Linezolid (Zyvox) 600 mg BID PO Last administered on 08/10/18at 20:44; Start 08/08 at 09:00; Stop 08/11/18 at 09:46; Status DC Ondansetron HCl (Zofran) 4 mg PRN Q6HRS PRN IV NAUSEA/VOMITING; Start 08/08/18 at 08:15 Ondansetron HCl (Zofran Odt) 4 mg PRN Q6HRS PRN PO NAUSEA/VOMITING; Start at 08:15 Potassium Chloride (Klor-Con) 40 meq BIDWMEALS PO Last administered on at 08:58; Start 08/08/18 at 08:15 Labetalol HCl (Normodyne Iv Push) 10 mg PRN Q2HR PRN IVP HYPERTENSION, SEE COMMENTS Last administered on 08/11/18at 04:10; Start 08/08/18 at 08:15 Amoxicillin/ Clavulanate Potassium (Augmentin 875/ 125mg) 1 tab BID PO Last administered on 08/12/18at 08:59; Start 08/11/18 at 21:00 Albuterol Sulfate (Ventolin Neb Soln) 2.5 mg PRN Q4HRS PRN NEB SHORTNESS OF BREATH; Start 08/11/18 at 13:00 Furosemide (Lasix) 40 mg 1X ONCE IVP Last administered on 08/11/18at 17:00; Start 08/11/18 at 14:30; Stop 08/11/18 at 14:31; Status DC Potassium Chloride (Klor-Con) 40 meq 1X ONCE PO Last administered on 08/11/18at 17:00; Start 08/11/18 at 14:30; Stop 08/11/18 at 14:31; Status DC Active Scripts Active Lanoxin (Digoxin) 125 Mcg Tablet 125 Mcg PO DAILY 30 Days Reported Xarelto (Rivaroxaban) 20 Mg Tablet 20 Mg PO DAILY Lorazepam 1 Mg Tablet 1 Mg PO HS Gabapentin (Gabapentin) 300 Mg Capsule 1 Cap PO HS Flovent 100MCG Diskus (Fluticasone Propionate) 100 Mcg Disk.w.dev 1 Puff IH HS Losartan Potassium (Losartan Potassium) 25 Mg Tablet 2 Tab PO DAILY Furosemide 40 Mg Tablet 1.5 Tab PO DAILY PRN Diltiazem 24HR Cd (Diltiazem Hcl) 120 Mg Cap.er.24h 1 Cap PO DAILY PRN Gabapentin (Gabapentin) 300 Mg Capsule 1 Cap PO HS Potassium Chloride 10 Meq Tab.er.prt 1 Tab PO BID Metoprolol Tartrate 25 Mg Tablet 0.5 Tab PO BID Folic Acid 1 Mg Tablet 1 Tab PO DAILY Allopurinol 300 Mg Tablet 300 Mg PO DAILY Ventolin Hfa Inhaler (Albuterol Sulfate) 18 Gm Hfa.aer.ad 2 Puff INH QID Flonase (Fluticasone Propionate) 16 Gm [place].susp 2 [place] NS HS Silvadene (Silver Sulfadiazine) 20 Gm Cream..g. 1 Toy TP BID Ventolin Hfa Inhaler (Albuterol Sulfate) 18 Gm Hfa.aer.ad 2 Puff IH PRN Q4-6HRS Risperidone 0.5 Mg Tablet 1 Tab PO QHS Vitals/I & O Vital Sign - Last 24 Hours 08/11/18 08/11/18 08/11/18 08/11/18 15:00 19:00 19:10 20:55 Temp 97.6 98.2 97.6 98.2 Pulse 98 113 113 Resp 22 30 B/P (MAP) 145/94 (111) 132/89 (103) 132/89 Pulse Ox 90 92 O2 Delivery Nasal Cannula Nasal Cannula O2 Flow Rate 5.0 5.0 08/11/18 08/12/18 08/12/18 08/12/18 23:00 03:00 07:00 07:45 Temp 98.7 98.0 98.5 98.7 98.0 98.5 Pulse 91 103 98 Resp 28 26 24 B/P (MAP) 132/85 (101) 144/92 (109) 169/89 (115) Pulse Ox 91 91 93 93 O2 Delivery Nasal Cannula O2 Flow Rate 5.0 08/12/18 08/12/18 08/12/18 08/12/18 08:00 08:58 08:59 09:00 Pulse 98 98 98 B/P (MAP) 169/89 169/89 169/89 O2 Delivery Nasal Cannula O2 Flow Rate 5.0 08/12/18 08/12/18 09:03 11:00 Temp 97.8 97.8 Pulse 98 98 Resp 22 B/P (MAP) 169/89 143/68 (93) Pulse Ox 95 Intake and Output 08/11/18 08/11/18 08/12/18 15:01 23:01 07:01 Intake Total 280 ml 460 ml Output Total 800 ml 1600 ml 1400 ml Balance -520 ml -1600 ml -940 ml DAYNA MONTGOMERY MD Aug 12, 2018 15:00
[2018-08-12] MEDS ORDERED: DEXTROSE 50% 25 GM / 50ML DISP.SYRIN. IV PRN (16:45)
[2018-08-12] MEDS: RIVAROXABAN 10 MG TABLET. PO SCH (17:46)
[2018-08-12] MEDS: INSULIN LISPRO 300 UNITS/3 ML INSULN.PEN. SQ SCH (17:53)
[2018-08-12 19:00] VITALS: BP 148/87
[2018-08-12] MEDS: risperiDONE 0.25 MG TABLET. PO SCH (21:01)
[2018-08-12] MEDS: LORazepam 1 MG TABLET PO SCH (21:02)
[2018-08-12] MEDS: FLUTICASONE 50MCG/NASAL SPRAY 16GM BOTTLE. NS SCH (21:02)
[2018-08-12] MEDS: GABAPENTIN 300 MG CAPSULE. PO SCH (21:02)
[2018-08-12 22:56] VITALS: BP 133/83
--- NOTE | 2018-08-13 00:06 | NUR ---
Contacted EGG PROCESSOR regarding Positive Sepsis screen with a change in the urine WBC count. RN advised to monitor vitals and call if BP drops or vitals become unstable. Will order a Lactic Acid if needed.
[2018-08-13 03:00] VITALS: BP 154/91
[2018-08-13 07:00] VITALS: BP 125/84
[2018-08-13] MEDS: BUDESONIDE 0.5 MG/2 ML NEBU. NEB SCH (07:18)
[2018-08-13] MEDS: INSULIN LISPRO 300 UNITS/3 ML INSULN.PEN. SQ SCH ×2 (08:00→12:00)
[2018-08-13] MEDS: ALLOPURINOL 300 MG TABLET. PO SCH (08:18)
[2018-08-13] MEDS: AMOXICILLIN/K CLAV 875/125MG TABLET. PO SCH (08:18)
[2018-08-13] MEDS: FUROSEMIDE 20 MG TABLET PO SCH (08:18)
[2018-08-13] MEDS: LACTOBACILLUS RHAMNOSUS GG 1 CAPSULE. PO SCH (08:18)
[2018-08-13] MEDS: POTASSIUM CHLORIDE 10 MEQ TABLET.ER. PO SCH (08:18)
[2018-08-13] MEDS: METOPROLOL TART IMMED RELEASE 25 MG TABLET. PO SCH (08:19)
[2018-08-13] MEDS: LOSARTAN POTASSIUM 50 MG TABLET. PO SCH (08:20)
[2018-08-13] MEDS: FOLIC ACID 1 MG TABLET. PO SCH (08:20)
[2018-08-13] MEDS: DIGOXIN 125 MCG TABLET. PO SCH (08:21)
[2018-08-13] MEDS: silver sulfADIAZINE 1% CREAM 25GM TUBE. TP SCH (08:26)
[2018-08-13] MEDS: NYSTATIN TOPICAL POWDER 15GM BOTTLE. TP SCH (08:26)
--- NOTE | 2018-08-13 10:02 | PDOC2 ---
KATIANA PEREZ APRN 08/13/18 1002: UROLOGY CONSULT Date of Consult Date of Consult DATE: 08/13/18 TIME: 09:53 Reason for Consult Reason for Consult: Hematuria found on UA Identification/Chief Complaint Chief Complaint Hematuria found on UA Source Source: Caregiver, Chart review, Patient History of Present Illness Reason for Visit: This 72 year old male was originally admitted for mental status change and cellulitis. Yesterday a UA was done and it was discovered he had microhematuria. He denies ever having seen the blood in his urine, also denies dysuria. When asked about frequency, nocturia and other LUTS, he denies experiencing these. However, nursing staff reports that he has not been urinating that much at all, despite access to the urinal. When PE TEACHER spoke with him he was holding onto the urinal and there was nothing seen in there. He is generally a poor historian as a result of a stroke, answering few questions. He was supposed to discharge back to the assisted yesterday when the microhematuria was discovered and this stopped the discharge. Past Medical History Cardiovascular: CAD, HTN, Hyperlipidemia, Other Pulmonary: Asthma, COPD, Other CENTRAL NERVOUS SYSTEM: CVA GI: Constipation Heme/Onc: No pertinent hx Hepatobiliary: No pertinent hx Musculoskeletal: low back pain, Osteoarthritis Rheumatologic: Gout Infectious disease: No pertinent hx Renal/: No pertinent hx Endocrine: Diabetes Past Surgical History Past Surgical History: Other Family History Family History: No Significant Social History No ALCOHOL: none Drugs: None Lives: with Family Domestic Violence: Neg Current Problem List Problems: (1) Hematuria Current Medications Current Medications Current Medications Dextrose (Dextrose 50%-Water Syringe) 12.5 gm PRN Q15MIN PRN IV SEE COMMENTS; Start 08/12/18 at 16:45 Insulin Human Lispro (HumaLOG) 0-5 UNITS TIDWMEALS SQ Last administered on at 17:53; Start 08/12/18 at 17:00 Allergies Allergies: Coded Allergies: adhesive tape (Verified Allergy, Intermediate, 08/07/18) benzalkonium chloride (Verified Allergy, Intermediate, 08/07/18) ROS Review Of Systems: CONSTITUTIONAL: No fever or chills EYES: No recent changes SKIN: No rash or itching CARDIOVASCULAR: No chest pain, syncope, palpitations, or edema RESPIRATORY: No SOB or cough GASTROINTESTINAL: No nausea, vomiting or abdominal pain NEUROLOGICAL: No headaches or weakness ENDOCRINE: No cold or heat intolerance GENITOURINARY: No urgency or frequency of urination MUSCULOSKELETAL: No back pain or joint pain LYMPHATICS: No enlarged lymph nodes PSYCHIATRIC: No anxiety or depression Physical Exam Physical Exam: General: Pleasant, no acute distress, well groomed. Not very communicative. Eyes: conjunctiva anicteric, eyes full range of motion ENT: moist oral mucosa, normal dentition Neck: Trachea midline, no masses Respiratory: unlabored breathing, not using accessory muscles, Abdomen: soft, obese, non tender Skin: no rashes or skin lesions on visualized skin Psych: normal mood, affect. Alert and oriented x 3. Vitals VITALS Vital Signs Date Time Temp Pulse Resp B/P (MAP) Pulse Ox O2 Delivery O2 Flow Rate FiO2 08/13/18 08:21 99 125/84 08/13/18 07:20 93 Nasal Cannula 3.0 08/13/18 07:00 98.6 18 98.6 Labs Labs Laboratory Tests Test 08/11/18 11:53 08/11/18 16:20 08/11/18 20:50 08/12/18 04:25 Glucose (Fingerstick) 199 mg/dL (70-99) 163 mg/dL (70-99) 168 mg/dL (70-99) White Blood Count 13.2 x10^3/uL (4.0-11.0) Red Blood Count 4.33 x10^6/uL (4.30-5.70) Hemoglobin 11.9 g/dL (13.0-17.5) Hematocrit 37.0 % (39.0-53.0) Mean Corpuscular Volume 86 fL (79-100) Mean Corpuscular Hemoglobin 28 pg (25-35) Mean Corpuscular Hemoglobin Concent 32 g/dL (31-37) Red Cell Distribution Width 18.1 % (11.5-14.5) Platelet Count 276 x10^3/uL (140-400) Neutrophils (%) (Auto) 81 % (31-73) Lymphocytes (%) (Auto) 8 % (24-48) Monocytes (%) (Auto) 9 % (0-9) Eosinophils (%) (Auto) 2 % (0-3) Basophils (%) (Auto) 0 % (0-3) Neutrophils # (Auto) 10.7 x10^3uL (1.8-7.7) Lymphocytes # (Auto) 1.0 x10^3/uL (1.0-4.8) Monocytes # (Auto) 1.2 x10^3/uL (0.0-1.1) Eosinophils # (Auto) 0.3 x10^3/uL (0.0-0.7) Basophils # (Auto) 0.0 x10^3/uL (0.0-0.2) Sodium Level 137 mmol/L (136-145) Potassium Level 3.6 mmol/L (3.5-5.1) Chloride Level 101 mmol/L (98-107) Carbon Dioxide Level 25 mmol/L (21-32) Anion Gap 11 (6-14) Blood Urea Nitrogen 16 mg/dL (8-26) Creatinine 0.7 mg/dL (0.7-1.3) Estimated GFR (Cockcroft-Gault) 110.9 BUN/Creatinine Ratio 23 (6-20) Glucose Level 159 mg/dL (70-99) Calcium Level 9.1 mg/dL (8.5-10.1) Total Bilirubin 1.8 mg/dL (0.2-1.0) Aspartate Amino Transf (AST/SGOT) 49 U/L (15-37) Alanine Aminotransferase (ALT/SGPT) 48 U/L (16-63) Alkaline Phosphatase 163 U/L (46-116) Creatine Kinase 84 U/L (39-308) SD-Nfh-B-Type Natriuretic Peptide 3311 pg/mL (0-124) Total Protein 7.1 g/dL (6.4-8.2) Albumin 1.8 g/dL (3.4-5.0) Albumin/Globulin Ratio 0.3 (1.0-1.7) Test 08/12/18 07:13 08/12/18 11:35 08/12/18 11:37 08/12/18 16:07 Glucose (Fingerstick) 146 mg/dL (70-99) 195 mg/dL (70-99) 253 mg/dL (70-99) Urine Collection Type Unknown Urine Color [place] Urine Clarity Clear Urine pH 5.5 Urine Specific [place] 1.025 Urine Protein 100 mg/dL (NEG-TRACE) Urine Glucose (UA) Negative mg/dL (NEG) Urine Ketones (Stick) Negative mg/dL (NEG) Urine Blood Large (NEG) Urine Nitrite Negative (NEG) Urine Bilirubin Moderate (NEG) Urine Urobilinogen Dipstick 4.0 mg/dL (0.2 mg/dL) Urine Leukocyte Esterase Small (NEG) Urine RBC >40 /HPF (0-2) Urine WBC 5-10 /HPF (0-4) Urine Bacteria Few /HPF (0-FEW) Urine Granular Casts Occasional /HPF Test 08/12/18 20:47 08/13/18 07:45 Glucose (Fingerstick) 166 mg/dL (70-99) 136 mg/dL (70-99) Laboratory Tests Test 08/12/18 11:35 08/12/18 11:37 08/12/18 16:07 08/12/18 20:47 Urine Collection Type Unknown Urine Color [place] Urine Clarity Clear Urine pH 5.5 Urine Specific [place] 1.025 Urine Protein 100 mg/dL (NEG-TRACE) Urine Glucose (UA) Negative mg/dL (NEG) Urine Ketones (Stick) Negative mg/dL (NEG) Urine Blood Large (NEG) Urine Nitrite Negative (NEG) Urine Bilirubin Moderate (NEG) Urine Urobilinogen Dipstick 4.0 mg/dL (0.2 mg/dL) Urine Leukocyte Esterase Small (NEG) Urine RBC >40 /HPF (0-2) Urine WBC 5-10 /HPF (0-4) Urine Bacteria Few /HPF (0-FEW) Urine Granular Casts Occasional /HPF Glucose (Fingerstick) 195 mg/dL (70-99) 253 mg/dL (70-99) 166 mg/dL (70-99) Test 08/13/18 07:45 Glucose (Fingerstick) 136 mg/dL (70-99) Assessment/Plan Assessment/Plan Microhematuria: CTU today. Cysto in the future as an outpatient. For nursing concerns, please encourage patient to void, then bladder scan in the bed. If PVR greater than 350, please insert Arias catheter. If PVR less than 350, leave Arias out and encourage to void. Discussed above with attending RN. EVARISTO HARMON MD 08/13/18 5995: UROLOGY CONSULT Assessment/Plan Assessment/Plan Have reviewed chart and agree with the plan to have CTU performed and then proceed accordingly. KATIANA PEREZ APRN Aug 13, 2018 10:02 EVARISTO HARMON MD Aug 13, 2018 13:05
--- NOTE | 2018-08-13 10:45 | NUR ---
JOSE spoke with RN and physician who anticipate pt discharging today. JOSE spoke with Mark at [facility] and transport is tentatively set up for 1500. Per RN, Pt will have a CT at 1130. JOSE will continue to follow.
[2018-08-13 11:00] VITALS: BP 146/104
--- NOTE | 2018-08-13 11:39 | PDOC ---
Infectious Disease Note Subjective Subjective pt is feeling ok, wants to go back to his place ROS ROS no n/v/d/sob Vital Sign Vital Signs Vital Signs Date Time Temp Pulse Resp B/P (MAP) Pulse Ox O2 Delivery O2 Flow Rate FiO2 08/13/18 08:21 99 125/84 08/13/18 08:00 Nasal Cannula 3.0 08/13/18 07:20 93 08/13/18 07:00 98.6 18 98.6 Physical Exam PHYSICAL EXAM GENERAL: Lying down, alert, ND HEENT: Oral cavity had pink, dry NECK: Supple. LUNGS: Diminished aeration in the bases. Nonlabored. HEART: S1 and S2 irregular. ABDOMEN: Obese and soft. No grimace or guarding to palpation with bowel sounds present. GENITOURINARY: Indwelling Kennedy in place. EXTREMITIES: Lower extremity edema with chronic venous stasis changes and associated with thickened skin changes with brown scales, less red. Erythema R > L improved and NT SKIN: Warm. NEUROLOGICAL: Alert, responds appropriately Peripheral IV Labs Lab Laboratory Tests Test 08/12/18 16:07 08/12/18 20:47 08/13/18 07:45 Glucose (Fingerstick) 253 mg/dL (70-99) 166 mg/dL (70-99) 136 mg/dL (70-99) Micro Microbiology 08/06/18 Blood Culture - Preliminary, Resulted NO GROWTH AFTER 4 DAYS Objective Assessment Sepsis with lactic acidosis POA - better Fever Leukocytosis Diarrhea Cellulitis of lower extremities R> L - improving Yeast groin/pannus areas - improving Acute encephalopathy - improved Chronic venous stasis - followed by [facility] ? HCAP MRSA screen neg CHF DM II COPD PVD Chronic A-fib DNR/DNI Plan Plan of Care po augmentin Nystatin top powder to affected areas f/u cultures/labs Local wound care repeat CBC in am C. diff , neg d/c kennedy ct pending FREDERICK CHRISTENSEN MD Aug 13, 2018 11:39
--- NOTE | 2018-08-13 11:46 | PDOC ---
PULMONARY PROGRESS NOTES Subjective NO RESP COMPLAINTS Vitals Vital Signs Date Time Temp Pulse Resp B/P (MAP) Pulse Ox O2 Delivery O2 Flow Rate FiO2 08/13/18 08:21 99 125/84 08/13/18 08:00 Nasal Cannula 3.0 08/13/18 07:20 93 08/13/18 07:00 98.6 18 98.6 ROS: No Nausea, No Chest Pain, No Abdominal Pain, No Increase Cough General: Alert, No acute distress Lungs: Clear Cardiovascular: S1 Abdomen: Soft, Other (OBESE) Neuro Exam: Alert Extremities: Other (venous stasis) Skin: Warm Labs Laboratory Tests Test 08/11/18 11:53 08/11/18 16:20 08/11/18 20:50 08/12/18 04:25 Glucose (Fingerstick) 199 mg/dL (70-99) 163 mg/dL (70-99) 168 mg/dL (70-99) White Blood Count 13.2 x10^3/uL (4.0-11.0) Red Blood Count 4.33 x10^6/uL (4.30-5.70) Hemoglobin 11.9 g/dL (13.0-17.5) Hematocrit 37.0 % (39.0-53.0) Mean Corpuscular Volume 86 fL (79-100) Mean Corpuscular Hemoglobin 28 pg (25-35) Mean Corpuscular Hemoglobin Concent 32 g/dL (31-37) Red Cell Distribution Width 18.1 % (11.5-14.5) Platelet Count 276 x10^3/uL (140-400) Neutrophils (%) (Auto) 81 % (31-73) Lymphocytes (%) (Auto) 8 % (24-48) Monocytes (%) (Auto) 9 % (0-9) Eosinophils (%) (Auto) 2 % (0-3) Basophils (%) (Auto) 0 % (0-3) Neutrophils # (Auto) 10.7 x10^3uL (1.8-7.7) Lymphocytes # (Auto) 1.0 x10^3/uL (1.0-4.8) Monocytes # (Auto) 1.2 x10^3/uL (0.0-1.1) Eosinophils # (Auto) 0.3 x10^3/uL (0.0-0.7) Basophils # (Auto) 0.0 x10^3/uL (0.0-0.2) Sodium Level 137 mmol/L (136-145) Potassium Level 3.6 mmol/L (3.5-5.1) Chloride Level 101 mmol/L (98-107) Carbon Dioxide Level 25 mmol/L (21-32) Anion Gap 11 (6-14) Blood Urea Nitrogen 16 mg/dL (8-26) Creatinine 0.7 mg/dL (0.7-1.3) Estimated GFR (Cockcroft-Gault) 110.9 BUN/Creatinine Ratio 23 (6-20) Glucose Level 159 mg/dL (70-99) Calcium Level 9.1 mg/dL (8.5-10.1) Total Bilirubin 1.8 mg/dL (0.2-1.0) Aspartate Amino Transf (AST/SGOT) 49 U/L (15-37) Alanine Aminotransferase (ALT/SGPT) 48 U/L (16-63) Alkaline Phosphatase 163 U/L (46-116) Creatine Kinase 84 U/L (39-308) LO-Hcg-A-Type Natriuretic Peptide 3311 pg/mL (0-124) Total Protein 7.1 g/dL (6.4-8.2) Albumin 1.8 g/dL (3.4-5.0) Albumin/Globulin Ratio 0.3 (1.0-1.7) Test 08/12/18 07:13 08/12/18 11:35 08/12/18 11:37 08/12/18 16:07 Glucose (Fingerstick) 146 mg/dL (70-99) 195 mg/dL (70-99) 253 mg/dL (70-99) Urine Collection Type Unknown Urine Color [place] Urine Clarity Clear Urine pH 5.5 Urine Specific [place] 1.025 Urine Protein 100 mg/dL (NEG-TRACE) Urine Glucose (UA) Negative mg/dL (NEG) Urine Ketones (Stick) Negative mg/dL (NEG) Urine Blood Large (NEG) Urine Nitrite Negative (NEG) Urine Bilirubin Moderate (NEG) Urine Urobilinogen Dipstick 4.0 mg/dL (0.2 mg/dL) Urine Leukocyte Esterase Small (NEG) Urine RBC >40 /HPF (0-2) Urine WBC 5-10 /HPF (0-4) Urine Bacteria Few /HPF (0-FEW) Urine Granular Casts Occasional /HPF Test 08/12/18 20:47 08/13/18 07:45 Glucose (Fingerstick) 166 mg/dL (70-99) 136 mg/dL (70-99) Laboratory Tests Test 08/12/18 16:07 08/12/18 20:47 08/13/18 07:45 Glucose (Fingerstick) 253 mg/dL (70-99) 166 mg/dL (70-99) 136 mg/dL (70-99) Medications Active Scripts Medications Dose Route/Sig Max Daily Dose Days Date Category Xarelto (Rivaroxaban) 20 Mg Tablet 20 Mg PO DAILY 06/10/18 Reported Lorazepam 1 Mg Tablet 1 Mg PO HS 10/12/14 Reported Gabapentin (Gabapentin) 300 Mg Capsule 1 Cap PO HS 10/12/14 Reported Flovent 100MCG Diskus (Fluticasone Propionate) 100 Mcg Disk.w.dev 1 Puff IH HS 10/12/14 Reported Losartan Potassium (Losartan Potassium) 25 Mg Tablet 2 Tab PO DAILY 10/12/14 Reported Furosemide 40 Mg Tablet 1.5 Tab PO DAILY PRN 10/12/14 Reported Diltiazem 24HR Cd (Diltiazem Hcl) 120 Mg Cap.er.24h 1 Cap PO DAILY PRN 10/12/14 Reported Lanoxin (Digoxin) 125 Mcg Tablet 125 Mcg PO DAILY 30 08/24/14 Rx Gabapentin (Gabapentin) 300 Mg Capsule 1 Cap PO HS 08/18/14 Reported Potassium Chloride 10 Meq Tab.er.prt 1 Tab PO BID 08/18/14 Reported Metoprolol Tartrate 25 Mg Tablet 0.5 Tab PO BID 08/18/14 Reported Folic Acid 1 Mg Tablet 1 Tab PO DAILY 08/18/14 Reported Allopurinol 300 Mg Tablet 300 Mg PO DAILY 08/18/14 Reported Ventolin Hfa Inhaler (Albuterol Sulfate) 18 Gm Hfa.aer.ad 2 Puff INH QID 08/18/14 Reported Flonase (Fluticasone Propionate) 16 Gm [place].susp 2 [place] NS HS 08/18/14 Reported Silvadene (Silver Sulfadiazine) 20 Gm Cream..g. 1 Toy TP BID 08/18/14 Reported Ventolin Hfa Inhaler (Albuterol Sulfate) 18 Gm Hfa.aer.ad 2 Puff IH PRN Q4-6HRS 08/18/14 Reported Risperidone 0.5 Mg Tablet 1 Tab PO QHS 08/18/14 Reported Comments IMPRESSION: 08/06 1. Findings of CHF or volume overload with pulmonary edema and trace bilateral pleural effusions. 2. Bibasilar airspace opacities indeterminate between focal pulmonary edema, multifocal infection, or pneumonitis with atelectasis. Impression . 1. Acute hypoxemic respiratory failure./ combination of pneumonia/ CHF 2. Pneumonia, suspect Gram-negative, possibly Gram-positive. 3. Sepsis. 4. Toxic metabolic encephalopathy. 5. Morbid obesity. 6. Chronic obstructive pulmonary disease. 7. Cellulitis of lower extremities. 8. Chronic venous insufficiency. 9. Type 2 diabetes. 10. Peripheral vascular disease. 11. Chronic atrial fibrillation. CXR 2/4 Congestive heart failure and pleural effusions are more evident in the interval. Patchy infiltrates involving the upper lung beth the interval. Plan . CLINICALLY STABLE SPOKE WITH RN PT LASIX ANTI BX PER ID IMPROVING PT ORAL FEEDING DVT GI PROPH OK WITH NH PLANS TRACEY QUINTANILLA MD Aug 13, 2018 11:46
[2018-08-13] MEDS ORDERED: IOHEXOL 350 MG/ML 100 ML VIAL. IV ONE (12:00)
[2018-08-13] MEDS ORDERED: CONTRAST GIVEN. MC PRN (12:00)
[2018-08-13] MEDS: ANTI-COAG MONITOR BY PHARMACY. MC PRN (13:23)
--- NOTE | 2018-08-13 13:29 | RAD ---
PQRS Compliance statement: One or more of the following individualized dose reduction techniques were utilized for this examination: 1. Automated exposure control. 2. Adjustment of the mA and/or kV according to patient size. 3. Use of iterative reconstruction technique. Indication:MICRO HEMATURIA, NO PRIORS, [id number] 75ML TECHNIQUE: CT abdomen and pelvis without and with IV contrast with multiplanar reformats. 3-D volume rendered postprocessing was performed. COMPARISON: None FINDINGS: Heart is moderately enlarged in size. Diffuse coronary artery calcifications. Small bilateral pleural effusions. Multifocal patchy opacities are seen in the lung bases. Consolidations are seen in the bilateral lower lobes. Liver, spleen, gallbladder, pancreas, adrenals within normal limits. No nephrolithiasis or hydronephrosis. No suspicious renal lesion. Urinary bladder demonstrates trace amount of air in the nondependent portion. No bladder stone. No free pelvic fluid or ascites. Enlarged right inguinal lymph node measuring 2.4 x 1.4 cm enlarged right external iliac chain lymph node measuring 1.7 x 2.0 cm. Enlarged left external iliac chain lymph node measuring 1.7 x 1.2 cm. Shotty retroperitoneal lymph nodes. 1.5 x 1.4 cm partially exophytic lesion is seen in the left kidney demonstrating no significant enhancement on postcontrast images compatible precontrast images. Prostate is mildly enlarged measuring 5.5 x 4.1 cm. Circumferential mild rectal wall thickening seen. Inflammatory changes seen in the presacral fat. No bowel obstruction. Normal appendix. No pneumoperitoneum. No suspicious bony lesion. IMPRESSION: 1. No nephrolithiasis or hydronephrosis. Left renal lesion (1.5 cm) without significant enhancement on postcontrast images most likely a minimally complicated cyst. Nonemergent ultrasound of the kidneys or short-term follow-up CT abdomen in 3-4 months recommended. 2. Trace amount of air in the nondependent portion of the urinary bladder. Correlate with recent catheterization. 3. Mildly enlarged prostate. Correlate with physical exam and PSA. 4. Bilateral enlarged pelvic lymph nodes, nonspecific may be reactive or metastatic. 5. Presacral inflammatory changes, nonspecific and may be secondary to radiation therapy. Correlate with history. 6. Small bilateral pleural effusions with consolidations in the bilateral lower lobes which may be secondary to passive atelectasis or pneumonia. Multifocal patchy opacities in the visualized lung bases which may be secondary to multifocal pneumonia or aspiration. Electronically signed by: Ayaz Rubio DO (08/13/2018 1:25 PM) [id number]
[2018-08-13] MEDS ORDERED: IOHEXOL 300 MG/ML 100ML VIAL. ONE (13:37)
--- NOTE | 2018-08-13 14:03 | NUR ---
JOSE spoke with Mark and cancelled transportation. RN to check with Urology regarding CT results. Will continue to follow. SHANTAL Physician.
[2018-08-13 15:00] VITALS: BP 159/87
--- NOTE | 2018-08-13 15:17 | DISCH ---
DISCHARGE DISCHARGE INFORMATION: DISCHARGE DATE: Aug 13, 2018 FINAL DIAGNOSIS Problems Medical Problems: (1) Altered mental status Status: Acute (2) Cellulitis of leg, left Status: Acute (3) Cellulitis of leg, right Status: Acute (4) HCAP (healthcare-associated pneumonia) Status: Acute CONDITION ON DISCHARGE: Stable CODE STATUS: Code Status: DNR/DNI POST DISCHARGE ORDERS: ACTIVITY ORDERS: Activity as tolerated WEIGHT BEARING STATUS: As tolerated DIET AFTER DISCHARGE: ADA WOUND/INCISION CARE: No wound care needed CHECKS AFTER DISCHARGE: CHECKS AFTER DISCHARGE: Check blood press - daily, Weigh Yourself Daily FOLLOW-UP: PHYSICIAN FOLLOW-UP: PCP in one week TREATMENT/EQUIPMENT ORDERS: ADAPTIVE EQUIPMENT NEEDED: Walker, Wheelchair RESPIRATORY EQUIPMENT NEEDED: Oxygen DISCHARGE MEDICATIONS: Home Meds Active Scripts Digoxin (LANOXIN) 125 Mcg Tablet, 125 MCG PO DAILY for 30 Days, TAB Prov:JOJO LAI MD 08/24/14 Reported Medications Rivaroxaban (XARELTO) 20 Mg Tablet, 20 MG PO DAILY for blood thinner, TAB 06/10/18 Lorazepam (LORAZEPAM) 1 Mg Tablet, 1 MG PO HS, TAB 10/12/14 Gabapentin (GABAPENTIN ) 300 Mg Capsule, 1 CAP PO HS for NEUROPATHY, #90 CAP 5 Refills 10/12/14 Fluticasone Propionate (FLOVENT 100MCG DISKUS) 100 Mcg Disk.w.dev, 1 PUFF IH HS , #1 INHALER 5 Refills 10/12/14 Losartan Potassium (LOSARTAN POTASSIUM ) 25 Mg Tablet, 2 TAB PO DAILY for htn , #90 TAB 1 Refill 10/12/14 Furosemide (FUROSEMIDE) 40 Mg Tablet, 1.5 TAB PO DAILY PRN for SEE COMMENTS, # 30 TAB 5 Refills 10/12/14 Diltiazem Hcl (DILTIAZEM 24HR CD) 120 Mg Cap.er.24h, 1 CAP PO DAILY PRN for HYPERTENSION, SEE COMMENTS, #90 CAP 1 Refill 10/12/14 Gabapentin (GABAPENTIN ) 300 Mg Capsule, 1 CAP PO HS, #90 CAP 3 Refills 08/18/14 Potassium Chloride (POTASSIUM CHLORIDE) 10 Meq Tab.er.prt, 1 TAB PO BID, #30 TAB 5 Refills 08/18/14 Metoprolol Tartrate (METOPROLOL TARTRATE) 25 Mg Tablet, 0.5 TAB PO BID, #180 TAB 1 Refill 08/18/14 Folic Acid (FOLIC ACID) 1 Mg Tablet, 1 TAB PO DAILY, #90 TAB 1 Refill 08/18/14 Allopurinol (ALLOPURINOL) 300 Mg Tablet, 300 MG PO DAILY, TAB 08/18/14 Albuterol Sulfate (VENTOLIN HFA INHALER) 18 Gm Hfa.aer.ad, 2 PUFF INH QID for FOR ASTHMA, INHALER 0 Refills 08/18/14 Fluticasone Propionate (FLONASE) 16 Gm [place].susp, 2 SPRAY NS HS, #16 GM 08/18/14 Silver Sulfadiazine (SILVADENE) 20 Gm Cream..g., 1 PATSY TP BID, #50 GM 08/18/14 Albuterol Sulfate (VENTOLIN HFA INHALER) 18 Gm Hfa.aer.ad, 2 PUFF IH PRN Q4-6HRS , #1 INHALER 08/18/14 Risperidone (RISPERIDONE) 0.5 Mg Tablet, 1 TAB PO QHS, #30 TAB 08/18/14 LEONARD GE MD Aug 13, 2018 15:17
[2018-08-13] MEDS ORDERED: AMOX1TAB11 PO (15:20)
[2018-08-13] MEDS ORDERED: NYST60PO TP (15:20)
[2018-08-13] MEDS ORDERED: LACT1CAP19 PO (15:20)
--- NOTE | 2018-08-13 15:22 | NUR ---
JOSE following. JOSE phoned and faxed orders to [facility]. Pt will transport via facility arranged stretcher transport at 1600. JOSE left a voice mail about plan to pt's Jenny HURLEY. Pt aware of plan and agreeable. SHANTAL RN. Packet on chart.
--- NOTE | 2018-08-13 15:25 | PDOC3 ---
Discharge Summary Visit Information Date of Admission: Aug 08, 2018 Date of Discharge: Aug 13, 2018 Admitting Diagnosis: Altered mental status/ Cellulitis Admitting Diagnosis Comment: 1. Acute hypoxemic respiratory failure. 2. Pneumonia, suspect Gram-negative, possibly Gram-positive. 3. Sepsis. 4. Toxic metabolic encephalopathy. 5. Morbid obesity. 6. Chronic obstructive pulmonary disease. 7. Cellulitis of lower extremities. 8. Chronic venous insufficiency. 9. Type 2 diabetes. 10. Peripheral vascular disease. 11. Chronic atrial fibrillation. Final Diagnosis Problems Medical Problems: (1) Altered mental status Status: Acute (2) Cellulitis of leg, left Status: Acute (3) Cellulitis of leg, right Status: Acute (4) HCAP (healthcare-associated pneumonia) Status: Acute Brief Hospital Course Allergies Allergies Coded Allergies Type Severity Reaction Last Updated Verified adhesive tape Allergy Intermediate 08/07/18 Yes benzalkonium chloride Allergy Intermediate 08/07/18 Yes Vital Signs Vital Signs Date Time Temp Pulse Resp B/P (MAP) Pulse Ox O2 Delivery O2 Flow Rate FiO2 08/13/18 11:00 98.5 108 20 146/104 (118) 96 Nasal Cannula 4.0 98.5 Lab Results Laboratory Tests Test 08/11/18 16:20 08/11/18 20:50 08/12/18 04:25 08/12/18 07:13 Glucose (Fingerstick) 163 mg/dL (70-99) 168 mg/dL (70-99) 146 mg/dL (70-99) White Blood Count 13.2 x10^3/uL (4.0-11.0) Red Blood Count 4.33 x10^6/uL (4.30-5.70) Hemoglobin 11.9 g/dL (13.0-17.5) Hematocrit 37.0 % (39.0-53.0) Mean Corpuscular Volume 86 fL (79-100) Mean Corpuscular Hemoglobin 28 pg (25-35) Mean Corpuscular Hemoglobin Concent 32 g/dL (31-37) Red Cell Distribution Width 18.1 % (11.5-14.5) Platelet Count 276 x10^3/uL (140-400) Neutrophils (%) (Auto) 81 % (31-73) Lymphocytes (%) (Auto) 8 % (24-48) Monocytes (%) (Auto) 9 % (0-9) Eosinophils (%) (Auto) 2 % (0-3) Basophils (%) (Auto) 0 % (0-3) Neutrophils # (Auto) 10.7 x10^3uL (1.8-7.7) Lymphocytes # (Auto) 1.0 x10^3/uL (1.0-4.8) Monocytes # (Auto) 1.2 x10^3/uL (0.0-1.1) Eosinophils # (Auto) 0.3 x10^3/uL (0.0-0.7) Basophils # (Auto) 0.0 x10^3/uL (0.0-0.2) Sodium Level 137 mmol/L (136-145) Potassium Level 3.6 mmol/L (3.5-5.1) Chloride Level 101 mmol/L (98-107) Carbon Dioxide Level 25 mmol/L (21-32) Anion Gap 11 (6-14) Blood Urea Nitrogen 16 mg/dL (8-26) Creatinine 0.7 mg/dL (0.7-1.3) Estimated GFR (Cockcroft-Gault) 110.9 BUN/Creatinine Ratio 23 (6-20) Glucose Level 159 mg/dL (70-99) Calcium Level 9.1 mg/dL (8.5-10.1) Total Bilirubin 1.8 mg/dL (0.2-1.0) Aspartate Amino Transf (AST/SGOT) 49 U/L (15-37) Alanine Aminotransferase (ALT/SGPT) 48 U/L (16-63) Alkaline Phosphatase 163 U/L (46-116) Creatine Kinase 84 U/L (39-308) HV-Wtx-N-Type Natriuretic Peptide 3311 pg/mL (0-124) Total Protein 7.1 g/dL (6.4-8.2) Albumin 1.8 g/dL (3.4-5.0) Albumin/Globulin Ratio 0.3 (1.0-1.7) Test 08/12/18 11:35 08/12/18 11:37 08/12/18 16:07 08/12/18 20:47 Urine Collection Type Unknown Urine Color [place] Urine Clarity Clear Urine pH 5.5 Urine Specific [place] 1.025 Urine Protein 100 mg/dL (NEG-TRACE) Urine Glucose (UA) Negative mg/dL (NEG) Urine Ketones (Stick) Negative mg/dL (NEG) Urine Blood Large (NEG) Urine Nitrite Negative (NEG) Urine Bilirubin Moderate (NEG) Urine Urobilinogen Dipstick 4.0 mg/dL (0.2 mg/dL) Urine Leukocyte Esterase Small (NEG) Urine RBC >40 /HPF (0-2) Urine WBC 5-10 /HPF (0-4) Urine Bacteria Few /HPF (0-FEW) Urine Granular Casts Occasional /HPF Glucose (Fingerstick) 195 mg/dL (70-99) 253 mg/dL (70-99) 166 mg/dL (70-99) Test 08/13/18 07:45 08/13/18 11:33 Glucose (Fingerstick) 136 mg/dL (70-99) 143 mg/dL (70-99) Laboratory Tests Test 08/12/18 16:07 08/12/18 20:47 08/13/18 07:45 08/13/18 11:33 Glucose (Fingerstick) 253 mg/dL (70-99) 166 mg/dL (70-99) 136 mg/dL (70-99) 143 mg/dL (70-99) Brief Hospital Course Mr. Nielsen, is a 72 year old custodial patient admit with sudden weakness and mental status change. He appears to not have walked for some time, poor care to [facility], with yeast , but brought from facility for sudden weakness and confusion. Mr. Nielsen reports to me that he is fine, and shows me his muscles and calls himself "[place]" some oriented, 2/, much better since appeared in ER, obtunded and not verbal. He now follows all my commands, and vital signs have improved. no falls or injury reported Patient started promptly on broad-spectrum antibiotics. ID consultation was seek and also he was seen in consultation by pulmonology as well. The patient did not require invasive intervention and recovered well from his initial toxic metabolic encephalopathy with institution of the broad-spectrum antibiotics. He was found to have also some cellulitis associated with a tinea corporis due to his morbid obesity. This was treated with nystatin topical. Cellulitic changes of his legs were improved. On the day of discharge. And he was deemed appropriate to transition back to the long-term facility after he was evaluated by urology. They prior he was supposed to be dismissed he had some micro-hematuria that was reported on the UA. He was seen by urology who did not deem appropriate to do further intervention in the intervention setting. If his microhematuria persists he may need a cystoscopy in the outpatient. Patient had some urinary retention during his hospital stay but on the day of discharge his bladder scan did not percent urinary retention hence he will need a Arias catheter for discharge. CONCERNS WERE ADDRESSED PRIOR TO DISMISSAL, SIGNS AND SYMPTOMS OF ALARM WERE DISCUSSED WITH THE PATIENT AND HE ENLARGED UNDERSTANDING OF ALL THE INSTRUCTIONS Discharge Information Condition at Discharge: Improved Follow Up: Weeks (1 week with primary care physician) Disposition/Orders: D/C to Another Facility Scheduled Albuterol Sulfate (Ventolin Hfa Inhaler) 18 Gm Hfa.aer.ad, 2 PUFF IH PRN Q4-6HRS , #1 (Reported) Entered as Reported by: Mitch Oshea on 08/18/142025 Last Action: HELD on 08/06/18852 by KARO CLARK Albuterol Sulfate (Ventolin Hfa Inhaler) 18 Gm Hfa.aer.ad, 2 PUFF INH QID for FOR ASTHMA, Ref 0 (Reported) Entered as Reported by: Mitch Oshea on 08/18/142030 Last Action: Converted on 08/06/18852 by KARO CLARK Allopurinol (Allopurinol) 300 Mg Tablet, 300 MG PO DAILY, (Reported) Entered as Reported by: Mitch Oshea on 08/18/142030 Last Action: Continued on 08/06/18852 by KARO CLARK Amoxicillin/Potassium Clav (Amox Tr-K Clv 875-125 Mg Tab) 1 Each Tablet, 1 TAB PO BID for cellulitis for 7 Days, #14 Prescribed by: LEONARD GE MD on 08/13/18 1520 Digoxin (Lanoxin) 125 Mcg Tablet, 125 MCG PO DAILY for 30 Days Prescribed by: JOJO LAI on 08/24/14 1224 Last Action: Continued on 08/06/18852 by KARO CLARK Fluticasone Propionate (Flonase) 16 Gm [place].susp, 2 SPRAY NS HS, #16 (Reported) Entered as Reported by: Mitch Oshea on 08/18/142029 Last Action: Continued on 08/06/18852 by KARO CLARK Fluticasone Propionate (Flovent 100MCG Diskus) 100 Mcg Disk.w.dev, 1 PUFF IH HS , #1 Ref 5 (Reported) Entered as Reported by: ANKIT MAYERS on 10/12/14345 Last Action: Converted on 08/06/18852 by KARO CLARK Folic Acid (Folic Acid) 1 Mg Tablet, 1 TAB PO DAILY, #90 Ref 1 (Reported) Entered as Reported by: Mitch Oshea on 08/18/142031 Last Action: Continued on 08/06/18852 by KARO CLARK Gabapentin (Gabapentin ) 300 Mg Capsule, 1 CAP PO HS, #90 Ref 3 (Reported) Entered as Reported by: Mitch Oshea on 08/18/142033 Last Action: HELD on 08/06/18852 by KARO CLARK Gabapentin (Gabapentin ) 300 Mg Capsule, 1 CAP PO HS for NEUROPATHY, #90 Ref 5 (Reported) Entered as Reported by: ANKIT MAYERS on 10/12/14345 Last Action: Continued on 08/06/18852 by KARO CLARK Lactobacillus Rhamnosus Gg (Culturelle) 1 Each Cap.sprink, 1 CAP PO BID for probiotic for 7 Days, #14 Prescribed by: LEONARD GE MD on 08/13/18 1520 Lorazepam (Lorazepam) 1 Mg Tablet, 1 MG PO HS, (Reported) Entered as Reported by: ANKIT MAYERS on 10/12/14345 Last Action: Continued on 08/06/18852 by KARO CLARK Losartan Potassium (Losartan Potassium ) 25 Mg Tablet, 2 TAB PO DAILY for htn , #90 Ref 1 (Reported) Entered as Reported by: ANKIT MAYERS on 10/12/14345 Last Action: Continued on 08/06/18852 by KARO CLARK Metoprolol Tartrate (Metoprolol Tartrate) 25 Mg Tablet, 0.5 TAB PO BID, #180 Ref 1 (Reported) Entered as Reported by: Mitch Oshea on 08/18/142032 Last Action: Continued on 08/06/18852 by KARO CLARK Nystatin (Nystop) 60 Gm Powder, 1 PATSY TP BID for dermatitis for 10 Days Prescribed by: LEONARD GE MD on 08/13/18 1520 Potassium Chloride (Potassium Chloride) 10 Meq Tab.er.prt, 1 TAB PO BID, #30 Ref 5 (Reported) Entered as Reported by: Mitch Oshea on 08/18/142033 Last Action: Continued on 08/06/18852 by KARO CLARK Risperidone (Risperidone) 0.5 Mg Tablet, 1 TAB PO QHS, #30 (Reported) Entered as Reported by: Mitch Oshea on 08/18/142023 Last Action: Converted on 08/06/18852 by KARO CLARK Rivaroxaban (Xarelto) 20 Mg Tablet, 20 MG PO DAILY for blood thinner, (Reported) Entered as Reported by: Samantha Mercedes on 06/10/18 1102 Last Action: Converted on 08/06/18852 by KARO CLARK Silver Sulfadiazine (Silvadene) 20 Gm Cream..g., 1 PATSY TP BID, #50 (Reported) Entered as Reported by: Mitch Oshea on 08/18/142029 Last Action: Continued on 08/06/18852 by KARO CLARK Scheduled PRN Diltiazem Hcl (Diltiazem 24HR Cd) 120 Mg Cap.er.24h, 1 CAP PO DAILY PRN for HYPERTENSION, SEE COMMENTS, #90 Ref 1 (Reported) Entered as Reported by: ANKIT MAYERS on 10/12/14345 Last Action: Converted on 08/06/18852 by KARO CLARK Furosemide (Furosemide) 40 Mg Tablet, 1.5 TAB PO DAILY PRN for SEE COMMENTS, # 30 Ref 5 (Reported) Entered as Reported by: ANKIT MAYERS on 10/12/14345 Last Action: Continued on 08/06/18852 by LEONARD RUSSO MD Aug 13, 2018 15:25
--- NOTE | 2018-08-13 19:16 | NUR ---
Discharge Note: PIERO YEE Discharge instructions and discharge home medications reviewed with Patient and a copy given. All questions have been answered and understanding verbalized. The following instructions and handouts were given: Altered Mental Status, Hematuria, Cellulitis Discontinued lines and drains: Peripheral IV's removed catheter intact. Patient discharged to SNF ([facility]) via Transportation. Pt. was anxious to get back "home" today.
== END 2018-08-13 15:50 | disposition home or self-care (01) | DRG 871 ==
LOC: ER 06:32 → 1 WEST ICU 07:30 → 5 NORTH 08-08 16:45
PROVIDERS: ADMIT Internal Medicine; ATTEND Internal Medicine
PROC: 5A09357 Assistance with Respiratory Ventilation, Less than 24 Consecutive Hours, Continuous Positive Airway Pressure (ICD-10-PCS; principal; 2018-08-06)
PROC: 5A09357 Assistance with Respiratory Ventilation, Less than 24 Consecutive Hours, Continuous Positive Airway Pressure (ICD-10-PCS; 2018-08-07)
DX: A41.9 Sepsis, unspecified organism (principal); G92 Toxic encephalopathy; J96.01 Acute respiratory failure with hypoxia; E43 Unspecified severe protein-calorie malnutrition; J15.6 Pneumonia due to other Gram-negative bacteria; J15.9 Unspecified bacterial pneumonia; L03.115 Cellulitis of right lower limb; I50.32 Chronic diastolic (congestive) heart failure; L03.116 Cellulitis of left lower limb; J44.0 Chronic obstructive pulmonary disease with (acute) lower respiratory infection; J98.11 Atelectasis; I73.9 Peripheral vascular disease, unspecified; I48.2 Chronic atrial fibrillation; I83.10 Varicose veins of unspecified lower extremity with inflammation; B37.9 Candidiasis, unspecified; I11.0 Hypertensive heart disease with heart failure; Y95 Nosocomial condition; Z66 Do not resuscitate; Z68.38 Body mass index [BMI] 38.0-38.9, adult; E66.01 Morbid (severe) obesity due to excess calories; M10.9 Gout, unspecified; E11.51 Type 2 diabetes mellitus with diabetic peripheral angiopathy without gangrene; B35.4 Tinea corporis; M19.90 Unspecified osteoarthritis, unspecified site; E78.5 Hyperlipidemia, unspecified; F20.9 Schizophrenia, unspecified; G47.33 Obstructive sleep apnea (adult) (pediatric); H91.90 Unspecified hearing loss, unspecified ear; I25.10 Atherosclerotic heart disease of native coronary artery without angina pectoris; I27.20 Pulmonary hypertension, unspecified; I35.0 Nonrheumatic aortic (valve) stenosis; I87.8 Other specified disorders of veins; R31.29 Other microscopic hematuria; Z79.4 Long term (current) use of insulin; Z86.73 Personal history of transient ischemic attack (TIA), and cerebral infarction without residual deficits; Z87.891 Personal history of nicotine dependence; Z88.8 Allergy status to other drugs, medicaments and biological substances
CPT/HCPCS: 51702; 93325; 99285; C8924; 36415; 71045; 72193; 74170; 80048; 80053; 80202; 81001; 82550; 82962; 83605; 83880; 84145; 85007; 85025; 87040; 87086; 87493; 87641; 87804; 93005; 93320; 94640; 94660; 94760; 96365; 96366; 96368; 96375; J1815; J1885; J1940; J2020; J2248; J2543; J3370; J3490; J7030; J7040; J7613; J7626; Q9956; 97110; 97530; 97535; G0378

== ENCOUNTER 2019-02-04 14:01 | Inpatient (IN) | payer OTHER, MEDICAID ==
[~2019-02-04] VITALS: Ht 182.9 cm; Wt 125.7 kg
[~2019-02-04 14:01] MED LIST changes: +AMOX1TAB11 PO; +LACT1CAP19 PO; +NYST60PO TP
[2019-02-04 14:39] VITALS: BP 123/62
--- NOTE | 2019-02-04 14:48 | NUR ---
Wound Care: Pt known to Wound Clinic, seen in office for routine wound care and presented with fever of 99.3, altered mental status, weakness, foul smelling drainage from LLE wound, and excessive weeping and swelling of LLE. See office Physician Note for further details of visit. Dr. Viveros recommending admission to the hospital for treatment of LLE cellulitis, Dr. Kim and Gita RN supervisr notified. Admitted to room 538. Wounds pictured and measured in clinic, and placed in chart. [facility] wound care recommendations provided. NO other open areas noted on head to toe inspection. Follow up on 02/11/19
--- NOTE | 2019-02-04 15:39 | HP ---
ADMIT DATE: CHIEF COMPLAINT: Lower extremity cellulitis. HISTORY OF PRESENT ILLNESS: The patient is a pleasant elderly male that presents with bilateral lower extremity cellulitis, it is worse on the left than the right. The back of the calf is apparently extremely emaciated. I talked to Dr. Viveros, he saw the patient in the wound care clinic today. We were going to admit the patient and give him IV antibiotics and do some aggressive wound care. PAST MEDICAL HISTORY: Peripheral vascular disease, chronic anticoagulation with Xarelto, arrhythmias and he is on beta blockers and digoxin and Cardizem; hypertension; hyperlipidemia; neuropathy; diabetes; depression; anxiety; allergic rhinitis; and gout. ALLERGIES: ADHESIVE. FAMILY HISTORY: Hypertension. SOCIAL HISTORY: Does not drink, smoke or take drugs. He was in the . MEDICATIONS: Reviewed, please refer to the MRAD. REVIEW OF SYSTEMS: GENERAL: No history of weight change, weakness or fevers. SKIN: No bruising, hair changes or rashes. EYES: No blurred, double or loss of vision. NOSE AND THROAT: No history of nosebleeds, hoarseness or sore throat. HEART: No history of palpitations, chest pain or shortness of breath on exertion. LUNGS: Denies cough, hemoptysis, wheezing or shortness of breath. GASTROINTESTINAL: Denies changes in appetite, nausea, vomiting, diarrhea or constipation. GENITOURINARY: No history of frequency, urgency, hesitancy or nocturia. NEUROLOGIC: Denies history of numbness, tingling, tremor or weakness. PSYCHIATRIC: No history of panic, anxiety or depression. ENDOCRINE: No history of heat or cold intolerance, polyuria or polydipsia. EXTREMITIES: He complains of bilateral leg pain and swelling and drainage. PHYSICAL EXAMINATION: VITALS: Within normal limits and are stable. GENERAL: No apparent distress. Alert and oriented. HEENT: Head is normocephalic, atraumatic, pupils were equally round and reactive to light and accommodation. NECK: Supple, no JVD, no thyromegaly was noted. LUNGS: Clear to auscultation in all lung beth without rhonchi or wheezing. HEART: RRR, S1, S2 present. Peripheral pulses intact, no obvious murmurs were noted. ABDOMEN: Soft, nontender. Positive bowel sounds no organomegaly, normal bowel sounds. EXTREMITIES: He has lower extremity cellulitis bilaterally. He has clean, dry and intact dressing.. NEUROLOGIC: Normal speech, normal tone. A & O x3, moves all extremities, no obvious focal deficits. PSYCHIATRIC: Normal affect, normal mood. Stable. SKIN: No ulcerations or rashes, good skin turgor, no jaundice. VASCULAR: Good capillary refill, neurovascular bundle appears to be intact. LABORATORY DATA: Pending. ASSESSMENT AND PLAN: Lower extremity cellulitis. The patient is being admitted. We will consult wound care clinic. IV antibiotics. Consult ID. Home meds, DVT prophylaxis. Full code. PT, OT. NIAL Anastasia PRESLEY DO DR: PADMINI/armond JOB#: [id number] / [id number]
[2019-02-04] MEDS ORDERED: HYDR-2761 PO (15:58)
[2019-02-04] MEDS ORDERED: DILT120C85 PO (15:58)
[2019-02-04] MEDS ORDERED: LOSA-73 PO (15:58)
[2019-02-04] MEDS ORDERED: FURO20TA3 PO (15:58)
[2019-02-04] MEDS ORDERED: PIP/TAZO PER PHARMACY MC PRN (16:15)
--- NOTE | 2019-02-04 16:15 | PDOC ---
Provider Note Provider Note Pt seen and examined ID Consult dictated [id number] GAVIOTA Leyva MD Feb 04, 2019 16:15
[2019-02-04 16:16] LABS: BILIRUBIN,URINE NEGATIVE (NEG); CLARITY,URINE CLEAR; COLOR,URINE YELLOW; NITRITE,URINE NEGATIVE (NEG); PROTEIN,URINE NEGATIVE (NEG-TRACE)
[2019-02-04 16:22] LABS: BACTERIA,URINE 0 /HPF (0-FEW); SQUAMOUS EPITHELIAL CELL,UR FEW /LPF
[2019-02-04 16:23] LABS: WBC,URINE 0 /HPF (0-4)
[2019-02-04] MEDS: PIPERACILLIN/TAZOBACTAM 3.375 GM in IV NORMAL SALINE 50ML 50 ML IV SCH (16:50)
[2019-02-04 16:58] LABS: BASO # 0.1 x10^3/uL (0.0-0.2); BASO % 1 % (0-3); EOS # 0.2 x10^3/uL (0.0-0.7); EOS % 2 % (0-3); HEMATOCRIT 35.5 % (39.0-53.0); LYMPH # 1.4 x10^3/uL (1.0-4.8); LYMPH % 15 % (24-48); MEAN CORPUSCULAR HEMOGLOBIN 28 pg (25-35); MEAN CORPUSCULAR HGB CONC 34 g/dL (31-37); MEAN CORPUSCULAR VOLUME 84 fL (79-100); MONO # 1.2 x10^3/uL (0.0-1.1); MONO % 13 % (0-9); NEUT # 6.5 x10^3/uL (1.8-7.7); NEUT % 70 % (31-73); PLATELET COUNT 264 x10^3/uL (140-400); RED BLOOD COUNT 4.21 x10^6/uL (4.30-5.70); RED CELL DISTRIBUTION WIDTH 16.1 % (11.5-14.5); WHITE BLOOD COUNT 9.3 x10^3/uL (4.0-11.0)
[2019-02-04 17:40] LABS: ALBUMIN 2.3 g/dL (3.4-5.0); ALBUMIN/GLOBULIN RATIO 0.5 (1.0-1.7); CALCIUM 8.6 mg/dL (8.5-10.1); CREATININE 0.8 mg/dL (0.7-1.3); GFR 94.8; POTASSIUM 4.1 mmol/L (3.5-5.1); TOTAL BILIRUBIN 0.7 mg/dL (0.2-1.0); TOTAL PROTEIN 7.2 g/dL (6.4-8.2)
[2019-02-04] MEDS ORDERED: NON FORMULARY ITEM (Albuterol Sulfate (Ventolin Hfa Inhaler) 2 PUFF) IH SCH (18:00)
[2019-02-04] MEDS ORDERED: ALBUTEROL SULFATE 2.5 MG/3 ML NEBU. NEB PRN (18:00)
[2019-02-04] MEDS: IV NORMAL SALINE 1000ML BAG 1,000 ML IV SCH (18:00)
[2019-02-04] MEDS ORDERED: HYDROcodone/APAP 5/325MG 1 TAB TABLET PO PRN (18:00)
[2019-02-04] MEDS: LINEZOLID 600 MG TABLET PO SCH (18:01)
[2019-02-04] MEDS: MICAFUNGIN 100 MG in IV DEXTROSE 5% 100ML 100 ML IV SCH (18:03)
--- NOTE | 2019-02-04 18:08 | NUR ---
The patient, PIERO YEE, 73 y/o, M admitted by KENNEDI PRESLEY III, DO, was given written information regarding hospital policies, unit procedures and contact persons. Valuables were checked and left at bedside.
[2019-02-04 19:00] VITALS: BP 126/71
[2019-02-04] MEDS: RIVAROXABAN 10 MG TABLET. PO SCH (19:06)
[2019-02-04] MEDS ORDERED: ALBUTEROL SULFATE 2.5 MG/3 ML NEBU. NEB SCH (20:00)
[2019-02-04] MEDS ORDERED: BUDESONIDE 0.5 MG/2 ML NEBU. NEB SCH (20:00)
[2019-02-04] MEDS ORDERED: BUDESONIDE 0.5 MG/2 ML NEBU. NEB PRN (20:30)
[2019-02-04] MEDS: LORazepam 1 MG TABLET PO SCH (20:42)
[2019-02-04] MEDS: METOPROLOL TART IMMED RELEASE 25 MG TABLET. PO SCH (20:43)
[2019-02-04] MEDS: POTASSIUM CHLORIDE 10 MEQ TABLET.ER. PO SCH (20:43)
[2019-02-04] MEDS: risperiDONE 0.25 MG TABLET. PO SCH (20:43)
[2019-02-04] MEDS: GABAPENTIN 300 MG CAPSULE. PO SCH (20:43)
[2019-02-04] MEDS: FLUTICASONE 50MCG/NASAL SPRAY 16GM BOTTLE. NS SCH (20:44)
[2019-02-04] MEDS ORDERED: NON FORMULARY ITEM (Albuterol Sulfate (Ventolin Hfa Inhaler) 2 PUFF) INH SCH (21:00)
[2019-02-04] MEDS ORDERED: NON FORMULARY ITEM (Fluticasone Propionate (Flovent 100MCG Diskus) 1 PUFF) IH SCH (21:00)
[2019-02-04 23:00] VITALS: BP 112/68
[2019-02-05] MEDS: PIPERACILLIN/TAZOBACTAM 3.375 GM in IV NORMAL SALINE 50ML 50 ML IV SCH ×5 (00:18→23:31)
--- NOTE | 2019-02-05 00:27 | CONS ---
DATE OF CONSULTATION: 02/04/2019 REFERRING PHYSICIAN: Harrison Kim DO REASON FOR CONSULTATION: Bilateral lower extremity cellulitis. HISTORY OF PRESENT ILLNESS: A 73-year-old male, [facility] resident, was seen in Wound Clinic today. The patient had bilateral lower extremity cellulitis for a couple of weeks, left greater than the right. He was admitted for wound care and IV antibiotics. The patient denied any fevers, chills, nausea, vomiting, diarrhea or abdominal pain; denies being on any antibiotics recently. The patient has history of chronic venous stasis with lymphedema affecting both lower extremities for which he is under the care of [facility]. He had been noticing some increased redness and drainage recently. The patient is afebrile. Vital signs are stable. No labs available for review. The patient is currently not started on any antibiotics. PAST MEDICAL HISTORY: Chronic lymphedema, chronic venous stasis changes affecting both lower extremities, history of previous cellulitis, diabetes mellitus 2, peripheral vascular disease, chronic congestive heart failure, hypertension, hyperlipidemia, COPD, asthma, with a history of CVA, gout, osteoarthritis, chronic atrial fibrillation, glaucoma, coronary artery disease, schizophrenia, hard of hearing. PAST SURGICAL HISTORY: Left ankle and hand repair, umbilical hernia repair, fracture repair as a child. FAMILY HISTORY: Not contributory. SOCIAL HISTORY: No smoking. The patient is an [facility] resident. History of smoking in the past. ALLERGIES: No known drug allergies. CURRENT MEDICATIONS: Antibiotics, none. Other medications, reviewed in medication list. REVIEW OF SYSTEMS: Limited as the patient is somewhat confused. PHYSICAL EXAMINATION: VITAL SIGNS: Temperature 98.9, pulse 92, respiratory rate 18, blood pressure 123/62, oxygen saturation 98% on room air. GENERAL: Alert and oriented male, sleepy, but arousable, answering a few questions, in no acute distress. HEENT: Normocephalic, atraumatic. Anicteric. No thrush. NECK: Supple. LUNGS: Clear bilaterally. HEART: S1, S2. ABDOMEN: Soft, nontender, nondistended. Bowel sounds present. EXTREMITIES: Bilateral lower extremities, dressing intact. Pictures from wound team noted chronic venous stasis with extensive erythematous skin with maceration between the toes, no cyanosis. NEUROLOGIC: Alert, oriented, somewhat confused. LINES: PIV look okay. LABORATORY DATA: CBC, none. CMP, none. UA, none. Blood cultures, none pending at this time. Micro, none. X-RAYS: None. IMPRESSION: 1. Cellulitis of lower extremities, superimposed on chronic venous stasis. 2. Chronic venous stasis, 3. Diabetes mellitus 2. 4. Chronic obstructive pulmonary disease. 5. Peripheral vascular disease. 6. Chronic atrial fibrillation. 7. Morbid obesity. 8. Mild confusion. 9. Tinea RECOMMENDATIONS: 1. Start the patient on Zosyn, Zyvox and micafungin. 2. Continue local wound care. 3. We will obtain labs. 4. Wound team following with the patient also. 5. Maintain aspiration precaution. 6. Discussed with RN. Thank you, Dr. Kim, for consulting Infectious Disease to participate in this patient's care. If you have any questions, do not hesitate to contact us. GAVIOTA CHRISTENSEN MD DR: GULSHAN/armond JOB#: [id number] / [id number] YARIEL
[2019-02-05 03:00] VITALS: BP 101/59
[2019-02-05 07:00] VITALS: BP 125/67
[2019-02-05] MEDS: IV NORMAL SALINE 1000ML BAG 1,000 ML IV SCH ×2 (07:57→20:59)
[2019-02-05] MEDS ORDERED: MORPHINE SULFATE 2 MG/ML VIAL. IV PRN (09:00)
[2019-02-05] MEDS ORDERED: ONDANSETRON PF 4 MG/2 ML VIAL. IV PRN (09:00)
[2019-02-05] MEDS ORDERED: ACETAMINOPHEN 500 MG TABLET PO PRN (09:00)
[2019-02-05] MEDS ORDERED: ALBUTEROL SULFATE 2.5 MG/3 ML NEBU. NEB PRN (09:00)
[2019-02-05] MEDS: POTASSIUM CHLORIDE 10 MEQ TABLET.ER. PO SCH ×2 (09:06→21:00)
[2019-02-05] MEDS: LINEZOLID 600 MG TABLET PO SCH ×2 (09:06→21:00)
[2019-02-05] MEDS: ALLOPURINOL 300 MG TABLET. PO SCH (09:06)
[2019-02-05] MEDS: FOLIC ACID 1 MG TABLET. PO SCH (09:07)
[2019-02-05] MEDS: DIGOXIN 125 MCG TABLET. PO SCH (09:07)
[2019-02-05] MEDS: METOPROLOL TART IMMED RELEASE 25 MG TABLET. PO SCH ×2 (09:07→21:00)
[2019-02-05] MEDS: FUROSEMIDE 20 MG TABLET PO SCH (09:08)
[2019-02-05] MEDS: LOSARTAN POTASSIUM 50 MG TABLET. PO SCH (09:08)
--- NOTE | 2019-02-05 09:59 | PDOC ---
Infectious Disease Note Subjective: Subjective pt says he is doing very well wants to go back to [place] no f/c/n/v/d more alert today ROS: ROS Negative except for above. Vital Signs: Vital Signs Vital Signs Date Time Temp Pulse Resp B/P (MAP) Pulse Ox O2 Delivery O2 Flow Rate FiO2 02/05/19 09:08 98 125/67 02/05/19 07:50 Room Air 02/05/19 07:00 97.7 18 94 97.7 Physical Exam: PHYSICAL EXAM GENERAL: Alert and oriented male, sleepy, but arousable, answering a few questions, in no acute distress. HEENT: Normocephalic, atraumatic. Anicteric. No thrush. NECK: Supple. LUNGS: Clear bilaterally. HEART: S1, S2. ABDOMEN: Soft, nontender, nondistended. Bowel sounds present. EXTREMITIES: Bilateral lower extremities, dressing intact. Pictures from wound team noted chronic venous stasis with extensive erythematous skin with maceration between the toes, no cyanosis. NEUROLOGIC: Alert, oriented, somewhat confused. LINES: PIV look okay. Medications: Inpatient Meds: Current Medications Medications (Trade) Dose Ordered Sig/Rachel Start Time Stop Time Status Last Admin Dose Admin Acetaminophen (Tylenol) 500 mg PRN Q6HRS PRN 02/05/19 09:00 Acetaminophen/ Hydrocodone Bitart (Lortab 5/325) 1 tab PRN Q4HRS PRN 02/04/19 18:00 Albuterol Sulfate (Ventolin Neb Soln) 2.5 mg PRN Q4HRS PRN 02/05/19 09:00 Allopurinol (Zyloprim) 300 mg DAILY 02/05/19 09:00 02/05/19 09:06 300 MG Budesonide (Pulmicort) 0.5 mg RTBID 02/05/19 09:00 Digoxin (Lanoxin) 125 mcg DAILY 02/05/19 09:00 02/05/19 09:07 125 MCG Diltiazem HCl (Cardizem 24hr Cd) 120 mg DAILY 02/05/19 09:00 02/05/19 09:07 120 MG Fluticasone Propionate (Flonase) 2 spray HS 02/04/19 21:00 02/04/19 20:44 2 SPRAY Folic Acid (Folic Acid) 1 mg DAILY 02/05/19 09:00 02/05/19 09:07 1 MG Furosemide (Lasix) 20 mg DAILY 02/05/19 09:00 02/05/19 09:08 20 MG Gabapentin (Neurontin) 300 mg HS 02/04/19 21:00 02/04/19 20:43 300 MG Linezolid (Zyvox) 600 mg BID 02/04/19 17:00 02/05/19 09:06 600 MG Lorazepam (Ativan) 1 mg HS 02/04/19 21:00 02/04/19 20:42 1 MG Losartan Potassium (Cozaar) 50 mg DAILY 02/05/19 09:00 02/05/19 09:08 50 MG Metoprolol Tartrate (Lopressor) 12.5 mg BID 02/04/19 21:00 02/05/19 09:07 12.5 MG Micafungin Sodium 100 mg/Dextrose 100 ml @ 100 mls/hr Q24H 02/04/19 17:00 02/04/19 18:03 100 MLS/HR Morphine Sulfate (Morphine Sulfate) 1 mg PRN Q2HR PRN 02/05/19 09:00 Non-Formulary Medication (Albuterol Sulfate (Ventolin Hfa Inhaler)) 2 puff QID 02/04/19 21:00 UNV Non-Formulary Medication (Fluticasone Propionate (Flovent 100MCG Diskus)) 1 puff HS 02/04/19 21:00 UNV Ondansetron HCl (Zofran) 4 mg PRN Q6HRS PRN 02/05/19 09:00 Piperacillin Sod/ Tazobactam Sod (Zosyn Per Pharmacy) 1 each PRN DAILY PRN 02/04/19 16:15 Piperacillin Sod/ Tazobactam Sod 3.375 gm/Sodium Chloride 50 ml @ 100 mls/hr Q6HRS 02/04/19 16:30 02/05/19 05:40 100 MLS/HR Potassium Chloride (Klor-Con) 10 meq BID 02/04/19 21:00 02/05/19 09:06 10 MEQ Risperidone (RisperDAL) 0.5 mg QHS 02/04/19 21:00 02/04/19 20:43 0.5 MG Rivaroxaban (Xarelto) 20 mg DAILY16 02/04/19 19:00 02/04/19 19:06 20 MG Sodium Chloride 1,000 ml @ 75 mls/hr [id number] 02/04/19 18:00 02/05/19 07:57 75 MLS/HR Labs: Lab Laboratory Tests Test 02/04/19 16:00 02/04/19 16:50 Urine Collection Type Unknown Urine Color Yellow Urine Clarity Clear Urine pH 6.0 Urine Specific [place] 1.020 Urine Protein Negative mg/dL (NEG-TRACE) Urine Glucose (UA) 500 mg/dL (NEG) Urine Ketones (Stick) Trace mg/dL (NEG) Urine Blood Negative (NEG) Urine Nitrite Negative (NEG) Urine Bilirubin Negative (NEG) Urine Urobilinogen Dipstick 2.0 mg/dL (0.2 mg/dL) Urine Leukocyte Esterase Negative (NEG) Urine RBC 3-5 /HPF (0-2) Urine WBC 0 /HPF (0-4) Urine Squamous Epithelial Cells Few /LPF Urine Bacteria 0 /HPF (0-FEW) Urine Mucus Mod /LPF White Blood Count 9.3 x10^3/uL (4.0-11.0) Red Blood Count 4.21 x10^6/uL (4.30-5.70) Hemoglobin 12.0 g/dL (13.0-17.5) Hematocrit 35.5 % (39.0-53.0) Mean Corpuscular Volume 84 fL (79-100) Mean Corpuscular Hemoglobin 28 pg (25-35) Mean Corpuscular Hemoglobin Concent 34 g/dL (31-37) Red Cell Distribution Width 16.1 % (11.5-14.5) Platelet Count 264 x10^3/uL (140-400) Neutrophils (%) (Auto) 70 % (31-73) Lymphocytes (%) (Auto) 15 % (24-48) Monocytes (%) (Auto) 13 % (0-9) Eosinophils (%) (Auto) 2 % (0-3) Basophils (%) (Auto) 1 % (0-3) Neutrophils # (Auto) 6.5 x10^3/uL (1.8-7.7) Lymphocytes # (Auto) 1.4 x10^3/uL (1.0-4.8) Monocytes # (Auto) 1.2 x10^3/uL (0.0-1.1) Eosinophils # (Auto) 0.2 x10^3/uL (0.0-0.7) Basophils # (Auto) 0.1 x10^3/uL (0.0-0.2) Sodium Level 134 mmol/L (136-145) Potassium Level 4.1 mmol/L (3.5-5.1) Chloride Level 100 mmol/L (98-107) Carbon Dioxide Level 26 mmol/L (21-32) Anion Gap 8 (6-14) Blood Urea Nitrogen 7 mg/dL (8-26) Creatinine 0.8 mg/dL (0.7-1.3) Estimated GFR (Cockcroft-Gault) 94.8 BUN/Creatinine Ratio 9 (6-20) Glucose Level 208 mg/dL (70-99) Calcium Level 8.6 mg/dL (8.5-10.1) Total Bilirubin 0.7 mg/dL (0.2-1.0) Aspartate Amino Transf (AST/SGOT) 15 U/L (15-37) Alanine Aminotransferase (ALT/SGPT) 20 U/L (16-63) Alkaline Phosphatase 141 U/L (46-116) Total Protein 7.2 g/dL (6.4-8.2) Albumin 2.3 g/dL (3.4-5.0) Albumin/Globulin Ratio 0.5 (1.0-1.7) Objective: Assessment: 1. Cellulitis of lower extremities, superimposed on chronic venous stasis. 2. Tinea in foot. 3. Diabetes mellitus 2. 4. Chronic obstructive pulmonary disease. 5. Peripheral vascular disease. 6. Chronic atrial fibrillation. 7. Morbid obesity. 8. Mild confusion. Plan: Plan of Care Zosyn, Zyvox and micafungin. Continue local wound care. Wound team following with the patient also. Discussed with RN. GAVIOTA CHRISTENSEN MD Feb 05, 2019 09:59
--- NOTE | 2019-02-05 10:30 | PDOC ---
PROGRESS NOTES Chief Complaint Chief Complaint Bilateral lower extremity cellulitis Chronic venous status was chronic lymphedema [facility] resident Morbid obesity BMI 36 Sepsis POA with no organ dysfunction Mild hyponatremia Moderate PCM History of Present Illness History of Present Illness Review the chart, ID on board, I was going to check sedimentation rate, WBC high but no fever, sodium 134. I reviewed and showed him the pictures and took a look at the legs, and after all that, he wants to leave AMA and go back to [facility] Discussed with social work and RN HE follows with [facility] wound care Wound care I also consulted He is on micafungin and Zosyn per ID among others He will sign AMA Plan: he will sign AMA after my review of the whole chart with him, and physical exam and showed him pics of his legs Vitals Vitals Vital Signs Date Time Temp Pulse Resp B/P (MAP) Pulse Ox O2 Delivery O2 Flow Rate FiO2 02/05/19 09:08 98 125/67 02/05/19 07:50 Room Air 02/05/19 07:00 97.7 18 94 97.7 Physical Exam Physical Exam GENERAL: Alert and oriented male, sleepy, but arousable, answering a few questions, in no acute distress. HEENT: Normocephalic, atraumatic. Anicteric. No thrush. NECK: Supple. LUNGS: Clear bilaterally. HEART: S1, S2. ABDOMEN: Soft, nontender, nondistended. Bowel sounds present. EXTREMITIES: Bilateral lower extremities, dressing intact. Pictures from wound team noted chronic venous stasis with extensive erythematous skin with maceration between the toes, no cyanosis. NEUROLOGIC: Alert, oriented, somewhat confused. LINES: PIV look okay. General: Alert, Oriented X3, Cooperative Heart: Regular rate, Normal S1, Normal S2 Lungs: Clear Abdomen: Normal bowel sounds, Soft Skin: Other (bilat lower extremity are red, swollen, slightly warm to touch but no open skin breakage no weeping lesionsPoor overall foot hygieneDressing dry) Labs LABS Laboratory Tests Test 02/04/19 16:00 02/04/19 16:50 Urine Collection Type Unknown Urine Color Yellow Urine Clarity Clear Urine pH 6.0 Urine Specific [place] 1.020 Urine Protein Negative mg/dL (NEG-TRACE) Urine Glucose (UA) 500 mg/dL (NEG) Urine Ketones (Stick) Trace mg/dL (NEG) Urine Blood Negative (NEG) Urine Nitrite Negative (NEG) Urine Bilirubin Negative (NEG) Urine Urobilinogen Dipstick 2.0 mg/dL (0.2 mg/dL) Urine Leukocyte Esterase Negative (NEG) Urine RBC 3-5 /HPF (0-2) Urine WBC 0 /HPF (0-4) Urine Squamous Epithelial Cells Few /LPF Urine Bacteria 0 /HPF (0-FEW) Urine Mucus Mod /LPF White Blood Count 9.3 x10^3/uL (4.0-11.0) Red Blood Count 4.21 x10^6/uL (4.30-5.70) Hemoglobin 12.0 g/dL (13.0-17.5) Hematocrit 35.5 % (39.0-53.0) Mean Corpuscular Volume 84 fL (79-100) Mean Corpuscular Hemoglobin 28 pg (25-35) Mean Corpuscular Hemoglobin Concent 34 g/dL (31-37) Red Cell Distribution Width 16.1 % (11.5-14.5) Platelet Count 264 x10^3/uL (140-400) Neutrophils (%) (Auto) 70 % (31-73) Lymphocytes (%) (Auto) 15 % (24-48) Monocytes (%) (Auto) 13 % (0-9) Eosinophils (%) (Auto) 2 % (0-3) Basophils (%) (Auto) 1 % (0-3) Neutrophils # (Auto) 6.5 x10^3/uL (1.8-7.7) Lymphocytes # (Auto) 1.4 x10^3/uL (1.0-4.8) Monocytes # (Auto) 1.2 x10^3/uL (0.0-1.1) Eosinophils # (Auto) 0.2 x10^3/uL (0.0-0.7) Basophils # (Auto) 0.1 x10^3/uL (0.0-0.2) Sodium Level 134 mmol/L (136-145) Potassium Level 4.1 mmol/L (3.5-5.1) Chloride Level 100 mmol/L (98-107) Carbon Dioxide Level 26 mmol/L (21-32) Anion Gap 8 (6-14) Blood Urea Nitrogen 7 mg/dL (8-26) Creatinine 0.8 mg/dL (0.7-1.3) Estimated GFR (Cockcroft-Gault) 94.8 BUN/Creatinine Ratio 9 (6-20) Glucose Level 208 mg/dL (70-99) Calcium Level 8.6 mg/dL (8.5-10.1) Total Bilirubin 0.7 mg/dL (0.2-1.0) Aspartate Amino Transf (AST/SGOT) 15 U/L (15-37) Alanine Aminotransferase (ALT/SGPT) 20 U/L (16-63) Alkaline Phosphatase 141 U/L (46-116) Total Protein 7.2 g/dL (6.4-8.2) Albumin 2.3 g/dL (3.4-5.0) Albumin/Globulin Ratio 0.5 (1.0-1.7) Comment Review of Relevant I have reviewed the following items shahram (where applicable) has been applied. Labs Laboratory Tests Test 02/04/19 16:00 02/04/19 16:50 Urine Collection Type Unknown Urine Color Yellow Urine Clarity Clear Urine pH 6.0 Urine Specific [place] 1.020 Urine Protein Negative mg/dL (NEG-TRACE) Urine Glucose (UA) 500 mg/dL (NEG) Urine Ketones (Stick) Trace mg/dL (NEG) Urine Blood Negative (NEG) Urine Nitrite Negative (NEG) Urine Bilirubin Negative (NEG) Urine Urobilinogen Dipstick 2.0 mg/dL (0.2 mg/dL) Urine Leukocyte Esterase Negative (NEG) Urine RBC 3-5 /HPF (0-2) Urine WBC 0 /HPF (0-4) Urine Squamous Epithelial Cells Few /LPF Urine Bacteria 0 /HPF (0-FEW) Urine Mucus Mod /LPF White Blood Count 9.3 x10^3/uL (4.0-11.0) Red Blood Count 4.21 x10^6/uL (4.30-5.70) Hemoglobin 12.0 g/dL (13.0-17.5) Hematocrit 35.5 % (39.0-53.0) Mean Corpuscular Volume 84 fL (79-100) Mean Corpuscular Hemoglobin 28 pg (25-35) Mean Corpuscular Hemoglobin Concent 34 g/dL (31-37) Red Cell Distribution Width 16.1 % (11.5-14.5) Platelet Count 264 x10^3/uL (140-400) Neutrophils (%) (Auto) 70 % (31-73) Lymphocytes (%) (Auto) 15 % (24-48) Monocytes (%) (Auto) 13 % (0-9) Eosinophils (%) (Auto) 2 % (0-3) Basophils (%) (Auto) 1 % (0-3) Neutrophils # (Auto) 6.5 x10^3/uL (1.8-7.7) Lymphocytes # (Auto) 1.4 x10^3/uL (1.0-4.8) Monocytes # (Auto) 1.2 x10^3/uL (0.0-1.1) Eosinophils # (Auto) 0.2 x10^3/uL (0.0-0.7) Basophils # (Auto) 0.1 x10^3/uL (0.0-0.2) Sodium Level 134 mmol/L (136-145) Potassium Level 4.1 mmol/L (3.5-5.1) Chloride Level 100 mmol/L (98-107) Carbon Dioxide Level 26 mmol/L (21-32) Anion Gap 8 (6-14) Blood Urea Nitrogen 7 mg/dL (8-26) Creatinine 0.8 mg/dL (0.7-1.3) Estimated GFR (Cockcroft-Gault) 94.8 BUN/Creatinine Ratio 9 (6-20) Glucose Level 208 mg/dL (70-99) Calcium Level 8.6 mg/dL (8.5-10.1) Total Bilirubin 0.7 mg/dL (0.2-1.0) Aspartate Amino Transf (AST/SGOT) 15 U/L (15-37) Alanine Aminotransferase (ALT/SGPT) 20 U/L (16-63) Alkaline Phosphatase 141 U/L (46-116) Total Protein 7.2 g/dL (6.4-8.2) Albumin 2.3 g/dL (3.4-5.0) Albumin/Globulin Ratio 0.5 (1.0-1.7) Laboratory Tests Test 02/04/19 16:00 02/04/19 16:50 Urine Collection Type Unknown Urine Color Yellow Urine Clarity Clear Urine pH 6.0 Urine Specific [place] 1.020 Urine Protein Negative mg/dL (NEG-TRACE) Urine Glucose (UA) 500 mg/dL (NEG) Urine Ketones (Stick) Trace mg/dL (NEG) Urine Blood Negative (NEG) Urine Nitrite Negative (NEG) Urine Bilirubin Negative (NEG) Urine Urobilinogen Dipstick 2.0 mg/dL (0.2 mg/dL) Urine Leukocyte Esterase Negative (NEG) Urine RBC 3-5 /HPF (0-2) Urine WBC 0 /HPF (0-4) Urine Squamous Epithelial Cells Few /LPF Urine Bacteria 0 /HPF (0-FEW) Urine Mucus Mod /LPF White Blood Count 9.3 x10^3/uL (4.0-11.0) Red Blood Count 4.21 x10^6/uL (4.30-5.70) Hemoglobin 12.0 g/dL (13.0-17.5) Hematocrit 35.5 % (39.0-53.0) Mean Corpuscular Volume 84 fL (79-100) Mean Corpuscular Hemoglobin 28 pg (25-35) Mean Corpuscular Hemoglobin Concent 34 g/dL (31-37) Red Cell Distribution Width 16.1 % (11.5-14.5) Platelet Count 264 x10^3/uL (140-400) Neutrophils (%) (Auto) 70 % (31-73) Lymphocytes (%) (Auto) 15 % (24-48) Monocytes (%) (Auto) 13 % (0-9) Eosinophils (%) (Auto) 2 % (0-3) Basophils (%) (Auto) 1 % (0-3) Neutrophils # (Auto) 6.5 x10^3/uL (1.8-7.7) Lymphocytes # (Auto) 1.4 x10^3/uL (1.0-4.8) Monocytes # (Auto) 1.2 x10^3/uL (0.0-1.1) Eosinophils # (Auto) 0.2 x10^3/uL (0.0-0.7) Basophils # (Auto) 0.1 x10^3/uL (0.0-0.2) Sodium Level 134 mmol/L (136-145) Potassium Level 4.1 mmol/L (3.5-5.1) Chloride Level 100 mmol/L (98-107) Carbon Dioxide Level 26 mmol/L (21-32) Anion Gap 8 (6-14) Blood Urea Nitrogen 7 mg/dL (8-26) Creatinine 0.8 mg/dL (0.7-1.3) Estimated GFR (Cockcroft-Gault) 94.8 BUN/Creatinine Ratio 9 (6-20) Glucose Level 208 mg/dL (70-99) Calcium Level 8.6 mg/dL (8.5-10.1) Total Bilirubin 0.7 mg/dL (0.2-1.0) Aspartate Amino Transf (AST/SGOT) 15 U/L (15-37) Alanine Aminotransferase (ALT/SGPT) 20 U/L (16-63) Alkaline Phosphatase 141 U/L (46-116) Total Protein 7.2 g/dL (6.4-8.2) Albumin 2.3 g/dL (3.4-5.0) Albumin/Globulin Ratio 0.5 (1.0-1.7) Medications Current Medications Piperacillin Sod/ Tazobactam Sod (Zosyn Per Pharmacy) 1 each PRN DAILY PRN MC SEE COMMENTS; Start 02/04/19 at 16:15 Linezolid (Zyvox) 600 mg BID PO Last administered on 02/05/19 09:06; Start 02/04/19 at 17:00 Micafungin Sodium 100 mg/Dextrose 100 ml @ 100 mls/hr Q24H IV Last administered on 02/04/19 18:03; Start 02/04/19 at 17:00 Piperacillin Sod/ Tazobactam Sod 3.375 gm/Sodium Chloride 50 ml @ 100 mls/hr Q6HRS IV Last administered on 02/05/19 05:40; Start 02/04/19 at 16:30 Sodium Chloride 1,000 ml @ 75 mls/hr [id number] IV Last administered on 02/05/19 07:57; Start 02/04/19 at 18:00 Allopurinol (Zyloprim) 300 mg DAILY PO Last administered on 02/05/19 09:06; Start 02/05/19 at 09:00 Digoxin (Lanoxin) 125 mcg DAILY PO Last administered on 02/05/19 09:07; Start 02/05/19 at 09:00 Fluticasone Propionate (Flonase) 2 spray HS NS Last administered on 02/04/19 20:44; Start 02/04/19 at 21:00 Folic Acid (Folic Acid) 1 mg DAILY PO Last administered on 02/05/19 09:07; Start 02/05/19 at 09:00 Furosemide (Lasix) 20 mg DAILY PO Last administered on 02/05/19 09:08; Start 02/05/19 at 09:00 Gabapentin (Neurontin) 300 mg HS PO Last administered on 02/04/19 20:43; Start 02/04/19 at 21:00 Acetaminophen/ Hydrocodone Bitart (Lortab 5/325) 1 tab PRN Q4HRS PRN PO MODERATE PAIN; Start 02/04/19 at 18:00 Lorazepam (Ativan) 1 mg HS PO Last administered on 02/04/19 20:42; Start 02/04/19 at 21:00 Losartan Potassium (Cozaar) 50 mg DAILY PO Last administered on 02/05/19 09:08; Start 02/05/19 at 09:00 Metoprolol Tartrate (Lopressor) 12.5 mg BID PO Last administered on 02/05/19 09:07; Start 02/04/19 at 21:00 Potassium Chloride (Klor-Con) 10 meq BID PO Last administered on 02/05/19 09:06; Start 02/04/19 at 21:00 Non-Formulary Medication (Albuterol Sulfate (Ventolin Hfa Inhaler)) 2 puff PRN Q4-6HRS IH ; Start 02/04/19 at 18:00; Stop 02/04/19 at 18:05; Status DC Non-Formulary Medication (Albuterol Sulfate (Ventolin Hfa Inhaler)) 2 puff QID INH ; Start 02/04/19 at 21:00; Status UNV Diltiazem HCl (Cardizem 24hr Cd) 120 mg DAILY PO Last administered on 02/05/19 09:07; Start 02/05/19 at 09:00 Non-Formulary Medication (Fluticasone Propionate (Flovent 100MCG Diskus)) 1 puff HS IH ; Start 02/04/19 at 21:00; Status UNV Risperidone (RisperDAL) 0.5 mg QHS PO Last administered on 02/04/19 20:43; Start 02/04/19 at 21:00 Rivaroxaban (Xarelto) 20 mg DAILY16 PO Last administered on 02/04/19at 19:06; Start 02/04/19 at 19:00 Albuterol Sulfate (Ventolin Neb Soln) 2.5 mg RTQID NEB ; Start 02/04/19 at 20:00; Stop 02/04/19 at 20:26; Status DC Albuterol Sulfate (Ventolin Neb Soln) 2.5 mg PRN Q6HRS PRN NEB SHORTNESS OF BREATH; Start 02/04/19 at 18:00; Stop 02/05/19 at 08:54; Status DC Budesonide (Pulmicort) 0.5 mg RTBID NEB ; Start 02/04/19 at 20:00; Stop 02/04/19 at 20:26; Status DC Budesonide (Pulmicort) 0.5 mg PRN BID PRN NEB WHEEZING; Start 02/04/19 at 20:30; Stop 02/05/19 at 08:55; Status DC Albuterol Sulfate (Ventolin Neb Soln) 2.5 mg PRN Q4HRS PRN NEB SHORTNESS OF BREATH; Start 02/05/19 at 09:00 Budesonide (Pulmicort) 0.5 mg RTBID NEB ; Start 02/05/19 at 09:00 Ondansetron HCl (Zofran) 4 mg PRN Q6HRS PRN IV NAUSEA/VOMITING; Start 02/05/19 at 09:00 Acetaminophen (Tylenol) 500 mg PRN Q6HRS PRN PO MILD PAIN / TEMP; Start 02/05/19 at 09:00 Morphine Sulfate (Morphine Sulfate) 1 mg PRN Q2HR PRN IV PAIN; Start 02/05/19 at 09:00 Active Scripts Active Lanoxin (Digoxin) 125 Mcg Tablet 125 Mcg PO DAILY 30 Days Reported Losartan Potassium 50 Mg Tablet 50 Mg PO DAILY Diltiazem 24HR Cd (Diltiazem Hcl) 120 Mg Cap.er.24h 1 Cap PO DAILY Furosemide 20 Mg Tablet 1 Tab PO DAILY Hydrocodone-Apap 5-325 (Hydrocodone Bit/Acetaminophen) 1 Tab Tablet 1 Tab PO PRN Q4HRS PRN Xarelto (Rivaroxaban) 20 Mg Tablet 20 Mg PO DAILY Lorazepam 1 Mg Tablet 1 Mg PO HS Gabapentin (Gabapentin) 300 Mg Capsule 1 Cap PO HS Flovent 100MCG Diskus (Fluticasone Propionate) 100 Mcg Disk.w.dev 1 Puff IH HS Potassium Chloride 10 Meq Tab.er.prt 1 Tab PO BID Metoprolol Tartrate 25 Mg Tablet 0.5 Tab PO BID Folic Acid 1 Mg Tablet 1 Tab PO DAILY Allopurinol 300 Mg Tablet 300 Mg PO DAILY Ventolin Hfa Inhaler (Albuterol Sulfate) 18 Gm Hfa.aer.ad 2 Puff INH QID Flonase (Fluticasone Propionate) 16 Gm [place].susp 2 [place] NS HS Ventolin Hfa Inhaler (Albuterol Sulfate) 18 Gm Hfa.aer.ad 2 Puff IH PRN Q4-6HRS Risperidone 0.5 Mg Tablet 1 Tab PO QHS Vitals/I & O Vital Sign - Last 24 Hours 02/04/19 02/04/19 02/04/19 02/04/19 14:39 19:00 19:49 20:00 Temp 98.9 98.7 98.9 98.7 Pulse 92 94 Resp 18 18 B/P (MAP) 123/62 (82) 126/71 (89) Pulse Ox 98 94 94 O2 Delivery Room Air Room Air Room Air Room Air 02/04/19 02/04/19 02/05/19 02/05/19 20:43 23:00 03:00 07:00 Temp 98.0 98.6 97.7 98.0 98.6 97.7 Pulse 94 75 79 98 Resp 20 18 18 B/P (MAP) 126/71 112/68 (83) 101/59 (73) 125/67 (86) Pulse Ox 96 93 94 O2 Delivery Room Air Room Air Room Air 02/05/19 02/05/19 02/05/19 02/05/19 07:50 09:07 09:07 09:07 Pulse 98 98 98 B/P (MAP) 125/67 125/67 125/67 O2 Delivery Room Air 02/05/19 09:08 Pulse 98 B/P (MAP) 125/67 Intake and Output 02/04/19 02/04/19 02/05/19 15:00 23:00 07:00 Intake Total 180 ml Output Total 300 ml 450 ml Balance -120 ml -450 ml LENNIE CORRALES MD Feb 05, 2019 10:30
[2019-02-05 11:00] VITALS: BP 136/76
[2019-02-05] MEDS: BUDESONIDE 0.5 MG/2 ML NEBU. NEB SCH ×2 (11:10→20:19)
--- NOTE | 2019-02-05 12:16 | NUR ---
SW following pt. SW notified by RN pt is wanting leave AMA back to [facility]. JOSE phoned and faxed clinicals to [facility]. Discussed with Nita at [facility] and she will come to speak with pt, also pt's niece will come to speak with pt as well. Discussed with RN.
[2019-02-05] MEDS ORDERED: NICOTINE POLACRILEX 2MG GUM PACKAGE of 12. BC PRN (12:45)
[2019-02-05] MEDS: NICOTINE 21MG PATCH. TD PRN (13:09)
[2019-02-05 15:00] VITALS: BP 155/81
[2019-02-05] MEDS: RIVAROXABAN 10 MG TABLET. PO SCH (16:28)
[2019-02-05] MEDS: MICAFUNGIN 100 MG in IV DEXTROSE 5% 100ML 100 ML IV SCH (16:29)
[2019-02-05 19:00] VITALS: BP 140/67
[2019-02-05] MEDS: LORazepam 1 MG TABLET PO SCH (20:59)
[2019-02-05] MEDS: GABAPENTIN 300 MG CAPSULE. PO SCH (20:59)
[2019-02-05] MEDS: risperiDONE 0.25 MG TABLET. PO SCH (20:59)
[2019-02-05] MEDS: LACTOBACILLUS RHAMNOSUS GG 1 CAPSULE. PO SCH (21:00)
[2019-02-05] MEDS: FLUTICASONE 50MCG/NASAL SPRAY 16GM BOTTLE. NS SCH (21:00)
[2019-02-05 23:00] VITALS: BP 124/76
[2019-02-06 03:00] VITALS: BP 123/83
[2019-02-06] MEDS: PIPERACILLIN/TAZOBACTAM 3.375 GM in IV NORMAL SALINE 50ML 50 ML IV SCH ×4 (06:08→23:04)
[2019-02-06 06:49] LABS: BASO # 0.1 x10^3/uL (0.0-0.2); BASO % 1 % (0-3); EOS # 0.2 x10^3/uL (0.0-0.7); EOS % 3 % (0-3); HEMOGLOBIN 11.9 g/dL (13.0-17.5); LYMPH # 1.3 x10^3/uL (1.0-4.8); LYMPH % 20 % (24-48); MEAN CORPUSCULAR HEMOGLOBIN 28 pg (25-35); MEAN CORPUSCULAR HGB CONC 33 g/dL (31-37); MEAN CORPUSCULAR VOLUME 85 fL (79-100); MONO # 0.7 x10^3/uL (0.0-1.1); MONO % 10 % (0-9); NEUT # 4.3 x10^3/uL (1.8-7.7); NEUT % 66 % (31-73); PLATELET COUNT 242 x10^3/uL (140-400); RED BLOOD COUNT 4.24 x10^6/uL (4.30-5.70); RED CELL DISTRIBUTION WIDTH 16.4 % (11.5-14.5); WHITE BLOOD COUNT 6.5 x10^3/uL (4.0-11.0)
[2019-02-06 07:00] VITALS: BP 125/62
[2019-02-06 07:06] LABS: CALCIUM 8.2 mg/dL (8.5-10.1); CREATININE 0.8 mg/dL (0.7-1.3); GFR 94.8; POTASSIUM 3.9 mmol/L (3.5-5.1)
[2019-02-06] MEDS: BUDESONIDE 0.5 MG/2 ML NEBU. NEB SCH ×2 (07:54→19:54)
--- NOTE | 2019-02-06 08:13 | PDOC ---
Infectious Disease Note Subjective: Subjective pt without complaints, wants to go back to [facility] no f/c/n/v/d ROS: ROS Negative otherwise. Vital Signs: Vital Signs Vital Signs Date Time Temp Pulse Resp B/P (MAP) Pulse Ox O2 Delivery O2 Flow Rate FiO2 02/06/19 07:54 94 Room Air 02/06/19 07:00 97.9 98 16 125/62 (83) 97.9 Physical Exam: PHYSICAL EXAM GENERAL: Alert and oriented male, sleepy, but arousable, answering a few questions, in no acute distress. HEENT: Normocephalic, atraumatic. Anicteric. No thrush. NECK: Supple. LUNGS: Clear bilaterally. HEART: S1, S2. ABDOMEN: Soft, nontender, nondistended. Bowel sounds present. EXTREMITIES: Bilateral lower extremities, dressing intact. Pictures from wound team noted chronic venous stasis with extensive erythematous skin with maceration between the toes, no cyanosis. NEUROLOGIC: Alert, oriented, somewhat confused. LINES: PIV look okay. Medications: Inpatient Meds: Current Medications Medications (Trade) Dose Ordered Sig/Rachel Start Time Stop Time Status Last Admin Dose Admin Acetaminophen (Tylenol) 500 mg PRN Q6HRS PRN 02/05/19 09:00 Acetaminophen/ Hydrocodone Bitart (Lortab 5/325) 1 tab PRN Q4HRS PRN 02/05/19 12:45 Albuterol Sulfate (Ventolin Neb Soln) 2.5 mg PRN Q4HRS PRN 02/05/19 09:00 Allopurinol (Zyloprim) 300 mg DAILY 02/05/19 09:00 02/05/19 09:06 300 MG Budesonide (Pulmicort) 0.5 mg RTBID 02/05/19 09:00 02/06/19 07:54 0.5 MG Digoxin (Lanoxin) 125 mcg DAILY 02/05/19 09:00 02/05/19 09:07 125 MCG Diltiazem HCl (Cardizem 24hr Cd) 120 mg DAILY 02/05/19 09:00 02/05/19 09:07 120 MG Fluticasone Propionate (Flonase) 2 spray HS 02/04/19 21:00 02/05/19 21:00 2 SPRAY Folic Acid (Folic Acid) 1 mg DAILY 02/05/19 09:00 02/05/19 09:07 1 MG Furosemide (Lasix) 20 mg DAILY 02/05/19 09:00 02/05/19 09:08 20 MG Gabapentin (Neurontin) 300 mg HS 02/04/19 21:00 02/05/19 20:59 300 MG Lactobacillus Rhamnosus (Culturelle) 1 cap BID 02/05/19 21:00 02/05/19 21:00 1 CAP Linezolid (Zyvox) 600 mg BID 02/04/19 17:00 02/05/19 21:00 600 MG Lorazepam (Ativan) 1 mg HS 02/04/19 21:00 02/05/19 20:59 1 MG Losartan Potassium (Cozaar) 50 mg DAILY 02/05/19 09:00 02/05/19 09:08 50 MG Metoprolol Tartrate (Lopressor) 12.5 mg BID 02/04/19 21:00 02/05/19 21:00 12.5 MG Micafungin Sodium 100 mg/Dextrose 100 ml @ 100 mls/hr Q24H 02/04/19 17:00 02/05/19 16:29 100 MLS/HR Morphine Sulfate (Morphine Sulfate) 1 mg PRN Q2HR PRN 02/05/19 09:00 Nicotine (Nicoderm Cq 21mg) 1 patch PRN DAILY PRN 02/05/19 12:45 02/05/19 13:09 1 PATCH Nicotine Polacrilex (Nicorette Gum) 1 each PRN Q1HR PRN 02/05/19 12:45 Non-Formulary Medication (Albuterol Sulfate (Ventolin Hfa Inhaler)) 2 puff QID 02/04/19 21:00 UNV Non-Formulary Medication (Fluticasone Propionate (Flovent 100MCG Diskus)) 1 puff HS 02/04/19 21:00 UNV Ondansetron HCl (Zofran) 4 mg PRN Q6HRS PRN 02/05/19 09:00 Piperacillin Sod/ Tazobactam Sod (Zosyn Per Pharmacy) 1 each PRN DAILY PRN 02/04/19 16:15 Piperacillin Sod/ Tazobactam Sod 3.375 gm/Sodium Chloride 50 ml @ 100 mls/hr Q6HRS 02/04/19 16:30 8/2/19 06:08 100 MLS/HR Potassium Chloride (Klor-Con) 10 meq BID 02/04/19 21:00 02/05/19 21:00 10 MEQ Risperidone (RisperDAL) 0.5 mg QHS 02/04/19 21:00 02/05/19 20:59 0.5 MG Rivaroxaban (Xarelto) 20 mg DAILY16 02/04/19 19:00 02/05/19 16:28 20 MG Sodium Chloride 1,000 ml @ 75 mls/hr [id number] 02/04/19 18:00 02/05/19 20:59 75 MLS/HR Labs: Lab Laboratory Tests Test 02/06/19 06:30 White Blood Count 6.5 x10^3/uL (4.0-11.0) Red Blood Count 4.24 x10^6/uL (4.30-5.70) Hemoglobin 11.9 g/dL (13.0-17.5) Hematocrit 36.0 % (39.0-53.0) Mean Corpuscular Volume 85 fL (79-100) Mean Corpuscular Hemoglobin 28 pg (25-35) Mean Corpuscular Hemoglobin Concent 33 g/dL (31-37) Red Cell Distribution Width 16.4 % (11.5-14.5) Platelet Count 242 x10^3/uL (140-400) Neutrophils (%) (Auto) 66 % (31-73) Lymphocytes (%) (Auto) 20 % (24-48) Monocytes (%) (Auto) 10 % (0-9) Eosinophils (%) (Auto) 3 % (0-3) Basophils (%) (Auto) 1 % (0-3) Neutrophils # (Auto) 4.3 x10^3/uL (1.8-7.7) Lymphocytes # (Auto) 1.3 x10^3/uL (1.0-4.8) Monocytes # (Auto) 0.7 x10^3/uL (0.0-1.1) Eosinophils # (Auto) 0.2 x10^3/uL (0.0-0.7) Basophils # (Auto) 0.1 x10^3/uL (0.0-0.2) Sodium Level 140 mmol/L (136-145) Potassium Level 3.9 mmol/L (3.5-5.1) Chloride Level 105 mmol/L (98-107) Carbon Dioxide Level 25 mmol/L (21-32) Anion Gap 10 (6-14) Blood Urea Nitrogen 8 mg/dL (8-26) Creatinine 0.8 mg/dL (0.7-1.3) Estimated GFR (Cockcroft-Gault) 94.8 Glucose Level 143 mg/dL (70-99) Calcium Level 8.2 mg/dL (8.5-10.1) Objective: Assessment: 1. Cellulitis of lower extremities, superimposed on chronic venous stasis. 2. Tinea in foot. 3. Diabetes mellitus 2. 4. Chronic obstructive pulmonary disease. 5. Peripheral vascular disease. 6. Chronic atrial fibrillation. 7. Morbid obesity. 8. Mild confusion. Plan: Plan of Care Zosyn, Zyvox and micafungin. Continue local wound care. Wound team following for wound care Discussed with RN. GAVIOTA CHRISTENSEN MD Feb 06, 2019 08:13
--- NOTE | 2019-02-06 09:10 | PDOC ---
PROGRESS NOTES Chief Complaint Chief Complaint Bilateral lower extremity cellulitis Chronic venous status was chronic lymphedema SNU resident Morbid obesity BMI 36 Sepsis POA with no organ dysfunction Mild hyponatremia Moderate PCM History of Present Illness History of Present Illness ESR high WBC high but no fever, sodium 134 Discussed with social work and RN HE follows with [facility] wound care Wound care He is on micafungin and Zosyn Vitals Vitals Vital Signs Date Time Temp Pulse Resp B/P (MAP) Pulse Ox O2 Delivery O2 Flow Rate FiO2 02/06/19 07:54 94 Room Air 02/06/19 07:00 97.9 98 16 125/62 (83) 97.9 Physical Exam Physical Exam GENERAL: Alert and oriented male, sleepy, but arousable, answering a few questions, in no acute distress. HEENT: Normocephalic, atraumatic. Anicteric. No thrush. NECK: Supple. LUNGS: Clear bilaterally. HEART: S1, S2. ABDOMEN: Soft, nontender, nondistended. Bowel sounds present. EXTREMITIES: Bilateral lower extremities, dressing intact. Pictures from wound team noted chronic venous stasis with extensive erythematous skin with maceration between the toes, no cyanosis. NEUROLOGIC: Alert, oriented, somewhat confused. LINES: PIV look okay. General: Alert, Oriented X3, Cooperative Heart: Regular rate, Normal S1, Normal S2 Lungs: Clear Abdomen: Normal bowel sounds, Soft Skin: Other (bilat lower extremity are red, swollen, slightly warm to touch but no open skin breakage no weeping lesionsPoor overall foot hygieneDressing dry) Labs LABS Laboratory Tests Test 02/06/19 06:30 White Blood Count 6.5 x10^3/uL (4.0-11.0) Red Blood Count 4.24 x10^6/uL (4.30-5.70) Hemoglobin 11.9 g/dL (13.0-17.5) Hematocrit 36.0 % (39.0-53.0) Mean Corpuscular Volume 85 fL (79-100) Mean Corpuscular Hemoglobin 28 pg (25-35) Mean Corpuscular Hemoglobin Concent 33 g/dL (31-37) Red Cell Distribution Width 16.4 % (11.5-14.5) Platelet Count 242 x10^3/uL (140-400) Neutrophils (%) (Auto) 66 % (31-73) Lymphocytes (%) (Auto) 20 % (24-48) Monocytes (%) (Auto) 10 % (0-9) Eosinophils (%) (Auto) 3 % (0-3) Basophils (%) (Auto) 1 % (0-3) Neutrophils # (Auto) 4.3 x10^3/uL (1.8-7.7) Lymphocytes # (Auto) 1.3 x10^3/uL (1.0-4.8) Monocytes # (Auto) 0.7 x10^3/uL (0.0-1.1) Eosinophils # (Auto) 0.2 x10^3/uL (0.0-0.7) Basophils # (Auto) 0.1 x10^3/uL (0.0-0.2) Erythrocyte Sedimentation Rate 97 (0-15) Sodium Level 140 mmol/L (136-145) Potassium Level 3.9 mmol/L (3.5-5.1) Chloride Level 105 mmol/L (98-107) Carbon Dioxide Level 25 mmol/L (21-32) Anion Gap 10 (6-14) Blood Urea Nitrogen 8 mg/dL (8-26) Creatinine 0.8 mg/dL (0.7-1.3) Estimated GFR (Cockcroft-Gault) 94.8 Glucose Level 143 mg/dL (70-99) Calcium Level 8.2 mg/dL (8.5-10.1) Comment Review of Relevant I have reviewed the following items shahram (where applicable) has been applied. Labs Laboratory Tests Test 02/04/19 16:00 02/04/19 16:50 02/04/19 16:52 02/06/19 06:30 Urine Collection Type Unknown Urine Color Yellow Urine Clarity Clear Urine pH 6.0 Urine Specific [place] 1.020 Urine Protein Negative mg/dL (NEG-TRACE) Urine Glucose (UA) 500 mg/dL (NEG) Urine Ketones (Stick) Trace mg/dL (NEG) Urine Blood Negative (NEG) Urine Nitrite Negative (NEG) Urine Bilirubin Negative (NEG) Urine Urobilinogen Dipstick 2.0 mg/dL (0.2 mg/dL) Urine Leukocyte Esterase Negative (NEG) Urine RBC 3-5 /HPF (0-2) Urine WBC 0 /HPF (0-4) Urine Squamous Epithelial Cells Few /LPF Urine Bacteria 0 /HPF (0-FEW) Urine Mucus Mod /LPF White Blood Count 9.3 x10^3/uL (4.0-11.0) 6.5 x10^3/uL (4.0-11.0) Red Blood Count 4.21 x10^6/uL (4.30-5.70) 4.24 x10^6/uL (4.30-5.70) Hemoglobin 12.0 g/dL (13.0-17.5) 11.9 g/dL (13.0-17.5) Hematocrit 35.5 % (39.0-53.0) 36.0 % (39.0-53.0) Mean Corpuscular Volume 84 fL (79-100) 85 fL (79-100) Mean Corpuscular Hemoglobin 28 pg (25-35) 28 pg (25-35) Mean Corpuscular Hemoglobin Concent 34 g/dL (31-37) 33 g/dL (31-37) Red Cell Distribution Width 16.1 % (11.5-14.5) 16.4 % (11.5-14.5) Platelet Count 264 x10^3/uL (140-400) 242 x10^3/uL (140-400) Neutrophils (%) (Auto) 70 % (31-73) 66 % (31-73) Lymphocytes (%) (Auto) 15 % (24-48) 20 % (24-48) Monocytes (%) (Auto) 13 % (0-9) 10 % (0-9) Eosinophils (%) (Auto) 2 % (0-3) 3 % (0-3) Basophils (%) (Auto) 1 % (0-3) 1 % (0-3) Neutrophils # (Auto) 6.5 x10^3/uL (1.8-7.7) 4.3 x10^3/uL (1.8-7.7) Lymphocytes # (Auto) 1.4 x10^3/uL (1.0-4.8) 1.3 x10^3/uL (1.0-4.8) Monocytes # (Auto) 1.2 x10^3/uL (0.0-1.1) 0.7 x10^3/uL (0.0-1.1) Eosinophils # (Auto) 0.2 x10^3/uL (0.0-0.7) 0.2 x10^3/uL (0.0-0.7) Basophils # (Auto) 0.1 x10^3/uL (0.0-0.2) 0.1 x10^3/uL (0.0-0.2) Sodium Level 134 mmol/L (136-145) 140 mmol/L (136-145) Potassium Level 4.1 mmol/L (3.5-5.1) 3.9 mmol/L (3.5-5.1) Chloride Level 100 mmol/L (98-107) 105 mmol/L (98-107) Carbon Dioxide Level 26 mmol/L (21-32) 25 mmol/L (21-32) Anion Gap 8 (6-14) 10 (6-14) Blood Urea Nitrogen 7 mg/dL (8-26) 8 mg/dL (8-26) Creatinine 0.8 mg/dL (0.7-1.3) 0.8 mg/dL (0.7-1.3) Estimated GFR (Cockcroft-Gault) 94.8 94.8 BUN/Creatinine Ratio 9 (6-20) Glucose Level 208 mg/dL (70-99) 143 mg/dL (70-99) Calcium Level 8.6 mg/dL (8.5-10.1) 8.2 mg/dL (8.5-10.1) Total Bilirubin 0.7 mg/dL (0.2-1.0) Aspartate Amino Transf (AST/SGOT) 15 U/L (15-37) Alanine Aminotransferase (ALT/SGPT) 20 U/L (16-63) Alkaline Phosphatase 141 U/L (46-116) Total Protein 7.2 g/dL (6.4-8.2) Albumin 2.3 g/dL (3.4-5.0) Albumin/Globulin Ratio 0.5 (1.0-1.7) Nasal Screen MRSA (PCR) Positive (Negative) Erythrocyte Sedimentation Rate 97 (0-15) Laboratory Tests Test 02/06/19 06:30 White Blood Count 6.5 x10^3/uL (4.0-11.0) Red Blood Count 4.24 x10^6/uL (4.30-5.70) Hemoglobin 11.9 g/dL (13.0-17.5) Hematocrit 36.0 % (39.0-53.0) Mean Corpuscular Volume 85 fL (79-100) Mean Corpuscular Hemoglobin 28 pg (25-35) Mean Corpuscular Hemoglobin Concent 33 g/dL (31-37) Red Cell Distribution Width 16.4 % (11.5-14.5) Platelet Count 242 x10^3/uL (140-400) Neutrophils (%) (Auto) 66 % (31-73) Lymphocytes (%) (Auto) 20 % (24-48) Monocytes (%) (Auto) 10 % (0-9) Eosinophils (%) (Auto) 3 % (0-3) Basophils (%) (Auto) 1 % (0-3) Neutrophils # (Auto) 4.3 x10^3/uL (1.8-7.7) Lymphocytes # (Auto) 1.3 x10^3/uL (1.0-4.8) Monocytes # (Auto) 0.7 x10^3/uL (0.0-1.1) Eosinophils # (Auto) 0.2 x10^3/uL (0.0-0.7) Basophils # (Auto) 0.1 x10^3/uL (0.0-0.2) Erythrocyte Sedimentation Rate 97 (0-15) Sodium Level 140 mmol/L (136-145) Potassium Level 3.9 mmol/L (3.5-5.1) Chloride Level 105 mmol/L (98-107) Carbon Dioxide Level 25 mmol/L (21-32) Anion Gap 10 (6-14) Blood Urea Nitrogen 8 mg/dL (8-26) Creatinine 0.8 mg/dL (0.7-1.3) Estimated GFR (Cockcroft-Gault) 94.8 Glucose Level 143 mg/dL (70-99) Calcium Level 8.2 mg/dL (8.5-10.1) Medications Current Medications Piperacillin Sod/ Tazobactam Sod (Zosyn Per Pharmacy) 1 each PRN DAILY PRN MC SEE COMMENTS; Start 02/04/19 at 16:15 Linezolid (Zyvox) 600 mg BID PO Last administered on 02/05/19at 21:00; Start 02/04/19 at 17:00 Micafungin Sodium 100 mg/Dextrose 100 ml @ 100 mls/hr Q24H IV Last administered on 02/05/19 16:29; Start 02/04/19 at 17:00 Piperacillin Sod/ Tazobactam Sod 3.375 gm/Sodium Chloride 50 ml @ 100 mls/hr Q6HRS IV Last administered on 02/06/19 06:08; Start 02/04/19 at 16:30 Sodium Chloride 1,000 ml @ 75 mls/hr [id number] IV Last administered on 02/05/19 20:59; Start 02/04/19 at 18:00 Allopurinol (Zyloprim) 300 mg DAILY PO Last administered on 02/05/19 09:06; Start 02/05/19 at 09:00 Digoxin (Lanoxin) 125 mcg DAILY PO Last administered on 02/05/19 09:07; Start 02/05/19 at 09:00 Fluticasone Propionate (Flonase) 2 spray HS NS Last administered on 02/05/19 21:00; Start 02/04/19 at 21:00 Folic Acid (Folic Acid) 1 mg DAILY PO Last administered on 02/05/19 09:07; Start 02/05/19 at 09:00 Furosemide (Lasix) 20 mg DAILY PO Last administered on 02/05/19 09:08; Start 02/05/19 at 09:00 Gabapentin (Neurontin) 300 mg HS PO Last administered on 02/05/19 20:59; Start 02/04/19 at 21:00 Acetaminophen/ Hydrocodone Bitart (Lortab 5/325) 1 tab PRN Q4HRS PRN PO MODERATE PAIN Last administered on 02/05/19 10:32; Start 02/04/19 at 18:00; Stop 02/05/19 at 14:03; Status DC Lorazepam (Ativan) 1 mg HS PO Last administered on 02/05/19 20:59; Start 02/04/19 at 21:00 Losartan Potassium (Cozaar) 50 mg DAILY PO Last administered on 02/05/19 09:08; Start 02/05/19 at 09:00 Metoprolol Tartrate (Lopressor) 12.5 mg BID PO Last administered on 8/1/19at 21:00; Start 02/04/19 at 21:00 Potassium Chloride (Klor-Con) 10 meq BID PO Last administered on 02/05/19at 21:00 ; Start 02/04/19 at 21:00 Non-Formulary Medication (Albuterol Sulfate (Ventolin Hfa Inhaler)) 2 puff PRN Q4-6HRS IH ; Start 02/04/19 at 18:00; Stop 02/04/19 at 18:05; Status DC Non-Formulary Medication (Albuterol Sulfate (Ventolin Hfa Inhaler)) 2 puff QID INH ; Start 02/04/19 at 21:00; Status UNV Diltiazem HCl (Cardizem 24hr Cd) 120 mg DAILY PO Last administered on 02/05/19at 09:07; Start 02/05/19 at 09:00 Non-Formulary Medication (Fluticasone Propionate (Flovent 100MCG Diskus)) 1 puff HS IH ; Start 02/04/19 at 21:00; Status UNV Risperidone (RisperDAL) 0.5 mg QHS PO Last administered on 02/05/19at 20:59; Start 02/04/19 at 21:00 Rivaroxaban (Xarelto) 20 mg DAILY16 PO Last administered on 02/05/19at 16:28; Start 02/04/19 at 19:00 Albuterol Sulfate (Ventolin Neb Soln) 2.5 mg RTQID NEB ; Start 02/04/19 at 20:00; Stop 02/04/19 at 20:26; Status DC Albuterol Sulfate (Ventolin Neb Soln) 2.5 mg PRN Q6HRS PRN NEB SHORTNESS OF BREATH; Start 02/04/19 at 18:00; Stop 02/05/19 at 08:54; Status DC Budesonide (Pulmicort) 0.5 mg RTBID NEB ; Start 02/04/19 at 20:00; Stop 02/04/19 at 20:26; Status DC Budesonide (Pulmicort) 0.5 mg PRN BID PRN NEB WHEEZING; Start 02/04/19 at 20:30; Stop 02/05/19 at 08:55; Status DC Albuterol Sulfate (Ventolin Neb Soln) 2.5 mg PRN Q4HRS PRN NEB SHORTNESS OF BREATH; Start 02/05/19 at 09:00 Budesonide (Pulmicort) 0.5 mg RTBID NEB Last administered on 02/06/19at 07:54; Start 02/05/19 at 09:00 Ondansetron HCl (Zofran) 4 mg PRN Q6HRS PRN IV NAUSEA/VOMITING; Start 02/05/19 at 09:00 Acetaminophen (Tylenol) 500 mg PRN Q6HRS PRN PO MILD PAIN / TEMP; Start 02/05/19 at 09:00 Morphine Sulfate (Morphine Sulfate) 1 mg PRN Q2HR PRN IV SEVERE PAIN; Start 02/05/19 at 09:00 Acetaminophen/ Hydrocodone Bitart (Lortab 5/325) 1 tab PRN Q4HRS PRN PO MODERATE PAIN; Start 02/05/19 at 12:45 Nicotine Polacrilex (Nicorette Gum) 1 each PRN Q1HR PRN BC SMOKING CESSATION; Start 02/05/19 at 12:45 Nicotine (Nicoderm Cq 21mg) 1 patch PRN DAILY PRN TD SMOKING CESSATION Last administered on 02/05/19at 13:09; Start 02/05/19 at 12:45 Lactobacillus Rhamnosus (Culturelle) 1 cap BID PO Last administered on 02/05/19at 21:00; Start 02/05/19 at 21:00 Active Scripts Active Lanoxin (Digoxin) 125 Mcg Tablet 125 Mcg PO DAILY 30 Days Reported Losartan Potassium 50 Mg Tablet 50 Mg PO DAILY Diltiazem 24HR Cd (Diltiazem Hcl) 120 Mg Cap.er.24h 1 Cap PO DAILY Furosemide 20 Mg Tablet 1 Tab PO DAILY Hydrocodone-Apap 5-325 (Hydrocodone Bit/Acetaminophen) 1 Tab Tablet 1 Tab PO PRN Q4HRS PRN Xarelto (Rivaroxaban) 20 Mg Tablet 20 Mg PO DAILY Lorazepam 1 Mg Tablet 1 Mg PO HS Gabapentin (Gabapentin) 300 Mg Capsule 1 Cap PO HS Flovent 100MCG Diskus (Fluticasone Propionate) 100 Mcg Disk.w.dev 1 Puff IH HS Potassium Chloride 10 Meq Tab.er.prt 1 Tab PO BID Metoprolol Tartrate 25 Mg Tablet 0.5 Tab PO BID Folic Acid 1 Mg Tablet 1 Tab PO DAILY Allopurinol 300 Mg Tablet 300 Mg PO DAILY Ventolin Hfa Inhaler (Albuterol Sulfate) 18 Gm Hfa.aer.ad 2 Puff INH QID Flonase (Fluticasone Propionate) 16 Gm [place].susp 2 [place] NS HS Ventolin Hfa Inhaler (Albuterol Sulfate) 18 Gm Hfa.aer.ad 2 Puff IH PRN Q4-6HRS Risperidone 0.5 Mg Tablet 1 Tab PO QHS Vitals/I & O Vital Sign - Last 24 Hours 02/05/19 02/05/19 02/05/19 02/05/19 09:07 09:07 09:07 09:08 Pulse 98 98 98 98 B/P (MAP) 125/67 125/67 125/67 125/67 02/05/19 02/05/19 02/05/19 02/05/19 10:32 11:00 11:12 11:51 Temp 98.0 98.0 Pulse 103 Resp 18 B/P (MAP) 136/76 (96) Pulse Ox 92 O2 Delivery Room Air Room Air Room Air Room Air 02/05/19 02/05/19 02/05/19 02/05/19 15:00 19:00 20:00 20:19 Temp 97.9 98.0 97.9 98.0 Pulse 80 93 Resp 16 18 B/P (MAP) 155/81 (105) 140/67 (91) Pulse Ox 93 95 O2 Delivery Room Air Room Air Room Air Room Air 02/05/19 02/05/19 02/06/19 02/06/19 21:00 23:00 03:00 07:00 Temp 97.9 97.9 97.9 97.9 97.9 97.9 Pulse 93 102 104 98 Resp 18 18 16 B/P (MAP) 140/67 124/76 (92) 123/83 (96) 125/62 (83) Pulse Ox 94 90 92 O2 Delivery Room Air Room Air Room Air 02/06/19 07:54 Pulse Ox 94 O2 Delivery Room Air Intake and Output 0 02/05/19 02/05/19 02/06/19 15:00 23:00 07:00 Intake Total 180 ml 0 ml 50 ml Output Total 1000 ml 1100 ml Balance -820 ml -1100 ml 50 ml KARO CLARK MD Feb 06, 2019 09:10
--- NOTE | 2019-02-06 09:17 | NUR ---
IP: Pt is mrsa screen + requiring contact precautions.
[2019-02-06] MEDS: NICOTINE 21MG PATCH. TD PRN (10:37)
[2019-02-06] MEDS: LACTOBACILLUS RHAMNOSUS GG 1 CAPSULE. PO SCH ×2 (10:37→22:18)
[2019-02-06] MEDS: METOPROLOL TART IMMED RELEASE 25 MG TABLET. PO SCH ×2 (10:38→22:19)
[2019-02-06] MEDS: ALLOPURINOL 300 MG TABLET. PO SCH (10:38)
[2019-02-06] MEDS: LINEZOLID 600 MG TABLET PO SCH ×2 (10:38→22:18)
[2019-02-06] MEDS: POTASSIUM CHLORIDE 10 MEQ TABLET.ER. PO SCH ×2 (10:39→22:18)
[2019-02-06] MEDS: DIGOXIN 125 MCG TABLET. PO SCH (10:39)
[2019-02-06] MEDS: FUROSEMIDE 20 MG TABLET PO SCH (10:39)
[2019-02-06] MEDS: LOSARTAN POTASSIUM 50 MG TABLET. PO SCH (10:40)
[2019-02-06] MEDS: FOLIC ACID 1 MG TABLET. PO SCH (10:40)
[2019-02-06 11:00] VITALS: BP 124/53
[2019-02-06] MEDS: ANTI-COAG MONITOR BY PHARMACY. MC PRN (11:57)
[2019-02-06] MEDS: IV NORMAL SALINE 1000ML BAG 1,000 ML IV SCH (13:43)
[2019-02-06 15:00] VITALS: BP 126/63
[2019-02-06] MEDS: MICAFUNGIN 100 MG in IV DEXTROSE 5% 100ML 100 ML IV SCH (17:22)
[2019-02-06] MEDS: RIVAROXABAN 10 MG TABLET. PO SCH (17:22)
[2019-02-06 19:00] VITALS: BP 130/70
[2019-02-06] MEDS: HYDROcodone/APAP 5/325MG 1 TAB TABLET PO PRN (22:18)
[2019-02-06] MEDS: LORazepam 1 MG TABLET PO SCH (22:19)
[2019-02-06] MEDS: GABAPENTIN 300 MG CAPSULE. PO SCH (22:19)
[2019-02-06] MEDS: risperiDONE 0.25 MG TABLET. PO SCH (22:19)
[2019-02-06] MEDS: FLUTICASONE 50MCG/NASAL SPRAY 16GM BOTTLE. NS SCH (22:31)
[2019-02-06 23:00] VITALS: BP 136/74
[2019-02-07] MEDS: IV NORMAL SALINE 1000ML BAG 1,000 ML IV SCH ×2 (02:59→12:37)
[2019-02-07 03:08] VITALS: BP 134/80
[2019-02-07] MEDS: HYDROcodone/APAP 5/325MG 1 TAB TABLET PO PRN (03:08)
[2019-02-07] MEDS: PIPERACILLIN/TAZOBACTAM 3.375 GM in IV NORMAL SALINE 50ML 50 ML IV SCH ×3 (05:09→17:22)
[2019-02-07 07:00] VITALS: BP 146/67
[2019-02-07] MEDS: BUDESONIDE 0.5 MG/2 ML NEBU. NEB SCH ×2 (07:26→19:42)
[2019-02-07] MEDS: POTASSIUM CHLORIDE 10 MEQ TABLET.ER. PO SCH ×2 (08:57→20:37)
[2019-02-07] MEDS: ALLOPURINOL 300 MG TABLET. PO SCH (08:57)
[2019-02-07] MEDS: FOLIC ACID 1 MG TABLET. PO SCH (08:57)
[2019-02-07] MEDS: DIGOXIN 125 MCG TABLET. PO SCH (08:57)
[2019-02-07] MEDS: LACTOBACILLUS RHAMNOSUS GG 1 CAPSULE. PO SCH ×2 (08:57→20:37)
[2019-02-07] MEDS: FUROSEMIDE 20 MG TABLET PO SCH (08:58)
[2019-02-07] MEDS: LOSARTAN POTASSIUM 50 MG TABLET. PO SCH (08:59)
[2019-02-07] MEDS: METOPROLOL TART IMMED RELEASE 25 MG TABLET. PO SCH ×2 (08:59→20:37)
[2019-02-07] MEDS: LINEZOLID 600 MG TABLET PO SCH ×2 (08:59→20:36)
--- NOTE | 2019-02-07 10:31 | PDOC ---
PROGRESS NOTES Chief Complaint Chief Complaint Bilateral lower extremity cellulitis Chronic venous status was chronic lymphedema SNU resident Morbid obesity BMI 36 Sepsis POA with no organ dysfunction Mild hyponatremia Moderate PCM History of Present Illness History of Present Illness ESR high WBC high but no fever, sodium 134 Discussed with social work and RN HE follows with [facility] wound care Wound care He still wants to go home but family wants him to stay and I agree ESR 97, blood pressure high, can be tachycardic On Xarelto and he does not know why On Zosyn and Zyvox, patient not the best historian Came from SNU Plan CPM, keep, okay off telemetry Continue Zyvox and Zosyn per ID Follow cultures Back to SNU on discharge cont OAC Vitals Vitals Vital Signs Date Time Temp Pulse Resp B/P (MAP) Pulse Ox O2 Delivery O2 Flow Rate FiO2 02/07/19 08:59 67 146/67 02/07/19 07:27 94 Room Air 02/07/19 07:00 98.1 18 98.1 Physical Exam Physical Exam GENERAL: Alert and oriented male, sleepy, but arousable, answering a few questions, in no acute distress. HEENT: Normocephalic, atraumatic. Anicteric. No thrush. NECK: Supple. LUNGS: Clear bilaterally. HEART: S1, S2. ABDOMEN: Soft, nontender, nondistended. Bowel sounds present. EXTREMITIES: Bilateral lower extremities, dressing intact. Pictures from wound team noted chronic venous stasis with extensive erythematous skin with maceration between the toes, no cyanosis. NEUROLOGIC: Alert, oriented, somewhat confused. LINES: PIV look okay. General: Alert, Oriented X3, Cooperative Heart: Regular rate, Normal S1, Normal S2 Lungs: Clear Abdomen: Normal bowel sounds, Soft Extremities: No clubbing, No cyanosis Skin: Other (bilat lower extremity are red, swollen, slightly warm to touch but no open skin breakage no weeping lesionsPoor overall foot hygieneDressing dry) Review of Systems Review of Systems A 14 point ROS was completed with the following noted as positive: Other systems reviewed and negative. \CONSTITUTIONAL: No fever or chills EYES: No recent changes SKIN: No rash or itching CARDIOVASCULAR: No chest pain, syncope, palpitations, or edema RESPIRATORY: No SOB or cough GASTROINTESTINAL: No nausea, vomiting or abdominal pain NEUROLOGICAL: No headaches or weakness ENDOCRINE: No cold or heat intolerance GENITOURINARY: No urgency or frequency of urination MUSCULOSKELETAL: No back pain or joint pain LYMPHATICS: No enlarged lymph nodes PSYCHIATRIC: No anxiety or depression Comment Review of Relevant I have reviewed the following items shahram (where applicable) has been applied. Labs Laboratory Tests Test 02/06/19 06:30 White Blood Count 6.5 x10^3/uL (4.0-11.0) Red Blood Count 4.24 x10^6/uL (4.30-5.70) Hemoglobin 11.9 g/dL (13.0-17.5) Hematocrit 36.0 % (39.0-53.0) Mean Corpuscular Volume 85 fL (79-100) Mean Corpuscular Hemoglobin 28 pg (25-35) Mean Corpuscular Hemoglobin Concent 33 g/dL (31-37) Red Cell Distribution Width 16.4 % (11.5-14.5) Platelet Count 242 x10^3/uL (140-400) Neutrophils (%) (Auto) 66 % (31-73) Lymphocytes (%) (Auto) 20 % (24-48) Monocytes (%) (Auto) 10 % (0-9) Eosinophils (%) (Auto) 3 % (0-3) Basophils (%) (Auto) 1 % (0-3) Neutrophils # (Auto) 4.3 x10^3/uL (1.8-7.7) Lymphocytes # (Auto) 1.3 x10^3/uL (1.0-4.8) Monocytes # (Auto) 0.7 x10^3/uL (0.0-1.1) Eosinophils # (Auto) 0.2 x10^3/uL (0.0-0.7) Basophils # (Auto) 0.1 x10^3/uL (0.0-0.2) Erythrocyte Sedimentation Rate 97 (0-15) Sodium Level 140 mmol/L (136-145) Potassium Level 3.9 mmol/L (3.5-5.1) Chloride Level 105 mmol/L (98-107) Carbon Dioxide Level 25 mmol/L (21-32) Anion Gap 10 (6-14) Blood Urea Nitrogen 8 mg/dL (8-26) Creatinine 0.8 mg/dL (0.7-1.3) Estimated GFR (Cockcroft-Gault) 94.8 Glucose Level 143 mg/dL (70-99) Calcium Level 8.2 mg/dL (8.5-10.1) Medications Current Medications Piperacillin Sod/ Tazobactam Sod (Zosyn Per Pharmacy) 1 each PRN DAILY PRN MC SEE COMMENTS; Start 02/04/19 at 16:15 Linezolid (Zyvox) 600 mg BID PO Last administered on 02/07/19 08:59; Start 02/04/19 at 17:00 Micafungin Sodium 100 mg/Dextrose 100 ml @ 100 mls/hr Q24H IV Last administered on 02/06/19 17:22; Start 02/04/19 at 17:00 Piperacillin Sod/ Tazobactam Sod 3.375 gm/Sodium Chloride 50 ml @ 100 mls/hr Q6HRS IV Last administered on 02/07/19 05:09; Start 02/04/19 at 16:30 Sodium Chloride 1,000 ml @ 75 mls/hr [id number] IV Last administered on 02/07/19 02:59; Start 02/04/19 at 18:00 Allopurinol (Zyloprim) 300 mg DAILY PO Last administered on 02/07/19 08:57; Start 02/05/19 at 09:00 Digoxin (Lanoxin) 125 mcg DAILY PO Last administered on 02/07/19 08:57; Start 02/05/19 at 09:00 Fluticasone Propionate (Flonase) 2 spray HS NS Last administered on 02/06/19 22:31; Start 02/04/19 at 21:00 Folic Acid (Folic Acid) 1 mg DAILY PO Last administered on 02/07/19 08:57; Start 02/05/19 at 09:00 Furosemide (Lasix) 20 mg DAILY PO Last administered on 02/07/19 08:58; Start at 09:00 Gabapentin (Neurontin) 300 mg HS PO Last administered on 02/06/19 22:19; Start 02/04/19 at 21:00 Acetaminophen/ Hydrocodone Bitart (Lortab 5/325) 1 tab PRN Q4HRS PRN PO MODERATE PAIN Last administered on 02/05/19at 10:32; Start 02/04/19 at 18:00; Stop 02/05/19 at 14:03; Status DC Lorazepam (Ativan) 1 mg HS PO Last administered on 02/06/19 22:19; Start 02/04/19 at 21:00 Losartan Potassium (Cozaar) 50 mg DAILY PO Last administered on 02/07/19 08:59; Start 02/05/19 at 09:00 Metoprolol Tartrate (Lopressor) 12.5 mg BID PO Last administered on 02/07/19 08:59; Start 02/04/19 at 21:00 Potassium Chloride (Klor-Con) 10 meq BID PO Last administered on 02/07/19 08:57; Start 02/04/19 at 21:00 Non-Formulary Medication (Albuterol Sulfate (Ventolin Hfa Inhaler)) 2 puff PRN Q4-6HRS IH ; Start 02/04/19 at 18:00; Stop 02/04/19 at 18:05; Status DC Non-Formulary Medication (Albuterol Sulfate (Ventolin Hfa Inhaler)) 2 puff QID INH ; Start 02/04/19 at 21:00; Status UNV Diltiazem HCl (Cardizem 24hr Cd) 120 mg DAILY PO Last administered on 02/07/19 08:58; Start 02/05/19 at 09:00 Non-Formulary Medication (Fluticasone Propionate (Flovent 100MCG Diskus)) 1 puff HS IH ; Start 02/04/19 at 21:00; Status UNV Risperidone (RisperDAL) 0.5 mg QHS PO Last administered on 02/06/19 22:19; Start 02/04/19 at 21:00 Rivaroxaban (Xarelto) 20 mg DAILY16 PO Last administered on 02/06/19 17:22; Start 02/04/19 at 19:00 Albuterol Sulfate (Ventolin Neb Soln) 2.5 mg RTQID NEB ; Start 02/04/19 at 20:00; Stop 02/04/19 at 20:26; Status DC Albuterol Sulfate (Ventolin Neb Soln) 2.5 mg PRN Q6HRS PRN NEB SHORTNESS OF BREATH; Start 02/04/19 at 18:00; Stop 02/05/19 at 08:54; Status DC Budesonide (Pulmicort) 0.5 mg RTBID NEB ; Start 02/04/19 at 20:00; Stop 02/04/19 at 20:26; Status DC Budesonide (Pulmicort) 0.5 mg PRN BID PRN NEB WHEEZING; Start 02/04/19 at 20:30; Stop 02/05/19 at 08:55; Status DC Albuterol Sulfate (Ventolin Neb Soln) 2.5 mg PRN Q4HRS PRN NEB SHORTNESS OF BREATH; Start 02/05/19 at 09:00 Budesonide (Pulmicort) 0.5 mg RTBID NEB Last administered on 02/07/19at 07:26; Start 02/05/19 at 09:00 Ondansetron HCl (Zofran) 4 mg PRN Q6HRS PRN IV NAUSEA/VOMITING; Start 02/05/19 at 09:00 Acetaminophen (Tylenol) 500 mg PRN Q6HRS PRN PO MILD PAIN / TEMP; Start 02/05/19 at 09:00 Morphine Sulfate (Morphine Sulfate) 1 mg PRN Q2HR PRN IV SEVERE PAIN; Start 02/05/19 at 09:00 Acetaminophen/ Hydrocodone Bitart (Lortab 5/325) 1 tab PRN Q4HRS PRN PO MODERATE PAIN Last administered on 02/07/19at 03:08; Start 02/05/19 at 12:45 Nicotine Polacrilex (Nicorette Gum) 1 each PRN Q1HR PRN BC SMOKING CESSATION; Start 02/05/19 at 12:45 Nicotine (Nicoderm Cq 21mg) 1 patch PRN DAILY PRN TD SMOKING CESSATION Last administered on 02/06/19at 10:37; Start 02/05/19 at 12:45 Lactobacillus Rhamnosus (Culturelle) 1 cap BID PO Last administered on 02/07/19at 08:57; Start 02/05/19 at 21:00 Info (Anti-Coagulation Monitoring By Pharmacy) 1 each PRN DAILY PRN MC SEE COMMENTS Last administered on 02/06/19at 11:57; Start 02/06/19 at 12:00 Active Scripts Active Lanoxin (Digoxin) 125 Mcg Tablet 125 Mcg PO DAILY 30 Days Reported Losartan Potassium 50 Mg Tablet 50 Mg PO DAILY Diltiazem 24HR Cd (Diltiazem Hcl) 120 Mg Cap.er.24h 1 Cap PO DAILY Furosemide 20 Mg Tablet 1 Tab PO DAILY Hydrocodone-Apap 5-325 (Hydrocodone Bit/Acetaminophen) 1 Tab Tablet 1 Tab PO PRN Q4HRS PRN Xarelto (Rivaroxaban) 20 Mg Tablet 20 Mg PO DAILY Lorazepam 1 Mg Tablet 1 Mg PO HS Gabapentin (Gabapentin) 300 Mg Capsule 1 Cap PO HS Flovent 100MCG Diskus (Fluticasone Propionate) 100 Mcg Disk.w.dev 1 Puff IH HS Potassium Chloride 10 Meq Tab.er.prt 1 Tab PO BID Metoprolol Tartrate 25 Mg Tablet 0.5 Tab PO BID Folic Acid 1 Mg Tablet 1 Tab PO DAILY Allopurinol 300 Mg Tablet 300 Mg PO DAILY Ventolin Hfa Inhaler (Albuterol Sulfate) 18 Gm Hfa.aer.ad 2 Puff INH QID Flonase (Fluticasone Propionate) 16 Gm [place].susp 2 [place] NS HS Ventolin Hfa Inhaler (Albuterol Sulfate) 18 Gm Hfa.aer.ad 2 Puff IH PRN Q4-6HRS Risperidone 0.5 Mg Tablet 1 Tab PO QHS Vitals/I & O Vital Sign - Last 24 Hours 02/06/19 02/06/19 02/06/19 02/06/19 10:38 10:39 10:39 10:40 Pulse 98 98 98 98 B/P (MAP) 125/62 125/62 125/62 125/62 02/06/19 02/06/19 02/06/19 02/06/19 11:00 15:00 19:00 19:31 Temp 98.0 97.9 98.0 98.0 97.9 98.0 Pulse 88 88 87 Resp 16 18 20 B/P (MAP) 124/53 (76) 126/63 (84) 130/70 (90) Pulse Ox 95 95 95 O2 Delivery Room Air Room Air Room Air Room Air 02/06/19 02/06/19 02/06/19 02/06/19 19:54 22:18 22:19 23:00 Temp 98.4 98.4 Pulse 87 100 Resp 18 20 B/P (MAP) 130/70 136/74 (94) Pulse Ox 94 94 95 O2 Delivery Room Air Room Air Room Air 02/07/19 02/07/19 02/07/19 02/07/19 03:08 03:08 04:08 07:00 Temp 99.0 98.1 99.0 98.1 Pulse 93 93 Resp 18 20 18 18 B/P (MAP) 134/80 (98) 146/67 (93) Pulse Ox 95 95 95 91 O2 Delivery Room Air Room Air Room Air Room Air 02/07/19 02/07/19 02/07/19 02/07/19 07:27 08:57 08:58 08:59 Pulse 93 93 93 B/P (MAP) 146/67 146/67 146/67 Pulse Ox 94 O2 Delivery Room Air 02/07/19 08:59 Pulse 67 B/P (MAP) 146/67 Intake and Output 02/06/19 02/06/19 02/07/19 14:59 22:59 06:59 Intake Total 530 ml 50 ml Output Total 400 ml Balance 130 ml 50 ml LENNIE CORRALES MD Feb 07, 2019 10:31
[2019-02-07 11:00] VITALS: BP 141/75
[2019-02-07] MEDS: ANTI-COAG MONITOR BY PHARMACY. MC PRN (11:19)
--- NOTE | 2019-02-07 12:13 | PDOC ---
Infectious Disease Note Subjective Subjective Eating Denies pain/fever/chills ROS ROS per HPI Vital Sign Vital Signs Vital Signs Date Time Temp Pulse Resp B/P (MAP) Pulse Ox O2 Delivery O2 Flow Rate FiO2 02/07/19 08:59 67 146/67 02/07/19 07:27 94 Room Air 02/07/19 07:00 98.1 18 98.1 Physical Exam PHYSICAL EXAM GENERAL: Propped up in bed, alert, eating LUNGS: Clear bilaterally. HEART: S1, S2. ABDOMEN: Soft, nontender, nondistended. Bowel sounds present. EXTREMITIES: Bilateral lower extremities currently bandaged NEUROLOGIC: Alert, coop SKIN: warm to touch PIV look okay. Objective Assessment Cellulitis of lower extremities, superimposed on chronic venous stasis. Tinea in foot. Diabetes mellitus 2. Chronic obstructive pulmonary disease. Peripheral vascular disease. Chronic atrial fibrillation. Morbid obesity. Mild confusion. MRSA screen positive Plan Plan of Care Continue Zosyn, Zyvox and micafungin. Probiotics Wound team following for wound care Patient seen and examined. Chart reviewed in detail. Case discussed with SCREEN WRITER. Agree with above plan. MIK LUBIN APRN Feb 07, 2019 12:13 NADEGE CARTER MD Feb 07, 2019 20:35
[2019-02-07] MEDS: NICOTINE 21MG PATCH. TD PRN (13:22)
[2019-02-07 15:00] VITALS: BP 137/65
[2019-02-07] MEDS: RIVAROXABAN 10 MG TABLET. PO SCH (15:59)
[2019-02-07] MEDS: MICAFUNGIN 100 MG in IV DEXTROSE 5% 100ML 100 ML IV SCH (16:02)
[2019-02-07 19:20] VITALS: BP 130/63
[2019-02-07] MEDS: LORazepam 1 MG TABLET PO SCH (20:36)
[2019-02-07] MEDS: GABAPENTIN 300 MG CAPSULE. PO SCH (20:36)
[2019-02-07] MEDS: risperiDONE 0.25 MG TABLET. PO SCH (20:37)
[2019-02-07] MEDS: FLUTICASONE 50MCG/NASAL SPRAY 16GM BOTTLE. NS SCH (20:42)
[2019-02-07 23:25] VITALS: BP 133/68
[2019-02-08] MEDS: PIPERACILLIN/TAZOBACTAM 3.375 GM in IV NORMAL SALINE 50ML 50 ML IV SCH ×5 (00:08→23:45)
[2019-02-08 02:42] VITALS: BP 119/82
[2019-02-08] MEDS: IV NORMAL SALINE 1000ML BAG 1,000 ML IV SCH ×2 (05:37→16:05)
[2019-02-08 07:00] VITALS: BP 154/74
[2019-02-08] MEDS: BUDESONIDE 0.5 MG/2 ML NEBU. NEB SCH ×2 (07:22→18:18)
[2019-02-08] MEDS: LOSARTAN POTASSIUM 50 MG TABLET. PO SCH (08:24)
[2019-02-08] MEDS: LACTOBACILLUS RHAMNOSUS GG 1 CAPSULE. PO SCH ×2 (08:24→21:51)
[2019-02-08] MEDS: POTASSIUM CHLORIDE 10 MEQ TABLET.ER. PO SCH ×2 (08:25→21:51)
[2019-02-08] MEDS: FOLIC ACID 1 MG TABLET. PO SCH (08:25)
[2019-02-08] MEDS: FUROSEMIDE 20 MG TABLET PO SCH (08:26)
[2019-02-08] MEDS: DIGOXIN 125 MCG TABLET. PO SCH (08:26)
[2019-02-08] MEDS: ALLOPURINOL 300 MG TABLET. PO SCH (08:27)
[2019-02-08] MEDS: METOPROLOL TART IMMED RELEASE 25 MG TABLET. PO SCH ×2 (08:27→21:52)
[2019-02-08] MEDS: LINEZOLID 600 MG TABLET PO SCH ×2 (08:28→21:51)
--- NOTE | 2019-02-08 09:14 | PDOC ---
Infectious Disease Note Subjective Subjective Comfortable, denies pain Wants to go home No F/C/N/V ROS ROS per HPI Vital Sign Vital Signs Vital Signs Date Time Temp Pulse Resp B/P (MAP) Pulse Ox O2 Delivery O2 Flow Rate FiO2 02/08/19 08:27 95 154/74 02/08/19 07:00 98.9 94 Room Air 98.9 02/07/19 15:00 18 Physical Exam PHYSICAL EXAM GENERAL: Propped up in bed, alert, NAD HENT: Oral cavity clear LUNGS: Clear bilaterally. HEART: S1, S2. ABDOMEN: Obese, soft, nontender, bowel sounds present. EXTREMITIES: Bilateral lower extremities currently bandaged NEUROLOGIC: Alert, coop SKIN: warm to touch PIV look okay. Objective Assessment Cellulitis of lower extremities, superimposed on chronic venous stasis. Tinea in foot. Diabetes mellitus 2. Chronic obstructive pulmonary disease. Peripheral vascular disease. Chronic atrial fibrillation. Morbid obesity. Mild confusion. MRSA screen positive Plan Plan of Care Continue Zosyn, Zyvox and micafungin. Probiotics Wound team following for wound care Patient seen and examined. Chart reviewed in detail. Case discussed with [facility]. Agree with above plan. MIK LUBIN APRN Feb 08, 2019 09:13 NADEGE CARTER MD Feb 08, 2019 16:37
--- NOTE | 2019-02-08 09:55 | PDOC ---
PROGRESS NOTES Chief Complaint Chief Complaint Bilateral lower extremity cellulitis Chronic venous status was chronic lymphedema SNU resident Morbid obesity BMI 36 Sepsis POA with no organ dysfunction Mild hyponatremia Moderate PCM History of Present Illness History of Present Illness I did not wake him because every time I talk to him he wants to go AMA We attempted that - the family encouraged him to stay and so here we are He needs to stay because of IV antibiotics for the legs and culture still cooking Earlier entry: ESR high WBC high but no fever, sodium 134 Discussed with social work and RN HE follows with [facility] wound care Wound care Plan CPM, keep, okay off telemetry Continue Zyvox and Zosyn per ID Follow cultures Back to SNU on discharge cont OAC Vitals Vitals Vital Signs Date Time Temp Pulse Resp B/P (MAP) Pulse Ox O2 Delivery O2 Flow Rate FiO2 02/08/19 08:27 95 154/74 02/08/19 07:00 98.9 94 Room Air 98.9 02/07/19 15:00 18 Physical Exam Physical Exam GENERAL: Propped up in bed, alert, NAD HENT: Oral cavity clear LUNGS: Clear bilaterally. HEART: S1, S2. ABDOMEN: Obese, soft, nontender, bowel sounds present. EXTREMITIES: Bilateral lower extremities currently bandaged NEUROLOGIC: Alert, coop SKIN: warm to touch PIV look okay. General: Alert, Oriented X3, Cooperative Heart: Regular rate, Normal S1, Normal S2 Lungs: Clear Abdomen: Normal bowel sounds, Soft Extremities: No clubbing, No cyanosis Skin: Other (bilat lower extremity are red, swollen, slightly warm to touch but no open skin breakage no weeping lesionsPoor overall foot hygieneDressing dry) Review of Systems Review of Systems Asleep I did not awaken Comment Review of Relevant I have reviewed the following items shahram (where applicable) has been applied. Medications Current Medications Piperacillin Sod/ Tazobactam Sod (Zosyn Per Pharmacy) 1 each PRN DAILY PRN MC SEE COMMENTS; Start 02/04/19 at 16:15 Linezolid (Zyvox) 600 mg BID PO Last administered on 02/08/19at 08:28; Start 02/04/19 at 17:00 Micafungin Sodium 100 mg/Dextrose 100 ml @ 100 mls/hr Q24H IV Last administered on 02/07/19at 16:02; Start 02/04/19 at 17:00 Piperacillin Sod/ Tazobactam Sod 3.375 gm/Sodium Chloride 50 ml @ 100 mls/hr Q6HRS IV Last administered on 02/08/19 05:38; Start 02/04/19 at 16:30 Sodium Chloride 1,000 ml @ 75 mls/hr [id number] IV Last administered on 02/08/19 05:37; Start 02/04/19 at 18:00 Allopurinol (Zyloprim) 300 mg DAILY PO Last administered on 02/08/19 08:27; Start 02/05/19 at 09:00 Digoxin (Lanoxin) 125 mcg DAILY PO Last administered on 02/08/19 08:26; Start 02/05/19 at 09:00 Fluticasone Propionate (Flonase) 2 spray HS NS Last administered on 02/07/19 20:42; Start 02/04/19 at 21:00 Folic Acid (Folic Acid) 1 mg DAILY PO Last administered on 02/08/19 08:25; Start 02/05/19 at 09:00 Furosemide (Lasix) 20 mg DAILY PO Last administered on 02/08/19 08:26; Start 02/05/19 at 09:00 Gabapentin (Neurontin) 300 mg HS PO Last administered on 02/07/19 20:36; Start 02/04/19 at 21:00 Acetaminophen/ Hydrocodone Bitart (Lortab 5/325) 1 tab PRN Q4HRS PRN PO MODERATE PAIN Last administered on 02/05/19 10:32; Start 02/04/19 at 18:00; Stop 02/05/19 at 14:03; Status DC Lorazepam (Ativan) 1 mg HS PO Last administered on 02/07/19 20:36; Start 02/04/19 at 21:00 Losartan Potassium (Cozaar) 50 mg DAILY PO Last administered on 02/08/19 08:24; Start 02/05/19 at 09:00 Metoprolol Tartrate (Lopressor) 12.5 mg BID PO Last administered on 02/08/19 08:27; Start 02/04/19 at 21:00 Potassium Chloride (Klor-Con) 10 meq BID PO Last administered on 02/08/19 08:25; Start 02/04/19 at 21:00 Non-Formulary Medication (Albuterol Sulfate (Ventolin Hfa Inhaler)) 2 puff PRN Q4-6HRS IH ; Start 02/04/19 at 18:00; Stop 02/04/19 at 18:05; Status DC Non-Formulary Medication (Albuterol Sulfate (Ventolin Hfa Inhaler)) 2 puff QID INH ; Start 02/04/19 at 21:00; Status UNV Diltiazem HCl (Cardizem 24hr Cd) 120 mg DAILY PO Last administered on 02/08/19at 08:23; Start 02/05/19 at 09:00 Non-Formulary Medication (Fluticasone Propionate (Flovent 100MCG Diskus)) 1 puff HS IH ; Start 02/04/19 at 21:00; Status UNV Risperidone (RisperDAL) 0.5 mg QHS PO Last administered on 02/07/19at 20:37; Start 02/04/19 at 21:00 Rivaroxaban (Xarelto) 20 mg DAILY16 PO Last administered on 02/07/19at 15:59; Start 02/04/19 at 19:00 Albuterol Sulfate (Ventolin Neb Soln) 2.5 mg RTQID NEB ; Start 02/04/19 at 20:00; Stop 02/04/19 at 20:26; Status DC Albuterol Sulfate (Ventolin Neb Soln) 2.5 mg PRN Q6HRS PRN NEB SHORTNESS OF BREATH; Start 02/04/19 at 18:00; Stop 02/05/19 at 08:54; Status DC Budesonide (Pulmicort) 0.5 mg RTBID NEB ; Start 02/04/19 at 20:00; Stop 02/04/19 at 20:26; Status DC Budesonide (Pulmicort) 0.5 mg PRN BID PRN NEB WHEEZING; Start 02/04/19 at 20:30; Stop 02/05/19 at 08:55; Status DC Albuterol Sulfate (Ventolin Neb Soln) 2.5 mg PRN Q4HRS PRN NEB SHORTNESS OF BREATH; Start 02/05/19 at 09:00 Budesonide (Pulmicort) 0.5 mg RTBID NEB Last administered on 02/07/19at 07:26; Start 02/05/19 at 09:00 Ondansetron HCl (Zofran) 4 mg PRN Q6HRS PRN IV NAUSEA/VOMITING; Start 02/05/19 at 09:00 Acetaminophen (Tylenol) 500 mg PRN Q6HRS PRN PO MILD PAIN / TEMP; Start 02/05/19 at 09:00 Morphine Sulfate (Morphine Sulfate) 1 mg PRN Q2HR PRN IV SEVERE PAIN; Start 02/05/19 at 09:00 Acetaminophen/ Hydrocodone Bitart (Lortab 5/325) 1 tab PRN Q4HRS PRN PO MODERA TE PAIN Last administered on 02/07/19at 03:08; Start 02/05/19 at 12:45 Nicotine Polacrilex (Nicorette Gum) 1 each PRN Q1HR PRN BC SMOKING CESSATION 2ND CHOICE; Start 02/05/19 at 12:45 Nicotine (Nicoderm Cq 21mg) 1 patch PRN DAILY PRN TD SMOKING CESSATION 1ST CHOICE Last administered on 02/07/19at 13:22; Start 02/05/19 at 12:45 Lactobacillus Rhamnosus (Culturelle) 1 cap BID PO Last administered on 02/08/19at 08:24; Start 02/05/19 at 21:00 Info (Anti-Coagulation Monitoring By Pharmacy) 1 each PRN DAILY PRN MC SEE C OMMENTS Last administered on 02/07/19at 11:19; Start 02/06/19 at 12:00 Active Scripts Active Lanoxin (Digoxin) 125 Mcg Tablet 125 Mcg PO DAILY 30 Days Reported Losartan Potassium 50 Mg Tablet 50 Mg PO DAILY Diltiazem 24HR Cd (Diltiazem Hcl) 120 Mg Cap.er.24h 1 Cap PO DAILY Furosemide 20 Mg Tablet 1 Tab PO DAILY Hydrocodone-Apap 5-325 (Hydrocodone Bit/Acetaminophen) 1 Tab Tablet 1 Tab PO PRN Q4HRS PRN Xarelto (Rivaroxaban) 20 Mg Tablet 20 Mg PO DAILY Lorazepam 1 Mg Tablet 1 Mg PO HS Gabapentin (Gabapentin) 300 Mg Capsule 1 Cap PO HS Flovent 100MCG Diskus (Fluticasone Propionate) 100 Mcg Disk.w.dev 1 Puff IH HS Potassium Chloride 10 Meq Tab.er.prt 1 Tab PO BID Metoprolol Tartrate 25 Mg Tablet 0.5 Tab PO BID Folic Acid 1 Mg Tablet 1 Tab PO DAILY Allopurinol 300 Mg Tablet 300 Mg PO DAILY Ventolin Hfa Inhaler (Albuterol Sulfate) 18 Gm Hfa.aer.ad 2 Puff INH QID Flonase (Fluticasone Propionate) 16 Gm Taft.susp 2 Taft NS HS Ventolin Hfa Inhaler (Albuterol Sulfate) 18 Gm Hfa.aer.ad 2 Puff IH PRN Q4-6HRS Risperidone 0.5 Mg Tablet 1 Tab PO QHS Vitals/I & O Vital Sign - Last 24 Hours 02/07/19 02/07/19 02/07/19 02/07/19 11:00 15:00 19:20 20:00 Temp 98.5 98.1 98.3 98.5 98.1 98.3 Pulse 83 85 84 Resp 18 18 B/P (MAP) 141/75 (97) 137/65 (89) 130/63 (85) Pulse Ox 93 92 93 O2 Delivery Room Air Room Air Room Air Room Air 02/07/19 02/07/19 02/08/19 02/08/19 20:37 23:25 02:42 07:00 Temp 98.6 98.2 98.9 98.6 98.2 98.9 Pulse 84 84 85 95 B/P (MAP) 130/63 133/68 (89) 119/82 (94) 154/74 (100) Pulse Ox 95 93 94 O2 Delivery Room Air Room Air Room Air 02/08/19 02/08/19 02/08/19 02/08/19 08:23 08:24 08:26 08:27 Pulse 95 95 95 95 B/P (MAP) 154/74 154/74 154/74 154/74 Intake and Output 02/07/19 02/07/19 02/08/19 15:00 23:00 07:00 Intake Total 180 ml Output Total 1175 ml 350 ml Balance 180 ml -1175 ml -350 ml LENNIE CORRALES MD Feb 08, 2019 09:55
[2019-02-08] MEDS: ANTI-COAG MONITOR BY PHARMACY. MC PRN (10:15)
[2019-02-08 11:00] VITALS: BP 134/71
[2019-02-08 15:00] VITALS: BP 145/76
[2019-02-08] MEDS: RIVAROXABAN 10 MG TABLET. PO SCH (16:05)
[2019-02-08] MEDS: MICAFUNGIN 100 MG in IV DEXTROSE 5% 100ML 100 ML IV SCH (16:06)
[2019-02-08 19:00] VITALS: BP 181/65
[2019-02-08] MEDS ORDERED: IV DEXTROSE 5% 250 ML BAG. IV ONE (21:48)
[2019-02-08] MEDS: LORazepam 1 MG TABLET PO SCH (21:51)
[2019-02-08] MEDS: GABAPENTIN 300 MG CAPSULE. PO SCH (21:51)
[2019-02-08] MEDS: risperiDONE 0.25 MG TABLET. PO SCH (21:51)
[2019-02-08] MEDS: FLUTICASONE 50MCG/NASAL SPRAY 16GM BOTTLE. NS SCH (21:52)
[2019-02-08 23:00] VITALS: BP 150/78
[2019-02-09 03:23] VITALS: BP 110/80
[2019-02-09] MEDS: PIPERACILLIN/TAZOBACTAM 3.375 GM in IV NORMAL SALINE 50ML 50 ML IV SCH ×2 (06:14→12:40)
[2019-02-09 07:00] VITALS: BP 129/90
[2019-02-09 07:06] LABS: HEMATOCRIT 34.7 % (39.0-53.0); HEMOGLOBIN 11.8 g/dL (13.0-17.5); RED BLOOD COUNT 4.14 x10^6/uL (4.30-5.70); RED CELL DISTRIBUTION WIDTH 16.3 % (11.5-14.5); WHITE BLOOD COUNT 7.1 x10^3/uL (4.0-11.0)
--- NOTE | 2019-02-09 07:48 | PDOC ---
PROGRESS NOTES Chief Complaint Chief Complaint Bilateral lower extremity cellulitis Chronic venous status was chronic lymphedema Morbid obesity BMI 36 Sepsis POA with no organ dysfunction Mild hyponatremia Moderate Protein calorie malnutrition Tinea in foot Diabetes mellitus 2 Chronic obstructive pulmonary disease. Peripheral vascular disease. Chronic atrial fibrillation Mild confusion on admission MRSA screen positive History of Present Illness History of Present Illness Mr Nielsen is a 73-year-old male, half-way resident, was seen in [facility] and admitted for bilateral LE cellulitis and confusion. He had been trying to leave AMA for a few days. He needs to stay because of IV antibiotics for the legs and no guarantee of compliance with meds, confusion Plan: ESR high WBC normalized, MRSA nares positive Discussed with social work and RN HE follows with [facility] wound care Wound care Plan CPM, keep, okay off telemetry Continue Zyvox and Zosyn per ID - will discuss how to continue his antibiotics Follow cultures Back to SNU on discharge Vitals Vitals Vital Signs Date Time Temp Pulse Resp B/P (MAP) Pulse Ox O2 Delivery O2 Flow Rate FiO2 02/09/19 03:23 98.4 89 20 110/80 (90) 93 Room Air 98.4 Physical Exam Physical Exam GENERAL: Propped up in bed, alert, NAD EXTREMITIES: Bilateral lower extremities currently bandaged PIV looks okay. General: Alert, Cooperative Heart: Regular rate, Normal S1, Normal S2 Lungs: Clear Abdomen: Normal bowel sounds, Soft Extremities: No clubbing, No cyanosis Skin: Other (bilat lower extremity are red, swollen, slightly warm to touch but no open skin breakage no weeping lesionsPoor overall foot hygieneDressing dry) Labs LABS Laboratory Tests Test 02/09/19 05:45 White Blood Count 7.1 x10^3/uL (4.0-11.0) Red Blood Count 4.14 x10^6/uL (4.30-5.70) Hemoglobin 11.8 g/dL (13.0-17.5) Hematocrit 34.7 % (39.0-53.0) Mean Corpuscular Volume 84 fL (79-100) Mean Corpuscular Hemoglobin 28 pg (25-35) Mean Corpuscular Hemoglobin Concent 34 g/dL (31-37) Red Cell Distribution Width 16.3 % (11.5-14.5) Platelet Count 259 x10^3/uL (140-400) Comment Review of Relevant I have reviewed the following items shahram (where applicable) has been applied. Labs Laboratory Tests Test 02/09/19 05:45 White Blood Count 7.1 x10^3/uL (4.0-11.0) Red Blood Count 4.14 x10^6/uL (4.30-5.70) Hemoglobin 11.8 g/dL (13.0-17.5) Hematocrit 34.7 % (39.0-53.0) Mean Corpuscular Volume 84 fL (79-100) Mean Corpuscular Hemoglobin 28 pg (25-35) Mean Corpuscular Hemoglobin Concent 34 g/dL (31-37) Red Cell Distribution Width 16.3 % (11.5-14.5) Platelet Count 259 x10^3/uL (140-400) Laboratory Tests Test 02/09/19 05:45 White Blood Count 7.1 x10^3/uL (4.0-11.0) Red Blood Count 4.14 x10^6/uL (4.30-5.70) Hemoglobin 11.8 g/dL (13.0-17.5) Hematocrit 34.7 % (39.0-53.0) Mean Corpuscular Volume 84 fL (79-100) Mean Corpuscular Hemoglobin 28 pg (25-35) Mean Corpuscular Hemoglobin Concent 34 g/dL (31-37) Red Cell Distribution Width 16.3 % (11.5-14.5) Platelet Count 259 x10^3/uL (140-400) Medications Current Medications Piperacillin Sod/ Tazobactam Sod (Zosyn Per Pharmacy) 1 each PRN DAILY PRN MC SEE COMMENTS; Start 02/04/19 at 16:15 Linezolid (Zyvox) 600 mg BID PO Last administered on 02/08/19at 21:51; Start 02/04/19 at 17:00 Micafungin Sodium 100 mg/Dextrose 100 ml @ 100 mls/hr Q24H IV Last administered on 02/08/19at 16:06; Start 02/04/19 at 17:00 Piperacillin Sod/ Tazobactam Sod 3.375 gm/Sodium Chloride 50 ml @ 100 mls/hr Q6HRS IV Last administered on 02/09/19at 06:14; Start 02/04/19 at 16:30 Sodium Chloride 1,000 ml @ 75 mls/hr [id number] IV Last administered on 02/08/19 16:05; Start 02/04/19 at 18:00 Allopurinol (Zyloprim) 300 mg DAILY PO Last administered on 02/08/19 08:27; Start 02/05/19 at 09:00 Digoxin (Lanoxin) 125 mcg DAILY PO Last administered on 02/08/19 08:26; Start 02/05/19 at 09:00 Fluticasone Propionate (Flonase) 2 spray HS NS Last administered on 02/08/19 21:52; Start 02/04/19 at 21:00 Folic Acid (Folic Acid) 1 mg DAILY PO Last administered on 02/08/19 08:25; Start 02/05/19 at 09:00 Furosemide (Lasix) 20 mg DAILY PO Last administered on 02/08/19 08:26; Start 02/05/19 at 09:00 Gabapentin (Neurontin) 300 mg HS PO Last administered on 02/08/19 21:51; Start 02/04/19 at 21:00 Acetaminophen/ Hydrocodone Bitart (Lortab 5/325) 1 tab PRN Q4HRS PRN PO MODERATE PAIN Last administered on 02/05/19 10:32; Start 02/04/19 at 18:00; Stop 02/05/19 at 14:03; Status DC Lorazepam (Ativan) 1 mg HS PO Last administered on 02/08/19 21:51; Start 02/04/19 at 21:00 Losartan Potassium (Cozaar) 50 mg DAILY PO Last administered on 02/08/19 08:24; Start 02/05/19 at 09:00 Metoprolol Tartrate (Lopressor) 12.5 mg BID PO Last administered on 02/08/19 21:52; Start 02/04/19 at 21:00 Potassium Chloride (Klor-Con) 10 meq BID PO Last administered on 02/08/19 21:51; Start 02/04/19 at 21:00 Non-Formulary Medication (Albuterol Sulfate (Ventolin Hfa Inhaler)) 2 puff PRN Q4-6HRS IH ; Start 02/04/19 at 18:00; Stop 02/04/19 at 18:05; Status DC Non-Formulary Medication (Albuterol Sulfate (Ventolin Hfa Inhaler)) 2 puff QID INH ; Start 02/04/19 at 21:00; Status UNV Diltiazem HCl (Cardizem 24hr Cd) 120 mg DAILY PO Last administered on 02/08/19at 08:23; Start 02/05/19 at 09:00 Non-Formulary Medication (Fluticasone Propionate (Flovent 100MCG Diskus)) 1 puff HS IH ; Start 02/04/19 at 21:00; Status UNV Risperidone (RisperDAL) 0.5 mg QHS PO Last administered on 02/08/19at 21:51; Start 02/04/19 at 21:00 Rivaroxaban (Xarelto) 20 mg DAILY16 PO Last administered on 02/08/19at 16:05; Start 02/04/19 at 19:00 Albuterol Sulfate (Ventolin Neb Soln) 2.5 mg RTQID NEB ; Start 02/04/19 at 20:00; Stop 02/04/19 at 20:26; Status DC Albuterol Sulfate (Ventolin Neb Soln) 2.5 mg PRN Q6HRS PRN NEB SHORTNESS OF BREATH; Start 02/04/19 at 18:00; Stop 02/05/19 at 08:54; Status DC Budesonide (Pulmicort) 0.5 mg RTBID NEB ; Start 02/04/19 at 20:00; Stop 02/04/19 at 20:26; Status DC Budesonide (Pulmicort) 0.5 mg PRN BID PRN NEB WHEEZING; Start 02/04/19 at 20:30; Stop 02/05/19 at 08:55; Status DC Albuterol Sulfate (Ventolin Neb Soln) 2.5 mg PRN Q4HRS PRN NEB SHORTNESS OF BREATH; Start 02/05/19 at 09:00 Budesonide (Pulmicort) 0.5 mg RTBID NEB Last administered on 02/07/19at 07:26; Start 02/05/19 at 09:00 Ondansetron HCl (Zofran) 4 mg PRN Q6HRS PRN IV NAUSEA/VOMITING; Start 02/05/19 at 09:00 Acetaminophen (Tylenol) 500 mg PRN Q6HRS PRN PO MILD PAIN / TEMP; Start 02/05/19 at 09:00 Morphine Sulfate (Morphine Sulfate) 1 mg PRN Q2HR PRN IV SEVERE PAIN; Start 02/05/19 at 09:00 Acetaminophen/ Hydrocodone Bitart (Lortab 5/325) 1 tab PRN Q4HRS PRN PO MODERATE PAIN Last administered on 02/07/19at 03:08; Start 02/05/19 at 12:45 Nicotine Polacrilex (Nicorette Gum) 1 each PRN Q1HR PRN BC SMOKING CESSATION 2ND CHOICE; Start 02/05/19 at 12:45 Nicotine (Nicoderm Cq 21mg) 1 patch PRN DAILY PRN TD SMOKING CESSATION 1ST CHOICE Last administered on 02/07/19at 13:22; Start 02/05/19 at 12:45 Lactobacillus Rhamnosus (Culturelle) 1 cap BID PO Last administered on 02/08/19at 21:51; Start 02/05/19 at 21:00 Info (Anti-Coagulation Monitoring By Pharmacy) 1 each PRN DAILY PRN MC SEE COMMENTS Last administered on 02/08/19at 10:15; Start 02/06/19 at 12:00 Active Scripts Active Lanoxin (Digoxin) 125 Mcg Tablet 125 Mcg PO DAILY 30 Days Reported Losartan Potassium 50 Mg Tablet 50 Mg PO DAILY Diltiazem 24HR Cd (Diltiazem Hcl) 120 Mg Cap.er.24h 1 Cap PO DAILY Furosemide 20 Mg Tablet 1 Tab PO DAILY Hydrocodone-Apap 5-325 (Hydrocodone Bit/Acetaminophen) 1 Tab Tablet 1 Tab PO PRN Q4HRS PRN Xarelto (Rivaroxaban) 20 Mg Tablet 20 Mg PO DAILY Lorazepam 1 Mg Tablet 1 Mg PO HS Gabapentin (Gabapentin) 300 Mg Capsule 1 Cap PO HS Flovent 100MCG Diskus (Fluticasone Propionate) 100 Mcg Disk.w.dev 1 Puff IH HS Potassium Chloride 10 Meq Tab.er.prt 1 Tab PO BID Metoprolol Tartrate 25 Mg Tablet 0.5 Tab PO BID Folic Acid 1 Mg Tablet 1 Tab PO DAILY Allopurinol 300 Mg Tablet 300 Mg PO DAILY Ventolin Hfa Inhaler (Albuterol Sulfate) 18 Gm Hfa.aer.ad 2 Puff INH QID Flonase (Fluticasone Propionate) 16 Gm Bulan.susp 2 Bulan NS HS Ventolin Hfa Inhaler (Albuterol Sulfate) 18 Gm Hfa.aer.ad 2 Puff IH PRN Q4-6HRS Risperidone 0.5 Mg Tablet 1 Tab PO QHS Vitals/I & O Vital Sign - Last 24 Hours 02/08/19 02/08/19 02/08/19 02/08/19 08:00 08:23 08:24 08:26 Pulse 95 95 95 B/P (MAP) 154/74 154/74 154/74 O2 Delivery Room Air 02/08/19 02/08/19 02/08/19 02/08/19 08:27 11:00 15:00 19:00 Temp 98.9 98.8 99.3 98.9 98.8 99.3 Pulse 95 87 86 100 Resp 18 20 B/P (MAP) 154/74 134/71 (92) 145/76 (99) 181/65 (103) Pulse Ox 93 92 93 O2 Delivery Room Air Room Air Room Air 02/08/19 02/08/19 02/08/19 02/08/19 20:00 20:49 21:52 23:00 Temp 98.6 98.6 Pulse 100 92 Resp 20 B/P (MAP) 181/65 150/78 (102) Pulse Ox 96 94 O2 Delivery Room Air Room Air Room Air 02/09/19 03:23 Temp 98.4 98.4 Pulse 89 Resp 20 B/P (MAP) 110/80 (90) Pulse Ox 93 O2 Delivery Room Air Intake and Output 02/08/19 02/08/19 02/09/19 14:59 22:59 06:59 Output Total 700 ml Balance -700 ml MEKA JONES MD Feb 09, 2019 07:48
[2019-02-09] MEDS ORDERED: IV DEXTROSE 5% 250 ML BAG. IV PRN (08:00)
[2019-02-09] MEDS: INSULIN LISPRO 300 UNITS/3 ML INSULN.PEN. SQ SCH ×3 (08:00→17:00)
[2019-02-09] MEDS ORDERED: DEXTROSE 50% 25 GM / 50ML DISP.SYRIN. IV PRN (08:00)
[2019-02-09] MEDS: BUDESONIDE 0.5 MG/2 ML NEBU. NEB SCH ×2 (08:00→19:39)
[2019-02-09] MEDS: IV NORMAL SALINE 1000ML BAG 1,000 ML IV SCH ×2 (08:10→17:06)
[2019-02-09] MEDS: LACTOBACILLUS RHAMNOSUS GG 1 CAPSULE. PO SCH ×2 (09:22→21:03)
[2019-02-09] MEDS: ALLOPURINOL 300 MG TABLET. PO SCH (09:22)
[2019-02-09] MEDS: FOLIC ACID 1 MG TABLET. PO SCH (09:23)
[2019-02-09] MEDS: LOSARTAN POTASSIUM 50 MG TABLET. PO SCH (09:23)
[2019-02-09] MEDS: LINEZOLID 600 MG TABLET PO SCH ×2 (09:23→21:02)
[2019-02-09] MEDS: METOPROLOL TART IMMED RELEASE 25 MG TABLET. PO SCH ×2 (09:24→21:03)
[2019-02-09] MEDS: POTASSIUM CHLORIDE 10 MEQ TABLET.ER. PO SCH ×2 (09:25→21:03)
[2019-02-09] MEDS: FUROSEMIDE 20 MG TABLET PO SCH (09:25)
[2019-02-09] MEDS: DIGOXIN 125 MCG TABLET. PO SCH (09:25)
--- NOTE | 2019-02-09 09:52 | PDOC ---
Infectious Disease Note Subjective Subjective Comfortable, denies pain No F/C/N/V ROS ROS per HPI Vital Sign Vital Signs Vital Signs Date Time Temp Pulse Resp B/P (MAP) Pulse Ox O2 Delivery O2 Flow Rate FiO2 02/09/19 09:25 73 129/90 02/09/19 07:00 99.9 20 92 Room Air 99.9 Physical Exam PHYSICAL EXAM GENERAL: Propped up in bed, alert, NAD HENT: Oral cavity clear LUNGS: Clear bilaterally. HEART: S1, S2. ABDOMEN: Obese, soft, nontender, bowel sounds present. EXTREMITIES: Bilateral lower extremities currently bandaged . RLE wounds are superficial are clean. LLE lateral has old hematoma that became unroofed with dressing removal. No gross sigh on infection. some min redness. No warmth NEUROLOGIC: Alert, coop SKIN: warm to touch PIV Labs Lab Laboratory Tests Test 02/09/19 05:45 White Blood Count 7.1 x10^3/uL (4.0-11.0) Red Blood Count 4.14 x10^6/uL (4.30-5.70) Hemoglobin 11.8 g/dL (13.0-17.5) Hematocrit 34.7 % (39.0-53.0) Mean Corpuscular Volume 84 fL (79-100) Mean Corpuscular Hemoglobin 28 pg (25-35) Mean Corpuscular Hemoglobin Concent 34 g/dL (31-37) Red Cell Distribution Width 16.3 % (11.5-14.5) Platelet Count 259 x10^3/uL (140-400) Objective Assessment Cellulitis of lower extremities, superimposed on chronic venous stasis.- improving Tinea in foot. Diabetes mellitus 2. Chronic obstructive pulmonary disease. Peripheral vascular disease. Chronic atrial fibrillation. Morbid obesity. Mild confusion. MRSA screen positive Plan Plan of Care Discontinue Zosyn begin Augmentin,cont po Zyvox and micafungin. Probiotics Wound team following for wound care D/w nursing Attending Co-Sign Attending Co-Sign The patient was seen and interviewed as well as examined at the bedside. The chart was reviewed. The case was discussed. Agree with the plan of care. MIK LUBIN APRN Feb 09, 2019 09:51 TERA VIDALES MD Feb 09, 2019 14:49
[2019-02-09 11:00] VITALS: BP 135/75
[2019-02-09] MEDS: ANTI-COAG MONITOR BY PHARMACY. MC PRN (11:48)
[2019-02-09 15:00] VITALS: BP 124/70
[2019-02-09] MEDS: RIVAROXABAN 10 MG TABLET. PO SCH (17:05)
[2019-02-09] MEDS: MICAFUNGIN 100 MG in IV DEXTROSE 5% 100ML 100 ML IV SCH (17:05)
--- NOTE | 2019-02-09 17:07 | NUR ---
Non-administered 1500 dose of humalog sliding scale due to patient not eating dinner.
[2019-02-09 19:00] VITALS: BP 153/91
[2019-02-09] MEDS: GABAPENTIN 300 MG CAPSULE. PO SCH (21:02)
[2019-02-09] MEDS: LORazepam 1 MG TABLET PO SCH (21:02)
[2019-02-09] MEDS: AMOXICILLIN/K CLAV 875/125MG TABLET. PO SCH (21:02)
[2019-02-09] MEDS: FLUTICASONE 50MCG/NASAL SPRAY 16GM BOTTLE. NS SCH (21:02)
[2019-02-09] MEDS: risperiDONE 0.25 MG TABLET. PO SCH (21:02)
[2019-02-09 23:00] VITALS: BP 146/71
[2019-02-10 03:04] VITALS: BP 147/78
[2019-02-10] MEDS: HYDROcodone/APAP 5/325MG 1 TAB TABLET PO PRN ×2 (04:14→20:43)
[2019-02-10 07:00] VITALS: BP 134/86
[2019-02-10] MEDS: IV NORMAL SALINE 1000ML BAG 1,000 ML IV SCH ×2 (07:20→20:43)
[2019-02-10] MEDS: BUDESONIDE 0.5 MG/2 ML NEBU. NEB SCH (08:00)
[2019-02-10] MEDS: INSULIN LISPRO 300 UNITS/3 ML INSULN.PEN. SQ SCH ×3 (08:00→17:03)
[2019-02-10] MEDS: AMOXICILLIN/K CLAV 875/125MG TABLET. PO SCH ×2 (08:42→20:44)
[2019-02-10] MEDS: LOSARTAN POTASSIUM 50 MG TABLET. PO SCH (08:43)
[2019-02-10] MEDS: LACTOBACILLUS RHAMNOSUS GG 1 CAPSULE. PO SCH ×2 (08:43→20:44)
[2019-02-10] MEDS: FOLIC ACID 1 MG TABLET. PO SCH (08:43)
[2019-02-10] MEDS: DIGOXIN 125 MCG TABLET. PO SCH (08:43)
[2019-02-10] MEDS: POTASSIUM CHLORIDE 10 MEQ TABLET.ER. PO SCH ×2 (08:43→20:44)
[2019-02-10] MEDS: METOPROLOL TART IMMED RELEASE 25 MG TABLET. PO SCH ×2 (08:44→20:47)
[2019-02-10] MEDS: LINEZOLID 600 MG TABLET PO SCH ×2 (08:44→20:44)
[2019-02-10] MEDS: ALLOPURINOL 300 MG TABLET. PO SCH (08:44)
[2019-02-10] MEDS: FUROSEMIDE 20 MG TABLET PO SCH (08:44)
--- NOTE | 2019-02-10 09:35 | PDOC ---
PROGRESS NOTES Chief Complaint Chief Complaint Bilateral lower extremity cellulitis Chronic venous status was chronic lymphedema doppler 2018 Monophasic Doppler waveforms throughout both lower extremities raising the possibility of aortoiliac inflow disease. Mild to moderate scattered atherosclerotic plaquing with no duplex evidence of high-grade femoral-popliteal stenosis on either side. Bilateral enlarged pelvic lymph nodes, nonspecific may be reactive or metastatic. by ct 08/26 Morbid obesity BMI 36 Sepsis POA with no organ dysfunction Mild hyponatremia Moderate Protein calorie malnutrition Tinea in foot Diabetes mellitus 2 Chronic obstructive pulmonary disease. Peripheral vascular disease. Chronic atrial fibrillation Mild confusion on admission MRSA screen positive 02/10 low grade temp last pm, plan vascular surgery consult re chronic venous stasis ESR pending lower legs dry and cracked skin, poor chance of complete healing will repeat arterial doppler both legs, he is confused unable to name correct month or year, knows Celia is president po Augmentin,cont po Zyvox and micafungin.iv seen in Wound Clinic and admitted for bilateral LE cellulitis and confusion. He had been trying to leave AMA 38 MIN PT EXAM, CHART REVIEW, > 50% OF TIME SPENT WITH EXAM, CHART REVIEW, PT CARE COORDINATION History of Present Illness History of Present Illness Mr Nielsen is a 73-year-old male, [facility] resident, was seen in [facility] Clinic and admitted for bilateral LE cellulitis and confusion. He had been trying to leave AMA for a few days. He needs to stay because of IV antibiotics for the legs and no guarantee of compliance with meds, confusion Plan: ESR high WBC normalized, MRSA nares positive Discussed with social work and RN HE follows with [facility] wound care Wound care Plan CPM, keep, okay off telemetry Continue Zyvox and Zosyn per ID - will discuss how to continue his antibiotics Follow cultures Back to [facility] on discharge Vitals Vitals Vital Signs Date Time Temp Pulse Resp B/P (MAP) Pulse Ox O2 Delivery O2 Flow Rate FiO2 02/10/19 07:30 92 Room Air 02/10/19 07:00 98.4 91 19 134/86 (102) 98.4 Physical Exam Physical Exam GENERAL: Propped up in bed, alert, NAD HENT: Oral cavity clear LUNGS: Clear bilaterally. HEART: S1, S2. ABDOMEN: Obese, soft, nontender, bowel sounds present. EXTREMITIES: Bilateral lower extremities currently bandaged . RLE wounds are superficial are clean. LLE lateral has old hematoma that became unroofed with dressing removal. No gross sigh on infection. some min redness. No warmth NEUROLOGIC: Alert, coop SKIN: warm to touch PIV General: Alert, Cooperative, No acute distress Heart: Regular rate, Normal S1, Normal S2 Lungs: Clear Abdomen: Normal bowel sounds, Soft Extremities: No clubbing, No cyanosis Skin: Other (bilat lower extremity are red, swollen, slightly warm to touch but no open skin breakage no weeping lesionsPoor overall foot hygieneDressing dry) Labs LABS Indication:MICRO HEMATURIA, NO PRIORS, [id number] 75ML TECHNIQUE: CT abdomen and pelvis without and with IV contrast with multiplanar reformats. 3-D volume rendered postprocessing was performed. COMPARISON: None FINDINGS: Heart is moderately enlarged in size. Diffuse coronary artery calcifications. Small bilateral pleural effusions. Multifocal patchy opacities are seen in the lung bases. Consolidations are seen in the bilateral lower lobes. Liver, spleen, gallbladder, pancreas, adrenals within normal limits. No nephrolithiasis or hydronephrosis. No suspicious renal lesion. Urinary bladder demonstrates trace amount of air in the nondependent portion. No bladder stone. No free pelvic fluid or ascites. Enlarged right inguinal lymph node measuring 2.4 x 1.4 cm enlarged right external iliac chain lymph node measuring 1.7 x 2.0 cm. Enlarged left external iliac chain lymph node measuring 1.7 x 1.2 cm. Shotty retroperitoneal lymph nodes. 1.5 x 1.4 cm partially exophytic lesion is seen in the left kidney demonstrating no significant enhancement on postcontrast images compatible precontrast images. Prostate is mildly enlarged measuring 5.5 x 4.1 cm. Circumferential mild rectal wall thickening seen. Inflammatory changes seen in the presacral fat. No bowel obstruction. Normal appendix. No pneumoperitoneum. No suspicious bony lesion. IMPRESSION: 1. No nephrolithiasis or hydronephrosis. Left renal lesion (1.5 cm) without significant enhancement on postcontrast images most likely a minimally complicated cyst. Nonemergent ultrasound of the kidneys or short-term follow-up CT abdomen in 3-4 months recommended. 2. Trace amount of air in the nondependent portion of the urinary bladder. Correlate with recent catheterization. 3. Mildly enlarged prostate. Correlate with physical exam and PSA. 4. Bilateral enlarged pelvic lymph nodes, nonspecific may be reactive or metastatic. 5. Presacral inflammatory changes, nonspecific and may be secondary to radiation therapy. Correlate with history. 6. Small bilateral pleural effusions with consolidations in the bilateral lower lobes which may be secondary to passive atelectasis or pneumonia. Multifocal patchy opacities in the visualized lung bases which may be secondary to multifocal pneumonia or aspiration. Electronically signed by: Arpan Rubio DO (08/13/2018 1:25 PM) [id number] DICTATED and SIGNED BY: ARPAN RUBIO DO DATE: 08/13/18 1314 HISTORY The patient is a 72 year-old male with a history of : hypertension, dyslipidemia. INDICATION FOR PROCEDURE The indication(s) include : Bilateral claudication, Bilateral lower extremity wounds. . PROCEDURE NARRATIVE After appropriate informed consent, the patient was brought to the labor training manager and placed in the supine position. Preprocedural timeout was completed and confirmed the right patient and procedure. The bilateral groins were prepped and draped in usual sterile fashion. Moderate sedation acheived with Fentanyl and Versed. The patient received 2000 units of Heparin for anticoagulation. Access: Under lidocaine local anesthesia, a 6F introducer sheath was placed in the L radial artery via the seldinger technique with a glidewire. Diagnostic angiography was then performed using a 5Fr Pigtail catheter with digital subtraction angiography. FINDINGS: AO: 154/86 AORTA: No significant disease. RENAL arteries: Single right and left renal arteries were identified without significant disease. RCIA: No significant disease. REIA: No significant disease. RIIA: No significant disease. RCFA: No significant disease. RSFA: No significant disease. RPOP: No significant disease. *Below knee vessels not well visualized. LCIA: No significant disease. MICHELLE: No significant disease. LIIA: No significant disease. LCFA: No significant disease. LSFA: No significant disease. LPOP: No significant disease. *Below knee vessels not well visualized. This case was complex as the patient had been on anticoagulation and due to morbid obesity, a left radial approach was performed. This limited the ability to visualize the distal (below knee vessels) adequately. Grossly, no large vessel occlusive disaese noted. At case completion, the left sided sheath was removed and a radial band was applied. Conclusion 1. No significant lower extremity large vessel disease. 2. Moderate diffuse below knee disease. Recommendations Aggressive Medical Therapy Signed by : Roberto Carlos So, Electronically Approved : 06/10/2018 13:52:15 DICTATED and SIGNED BY: ROBERTO CARLOS SO MD DATE: 06/10/18 1353 IMPRESSION: 1. Monophasic Doppler waveforms throughout both lower extremities raising the possibility of aortoiliac inflow disease. 2. Mild to moderate scattered atherosclerotic plaquing with no duplex evidence of high-grade femoral-popliteal stenosis on either side. 3. Nonvisualization of the peroneal arteries in both lower legs. 4. Moderate degradation of the right dorsalis pedis blood flow compared to the left. Electronically signed by: Mark Mendez MD (04/28/2018 2:51 PM) [facility] Laboratory Tests Test 02/09/19 11:46 02/09/19 16:48 02/09/19 20:25 02/10/19 07:50 Glucose (Fingerstick) 143 mg/dL (70-99) 198 mg/dL (70-99) 225 mg/dL (70-99) 143 mg/dL (70-99) Comment Review of Relevant I have reviewed the following items shahram (where applicable) has been applied. Labs Laboratory Tests Test 02/09/19 05:45 02/09/19 11:46 02/09/19 16:48 02/09/19 20:25 White Blood Count 7.1 x10^3/uL (4.0-11.0) Red Blood Count 4.14 x10^6/uL (4.30-5.70) Hemoglobin 11.8 g/dL (13.0-17.5) Hematocrit 34.7 % (39.0-53.0) Mean Corpuscular Volume 84 fL (79-100) Mean Corpuscular Hemoglobin 28 pg (25-35) Mean Corpuscular Hemoglobin Concent 34 g/dL (31-37) Red Cell Distribution Width 16.3 % (11.5-14.5) Platelet Count 259 x10^3/uL (140-400) Glucose (Fingerstick) 143 mg/dL (70-99) 198 mg/dL (70-99) 225 mg/dL (70-99) Test 02/10/19 07:50 Glucose (Fingerstick) 143 mg/dL (70-99) Laboratory Tests Test 02/09/19 11:46 02/09/19 16:48 02/09/19 20:25 02/10/19 07:50 Glucose (Fingerstick) 143 mg/dL (70-99) 198 mg/dL (70-99) 225 mg/dL (70-99) 143 mg/dL (70-99) Medications Current Medications Piperacillin Sod/ Tazobactam Sod (Zosyn Per Pharmacy) 1 each PRN DAILY PRN MC SEE COMMENTS; Start 02/04/19 at 16:15; Stop 02/09/19 at 14:49; Status DC Linezolid (Zyvox) 600 mg BID PO Last administered on 02/09/19 21:02; Start 02/04/19 at 17:00 Micafungin Sodium 100 mg/Dextrose 100 ml @ 100 mls/hr Q24H IV Last administered on 02/09/19 17:05; Start 02/04/19 at 17:00 Piperacillin Sod/ Tazobactam Sod 3.375 gm/Sodium Chloride 50 ml @ 100 mls/hr Q6HRS IV Last administered on 02/09/19at 12:40; Start 02/04/19 at 16:30; Stop 02/09/19 at 14:48; Status DC Sodium Chloride 1,000 ml @ 75 mls/hr [id number] IV Last administered on 02/09/19 17:06; Start 02/04/19 at 18:00 Allopurinol (Zyloprim) 300 mg DAILY PO Last administered on 02/09/19 09:22; Start 02/05/19 at 09:00 Digoxin (Lanoxin) 125 mcg DAILY PO Last administered on 02/09/19 09:25; Start 02/05/19 at 09:00 Fluticasone Propionate (Flonase) 2 spray HS NS Last administered on 02/09/19 21:02; Start 02/04/19 at 21:00 Folic Acid (Folic Acid) 1 mg DAILY PO Last administered on 02/09/19 09:23; Start 02/05/19 at 09:00 Furosemide (Lasix) 20 mg DAILY PO Last administered on 02/09/19 09:25; Start 02/05/19 at 09:00 Gabapentin (Neurontin) 300 mg HS PO Last administered on 02/09/19 21:02; Start 02/04/19 at 21:00 Acetaminophen/ Hydrocodone Bitart (Lortab 5/325) 1 tab PRN Q4HRS PRN PO MODERATE PAIN Last administered on 02/05/19 10:32; Start 02/04/19 at 18:00; Stop 02/05/19 at 14:03; Status DC Lorazepam (Ativan) 1 mg HS PO Last administered on 02/09/19 21:02; Start 02/04/19 at 21:00 Losartan Potassium (Cozaar) 50 mg DAILY PO Last administered on 02/09/19 09:23; Start 02/05/19 at 09:00 Metoprolol Tartrate (Lopressor) 12.5 mg BID PO Last administered on 02/09/19 21:03; Start 02/04/19 at 21:00 Potassium Chloride (Klor-Con) 10 meq BID PO Last administered on 02/09/19 21:03; Start 02/04/19 at 21:00 Non-Formulary Medication (Albuterol Sulfate (Ventolin Hfa Inhaler)) 2 puff PRN Q4-6HRS IH ; Start 02/04/19 at 18:00; Stop 02/04/19 at 18:05; Status DC Non-Formulary Medication (Albuterol Sulfate (Ventolin Hfa Inhaler)) 2 puff QID INH ; Start 02/04/19 at 21:00; Status UNV Diltiazem HCl (Cardizem 24hr Cd) 120 mg DAILY PO Last administered on 02/09/19 09:23; Start 02/05/19 at 09:00 Non-Formulary Medication (Fluticasone Propionate (Flovent 100MCG Diskus)) 1 puff HS IH ; Start 02/04/19 at 21:00; Status UNV Risperidone (RisperDAL) 0.5 mg QHS PO Last administered on 02/09/19 21:02; Start 02/04/19 at 21:00 Rivaroxaban (Xarelto) 20 mg DAILY16 PO Last administered on 02/09/19 17:05; Start 02/04/19 at 19:00 Albuterol Sulfate (Ventolin Neb Soln) 2.5 mg RTQID NEB ; Start 02/04/19 at 20:00; Stop 02/04/19 at 20:26; Status DC Albuterol Sulfate (Ventolin Neb Soln) 2.5 mg PRN Q6HRS PRN NEB SHORTNESS OF BREATH; Start 02/04/19 at 18:00; Stop 02/05/19 at 08:54; Status DC Budesonide (Pulmicort) 0.5 mg RTBID NEB ; Start 02/04/19 at 20:00; Stop 02/04/19 at 20:26; Status DC Budesonide (Pulmicort) 0.5 mg PRN BID PRN NEB WHEEZING; Start 02/04/19 at 20:30; Stop 02/05/19 at 08:55; Status DC Albuterol Sulfate (Ventolin Neb Soln) 2.5 mg PRN Q4HRS PRN NEB SHORTNESS OF BREATH; Start 02/05/19 at 09:00 Budesonide (Pulmicort) 0.5 mg RTBID NEB Last administered on 02/07/19at 07:26; Start 02/05/19 at 09:00 Ondansetron HCl (Zofran) 4 mg PRN Q6HRS PRN IV NAUSEA/VOMITING; Start 02/05/19 at 09:00 Acetaminophen (Tylenol) 500 mg PRN Q6HRS PRN PO MILD PAIN / TEMP; Start 02/05/19 at 09:00 Morphine Sulfate (Morphine Sulfate) 1 mg PRN Q2HR PRN IV SEVERE PAIN; Start 02/05/19 at 09:00 Acetaminophen/ Hydrocodone Bitart (Lortab 5/325) 1 tab PRN Q4HRS PRN PO MODERATE PAIN Last administered on 02/10/19at 04:14; Start 02/05/19 at 12:45 Nicotine Polacrilex (Nicorette Gum) 1 each PRN Q1HR PRN BC SMOKING CESSATION 2ND CHOICE; Start 02/05/19 at 12:45 Nicotine (Nicoderm Cq 21mg) 1 patch PRN DAILY PRN TD SMOKING CESSATION 1ST CHOICE Last administered on 02/07/19at 13:22; Start 02/05/19 at 12:45 Lactobacillus Rhamnosus (Culturelle) 1 cap BID PO Last administered on 02/09/19at 21:03; Start 02/05/19 at 21:00 Info (Anti-Coagulation Monitoring By Pharmacy) 1 each PRN DAILY PRN MC SEE COMMENTS Last administered on 02/09/19at 11:48; Start 02/06/19 at 12:00 Insulin Human Lispro (HumaLOG) 0-7 UNITS TIDWMEALS SQ ; Start 02/09/19 at 08:00 Dextrose (Dextrose 50%-Water Syringe) 12.5 gm PRN Q15MIN PRN IV SEE COMMENTS; Start 02/09/19 at 08:00 Dextrose 250 ml PRN Q15MIN PRN IV SEE COMMENTS; Start 02/09/19 at 08:00 Dextrose 250 ml STK-MED ONCE IV ; Start 02/08/19 at 21:48; Stop 02/09/19 at 09:01; Status DC Amoxicillin/ Clavulanate Potassium (Augmentin 875/ 125mg) 1 tab BID PO Last administered on 02/09/19at 21:02; Start 02/09/19 at 21:00 Active Scripts Active Lanoxin (Digoxin) 125 Mcg Tablet 125 Mcg PO DAILY 30 Days Reported Losartan Potassium 50 Mg Tablet 50 Mg PO DAILY Diltiazem 24HR Cd (Diltiazem Hcl) 120 Mg Cap.er.24h 1 Cap PO DAILY Furosemide 20 Mg Tablet 1 Tab PO DAILY Hydrocodone-Apap 5-325 (Hydrocodone Bit/Acetaminophen) 1 Tab Tablet 1 Tab PO PRN Q4HRS PRN Xarelto (Rivaroxaban) 20 Mg Tablet 20 Mg PO DAILY Lorazepam 1 Mg Tablet 1 Mg PO HS Gabapentin (Gabapentin) 300 Mg Capsule 1 Cap PO HS Flovent 100MCG Diskus (Fluticasone Propionate) 100 Mcg Disk.w.dev 1 Puff IH HS Potassium Chloride 10 Meq Tab.er.prt 1 Tab PO BID Metoprolol Tartrate 25 Mg Tablet 0.5 Tab PO BID Folic Acid 1 Mg Tablet 1 Tab PO DAILY Allopurinol 300 Mg Tablet 300 Mg PO DAILY Ventolin Hfa Inhaler (Albuterol Sulfate) 18 Gm Hfa.aer.ad 2 Puff INH QID Flonase (Fluticasone Propionate) 16 Gm Rickreall.susp 2 Rickreall NS HS Ventolin Hfa Inhaler (Albuterol Sulfate) 18 Gm Hfa.aer.ad 2 Puff IH PRN Q4-6HRS Risperidone 0.5 Mg Tablet 1 Tab PO QHS Vitals/I & O Vital Sign - Last 24 Hours 8/5/02/09/19 02/09/19 02/09/19 11:00 15:00 19:00 19:20 Temp 99.2 98.6 98.6 99.2 98.6 98.6 Pulse 97 97 86 Resp 22 18 20 B/P (MAP) 135/75 (95) 124/70 (88) 153/91 (111) Pulse Ox 91 91 93 O2 Delivery Room Air Room Air Room Air Room Air 02/09/19 02/09/19 02/10/19 02/10/19 21:03 23:00 03:04 04:14 Temp 100.1 97.4 100.1 97.4 Pulse 86 91 91 Resp 24 20 18 B/P (MAP) 153/91 146/71 (96) 147/78 (101) Pulse Ox 91 96 96 O2 Delivery Room Air Room Air Room Air 02/10/19 02/10/19 07:00 07:30 Temp 98.4 98.4 Pulse 91 Resp 19 B/P (MAP) 134/86 (102) Pulse Ox 91 92 O2 Delivery Room Air Room Air Intake and Output 02/09/19 02/09/19 02/10/19 15:00 23:00 07:00 Intake Total 50 ml 100 ml Balance 50 ml 100 ml NAVARRO BADILLO MD Feb 10, 2019 09:35
--- NOTE | 2019-02-10 10:28 | PDOC ---
Infectious Disease Note Subjective Subjective Feeling alright, but not very hungry this morning Says he is going home Denies pain/N/V No fevers reported he denies s/c ROS ROS per HPI Vital Sign Vital Signs Vital Signs Date Time Temp Pulse Resp B/P (MAP) Pulse Ox O2 Delivery O2 Flow Rate FiO2 02/10/19 07:30 92 Room Air 02/10/19 07:00 98.4 91 19 134/86 (102) 98.4 Physical Exam PHYSICAL EXAM GENERAL: Sleeping, arouses to touch - Alert and coop on my exam. Undergoing LE art dopplers HENT: Oral cavity clear, + dentures LUNGS: Clear bilaterally. HEART: S1, S2. ABDOMEN: Obese, soft, nontender, bowel sounds present. EXTREMITIES: RLE wounds are superficial and clean. LLE lateral has old hematoma that became unroofed with dressing removal. No gross sign on infection. some min redness. No warmth - currently bandaged. NEUROLOGIC: Responds appropriately SKIN: warm to touch PIV Labs Lab Laboratory Tests Test 02/09/19 11:46 02/09/19 16:48 02/09/19 20:25 02/10/19 07:50 Glucose (Fingerstick) 143 mg/dL (70-99) 198 mg/dL (70-99) 225 mg/dL (70-99) 143 mg/dL (70-99) Objective Assessment Cellulitis of lower extremities, superimposed on chronic venous stasis.- improving. Wound on left calf improved today but bled easily with dressing removal Tinea in foot. Diabetes mellitus 2. Chronic obstructive pulmonary disease. Peripheral vascular disease. Chronic atrial fibrillation. Morbid obesity. Mild confusion. MRSA screen positive Plan Plan of Care Augmentin (02/09), po Zyvox (02/04) and micafungin (02/04).- taper soon f/u temp low grade may be sec to covers Previously on Zosyn (02/04) Probiotics Wound team following for wound care D/w nursing Attending Co-Sign Attending Co-Sign The patient was seen and interviewed as well as examined at the bedside. The chart was reviewed. The case was discussed. Agree with the plan of care. MIK LUBIN APRN Feb 10, 2019 10:28 TERA VIDALES MD Feb 10, 2019 14:37
[2019-02-10 11:00] VITALS: BP 147/80
--- NOTE | 2019-02-10 11:07 | NUR ---
JOSE following pt. Per Physician, Vascular sx will need to see pt for PVD legs, poor healing. Will continue to follow.
[2019-02-10 15:00] VITALS: BP 147/72
[2019-02-10] MEDS: ANTI-COAG MONITOR BY PHARMACY. MC PRN (15:21)
--- NOTE | 2019-02-10 15:35 | NUR ---
Wound care: Patient seen per wound care follow up. See wound assessment. Patient is well known to us from the wound clinic and the previous admissions. Dressings removed and wounds cleansed and assessed. Wounds have greatly improved with antibiotics and elevation. There is minimal swelling in BLE and the wounds have decreased in size and drainage. Recommendations to change to Xeroform gauze, ABD pads, and kerlix, now that drainage has subsided. Dressings applied and patient tolerated well. Patient bilateral buttocks is reddened but remains blanchable, calazime applied. Patient repositioned to left side using wedge. Bilateral heels floated. Bed lowered and call light in reach and bed alarm set. Dressing change instructions left in room. Spoke with RN regarding POC. Will follow patient regarding wound care.
--- NOTE | 2019-02-10 16:49 | RAD ---
Bilateral lower extremity arterial duplex ultrasound 02/10/2019 INDICATION: Peripheral vascular disease. COMPARISON STUDY: Lower extremity arterial duplex April 28, 2018 Discussion: Ultrasound evaluation of the major arteries of the bilateral lower chambers was performed including color Doppler imaging spectral analysis. Mild scattered patchy atherosclerotic vascular disease is seen throughout the major arteries of the bilateral lower extremities. Similar significantly blunted monophasic waveforms with decreased velocities are seen in the left posterior tibial artery. This could relate to the proximal posterior tibial artery stenosis. Otherwise, there are grossly unremarkable waveforms and velocities are seen throughout the major arteries of the bilateral lower extremities. IMPRESSION: 1.Mild diffuse atherosclerotic vascular disease 2. Blunting of distal posterior tibial arterial waveforms on the left with associated decreased velocity. Proximal posterior tibial disease is possible. 3. No other high-grade stenosis or occlusion is identified Electronically signed by: Seymour Cota MD (02/10/2019 4:46 PM) [id number]
[2019-02-10] MEDS: RIVAROXABAN 10 MG TABLET. PO SCH (16:59)
[2019-02-10] MEDS: MICAFUNGIN 100 MG in IV DEXTROSE 5% 100ML 100 ML IV SCH (17:02)
--- NOTE | 2019-02-10 18:07 | PDOC ---
Provider Note Provider Note (please see full dictation) He is a 73 yo obese male with chronic history of bilateral lower extremity swelling and skin breakdown. Arterial studies showed reasonable arterial flow to legs. Would continue efforts at local wound care and leg elevation. May also do compression with tubigrip stockings or CLAUDIA wraps to limit swelling. Would not recommend any arterial intervention at this time. TIM HUDDLESTON MD Feb 10, 2019 18:07
[2019-02-10 19:00] VITALS: BP 142/82
[2019-02-10] MEDS ORDERED: BUDESONIDE 0.5 MG/2 ML NEBU. NEB PRN (19:15)
--- NOTE | 2019-02-10 20:14 | PDOC2 ---
CONSULT Date of Consult Date of Consult DATE: 02/10/19 TIME: 20:01 Reason for Consult Reason for Consult: Bilateral lower venous stasis with PAD Referring Physician Referring Physician: Dr. Mcmahan Identification/Chief Complaint Chief Complaint Bilateral lower extremity swelling and ulceration Source Source: Chart review History of Present Illness Reason for Visit: This is a 73 year old male with history of bilateral lower extremity swelling and ulceration. Patient has dementia and is not able to give history and communicate well. The patient has history of chronic venous stasis with lymphedema affecting both lower extremities for which he is under the care of [facility]. He had been noticing some increased redness and drainage recently. He denies fever or chills. He was admitted and local wound care and started on antibiotics. His arterial ultrasound demonstrates adequate arterial flow to promote healing. Past Medical History Cardiovascular: CAD, HTN, Hyperlipidemia, Other Pulmonary: Asthma, COPD, Other CENTRAL NERVOUS SYSTEM: CVA GI: Constipation Heme/Onc: No pertinent hx Hepatobiliary: No pertinent hx Musculoskeletal: low back pain, Osteoarthritis Rheumatologic: Gout Infectious disease: No pertinent hx Renal/: No pertinent hx Endocrine: Diabetes Past Surgical History Past Surgical History: Other Family History Family History: No Significant Social History ALCOHOL: none Drugs: None Lives: with Family Domestic Violence: Neg Current Medications Current Medications Current Medications Piperacillin Sod/ Tazobactam Sod (Zosyn Per Pharmacy) 1 each PRN DAILY PRN MC SEE COMMENTS; Start 02/04/19 at 16:15; Stop 02/09/19 at 14:49; Status DC Linezolid (Zyvox) 600 mg BID PO Last administered on 02/09/19at 21:02; Start 02/04/19 at 17:00 Micafungin Sodium 100 mg/Dextrose 100 ml @ 100 mls/hr Q24H IV Last administered on 02/10/19at 17:03; Start 02/04/19 at 17:00 Piperacillin Sod/ Tazobactam Sod 3.375 gm/Sodium Chloride 50 ml @ 100 mls/hr Q6HRS IV Last administered on 02/09/19at 12:40; Start 02/04/19 at 16:30; Stop 02/09/19 at 14:48; Status DC Sodium Chloride 1,000 ml @ 75 mls/hr [id number] IV Last administered on 02/09/19at 17:06; Start 02/04/19 at 18:00 Allopurinol (Zyloprim) 300 mg DAILY PO Last administered on 02/09/19 09:22; Start 02/05/19 at 09:00 Digoxin (Lanoxin) 125 mcg DAILY PO Last administered on 02/09/19 09:25; Start 02/05/19 at 09:00 Fluticasone Propionate (Flonase) 2 spray HS NS Last administered on 02/09/19 21:02; Start 02/04/19 at 21:00 Folic Acid (Folic Acid) 1 mg DAILY PO Last administered on 02/09/19 09:23; Start 02/05/19 at 09:00 Furosemide (Lasix) 20 mg DAILY PO Last administered on 02/09/19 09:25; Start 02/05/19 at 09:00 Gabapentin (Neurontin) 300 mg HS PO Last administered on 02/09/19 21:02; Start 02/04/19 at 21:00 Acetaminophen/ Hydrocodone Bitart (Lortab 5/325) 1 tab PRN Q4HRS PRN PO MODERATE PAIN Last administered on 02/05/19 10:32; Start 02/04/19 at 18:00; Stop 02/05/19 at 14:03; Status DC Lorazepam (Ativan) 1 mg HS PO Last administered on 02/09/19 21:02; Start 02/04/19 at 21:00 Losartan Potassium (Cozaar) 50 mg DAILY PO Last administered on 02/09/19 09:23; Start 02/05/19 at 09:00 Metoprolol Tartrate (Lopressor) 12.5 mg BID PO Last administered on 02/09/19 21:03; Start 02/04/19 at 21:00 Potassium Chloride (Klor-Con) 10 meq BID PO Last administered on 02/09/19 21:03; Start 02/04/19 at 21:00 Non-Formulary Medication (Albuterol Sulfate (Ventolin Hfa Inhaler)) 2 puff PRN Q4-6HRS IH ; Start 02/04/19 at 18:00; Stop 02/04/19 at 18:05; Status DC Non-Formulary Medication (Albuterol Sulfate (Ventolin Hfa Inhaler)) 2 puff QID INH ; Start 02/04/19 at 21:00; Status UNV Diltiazem HCl (Cardizem 24hr Cd) 120 mg DAILY PO Last administered on 02/09/19at 09:23; Start 02/05/19 at 09:00 Non-Formulary Medication (Fluticasone Propionate (Flovent 100MCG Diskus)) 1 puff HS IH ; Start 02/04/19 at 21:00; Status UNV Risperidone (RisperDAL) 0.5 mg QHS PO Last administered on 02/09/19at 21:02; Start 02/04/19 at 21:00 Rivaroxaban (Xarelto) 20 mg DAILY16 PO Last administered on 02/10/19at 17:03; Start 02/04/19 at 19:00 Albuterol Sulfate (Ventolin Neb Soln) 2.5 mg RTQID NEB ; Start 02/04/19 at 20:00; Stop 02/04/19 at 20:26; Status DC Albuterol Sulfate (Ventolin Neb Soln) 2.5 mg PRN Q6HRS PRN NEB SHORTNESS OF BREATH; Start 02/04/19 at 18:00; Stop 02/05/19 at 08:54; Status DC Budesonide (Pulmicort) 0.5 mg RTBID NEB ; Start 02/04/19 at 20:00; Stop 02/04/19 at 20:26; Status DC Budesonide (Pulmicort) 0.5 mg PRN BID PRN NEB WHEEZING; Start 02/04/19 at 20:30; Stop 02/05/19 at 08:55; Status DC Albuterol Sulfate (Ventolin Neb Soln) 2.5 mg PRN Q4HRS PRN NEB SHORTNESS OF BREATH; Start 02/05/19 at 09:00 Budesonide (Pulmicort) 0.5 mg RTBID NEB Last administered on 02/07/19at 07:26; Start 02/05/19 at 09:00; Stop 02/10/19 at 19:09; Status DC Ondansetron HCl (Zofran) 4 mg PRN Q6HRS PRN IV NAUSEA/VOMITING; Start 02/05/19 at 09:00 Acetaminophen (Tylenol) 500 mg PRN Q6HRS PRN PO MILD PAIN / TEMP; Start 02/05/19 at 09:00 Morphine Sulfate (Morphine Sulfate) 1 mg PRN Q2HR PRN IV SEVERE PAIN; Start 02/05/19 at 09:00 Acetaminophen/ Hydrocodone Bitart (Lortab 5/325) 1 tab PRN Q4HRS PRN PO MODERATE PAIN Last administered on 02/10/19at 04:14; Start 02/05/19 at 12:45 Nicotine Polacrilex (Nicorette Gum) 1 each PRN Q1HR PRN BC SMOKING CESSATION 2ND CHOICE; Start 02/05/19 at 12:45 Nicotine (Nicoderm Cq 21mg) 1 patch PRN DAILY PRN TD SMOKING CESSATION 1ST CHOICE Last administered on 02/07/19at 13:22; Start 02/05/19 at 12:45 Lactobacillus Rhamnosus (Culturelle) 1 cap BID PO Last administered on 02/09/19at 21:03; Start 02/05/19 at 21:00 Info (Anti-Coagulation Monitoring By Pharmacy) 1 each PRN DAILY PRN MC SEE COMMENTS Last administered on 02/10/19at 15:21; Start 02/06/19 at 12:00 Insulin Human Lispro (HumaLOG) 0-7 UNITS TIDWMEALS SQ Last administered on 02/10/19at 17:03; Start 02/09/19 at 08:00 Dextrose (Dextrose 50%-Water Syringe) 12.5 gm PRN Q15MIN PRN IV SEE COMMENTS; Start 02/09/19 at 08:00 Dextrose 250 ml PRN Q15MIN PRN IV SEE COMMENTS; Start 02/09/19 at 08:00 Dextrose 250 ml STK-MED ONCE IV ; Start 02/08/19 at 21:48; Stop 02/09/19 at 09:01; Status DC Amoxicillin/ Clavulanate Potassium (Augmentin 875/ 125mg) 1 tab BID PO Last administered on 02/09/19at 21:02; Start 02/09/19 at 21:00 Budesonide (Pulmicort) 0.5 mg RTBID PRN NEB SHORTNESS OF BREATH; Start 02/10/19 at 19:15 Active Scripts Active Lanoxin (Digoxin) 125 Mcg Tablet 125 Mcg PO DAILY 30 Days Reported Losartan Potassium 50 Mg Tablet 50 Mg PO DAILY Diltiazem 24HR Cd (Diltiazem Hcl) 120 Mg Cap.er.24h 1 Cap PO DAILY Furosemide 20 Mg Tablet 1 Tab PO DAILY Hydrocodone-Apap 5-325 (Hydrocodone Bit/Acetaminophen) 1 Tab Tablet 1 Tab PO PRN Q4HRS PRN Xarelto (Rivaroxaban) 20 Mg Tablet 20 Mg PO DAILY Lorazepam 1 Mg Tablet 1 Mg PO HS Gabapentin (Gabapentin) 300 Mg Capsule 1 Cap PO HS Flovent 100MCG Diskus (Fluticasone Propionate) 100 Mcg Disk.w.dev 1 Puff IH HS Potassium Chloride 10 Meq Tab.er.prt 1 Tab PO BID Metoprolol Tartrate 25 Mg Tablet 0.5 Tab PO BID Folic Acid 1 Mg Tablet 1 Tab PO DAILY Allopurinol 300 Mg Tablet 300 Mg PO DAILY Ventolin Hfa Inhaler (Albuterol Sulfate) 18 Gm Hfa.aer.ad 2 Puff INH QID Flonase (Fluticasone Propionate) 16 Gm [place].susp 2 [place] NS HS Ventolin Hfa Inhaler (Albuterol Sulfate) 18 Gm Hfa.aer.ad 2 Puff IH PRN Q4-6HRS Risperidone 0.5 Mg Tablet 1 Tab PO QHS Allergies Allergies: Coded Allergies: adhesive tape (Verified Allergy, Intermediate, 08/07/18) benzalkonium chloride (Verified Allergy, Intermediate, 08/07/18) I S O L A T I O N *CONTACT* (Verified Allergy, Unknown, 02/09/19) mrsa ROS Review of System GEN: Denies fever or chills. CV: Denies chest pain RESP: No shortness of breath or cough GI: No nausea , vomiting. M/S: As per HPI NEURO: No gross deficits Physical Exam General: Alert, Cooperative Lungs: Normal air movement Heart: Regular rate, Other (normal carotid pulses, 2+ bilateral femoral pulses, unable to appreciate distal pulses due to swelling) Abdomen: Soft, No masses, Other (obese) Skin: Other (Severe bilateral lower extremity swelling with venous stasis skin changes, left posteror calf ulcerations) Vitals VITALS Vital Signs Date Time Temp Pulse Resp B/P (MAP) Pulse Ox O2 Delivery O2 Flow Rate FiO2 02/10/19 15:00 98.5 99 19 147/72 (97) 92 Room Air 98.5 Labs Labs Laboratory Tests Test 02/09/19 05:45 02/09/19 11:46 02/09/19 16:48 02/09/19 20:25 White Blood Count 7.1 x10^3/uL (4.0-11.0) Red Blood Count 4.14 x10^6/uL (4.30-5.70) Hemoglobin 11.8 g/dL (13.0-17.5) Hematocrit 34.7 % (39.0-53.0) Mean Corpuscular Volume 84 fL (79-100) Mean Corpuscular Hemoglobin 28 pg (25-35) Mean Corpuscular Hemoglobin Concent 34 g/dL (31-37) Red Cell Distribution Width 16.3 % (11.5-14.5) Platelet Count 259 x10^3/uL (140-400) Glucose (Fingerstick) 143 mg/dL (70-99) 198 mg/dL (70-99) 225 mg/dL (70-99) Test 02/10/19 07:50 02/10/19 11:04 02/10/19 11:56 02/10/19 16:59 Glucose (Fingerstick) 143 mg/dL (70-99) 159 mg/dL (70-99) 203 mg/dL (70-99) Erythrocyte Sedimentation Rate 116 (0-15) Laboratory Tests Test 02/09/19 20:25 02/10/19 07:50 02/10/19 11:04 02/10/19 11:56 Glucose (Fingerstick) 225 mg/dL (70-99) 143 mg/dL (70-99) 159 mg/dL (70-99) Erythrocyte Sedimentation Rate 116 (0-15) Test 02/10/19 16:59 Glucose (Fingerstick) 203 mg/dL (70-99) Images Images Discussion: Ultrasound evaluation of the major arteries of the bilateral lower chambers was performed including color Doppler imaging spectral analysis. Mild scattered patchy atherosclerotic vascular disease is seen throughout the major arteries of the bilateral lower extremities. Similar significantly blunted monophasic waveforms with decreased velocities are seen in the left posterior tibial artery. This could relate to the proximal posterior tibial artery stenosis. Otherwise, there are grossly unremarkable waveforms and velocities are seen throughout the major arteries of the bilateral lower extremities. IMPRESSION: 1.Mild diffuse atherosclerotic vascular disease 2. Blunting of distal posterior tibial arterial waveforms on the left with associated decreased velocity. Proximal posterior tibial disease is possible. 3. No other high-grade stenosis or occlusion is identified Assessment/Plan Assessment/Plan 73 year old obese male with chronic history of bilateral lower extremity swelling and skin breakdown. Arterial studies showed reasonable arterial flow to legs. Would continue efforts at local wound care and leg elevation. May also do compression with tubigrip stockings or CLAUDIA wraps to limit swelling. Would not recommend any arterial intervention at this time. BENITO GIBBS APRN Feb 10, 2019 20:14
[2019-02-10] MEDS: FLUTICASONE 50MCG/NASAL SPRAY 16GM BOTTLE. NS SCH (20:43)
[2019-02-10] MEDS: GABAPENTIN 300 MG CAPSULE. PO SCH (20:43)
[2019-02-10] MEDS: LORazepam 1 MG TABLET PO SCH (20:44)
[2019-02-10] MEDS: risperiDONE 0.25 MG TABLET. PO SCH (20:44)
[2019-02-10 23:00] VITALS: BP 145/77
[2019-02-11] MEDS: HYDROcodone/APAP 5/325MG 1 TAB TABLET PO PRN ×2 (02:25→21:00)
--- NOTE | 2019-02-11 02:28 | CONS ---
DATE OF CONSULTATION: 02/10/2019 CHIEF COMPLAINT: Leg redness and swelling. HISTORY OF PRESENT ILLNESS: The patient is a 73-year-old male with diabetes, hypertension, hyperlipidemia, chronic obstructive pulmonary disease, history of atrial fibrillation, history of cerebrovascular accident, and chronic lymphedema who was admitted with bilateral lower extremity swelling and redness. He has a long history of venous insufficiency as well as lymphedema. He has been followed in the [facility]. He has had previous arterial evaluation including ultrasound and followup angiogram in 2018. He had a more recent arterial study that showed some blunting of the posterior tibial flow in the left leg, but he had otherwise unremarkable arterial flow. It is difficult to get a good history from the patient due to some generalized confusion. PAST MEDICAL HISTORY: 1. Chronic lymphedema. 2. Diabetes. 3. Coronary artery disease. 4. Hypertension. 5. Hyperlipidemia. 6. Chronic obstructive pulmonary disease. 7. History of cerebrovascular accident. 8. Osteoarthritis. 9. Atrial fibrillation. 10. Glaucoma. 11. Schizophrenia. 12. Hard of hearing. PAST SURGICAL HISTORY: 1. Left ankle open reduction and internal fixation. 2. Left hand open reduction and internal fixation. 3. Umbilical hernia repair. FAMILY HISTORY: Noncontributory. SOCIAL HISTORY: He denies any smoking. He denies any alcohol use. ALLERGIES: No known drug allergies. CURRENT MEDICATIONS: Please see detailed medication administration record. This includes Augmentin, insulin, lactobacillus, nicotine patch, morphine, albuterol, diltiazem, losartan, Lasix, folic acid, digoxin, allopurinol, risperidone, metoprolol, potassium chloride, lorazepam, gabapentin, rivaroxaban, micafungin, and linezolid. REVIEW OF SYSTEMS: He denies any ongoing chest pain or shortness of breath. He denies any nausea, vomiting, diarrhea, constipation, hematochezia, melena, or other GI symptoms. He has had a previous stroke, but he is unable to articulate previous problems. He notes chronic swelling in his leg, but denies any significant pain at this time. Remainder of the review of systems is limited due to his difficulty with answering questions. PHYSICAL EXAMINATION: GENERAL: This is a morbidly obese male, in no acute distress. VITAL SIGNS: Temperature 98.5, pulse 99, blood pressure 142/72, and respirations 19. NECK: Supple, no lymphadenopathy. CARDIOVASCULAR: Irregularly irregular rhythm. ABDOMEN: Obese, soft, nontender, and nondistended. Some swelling around his periumbilical region. No focal areas of tenderness. EXTREMITIES: Palpable radial and femoral pulses bilaterally. He has strong monophasic to biphasic dorsalis pedis arteries bilaterally. He has some skin thickening and scaling of both lower legs and feet. Some mild erythema of both lower extremities. LABORATORY DATA: Significant for white blood cell 7.1, hemoglobin 11.8, and platelet count of 259. Sodium 140, potassium 3.9, BUN 8, creatinine 0.8, and glucose 143. Arterial studies as noted above. IMPRESSION: 1. Chronic lymphedema with long history of intermittent cellulitis and skin breakdown, likely related to the lymphedema. 2. Although he has some peripheral arterial disease, he has reasonable flow to both feet. He should have adequate arterial flow to facilitate healing. 3. Morbid obesity. 4. Diabetes. 5. Coronary artery disease. 6. Hypertension. 7. Atrial fibrillation. RECOMMENDATIONS: 1. Continue local wound care. 2. Elevate legs to limit swelling. 3. Would likely benefit from external compression when not in bed. This compression may be done with compression stockings or Rafa wraps. 4. Would continue follow up as an outpatient at the wound care center. 5. I do not feel that he needs any further arterial testing or intervention at this time. Please call if further vascular concerns arise. TIM HUDDLESTON MD DR: MELISSA/armond JOB#: [id number] / [id number] KENNEDI Ragland ARUNDHATI MD Short, [place] DO
[2019-02-11 03:00] VITALS: BP 131/80
[2019-02-11 07:00] VITALS: BP 154/76
[2019-02-11] MEDS: INSULIN LISPRO 300 UNITS/3 ML INSULN.PEN. SQ SCH ×3 (08:00→19:06)
--- NOTE | 2019-02-11 08:49 | NUR ---
Pt did not eat lunch or dinner 02/10, did not eat breakfast 02/11. Insulin non-admin.
[2019-02-11] MEDS: IV NORMAL SALINE 1000ML BAG 1,000 ML IV SCH ×2 (10:00→23:04)
--- NOTE | 2019-02-11 10:38 | PDOC ---
PROGRESS NOTES Chief Complaint Chief Complaint Bilateral lower extremity cellulitis Chronic venous status was chronic lymphedema doppler 2018 Monophasic Doppler waveforms throughout both lower extremities raising the possibility of aortoiliac inflow disease. Mild to moderate scattered atherosclerotic plaquing with no duplex evidence of high-grade femoral-popliteal stenosis on either side. Bilateral enlarged pelvic lymph nodes, nonspecific may be reactive or metastatic. by ct 08/26 Morbid obesity BMI 36 Sepsis POA with no organ dysfunction Mild hyponatremia Moderate Protein calorie malnutrition Tinea in foot Diabetes mellitus 2 Chronic obstructive pulmonary disease. Peripheral vascular disease. Chronic atrial fibrillation Mild confusion on admission MRSA screen positive 02/10 low grade temp last pm, plan vascular surgery consult re chronic venous stasis ESR pending lower legs dry and cracked skin, poor chance of complete healing will repeat arterial doppler both legs, he is confused unable to name correct month or year, knows Celia is president 02/11 ESR NOW 116 po Augmentin,cont po Zyvox and micafungin.iv seen in [facility] and admitted for bilateral LE cellulitis and confusion. He had been trying to leave AMA 27 MIN PT EXAM, CHART REVIEW, > 50% OF TIME SPENT WITH EXAM, CHART REVIEW, PT CARE COORDINATION History of Present Illness History of Present Illness Mr Nielsen is a 73-year-old male, skilled nursing resident, was seen in Wound Clinic and admitted for bilateral LE cellulitis and confusion. He had been trying to leave AMA for a few days. He needs to stay because of IV antibiotics for the legs and no guarantee of compliance with meds, confusion Plan: ESR high WBC normalized, MRSA nares positive Discussed with social work and RN HE follows with [facility] wound care Wound care Plan CPM, keep, okay off telemetry Continue Zyvox and Zosyn per ID - will discuss how to continue his antibiotics Follow cultures Back to SNU on discharge Vitals Vitals Vital Signs Date Time Temp Pulse Resp B/P (MAP) Pulse Ox O2 Delivery O2 Flow Rate FiO2 02/11/19 07:00 99.6 109 20 154/76 (102) 93 Room Air 99.6 Physical Exam Physical Exam GENERAL: Sleeping, arouses to touch - Alert and coop on my exam. Undergoing LE art dopplers HENT: Oral cavity clear, + dentures LUNGS: Clear bilaterally. HEART: S1, S2. ABDOMEN: Obese, soft, nontender, bowel sounds present. EXTREMITIES: RLE wounds are superficial and clean. LLE lateral has old hematoma that became unroofed with dressing removal. some min redness. No warmth - currently bandaged. VERY DRY CRACKED SKIN NEUROLOGIC: Responds appropriately SKIN: warm to touch PIV General: Alert, Cooperative, No acute distress Heart: Regular rate, Normal S1, Other (normal carotid pulses, 2+ bilateral femoral pulses, unable to appreciate distal pulses due to swelling) Lungs: Clear Abdomen: Normal bowel sounds, Soft, No masses, Other (obese) Extremities: No clubbing, No cyanosis Skin: Other (Severe bilateral lower extremity swelling with venous stasis skin changes, left posteror calf ulcerations) Labs LABS Laboratory Tests Test 02/10/19 11:04 02/10/19 11:56 02/10/19 16:59 02/10/19 21:35 Erythrocyte Sedimentation Rate 116 (0-15) Glucose (Fingerstick) 159 mg/dL (70-99) 203 mg/dL (70-99) 189 mg/dL (70-99) Test 02/11/19 08:09 Glucose (Fingerstick) 170 mg/dL (70-99) Comment Review of Relevant I have reviewed the following items shahram (where applicable) has been applied. Labs Laboratory Tests Test 02/09/19 11:46 02/09/19 16:48 02/09/19 20:25 02/10/19 07:50 Glucose (Fingerstick) 143 mg/dL (70-99) 198 mg/dL (70-99) 225 mg/dL (70-99) 143 mg/dL (70-99) Test 02/10/19 11:04 02/10/19 11:56 02/10/19 16:59 02/10/19 21:35 Erythrocyte Sedimentation Rate 116 (0-15) Glucose (Fingerstick) 159 mg/dL (70-99) 203 mg/dL (70-99) 189 mg/dL (70-99) Test 02/11/19 08:09 Glucose (Fingerstick) 170 mg/dL (70-99) Laboratory Tests Test 02/10/19 11:04 02/10/19 11:56 02/10/19 16:59 02/10/19 21:35 Erythrocyte Sedimentation Rate 116 (0-15) Glucose (Fingerstick) 159 mg/dL (70-99) 203 mg/dL (70-99) 189 mg/dL (70-99) Test 02/11/19 08:09 Glucose (Fingerstick) 170 mg/dL (70-99) Medications Current Medications Piperacillin Sod/ Tazobactam Sod (Zosyn Per Pharmacy) 1 each PRN DAILY PRN MC SEE COMMENTS; Start 02/04/19 at 16:15; Stop 02/09/19 at 14:49; Status DC Linezolid (Zyvox) 600 mg BID PO Last administered on 02/10/19 20:47; Start 02/04/19 at 17:00 Micafungin Sodium 100 mg/Dextrose 100 ml @ 100 mls/hr Q24H IV Last administered on 02/10/19 17:03; Start 02/04/19 at 17:00 Piperacillin Sod/ Tazobactam Sod 3.375 gm/Sodium Chloride 50 ml @ 100 mls/hr Q6HRS IV Last administered on 02/09/19at 12:40; Start 02/04/19 at 16:30; Stop 02/09/19 at 14:48; Status DC Sodium Chloride 1,000 ml @ 75 mls/hr [id number] IV Last administered on 02/10/19 20:47; Start 02/04/19 at 18:00 Allopurinol (Zyloprim) 300 mg DAILY PO Last administered on 02/09/19 09:22; Start 02/05/19 at 09:00 Digoxin (Lanoxin) 125 mcg DAILY PO Last administered on 02/09/19 09:25; Start 02/05/19 at 09:00 Fluticasone Propionate (Flonase) 2 spray HS NS Last administered on 02/10/19 20:47; Start 02/04/19 at 21:00 Folic Acid (Folic Acid) 1 mg DAILY PO Last administered on 02/09/19 09:23; Start 02/05/19 at 09:00 Furosemide (Lasix) 20 mg DAILY PO Last administered on 02/09/19 09:25; Start 02/05/19 at 09:00 Gabapentin (Neurontin) 300 mg HS PO Last administered on 02/10/19 20:47; Start 02/04/19 at 21:00 Acetaminophen/ Hydrocodone Bitart (Lortab 5/325) 1 tab PRN Q4HRS PRN PO MODERATE PAIN Last administered on 02/05/19 10:32; Start 02/04/19 at 18:00; Stop 02/05/19 at 14:03; Status DC Lorazepam (Ativan) 1 mg HS PO Last administered on 02/10/19 20:47; Start 02/04/19 at 21:00 Losartan Potassium (Cozaar) 50 mg DAILY PO Last administered on 02/09/19 09:23; Start 02/05/19 at 09:00 Metoprolol Tartrate (Lopressor) 12.5 mg BID PO Last administered on 02/10/19 20:47; Start 02/04/19 at 21:00 Potassium Chloride (Klor-Con) 10 meq BID PO Last administered on 02/10/19 20:47; Start 02/04/19 at 21:00 Non-Formulary Medication (Albuterol Sulfate (Ventolin Hfa Inhaler)) 2 puff PRN Q4-6HRS IH ; Start 02/04/19 at 18:00; Stop 02/04/19 at 18:05; Status DC Non-Formulary Medication (Albuterol Sulfate (Ventolin Hfa Inhaler)) 2 puff QID INH ; Start 02/04/19 at 21:00; Status UNV Diltiazem HCl (Cardizem 24hr Cd) 120 mg DAILY PO Last administered on 02/09/19 09:23; Start 02/05/19 at 09:00 Non-Formulary Medication (Fluticasone Propionate (Flovent 100MCG Diskus)) 1 puff HS IH ; Start 02/04/19 at 21:00; Status UNV Risperidone (RisperDAL) 0.5 mg QHS PO Last administered on 02/10/19 20:47; Start 02/04/19 at 21:00 Rivaroxaban (Xarelto) 20 mg DAILY16 PO Last administered on 02/10/19 17:03; Start 02/04/19 at 19:00 Albuterol Sulfate (Ventolin Neb Soln) 2.5 mg RTQID NEB ; Start 02/04/19 at 20:00; Stop 02/04/19 at 20:26; Status DC Albuterol Sulfate (Ventolin Neb Soln) 2.5 mg PRN Q6HRS PRN NEB SHORTNESS OF BREATH; Start 02/04/19 at 18:00; Stop 02/05/19 at 08:54; Status DC Budesonide (Pulmicort) 0.5 mg RTBID NEB ; Start 02/04/19 at 20:00; Stop 02/04/19 at 20:26; Status DC Budesonide (Pulmicort) 0.5 mg PRN BID PRN NEB WHEEZING; Start 02/04/19 at 20:30; Stop 02/05/19 at 08:55; Status DC Albuterol Sulfate (Ventolin Neb Soln) 2.5 mg PRN Q4HRS PRN NEB SHORTNESS OF BREATH; Start 02/05/19 at 09:00 Budesonide (Pulmicort) 0.5 mg RTBID NEB Last administered on 02/07/19at 07:26; Start 02/05/19 at 09:00; Stop 02/10/19 at 19:09; Status DC Ondansetron HCl (Zofran) 4 mg PRN Q6HRS PRN IV NAUSEA/VOMITING; Start 02/05/19 at 09:00 Acetaminophen (Tylenol) 500 mg PRN Q6HRS PRN PO MILD PAIN / TEMP; Start 02/05/19 at 09:00 Morphine Sulfate (Morphine Sulfate) 1 mg PRN Q2HR PRN IV SEVERE PAIN; Start 02/05/19 at 09:00 Acetaminophen/ Hydrocodone Bitart (Lortab 5/325) 1 tab PRN Q4HRS PRN PO MODE RATE PAIN Last administered on 02/11/19at 02:25; Start 02/05/19 at 12:45 Nicotine Polacrilex (Nicorette Gum) 1 each PRN Q1HR PRN BC SMOKING CESSATION 2ND CHOICE; Start 02/05/19 at 12:45 Nicotine (Nicoderm Cq 21mg) 1 patch PRN DAILY PRN TD SMOKING CESSATION 1ST CHOICE Last administered on 02/07/19 13:22; Start 02/05/19 at 12:45 Lactobacillus Rhamnosus (Culturelle) 1 cap BID PO Last administered on 02/10/19at 20:47; Start 02/05/19 at 21:00 Info (Anti-Coagulation Monitoring By Pharmacy) 1 each PRN DAILY PRN MC SEE COMMENTS Last administered on 02/10/19at 15:21; Start 02/06/19 at 12:00 Insulin Human Lispro (HumaLOG) 0-7 UNITS TIDWMEALS SQ Last administered on 02/10/19at 17:03; Start 02/09/19 at 08:00 Dextrose (Dextrose 50%-Water Syringe) 12.5 gm PRN Q15MIN PRN IV SEE COMMENTS; Start 02/09/19 at 08:00 Dextrose 250 ml PRN Q15MIN PRN IV SEE COMMENTS; Start 02/09/19 at 08:00 Dextrose 250 ml STK-MED ONCE IV ; Start 02/08/19 at 21:48; Stop 02/09/19 at 09:01; Status DC Amoxicillin/ Clavulanate Potassium (Augmentin 875/ 125mg) 1 tab BID PO Last administered on 02/10/19at 20:47; Start 02/09/19 at 21:00 Budesonide (Pulmicort) 0.5 mg RTBID PRN NEB SHORTNESS OF BREATH; Start 02/10/19 at 19:15 Active Scripts Active Lanoxin (Digoxin) 125 Mcg Tablet 125 Mcg PO DAILY 30 Days Reported Losartan Potassium 50 Mg Tablet 50 Mg PO DAILY Diltiazem 24HR Cd (Diltiazem Hcl) 120 Mg Cap.er.24h 1 Cap PO DAILY Furosemide 20 Mg Tablet 1 Tab PO DAILY Hydrocodone-Apap 5-325 (Hydrocodone Bit/Acetaminophen) 1 Tab Tablet 1 Tab PO PRN Q4HRS PRN Xarelto (Rivaroxaban) 20 Mg Tablet 20 Mg PO DAILY Lorazepam 1 Mg Tablet 1 Mg PO HS Gabapentin (Gabapentin) 300 Mg Capsule 1 Cap PO HS Flovent 100MCG Diskus (Fluticasone Propionate) 100 Mcg Disk.w.dev 1 Puff IH HS Potassium Chloride 10 Meq Tab.er.prt 1 Tab PO BID Metoprolol Tartrate 25 Mg Tablet 0.5 Tab PO BID Folic Acid 1 Mg Tablet 1 Tab PO DAILY Allopurinol 300 Mg Tablet 300 Mg PO DAILY Ventolin Hfa Inhaler (Albuterol Sulfate) 18 Gm Hfa.aer.ad 2 Puff INH QID Flonase (Fluticasone Propionate) 16 Gm [place].susp 2 [place] NS HS Ventolin Hfa Inhaler (Albuterol Sulfate) 18 Gm Hfa.aer.ad 2 Puff IH PRN Q4-6HRS Risperidone 0.5 Mg Tablet 1 Tab PO QHS Vitals/I & O Vital Sign - Last 24 Hours 02/10/19 02/10/19 02/10/19 02/10/19 11:00 15:00 19:00 20:00 Temp 97.6 98.5 99.4 97.6 98.5 99.4 Pulse 90 99 105 Resp B/P (MAP) 147/80 (102) 147/72 (97) 142/82 (102) Pulse Ox 92 92 90 O2 Delivery Room Air Room Air Room Air Room Air 02/10/19 02/10/19 02/10/19 02/10/19 20:47 20:47 21:55 23:00 Temp 98.9 98.9 Pulse 91 2 Resp B/P (MAP) 145/69 145/77 (99) Pulse Ox 92 92 O2 Delivery Room Air Room Air Room Air 02/11/19 02/11/19 02/11/19 02:25 03:00 07:00 Temp 98.9 99.6 98.9 99.6 Pulse 89 109 Resp B/P (MAP) 131/80 (97) 154/76 (102) Pulse Ox 92 93 93 O2 Delivery Room Air Room Air Room Air Intake and Output 02/10/19 02/10/19 02/11/19 15:00 23:00 07:00 Intake Total 360 ml 120 ml Output Total 1000 ml Balance -1000 ml 360 ml 120 ml NAVARRO BADILLO MD Feb 11, 2019 10:38
[2019-02-11 11:00] VITALS: BP 154/79
[2019-02-11] MEDS: LACTOBACILLUS RHAMNOSUS GG 1 CAPSULE. PO SCH ×2 (11:05→21:00)
[2019-02-11] MEDS: LINEZOLID 600 MG TABLET PO SCH ×2 (11:05→21:01)
[2019-02-11] MEDS: AMOXICILLIN/K CLAV 875/125MG TABLET. PO SCH ×2 (11:05→21:00)
[2019-02-11] MEDS: FUROSEMIDE 20 MG TABLET PO SCH (11:05)
[2019-02-11] MEDS: ALLOPURINOL 300 MG TABLET. PO SCH (11:06)
[2019-02-11] MEDS: DIGOXIN 125 MCG TABLET. PO SCH (11:06)
[2019-02-11] MEDS: LOSARTAN POTASSIUM 50 MG TABLET. PO SCH (11:07)
[2019-02-11] MEDS: METOPROLOL TART IMMED RELEASE 25 MG TABLET. PO SCH ×2 (11:07→21:01)
[2019-02-11] MEDS: POTASSIUM CHLORIDE 10 MEQ TABLET.ER. PO SCH ×2 (11:07→21:00)
[2019-02-11] MEDS: FOLIC ACID 1 MG TABLET. PO SCH (11:07)
[2019-02-11 15:00] VITALS: BP 159/66
--- NOTE | 2019-02-11 15:21 | PDOC ---
Infectious Disease Note Subjective Subjective Feeling alright Asking to go home Denies pain/N/V No fevers reported he denies s/c No SOA ROS ROS o/w neg Vital Sign Vital Signs Vital Signs Date Time Temp Pulse Resp B/P (MAP) Pulse Ox O2 Delivery O2 Flow Rate FiO2 02/11/19 11:08 86 147/79 02/11/19 11:00 98.7 20 90 Room Air 98.7 Physical Exam PHYSICAL EXAM GENERAL: NAD Alert and coop on my exam. HENT: Oral cavity clear, + dentures LUNGS: Clear bilaterally. HEART: S1, S2. ABDOMEN: Obese, soft, nontender, bowel sounds present. EXTREMITIES: RLE wounds are superficial and clean. LLE lateral wound is clean. No gross sign of infection. No warmth. Chronic Adrian LE changes NEUROLOGIC: Responds appropriately SKIN: warm to touch PIV Labs Lab Laboratory Tests Test 02/10/19 16:59 02/10/19 21:35 02/11/19 08:09 02/11/19 11:50 Glucose (Fingerstick) 203 mg/dL (70-99) 189 mg/dL (70-99) 170 mg/dL (70-99) 157 mg/dL (70-99) Objective Assessment Cellulitis of lower extremities, superimposed on chronic venous stasis.- improv ing. Wound on left calf improved today but bled easily with dressing removal Tinea in foot. Diabetes mellitus 2. Chronic obstructive pulmonary disease. Peripheral vascular disease. Chronic atrial fibrillation. Morbid obesity. Mild confusion. MRSA screen positive Plan Plan of Care Augmentin (02/09), po Zyvox (02/04) thru 02/13 D/c micafungin (02/04) Wound team following for wound care Ok to transfer ID to sign off D/w nursing D/w TERA Sharp MD Feb 11, 2019 15:21
--- NOTE | 2019-02-11 16:22 | PDOC3 ---
Discharge Summary Date of Admission: Feb 04, 2019 Date of Discharge: Feb 11, 2019 Follow-Up: 3-5 days Admitting Diagnosis comment: DISCHARGE DX Chief Complaint Bilateral lower extremity cellulitis Chronic venous status was chronic lymphedema doppler 2018 Monophasic Doppler waveforms throughout both lower extremities raising the possibility of aortoiliac inflow disease. Mild to moderate scattered atherosclerotic plaquing with no duplex evidence of high-grade femoral-popliteal stenosis on either side. Bilateral enlarged pelvic lymph nodes, nonspecific may be reactive or metastatic. by ct 08/26 Morbid obesity BMI 36 Sepsis POA with no organ dysfunction Mild hyponatremia Moderate Protein calorie malnutrition Tinea in foot Diabetes mellitus 2 Chronic obstructive pulmonary disease. Peripheral vascular disease. Chronic atrial fibrillation Mild confusion on admission MRSA screen positive 02/10 low grade temp last pm, plan vascular surgery consult re chronic venous stasis ESR pending lower legs dry and cracked skin, poor chance of complete healing will repeat arterial doppler both legs, he is confused unable to name correct month or year, knows Celia is president 02/11 ESR NOW 116 ID OK WITH D/C ON ZYVOX, AUGMENTIN po Augmentin,cont po Zyvox and micafungin.iv seen in Wound Clinic and admitted for bilateral LE cellulitis and confusion. He had been trying to leave AMA 27 MIN PT EXAM, CHART REVIEW, > 50% OF TIME SPENT WITH EXAM, CHART REVIEW, PT CARE COORDINATION History of Present Illness History of Present Illness Mr Nielsen is a 73-year-old male, [facility] resident, was seen in [facility] Clinic and admitted for bilateral LE cellulitis and confusion. He had been trying to leave AMA for a few days. He needs to stay because of IV antibiotics for the legs and no guarantee of compliance with meds, confusion Plan: ESR high WBC normalized, MRSA nares positive Discussed with social work and RN HE follows with [facility] wound care Wound care Plan CPM, keep, okay off telemetry Continue Zyvox and Zosyn per ID - will discuss how to continue his antibiotics Follow cultures Back to SNU on discharge Vitals Vitals Vital Signs Date Time Temp Pulse Resp B/P (MAP) Pulse Ox O2 Delivery O2 Flow Rate FiO2 02/11/19 07:00 99.6 109 20 154/76 (102) 93 Room Air 99.6 Physical Exam Physical Exam GENERAL: Sleeping, arouses to touch - Alert and coop on my exam. Undergoing LE art dopplers HENT: Oral cavity clear, + dentures LUNGS: Clear bilaterally. HEART: S1, S2. ABDOMEN: Obese, soft, nontender, bowel sounds present. EXTREMITIES: RLE wounds are superficial and clean. LLE lateral has old hematoma that became unroofed with dressing removal. some min redness. No warmth - currently bandaged. VERY DRY CRACKED SKIN NEUROLOGIC: Responds appropriately SKIN: warm to touch PIV General: Alert, Cooperative, No acute distress Heart: Regular rate, Normal S1, Other (normal carotid pulses, 2+ bilateral femoral pulses, unable to appreciate distal pulses due to swelling) Lungs: Clear Abdomen: Normal bowel sounds, Soft, No masses, Other (obese) Extremities: No clubbing, No cyanosis Skin: Other (Severe bilateral lower extremity swelling with venous stasis skin changes, left posteror calf ulcerations) Brief Hospital Course Mr. Nielsen is a 73 old [sex] who presented with [ ] Discharge Medications Current Medications Piperacillin Sod/ Tazobactam Sod (Zosyn Per Pharmacy) 1 each PRN DAILY PRN MC SEE COMMENTS; Start 02/04/19 at 16:15; Stop 02/09/19 at 14:49; Status DC Linezolid (Zyvox) 600 mg BID PO Last administered on 02/11/19at 11:06; Start 02/04/19 at 17:00 Micafungin Sodium 100 mg/Dextrose 100 ml @ 100 mls/hr Q24H IV Last administered on 02/10/19at 17:03; Start 02/04/19 at 17:00; Stop 02/11/19 at 15:21; Status DC Piperacillin Sod/ Tazobactam Sod 3.375 gm/Sodium Chloride 50 ml @ 100 mls/hr Q6HRS IV Last administered on 02/09/19at 12:40; Start 02/04/19 at 16:30; Stop 02/09/19 at 14:48; Status DC Sodium Chloride 1,000 ml @ 75 mls/hr [id number] IV Last administered on 02/10/19at 20:47; Start 02/04/19 at 18:00 Allopurinol (Zyloprim) 300 mg DAILY PO Last administered on 02/11/19at 11:08; Start 02/05/19 at 09:00 Digoxin (Lanoxin) 125 mcg DAILY PO Last administered on 02/11/19 11:08; Start 02/05/19 at 09:00 Fluticasone Propionate (Flonase) 2 spray HS NS Last administered on 02/10/19 20:47; Start 02/04/19 at 21:00 Folic Acid (Folic Acid) 1 mg DAILY PO Last administered on 02/11/19 11:08; Start 02/05/19 at 09:00 Furosemide (Lasix) 20 mg DAILY PO Last administered on 02/11/19 11:06; Start 02/05/19 at 09:00 Gabapentin (Neurontin) 300 mg HS PO Last administered on 02/10/19 20:47; Start 02/04/19 at 21:00 Acetaminophen/ Hydrocodone Bitart (Lortab 5/325) 1 tab PRN Q4HRS PRN PO MODERATE PAIN Last administered on 02/05/19 10:32; Start 02/04/19 at 18:00; Stop 02/05/19 at 14:03; Status DC Lorazepam (Ativan) 1 mg HS PO Last administered on 02/10/19 20:47; Start 02/04/19 at 21:00 Losartan Potassium (Cozaar) 50 mg DAILY PO Last administered on 02/11/19 11:08; Start 02/05/19 at 09:00 Metoprolol Tartrate (Lopressor) 12.5 mg BID PO Last administered on 02/11/19 11:08; Start 02/04/19 at 21:00 Potassium Chloride (Klor-Con) 10 meq BID PO Last administered on 02/11/19 11:08; Start 02/04/19 at 21:00 Non-Formulary Medication (Albuterol Sulfate (Ventolin Hfa Inhaler)) 2 puff PRN Q4-6HRS IH ; Start 02/04/19 at 18:00; Stop 02/04/19 at 18:05; Status DC Non-Formulary Medication (Albuterol Sulfate (Ventolin Hfa Inhaler)) 2 puff QID INH ; Start 02/04/19 at 21:00; Status UNV Diltiazem HCl (Cardizem 24hr Cd) 120 mg DAILY PO Last administered on 02/11/19 11:06; Start 02/05/19 at 09:00 Non-Formulary Medication (Fluticasone Propionate (Flovent 100MCG Diskus)) 1 puff HS IH ; Start 02/04/19 at 21:00; Status UNV Risperidone (RisperDAL) 0.5 mg QHS PO Last administered on 02/10/19at 20:47; Start 02/04/19 at 21:00 Rivaroxaban (Xarelto) 20 mg DAILY16 PO Last administered on 02/10/19at 17:03; Start 02/04/19 at 19:00 Albuterol Sulfate (Ventolin Neb Soln) 2.5 mg RTQID NEB ; Start 02/04/19 at 20:00; Stop 02/04/19 at 20:26; Status DC Albuterol Sulfate (Ventolin Neb Soln) 2.5 mg PRN Q6HRS PRN NEB SHORTNESS OF BREATH; Start 02/04/19 at 18:00; Stop 02/05/19 at 08:54; Status DC Budesonide (Pulmicort) 0.5 mg RTBID NEB ; Start 02/04/19 at 20:00; Stop 02/04/19 at 20:26; Status DC Budesonide (Pulmicort) 0.5 mg PRN BID PRN NEB WHEEZING; Start 02/04/19 at 20:30; Stop 02/05/19 at 08:55; Status DC Albuterol Sulfate (Ventolin Neb Soln) 2.5 mg PRN Q4HRS PRN NEB SHORTNESS OF BREATH; Start 02/05/19 at 09:00 Budesonide (Pulmicort) 0.5 mg RTBID NEB Last administered on 02/07/19at 07:26; Start 02/05/19 at 09:00; Stop 02/10/19 at 19:09; Status DC Ondansetron HCl (Zofran) 4 mg PRN Q6HRS PRN IV NAUSEA/VOMITING; Start 02/05/19 at 09:00 Acetaminophen (Tylenol) 500 mg PRN Q6HRS PRN PO MILD PAIN / TEMP; Start 02/05/19 at 09:00 Morphine Sulfate (Morphine Sulfate) 1 mg PRN Q2HR PRN IV SEVERE PAIN; Start 02/05/19 at 09:00 Acetaminophen/ Hydrocodone Bitart (Lortab 5/325) 1 tab PRN Q4HRS PRN PO MODERATE PAIN Last administered on 02/11/19 02:25; Start 02/05/19 at 12:45 Nicotine Polacrilex (Nicorette Gum) 1 each PRN Q1HR PRN BC SMOKING CESSATION 2ND CHOICE; Start 02/05/19 at 12:45 Nicotine (Nicoderm Cq 21mg) 1 patch PRN DAILY PRN TD SMOKING CESSATION 1ST CHOICE Last administered on 02/07/19 13:22; Start 02/05/19 at 12:45 Lactobacillus Rhamnosus (Culturelle) 1 cap BID PO Last administered on 02/11/19 11:06; Start 02/05/19 at 21:00 Info (Anti-Coagulation Monitoring By Pharmacy) 1 each PRN DAILY PRN MC SEE COMMENTS Last administered on 02/10/19 15:21; Start 02/06/19 at 12:00 Insulin Human Lispro (HumaLOG) 0-7 UNITS TIDWMEALS SQ Last administered on 02/10/19at 17:03; Start 02/09/19 at 08:00 Dextrose (Dextrose 50%-Water Syringe) 12.5 gm PRN Q15MIN PRN IV SEE COMMENTS; Start 02/09/19 at 08:00 Dextrose 250 ml PRN Q15MIN PRN IV SEE COMMENTS; Start 02/09/19 at 08:00 Dextrose 250 ml STK-MED ONCE IV ; Start 02/08/19 at 21:48; Stop 02/09/19 at 09:01; Status DC Amoxicillin/ Clavulanate Potassium (Augmentin 875/ 125mg) 1 tab BID PO Last administered on 02/11/19at 11:06; Start 02/09/19 at 21:00 Budesonide (Pulmicort) 0.5 mg RTBID PRN NEB SHORTNESS OF BREATH; Start 02/10/19 at 19:15 Active Scripts Active Lanoxin (Digoxin) 125 Mcg Tablet 125 Mcg PO DAILY 30 Days Reported Losartan Potassium 50 Mg Tablet 50 Mg PO DAILY Diltiazem 24HR Cd (Diltiazem Hcl) 120 Mg Cap.er.24h 1 Cap PO DAILY Furosemide 20 Mg Tablet 1 Tab PO DAILY Hydrocodone-Apap 5-325 (Hydrocodone Bit/Acetaminophen) 1 Tab Tablet 1 Tab PO PRN Q4HRS PRN Xarelto (Rivaroxaban) 20 Mg Tablet 20 Mg PO DAILY Lorazepam 1 Mg Tablet 1 Mg PO HS Gabapentin (Gabapentin) 300 Mg Capsule 1 Cap PO HS Flovent 100MCG Diskus (Fluticasone Propionate) 100 Mcg Disk.w.dev 1 Puff IH HS Potassium Chloride 10 Meq Tab.er.prt 1 Tab PO BID Metoprolol Tartrate 25 Mg Tablet 0.5 Tab PO BID Folic Acid 1 Mg Tablet 1 Tab PO DAILY Allopurinol 300 Mg Tablet 300 Mg PO DAILY Ventolin Hfa Inhaler (Albuterol Sulfate) 18 Gm Hfa.aer.ad 2 Puff INH QID Flonase (Fluticasone Propionate) 16 Gm [place].susp 2 [place] NS HS Ventolin Hfa Inhaler (Albuterol Sulfate) 18 Gm Hfa.aer.ad 2 Puff IH PRN Q4-6HRS Risperidone 0.5 Mg Tablet 1 Tab PO QHS Vital Signs Vital Signs Date Time Temp Pulse Resp B/P (MAP) Pulse Ox O2 Delivery O2 Flow Rate FiO2 02/11/19 15:00 98.3 95 19 159/66 (97) 91 Room Air 98.3 Labs Laboratory Tests Test 02/09/19 16:48 02/09/19 20:25 02/10/19 07:50 02/10/19 11:04 Glucose (Fingerstick) 198 mg/dL (70-99) 225 mg/dL (70-99) 143 mg/dL (70-99) Erythrocyte Sedimentation Rate 116 (0-15) Test 02/10/19 11:56 02/10/19 16:59 02/10/19 21:35 02/11/19 08:09 Glucose (Fingerstick) 159 mg/dL (70-99) 203 mg/dL (70-99) 189 mg/dL (70-99) 170 mg/dL (70-99) Test 02/11/19 11:50 Glucose (Fingerstick) 157 mg/dL (70-99) Laboratory Tests Test 02/10/19 16:59 02/10/19 21:35 02/11/19 08:09 02/11/19 11:50 Glucose (Fingerstick) 203 mg/dL (70-99) 189 mg/dL (70-99) 170 mg/dL (70-99) 157 mg/dL (70-99) Allergies Allergies Coded Allergies Type Severity Reaction Last Updated Verified adhesive tape Allergy Intermediate 08/07/18 Yes benzalkonium chloride Allergy Intermediate 08/07/18 Yes I S O L A T I O N *CONTACT* Allergy Unknown 02/09/19 Yes Disposition/Orders: Other (D/C TO SNF BED ) Patient Instructions D/C PLANNING 36 MIN NAVARRO BADILLO MD Feb 11, 2019 16:22
[2019-02-11] MEDS ORDERED: AMOX1TAB11 PO (16:26)
[2019-02-11] MEDS ORDERED: ACET500T68 PO (16:26)
[2019-02-11] MEDS ORDERED: LACT1CAP19 PO (16:26)
[2019-02-11] MEDS ORDERED: BUDE0.5A NEB (16:26)
[2019-02-11] MEDS ORDERED: LINE600T PO (16:26)
--- NOTE | 2019-02-11 16:28 | SNU/HH DC ---
DISCHARGE ORDERS DISCHARGE INFORMATION: CONDITION ON DISCHARGE: Stable CODE STATUS: Code Status: Full ALF: SNF STAY <30 DAYS: Yes HOSPICE: HOSPICE: No HOSPICE EVAL & TREAT: No LTAC: ADMIT TO LTAC: No POST DISCHARGE ORDERS: ACTIVITY ORDERS: Activity as tolerated WEIGHT BEARING STATUS: As tolerated DIET AFTER DISCHARGE: ADA WOUND/INCISION CARE: Change dressing, No wound care needed CHECKS AFTER DISCHARGE: CHECKS AFTER DISCHARGE: Check blood press - daily, Check blood sugar, ac/hs TREATMENT/EQUIPMENT ORDERS: ADAPTIVE EQUIPMENT NEEDED: None, Walker, Wheelchair RESPIRATORY EQUIPMENT NEEDED: Oxygen Physical Therapy For: Evalulation/Treatment Occupational Therapy For: Evaluation/Treatment Speech Language Pathology For: Evaluation/Treatment DISCHARGE MEDICATIONS: Home Meds Active Scripts Lactobacillus Rhamnosus Gg (CULTURELLE) 1 Each Cap.sprink, 1 CAP PO BID for SUPPLEMENT for 30 Days, #60 CAP Prov:NAVARRO BADILLO MD 02/11/19 Budesonide (BUDESONIDE) 0.5 Mg/2 Ml Ampul.neb, 0.5 MG NEB RTBID PRN for RADHA RTNESS OF BREATH for 10 Days, #20 EACH Prov:NAVARRO BADILLO MD 02/11/19 Acetaminophen (ACETAMINOPHEN) 500 Mg Tablet, 500 MG PO PRN Q6HRS PRN for MILD PAIN / TEMP for 30 Days, #60 TAB Prov:NAVARRO BADILLO MD 02/11/19 Linezolid (ZYVOX) 600 Mg Tablet, 600 MG PO BID for INFECTION for 10 Days, #20 TAB Prov:NAVARRO BADILLO MD 02/11/19 Amoxicillin/Potassium Clav (AMOX TR-K CLV 875-125 MG TAB) 1 Each Tablet, 1 TAB PO BID for INFECTION for 7 Days, #14 TAB Prov:NAVARRO BADILLO MD 02/11/19 Digoxin (LANOXIN) 125 Mcg Tablet, 125 MCG PO DAILY for 30 Days, TAB Prov:JOJO LAI MD 08/24/14 Reported Medications Losartan Potassium (LOSARTAN POTASSIUM) 50 Mg Tablet, 50 MG PO DAILY for HYPERTENSION, TAB 02/04/19 Diltiazem Hcl (DILTIAZEM 24HR CD) 120 Mg Cap.er.24h, 1 CAP PO DAILY for HTN, #30 CAP 5 Refills 02/04/19 Furosemide (FUROSEMIDE) 20 Mg Tablet, 1 TAB PO DAILY for CHF, #90 TAB 1 Refill 02/04/19 Hydrocodone Bit/Acetaminophen (HYDROCODONE-APAP 5-325 ) 1 Tab Tablet, 1 TAB PO PRN Q4HRS PRN for PAIN, TAB 0 Refills 02/04/19 Rivaroxaban (XARELTO) 20 Mg Tablet, 20 MG PO DAILY for blood thinner, TAB 06/10/18 Lorazepam (LORAZEPAM) 1 Mg Tablet, 1 MG PO HS, TAB 10/12/14 Gabapentin (GABAPENTIN ) 300 Mg Capsule, 1 CAP PO HS for NEUROPATHY, #90 CAP 5 Refills 10/12/14 Fluticasone Propionate (FLOVENT 100MCG DISKUS) 100 Mcg Disk.w.dev, 1 PUFF IH HS, #1 INHALER 5 Refills 10/12/14 Potassium Chloride (POTASSIUM CHLORIDE) 10 Meq Tab.er.prt, 1 TAB PO BID, #30 TAB 5 Refills 08/18/14 Metoprolol Tartrate (METOPROLOL TARTRATE) 25 Mg Tablet, 0.5 TAB PO BID, #180 TAB 1 Refill 08/18/14 Folic Acid (FOLIC ACID) 1 Mg Tablet, 1 TAB PO DAILY, #90 TAB 1 Refill 08/18/14 Allopurinol (ALLOPURINOL) 300 Mg Tablet, 300 MG PO DAILY, TAB 08/18/14 Albuterol Sulfate (VENTOLIN HFA INHALER) 18 Gm Hfa.aer.ad, 2 PUFF INH QID for FO R ASTHMA, INHALER 0 Refills 08/18/14 Fluticasone Propionate (FLONASE) 16 Gm [place].susp, 2 SPRAY NS HS, #16 GM 08/18/14 Risperidone (RISPERIDONE) 0.5 Mg Tablet, 1 TAB PO QHS, #30 TAB 08/18/14 Discontinued Reported Medications Albuterol Sulfate (VENTOLIN HFA INHALER) 18 Gm Hfa.aer.ad, 2 PUFF IH PRN Q4- 6HRS, #1 INHALER 08/18/14 NAVARRO BADILLO MD Feb 11, 2019 16:28
[2019-02-11 19:00] VITALS: BP 138/81
[2019-02-11] MEDS: RIVAROXABAN 10 MG TABLET. PO SCH (19:04)
[2019-02-11] MEDS: FLUTICASONE 50MCG/NASAL SPRAY 16GM BOTTLE. NS SCH (20:59)
[2019-02-11] MEDS: LORazepam 1 MG TABLET PO SCH (21:00)
[2019-02-11] MEDS: risperiDONE 0.25 MG TABLET. PO SCH (21:00)
[2019-02-11] MEDS: GABAPENTIN 300 MG CAPSULE. PO SCH (21:01)
[2019-02-11 23:00] VITALS: BP 135/85
[2019-02-12] MEDS: HYDROcodone/APAP 5/325MG 1 TAB TABLET PO PRN (01:18)
[2019-02-12 03:36] VITALS: BP 147/79
[2019-02-12 07:00] VITALS: BP 169/81
[2019-02-12] MEDS: INSULIN LISPRO 300 UNITS/3 ML INSULN.PEN. SQ SCH ×2 (08:07→11:53)
[2019-02-12] MEDS: AMOXICILLIN/K CLAV 875/125MG TABLET. PO SCH (08:56)
[2019-02-12] MEDS: LOSARTAN POTASSIUM 50 MG TABLET. PO SCH (08:56)
[2019-02-12] MEDS: ALLOPURINOL 300 MG TABLET. PO SCH (08:56)
[2019-02-12] MEDS: LINEZOLID 600 MG TABLET PO SCH (08:56)
[2019-02-12] MEDS: POTASSIUM CHLORIDE 10 MEQ TABLET.ER. PO SCH (08:56)
[2019-02-12] MEDS: FOLIC ACID 1 MG TABLET. PO SCH (08:57)
[2019-02-12] MEDS: METOPROLOL TART IMMED RELEASE 25 MG TABLET. PO SCH (08:57)
[2019-02-12] MEDS: FUROSEMIDE 20 MG TABLET PO SCH (08:57)
[2019-02-12] MEDS: LACTOBACILLUS RHAMNOSUS GG 1 CAPSULE. PO SCH (08:57)
[2019-02-12] MEDS: DIGOXIN 125 MCG TABLET. PO SCH (08:58)
[2019-02-12 11:00] VITALS: BP 136/83
[2019-02-12] MEDS: ANTI-COAG MONITOR BY PHARMACY. MC PRN (11:22)
--- NOTE | 2019-02-12 11:24 | PDOC ---
PROGRESS NOTES Chief Complaint Chief Complaint Bilateral lower extremity cellulitis Chronic venous status was chronic lymphedema doppler 2018 Monophasic Doppler waveforms throughout both lower extremities raising the possibility of aortoiliac inflow disease. Mild to moderate scattered atherosclerotic plaquing with no duplex evidence of high-grade femoral-popliteal stenosis on either side. Bilateral enlarged pelvic lymph nodes, nonspecific may be reactive or metastatic. by ct 08/26 Morbid obesity BMI 36 Sepsis POA with no organ dysfunction Mild hyponatremia Moderate Protein calorie malnutrition Tinea in foot Diabetes mellitus 2 Chronic obstructive pulmonary disease. Peripheral vascular disease. Chronic atrial fibrillation Mild confusion on admission MRSA screen positive 02/10 low grade temp last pm, plan vascular surgery consult re chronic venous stasis ESR pending lower legs dry and cracked skin, poor chance of complete healing will repeat arterial doppler both legs, he is confused unable to name correct month or year, knows Celia is president 02/11 ESR NOW 116 po Augmentin,cont po Zyvox and micafungin.iv seen in [facility] and admitted for bilateral LE cellulitis and confusion. He had been trying to leave AMA 27 MIN PT EXAM, CHART REVIEW, > 50% OF TIME SPENT WITH EXAM, CHART REVIEW, PT CARE COORDINATION History of Present Illness History of Present Illness Mr Nielsen is a 73-year-old male, [place], was seen in [facility] and admitted for bilateral LE cellulitis and confusion. He had been trying to leave AMA for a few days. He needs to stay because of IV antibiotics for the legs and no guarantee of compliance with meds, confusion Plan: ESR high WBC normalized, MRSA nares positive Discussed with social work and RN HE follows with [facility] wound care Wound care Plan CPM, keep, okay off telemetry Continue Zyvox and Zosyn per ID - will discuss how to continue his antibiotics Follow cultures Back to SNU on discharge Vitals Vitals Vital Signs Date Time Temp Pulse Resp B/P (MAP) Pulse Ox O2 Delivery O2 Flow Rate FiO2 02/12/19 08:58 105 169/81 02/12/19 08:00 Room Air 02/12/19 07:00 98.3 20 88 98.3 Physical Exam Physical Exam GENERAL: Sleeping, arouses to touch - Alert and coop on my exam. Undergoing LE art dopplers HENT: Oral cavity clear, + dentures LUNGS: Clear bilaterally. HEART: S1, S2. ABDOMEN: Obese, soft, nontender, bowel sounds present. EXTREMITIES: RLE wounds are superficial and clean. 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 some min redness. No warmth - currently bandaged. VERY DRY CRACKED SKIN NEUROLOGIC: Responds appropriately SKIN: warm to touch PIV General: Alert, Cooperative, No acute distress Heart: Regular rate, Normal S1, Other (normal carotid pulses, 2+ bilateral femoral pulses, unable to appreciate distal pulses due to swelling) Lungs: Clear Abdomen: Normal bowel sounds, Soft, No masses, Other (obese) Extremities: No clubbing, No cyanosis Skin: Other (Severe bilateral lower extremity swelling with venous stasis skin changes, left posteror calf ulcerations) Labs LABS Laboratory Tests Test 02/11/19 11:50 02/11/19 17:00 02/11/19 20:50 02/12/19 07:38 Glucose (Fingerstick) 157 mg/dL (70-99) 222 mg/dL (70-99) 208 mg/dL (70-99) 167 mg/dL (70-99) Comment Review of Relevant I have reviewed the following items shahram (where applicable) has been applied. Labs Laboratory Tests Test 02/10/19 11:56 02/10/19 16:59 02/10/19 21:35 02/11/19 08:09 Glucose (Fingerstick) 159 mg/dL (70-99) 203 mg/dL (70-99) 189 mg/dL (70-99) 170 mg/dL (70-99) Test 02/11/19 11:50 02/11/19 17:00 02/11/19 20:50 02/12/19 07:38 Glucose (Fingerstick) 157 mg/dL (70-99) 222 mg/dL (70-99) 208 mg/dL (70-99) 167 mg/dL (70-99) Laboratory Tests Test 02/11/19 11:50 02/11/19 17:00 02/11/19 20:50 02/12/19 07:38 Glucose (Fingerstick) 157 mg/dL (70-99) 222 mg/dL (70-99) 208 mg/dL (70-99) 167 mg/dL (70-99) Medications Current Medications Piperacillin Sod/ Tazobactam Sod (Zosyn Per Pharmacy) 1 each PRN DAILY PRN MC SEE COMMENTS; Start 02/04/19 at 16:15; Stop 02/09/19 at 14:49; Status DC Linezolid (Zyvox) 600 mg BID PO Last administered on 02/12/19 08:58; Start 02/04/19 at 17:00 Micafungin Sodium 100 mg/Dextrose 100 ml @ 100 mls/hr Q24H IV Last administered on 02/10/19 17:03; Start 02/04/19 at 17:00; Stop 02/11/19 at 15:21; Status DC Piperacillin Sod/ Tazobactam Sod 3.375 gm/Sodium Chloride 50 ml @ 100 mls/hr Q6HRS IV Last administered on 02/09/19 12:40; Start 02/04/19 at 16:30; Stop 02/09/19 at 14:48; Status DC Sodium Chloride 1,000 ml @ 75 mls/hr [id number] IV Last administered on 02/10/19 20:47; Start 02/04/19 at 18:00 Allopurinol (Zyloprim) 300 mg DAILY PO Last administered on 02/12/19 08:58; Start 02/05/19 at 09:00 Digoxin (Lanoxin) 125 mcg DAILY PO Last administered on 02/12/19 08:58; Start 02/05/19 at 09:00 Fluticasone Propionate (Flonase) 2 spray HS NS Last administered on 02/11/19 21:03; Start 02/04/19 at 21:00 Folic Acid (Folic Acid) 1 mg DAILY PO Last administered on 02/12/19 08:58; Start 02/05/19 at 09:00 Furosemide (Lasix) 20 mg DAILY PO Last administered on 02/12/19 08:58; Start 02/05/19 at 09:00 Gabapentin (Neurontin) 300 mg HS PO Last administered on 02/11/19 21:03; Start 02/04/19 at 21:00 Acetaminophen/ Hydrocodone Bitart (Lortab 5/325) 1 tab PRN Q4HRS PRN PO MODERATE PAIN Last administered on 02/05/19 10:32; Start 02/04/19 at 18:00; Stop 02/05/19 at 14:03; Status DC Lorazepam (Ativan) 1 mg HS PO Last administered on 02/11/19 21:03; Start 02/04/19 at 21:00 Losartan Potassium (Cozaar) 50 mg DAILY PO Last administered on 02/12/19 08:58; Start 02/05/19 at 09:00 Metoprolol Tartrate (Lopressor) 12.5 mg BID PO Last administered on 02/12/19 08:58; Start 02/04/19 at 21:00 Potassium Chloride (Klor-Con) 10 meq BID PO Last administered on 02/12/19 08:58; Start 02/04/19 at 21:00 Non-Formulary Medication (Albuterol Sulfate (Ventolin Hfa Inhaler)) 2 puff PRN Q4-6HRS IH ; Start 02/04/19 at 18:00; Stop 02/04/19 at 18:05; Status DC Non-Formulary Medication (Albuterol Sulfate (Ventolin Hfa Inhaler)) 2 puff QID INH ; Start 02/04/19 at 21:00; Status UNV Diltiazem HCl (Cardizem 24hr Cd) 120 mg DAILY PO Last administered on 02/12/19 08:58; Start 02/05/19 at 09:00 Non-Formulary Medication (Fluticasone Propionate (Flovent 100MCG Diskus)) 1 puff HS IH ; Start 02/04/19 at 21:00; Status UNV Risperidone (RisperDAL) 0.5 mg QHS PO Last administered on 02/11/19 21:03; Start 02/04/19 at 21:00 Rivaroxaban (Xarelto) 20 mg DAILY16 PO Last administered on 02/11/19 19:06; Start 02/04/19 at 19:00 Albuterol Sulfate (Ventolin Neb Soln) 2.5 mg RTQID NEB ; Start 02/04/19 at 20:00; Stop 02/04/19 at 20:26; Status DC Albuterol Sulfate (Ventolin Neb Soln) 2.5 mg PRN Q6HRS PRN NEB SHORTNESS OF BREATH; Start 02/04/19 at 18:00; Stop 02/05/19 at 08:54; Status DC Budesonide (Pulmicort) 0.5 mg RTBID NEB ; Start 02/04/19 at 20:00; Stop 02/04/19 at 20:26; Status DC Budesonide (Pulmicort) 0.5 mg PRN BID PRN NEB WHEEZING; Start 02/04/19 at 20:30; Stop 02/05/19 at 08:55; Status DC Albuterol Sulfate (Ventolin Neb Soln) 2.5 mg PRN Q4HRS PRN NEB SHORTNESS OF BREATH; Start 02/05/19 at 09:00 Budesonide (Pulmicort) 0.5 mg RTBID NEB Last administered on 02/07/19 07:26; Start 02/05/19 at 09:00; Stop 02/10/19 at 19:09; Status DC Ondansetron HCl (Zofran) 4 mg PRN Q6HRS PRN IV NAUSEA/VOMITING; Start 02/05/19 at 09:00 Acetaminophen (Tylenol) 500 mg PRN Q6HRS PRN PO MILD PAIN / TEMP; Start 02/05/19 at 09:00 Morphine Sulfate (Morphine Sulfate) 1 mg PRN Q2HR PRN IV SEVERE PAIN; Start 02/05/19 at 09:00 Acetaminophen/ Hydrocodone Bitart (Lortab 5/325) 1 tab PRN Q4HRS PRN PO MODERATE PAIN Last administered on 02/12/19 01:18; Start 02/05/19 at 12:45 Nicotine Polacrilex (Nicorette Gum) 1 each PRN Q1HR PRN BC SMOKING CESSATION 2ND CHOICE; Start 02/05/19 at 12:45 Nicotine (Nicoderm Cq 21mg) 1 patch PRN DAILY PRN TD SMOKING CESSATION 1ST CHOICE Last administered on 02/07/19 13:22; Start 02/05/19 at 12:45 Lactobacillus Rhamnosus (Culturelle) 1 cap BID PO Last administered on 02/12/19 08:58; Start 02/05/19 at 21:00 Info (Anti-Coagulation Monitoring By Pharmacy) 1 each PRN DAILY PRN MC SEE COMMENTS Last administered on 02/12/19 11:22; Start 02/06/19 at 12:00 Insulin Human Lispro (HumaLOG) 0-7 UNITS TIDWMEALS SQ Last administered on 02/12/19 08:07; Start 02/09/19 at 08:00 Dextrose (Dextrose 50%-Water Syringe) 12.5 gm PRN Q15MIN PRN IV SEE COMMENTS; Start 02/09/19 at 08:00 Dextrose 250 ml PRN Q15MIN PRN IV SEE COMMENTS; Start 02/09/19 at 08:00 Dextrose 250 ml STK-MED ONCE IV ; Start 02/08/19 at 21:48; Stop 02/09/19 at 09:01; Status DC Amoxicillin/ Clavulanate Potassium (Augmentin 875/ 125mg) 1 tab BID PO Last administered on 02/12/19at 08:58; Start 02/09/19 at 21:00 Budesonide (Pulmicort) 0.5 mg RTBID PRN NEB SHORTNESS OF BREATH; Start 02/10/19 at 19:15 Active Scripts Active Culturelle (Lactobacillus Rhamnosus Gg) 1 Each Cap.sprink 1 Cap PO BID 30 Days Budesonide 0.5 Mg/2 Ml Ampul.neb 0.5 Mg NEB RTBID PRN 10 Days Acetaminophen 500 Mg Tablet 500 Mg PO PRN Q6HRS PRN 30 Days Zyvox (Linezolid) 600 Mg Tablet 600 Mg PO BID 10 Days Amox Tr-K Clv 875-125 Mg Tab (Amoxicillin/Potassium Clav) 1 Each Tablet 1 Tab PO BID 7 Days Lanoxin (Digoxin) 125 Mcg Tablet 125 Mcg PO DAILY 30 Days Reported Losartan Potassium 50 Mg Tablet 50 Mg PO DAILY Diltiazem 24HR Cd (Diltiazem Hcl) 120 Mg Cap.er.24h 1 Cap PO DAILY Furosemide 20 Mg Tablet 1 Tab PO DAILY Hydrocodone-Apap 5-325 (Hydrocodone Bit/Acetaminophen) 1 Tab Tablet 1 Tab PO PRN Q4HRS PRN Xarelto (Rivaroxaban) 20 Mg Tablet 20 Mg PO DAILY Lorazepam 1 Mg Tablet 1 Mg PO HS Gabapentin (Gabapentin) 300 Mg Capsule 1 Cap PO HS Flovent 100MCG Diskus (Fluticasone Propionate) 100 Mcg Disk.w.dev 1 Puff IH HS Potassium Chloride 10 Meq Tab.er.prt 1 Tab PO BID Metoprolol Tartrate 25 Mg Tablet 0.5 Tab PO BID Folic Acid 1 Mg Tablet 1 Tab PO DAILY Allopurinol 300 Mg Tablet 300 Mg PO DAILY Ventolin Hfa Inhaler (Albuterol Sulfate) 18 Gm Hfa.aer.ad 2 Puff INH QID Flonase (Fluticasone Propionate) 16 Gm [place].susp 2 [place] NS HS Risperidone 0.5 Mg Tablet 1 Tab PO QHS Vitals/I & O Vital Sign - Last 24 Hours 02/11/19 02/11/19 02/11/19 02/11/19 15:00 19:00 20:00 21:03 Temp 98.3 99.0 98.3 99.0 Pulse 95 97 Resp 19 18 B/P (MAP) 159/66 (97) 138/81 (100) Pulse Ox 91 91 O2 Delivery Room Air Room Air Room Air Room Air 02/11/19 02/11/19 02/11/19 02/12/19 21:03 23:00 23:01 01:18 Temp 98.9 98.9 Pulse 97 98 Resp 18 B/P (MAP) 138/81 135/85 (102) Pulse Ox 90 O2 Delivery Room Air Room Air Room Air 02/12/19 02/12/19 02/12/19 02/12/19 03:05 03:36 07:00 08:00 Temp 98.2 98.3 98.2 98.3 Pulse 111 105 Resp 20 B/P (MAP) 147/79 (101) 169/81 (110) Pulse Ox 90 88 O2 Delivery Room Air Room Air Room Air 02/12/19 02/12/19 02/12/19 02/12/19 08:58 08:58 08:58 08:58 Pulse 105 105 105 105 B/P (MAP) 169/81 169/81 169/81 169/81 Intake and Output 02/11/19 02/11/19 02/12/19 15:00 23:00 07:00 Intake Total 1300 ml 100 ml Balance 1300 ml 100 ml NAVARRO BADILLO MD Feb 12, 2019 11:24
[2019-02-12] MEDS ORDERED: DILT180C2 PO (11:27)
--- NOTE | 2019-02-12 11:27 | SNU/HH DC ---
DISCHARGE ORDERS DISCHARGE INFORMATION: CONDITION ON DISCHARGE: Stable CODE STATUS: Code Status: Full POST DISCHARGE ORDERS: ACTIVITY ORDERS: Activity as tolerated WEIGHT BEARING STATUS: As tolerated DIET AFTER DISCHARGE: ADA WOUND/INCISION CARE: Change dressing, No wound care needed CHECKS AFTER DISCHARGE: CHECKS AFTER DISCHARGE: Check blood press - daily, Check blood sugar, ac/hs TREATMENT/EQUIPMENT ORDERS: ADAPTIVE EQUIPMENT NEEDED: None, Walker, Wheelchair RESPIRATORY EQUIPMENT NEEDED: Oxygen Physical Therapy For: Evalulation/Treatment Occupational Therapy For: Evaluation/Treatment Speech Language Pathology For: Evaluation/Treatment DISCHARGE MEDICATIONS: Home Meds Active Scripts Diltiazem Hcl (CARDIZEM CD) 180 Mg Cap.er.24h, 1 CAP PO DAILY for bp for 30 Days, #30 CAP 1 Refill Prov:NAVARRO BADILLO MD 02/12/19 Lactobacillus Rhamnosus Gg (CULTURELLE) 1 Each Cap.sprink, 1 CAP PO BID for SUPPLEMENT for 30 Days, #60 CAP Prov:NAVARRO BADILLO MD 02/11/19 Budesonide (BUDESONIDE) 0.5 Mg/2 Ml Ampul.neb, 0.5 MG NEB RTBID PRN for SHORTNESS OF BREATH for 10 Days, #20 EACH Prov:NAVARRO BADILLO MD 02/11/19 Acetaminophen (ACETAMINOPHEN) 500 Mg Tablet, 500 MG PO PRN Q6HRS PRN for MILD PAIN / TEMP for 30 Days, #60 TAB Prov:NAVARRO BADILLO MD 02/11/19 Linezolid (ZYVOX) 600 Mg Tablet, 600 MG PO BID for INFECTION for 10 Days, #20 TAB Prov:NAVARRO BADILLO MD 02/11/19 Amoxicillin/Potassium Clav (AMOX TR-K CLV 875-125 MG TAB) 1 Each Tablet, 1 TAB PO BID for INFECTION for 7 Days, #14 TAB Prov:NAVARRO BADILLO MD 02/11/19 Digoxin (LANOXIN) 125 Mcg Tablet, 125 MCG PO DAILY for 30 Days, TAB Prov:JOJO LAI MD 08/24/14 Reported Medications Losartan Potassium (LOSARTAN POTASSIUM) 50 Mg Tablet, 50 MG PO DAILY for HYPERTENSION, TAB 02/04/19 Furosemide (FUROSEMIDE) 20 Mg Tablet, 1 TAB PO DAILY for CHF, #90 TAB 1 Refill 02/04/19 Hydrocodone Bit/Acetaminophen (HYDROCODONE-APAP 5-325 ) 1 Tab Tablet, 1 TAB PO PRN Q4HRS PRN for PAIN, TAB 0 Refills 02/04/19 Rivaroxaban (XARELTO) 20 Mg Tablet, 20 MG PO DAILY for blood thinner, TAB 06/10/18 Lorazepam (LORAZEPAM) 1 Mg Tablet, 1 MG PO HS, TAB 10/12/14 Gabapentin (GABAPENTIN ) 300 Mg Capsule, 1 CAP PO HS for NEUROPATHY, #90 CAP 5 Refills 10/12/14 Fluticasone Propionate (FLOVENT 100MCG DISKUS) 100 Mcg Disk.w.dev, 1 PUFF IH HS, #1 INHALER 5 Refills 10/12/14 Potassium Chloride (POTASSIUM CHLORIDE) 10 Meq Tab.er.prt, 1 TAB PO BID, #30 TAB 5 Refills 08/18/14 Metoprolol Tartrate (METOPROLOL TARTRATE) 25 Mg Tablet, 0.5 TAB PO BID, #180 TAB 1 Refill 08/18/14 Folic Acid (FOLIC ACID) 1 Mg Tablet, 1 TAB PO DAILY, #90 TAB 1 Refill 08/18/14 Allopurinol (ALLOPURINOL) 300 Mg Tablet, 300 MG PO DAILY, TAB 08/18/14 Albuterol Sulfate (VENTOLIN HFA INHALER) 18 Gm Hfa.aer.ad, 2 PUFF INH QID for FOR ASTHMA, INHALER 0 Refills 08/18/14 Fluticasone Propionate (FLONASE) 16 Gm [place].susp, 2 SPRAY NS HS, #16 GM 08/18/14 Risperidone (RISPERIDONE) 0.5 Mg Tablet, 1 TAB PO QHS, #30 TAB 08/18/14 Discontinued Reported Medications Albuterol Sulfate (VENTOLIN HFA INHALER) 18 Gm Hfa.aer.ad, 2 PUFF IH PRN Q4- 6HRS, #1 INHALER 08/18/14 NAVARRO BADILLO MD Feb 12, 2019 11:27
[2019-02-12] MEDS: IV NORMAL SALINE 1000ML BAG 1,000 ML IV SCH (11:50)
--- NOTE | 2019-02-12 12:06 | NUR ---
SW following pt. Orders faxed to [facility] and Pt will transport via facility arranged stretcher transport at 1500. JOSE left a voice mail to pt's family Jenny and Vy horton regarding dc plan. Discussed with RN and Packet on chart.
--- NOTE | 2019-02-12 14:30 | NUR ---
Report called to Yajaira JOHNSON at [facility]. See nursing communication and orders. Patient verb. understanding POC. LLE wounds measured and pictured.
--- NOTE | 2019-02-12 15:30 | NUR ---
Patient discharge to [facility] with copied chart, medication reconciliation and physician orders per wheelchair van in his wheelchair with all belongings. Report called earlier, see nursing communication, notes and orders.
== END 2019-02-12 15:32 | DRG 871 ==
LOC: 5 NORTH 14:05
PROVIDERS: ADMIT Internal Medicine; ATTEND Internal Medicine
DX: A41.9 Sepsis, unspecified organism (principal); G93.41 Metabolic encephalopathy; E44.0 Moderate protein-calorie malnutrition; L03.116 Cellulitis of left lower limb; L03.115 Cellulitis of right lower limb; E87.1 Hypo-osmolality and hyponatremia; I50.9 Heart failure, unspecified; I11.0 Hypertensive heart disease with heart failure; E78.5 Hyperlipidemia, unspecified; E11.51 Type 2 diabetes mellitus with diabetic peripheral angiopathy without gangrene; E11.40 Type 2 diabetes mellitus with diabetic neuropathy, unspecified; M10.9 Gout, unspecified; J30.9 Allergic rhinitis, unspecified; F41.8 Other specified anxiety disorders; B35.9 Dermatophytosis, unspecified; J44.9 Chronic obstructive pulmonary disease, unspecified; I48.2 Chronic atrial fibrillation; E66.01 Morbid (severe) obesity due to excess calories; I25.10 Atherosclerotic heart disease of native coronary artery without angina pectoris; I70.209 Unspecified atherosclerosis of native arteries of extremities, unspecified extremity; I89.0 Lymphedema, not elsewhere classified; F03.90 Unspecified dementia, unspecified severity, without behavioral disturbance, psychotic disturbance, mood disturbance, and anxiety; F20.9 Schizophrenia, unspecified; H40.9 Unspecified glaucoma; H91.90 Unspecified hearing loss, unspecified ear; I87.8 Other specified disorders of veins; N40.0 Benign prostatic hyperplasia without lower urinary tract symptoms; M19.90 Unspecified osteoarthritis, unspecified site; Z79.01 Long term (current) use of anticoagulants; Z82.49 Family history of ischemic heart disease and other diseases of the circulatory system; Z68.36 Body mass index [BMI] 36.0-36.9, adult; Z86.73 Personal history of transient ischemic attack (TIA), and cerebral infarction without residual deficits; Z87.891 Personal history of nicotine dependence; Z68.37 Body mass index [BMI] 37.0-37.9, adult; Z88.8 Allergy status to other drugs, medicaments and biological substances; Z91.041 Radiographic dye allergy status
CPT/HCPCS: 36415; 80048; 80053; 81001; 82962; 85025; 85027; 85651; 87641; 93923; 94640; 94760; J1815; J2248; J2543; J7030; J7626; 97530; G0378